=== PATIENT | male | born 1975 | race Caucasian/White ===

== ENCOUNTER 2019-01-21 01:22 | Emergency (ER) | payer OTHER ==
--- NOTE | 2019-01-21 07:09 | CT ---
ABDOMEN AND PELVIS CT NONCONTRAST: Date: 01/21/19 INDICATION: Left lower quadrant pain. No prior comparison. FINDINGS: The imaged lung bases are grossly clear. There is evidence of prior cholecystectomy. Focal hypodensit y of the lateral upper to mid right kidney is present, likely a cyst, although incompletely evaluated by noncontrast imaging. There is a region of hematoma and edema of the left proximal thigh, partiall y visualized about the anterior aspect of the left femoral vasculature. No acute osseous abnormalitie s. Evaluation otherwise limited on the basis of noncontrast technique. IMPRESSION: 1. Partially imaged hematoma with associated edema seen at the proximal left thigh. Correlate with p hysical exam. 2. Probable right renal cyst, although incompletely evaluated. This may be confirmed with renal ultr asound. 3. Evaluation otherwise limited on the basis of noncontrast technique. POS: DELROY
== END 2019-01-21 03:00 | disposition home or self-care (01) ==
LOC: ERS 01:22
DX: R10.32 Left lower quadrant pain (principal); E11.9 Type 2 diabetes mellitus without complications; I10 Essential (primary) hypertension; I25.2 Old myocardial infarction
CPT/HCPCS: 74176

== ENCOUNTER 2019-01-29 17:26 | Emergency (ER) | payer OTHER ==
[2019-01-29] MEDS ORDERED: Promethazine HCl 25 MG/ML VIAL ONE (18:19)
[2019-01-29 19:02] LABS: #Basophils 0.1 thou/uL (0.0-0.2); #Eosinphils 0.3 thou/uL (0.0-0.7); #Lymphocytes 1.3 thou/uL (1.20-3.40); #Monocytes 0.4 thou/uL (0.11-0.59); #Neutrophils 5.2 thou/uL (1.40-6.50); %Lymphocytes 17.5 % (21.0-51.0); %Monocytes 5.5 % (0.0-10.0); Hemoglobin 13.6 g/dL (14.0-18.0); Mean Corpuscular HGB CONC 32.6 g/dL (32.0-36.0); Mean Corpuscular Hemoglobin 27.4 pg (27.0-31.0); Platelet Count 260 thou/uL (130-400); RBC Distribution Width 13.7 % (11.5-14.5); Red Blood Cell (RBC) Count 4.95 mill/uL (4.70-6.10); White Blood Cell (WBC) Count 7.2 thou/uL (4.8-10.8)
[2019-01-29 19:03] LABS: Base Excess-Venous 0.5 mmol/L (-2.0 to 3.0); CO2 Tension (PvCO2) 44.4 mmHg (40.0-50.0); Calcium, Ionized 1.12 mmol/L (See Comments:); Chloride 103 mmol/L (98-107); Hemoglobin - Calc 14.3 g/dL (14.0-18.0); O2 Tension (PvO2) 54.9 mmHg (35.0-45.0); Potassium 3.8 mmol/L (3.5-5.1); Sodium 137 mmol/L (138-145); T. Carbon Dioxide 27.4 mmol/L (22.0-28.0); pH (Venous) 7.377 (7.320-7.430); vO2 Saturation-calc 87.2 % (60.0-85.0)
[2019-01-29 19:16] LABS: ALT (SGPT) 28 U/L (8-55); AST (SGOT) 22 U/L (5-34); Alkaline Phosphatase 82 U/L (40-150); Anion Gap 15 mmol/L (10-20); BUN (Urea Nitrogen) 13 mg/dL (8.9-20.6); Bilirubin, Total 0.7 mg/dL (0.2-1.2); Calc. Creatinine Clearance 0 mL/min (70-130); Calcium 9.3 mg/dL (7.8-10.44); Carbon Dioxide 21 mmol/L (22-29); Chloride 104 mmol/L (98-107); Estimated GFR-MDRD Greater than 90; Globulin 2.8 g/dL (2.4-3.5); Glucose 250 mg/dL (70-105); Lipase 10 U/L (8-78); Potassium 4.1 mmol/L (3.5-5.1); Protein, Total 6.8 g/dL (6.0-8.3); Sodium 136 mmol/L (136-145)
[2019-01-29 20:24] LABS: Bilirubin Negative (Negative); Blood, Urine Negative (Negative); Clarity Clear (Clear); Glucose, Urine (Dipstick) Negative (Negative); Leukocyte Negative (Negative); Nitrite Negative (Negative); Protein, Urine (Dipstick) Negative (Neg-Trace); Urobilinogen 0.2 mg/dL (0.2-1.0); pH, Urine 6.5 (5.0-9.0)
--- NOTE | 2019-01-29 21:34 | RAD ---
FRadiograph chest one view Radiograph abdomen 2 views: 01/29/2019 at 9:21 PM HISTORY: 43-year-old male with abdominal pain, nausea, and vomiting. FINDINGS: No consolidation or pulmonary edema. Sternotomy wires. No pneumothorax or pneumoperitoneum. No eviden ce of small bowel dilation. No differential air-fluid levels. Clips in right upper quadrant. IMPRESSION: 1. Normal bowel gas pattern. 2. Status post cholecystectomy and status post open heart surgery. 3. No acute cardiopulmonary findings.
== END 2019-01-29 22:41 | disposition home or self-care (01) ==
LOC: SCSER 17:26
DX: R11.2 Nausea with vomiting, unspecified (principal); R19.7 Diarrhea, unspecified; E10.9 Type 1 diabetes mellitus without complications; I10 Essential (primary) hypertension; I25.2 Old myocardial infarction; Z79.899 Other long term (current) drug therapy; Z79.82 Long term (current) use of aspirin; Z79.01 Long term (current) use of anticoagulants
CPT/HCPCS: 74022; 80053; 81003; 82010; 82330; 82803; 83605; 83690; 84484; 85014; 85025; 93005; 96361; 96372; 96374; J2270; J2550

== ENCOUNTER 2019-08-09 00:47 | Inpatient (IN) | payer SELFPAY ==
[2019-08-09] MEDS ORDERED: diphenhydrAMINE 50 MG/ML VIAL ONE (02:25)
[2019-08-09] MEDS ORDERED: Famotidine/PF 20 mg/2ml Vial ONE (02:25)
[2019-08-09] MEDS ORDERED: methylPREDNISolone Sod Succ/PF 125 MG/2 ML VIAL ONE (02:25)
[2019-08-09] MEDS ORDERED: Fentanyl 100 MCG/2 ML VIAL ONE (03:32)
[2019-08-09 06:02] LABS: Troponin I Less than 0.010 ng/mL (< 0.028)
[2019-08-09 06:29] VITALS: BMI 30.7
[2019-08-09] MEDS ORDERED: Dextrose 50% Abboject 50 ML SYRINGE SLOW IVP PRN (08:16)
[2019-08-09] MEDS ORDERED: HumaLOG 300 UNITS/3 ML VIAL SC PRN (08:16)
[2019-08-09] MEDS ORDERED: Dextrose 5% in Water 1,000 ML IV PRN (08:16)
[2019-08-09] MEDS ORDERED: Acetaminophen 325 MG TAB PO PRN (08:16)
[2019-08-09 08:57] LABS: #Basophils 0.1 thou/uL (0.0-0.2); #Lymphocytes 0.8 thou/uL (1.20-3.40); #Monocytes 0.1 thou/uL (0.11-0.59); #Neutrophils 6.1 thou/uL (1.40-6.50); %Basophils 0.9 % (0.0-1.0); %Eosinophils 0.2 % (0.0-10.0); %Lymphocytes 11.8 % (21.0-51.0); %Monocytes 0.6 % (0.0-10.0); %Neutrophils 86.5 % (42.0-75.0); Hemoglobin 14.3 g/dL (14.0-18.0); Mean Corpuscular HGB CONC 34.6 g/dL (32.0-36.0); Mean Corpuscular Hemoglobin 29.2 pg (27.0-31.0); Mean Corpuscular Volume 84.4 fL (78.0-98.0); Mean Platelet Volume 8.5 fL (7.4-10.4); Platelet Count 208 thou/uL (130-400); RBC Distribution Width 12.6 % (11.5-14.5); Red Blood Cell (RBC) Count 4.91 mill/uL (4.70-6.10)
[2019-08-09] MEDS ORDERED: Apixaban 5 MG TAB PO SCH (09:00)
[2019-08-09] MEDS ORDERED: Amiodarone 200 MG TAB PO SCH ×2 (09:00→11:45)
[2019-08-09] MEDS ORDERED: Aspirin 325 MG TAB PO SCH ×2 (09:00→11:45)
[2019-08-09] MEDS: Morphine 4 MG/ML VIAL SLOW IVP PRN ×2 (09:03→13:10)
--- NOTE | 2019-08-09 09:08 | CT ---
PRELIMINARY REPORT/[facility]/EMERGENCY AFTER HOURS PROCEDURE: PROCEDURE INFORMATION: Exam: CT Angiography Chest With Contrast Exam date and time: 08/09/2019 3:01 AM Clinical history: 44 years old, male; Abdominal pain; Generalized; Patient HX: M44 tfr to ED for ches t pain. PT reports mid chest pain that radiates into back and now abdomen. PT reports pain began yest erday, intermittent, then became worse and constant. Hx- multiple blood clots in lungs, 4-5 months ago, likely due to multiple surgeries; [place] May last year; 6 stents in heart, last about a y ear ago. TECHNIQUE: Imaging protocol: Computed tomographic angiography of the chest with intravenous contrast. 3D rendering: MIP reconstructed images were created and reviewed. COMPARISON: No relevant prior studies available. FINDINGS: Pulmonary arteries: Normal. No pulmonary emboli. Aorta: Unremarkable. No aortic aneurysm. No aortic dissection. Lungs: Unremarkable. No consolidation. No masses. Pleural space: Unremarkable. No pneumothorax. No pleural effusion. Heart: Coronary artery stents Lymph nodes: Unremarkable. No enlarged lymph nodes. Bones/joints: Midline median sternotomy wires are present. Soft tissues: The soft tissues of the axilla, neck and chest wall are unremarkable. IMPRESSION: No evidence of pulmonary embolus. No evidence of acute pulmonary pathology. PROCEDURE INFORMATION: Exam: CT Angiography Abdomen With Contrast Exam date and time: 08/09/2019 3:01 AM Clinical history: 44 years old, male; Abdominal pain; Generalized; Patient HX: M44 tfr to ED for ches t pain. PT reports mid chest pain that radiates into back and now abdomen. PT reports pain began yest erday, intermittent, then became worse and constant. Hx- multiple blood clots in lungs, 4-5 months ago, likely due to multiple surgeries; Bipass May last year; 6 stents in heart, last about a y ear ago. TECHNIQUE: Imaging protocol: Computed tomographic angiography images of the abdomen with intravenous contrast ma terial. 3D rendering: MIP reconstructed images were created and reviewed. COMPARISON: No relevant prior studies available. FINDINGS: VASCULATURE: Aorta: No aortic aneurysm. No aortic dissection. Celiac trunk and mesenteric arteries: No occlusion or significant stenosis. Renal arteries: No occlusion or significant stenosis. ABDOMEN: Liver: Normal. No mass. Gallbladder and bile ducts: Normal. No calcified stones. No ductal dilation. Pancreas: Normal. No ductal dilation. Spleen: Normal. No splenomegaly. Adrenals: Normal. No mass. Kidneys and ureters: Simple right renal cyst Stomach and bowel: Unremarkable. No obstruction. No mucosal thickening. Intraperitoneal space: Unremarkable. No free air. No significant fluid collection. Bones/joints: Unremarkable. No acute fracture. No dislocation. Soft tissues: Unremarkable. Lymph nodes: Unremarkable. No enlarged lymph nodes. IMPRESSION: Unremarkable CT scan of the abdomen. Thank you for allowing us to participate in the care of your patient. Dictated and Authenticated by: Hari Olivera MD 08/09/2019 3:28 AM Central Time ([place] & [place]) FINAL REPORT CT CHEST WITH IV CONTRAST AND 3D POSTPROCESSING CTA ABDOMEN WITH IV CONTRAST AND 3D POSTPROCESSING: I agree with the preliminary report given by Dr. Hari Olivera of [facility]. No evidence of aortic dissect ion or aneurysm is seen. POS: TPC
[2019-08-09 09:18] LABS: Anion Gap 20 mmol/L (10-20); BUN (Urea Nitrogen) 15 mg/dL (8.9-20.6); Calc. Creatinine Clearance 126 mL/min (70-130); Carbon Dioxide 17 mmol/L (22-29); Chloride 104 mmol/L (98-107); Estimated GFR-MDRD 75; Glucose 499 mg/dL (70-105); Potassium 4.4 mmol/L (3.5-5.1); Sodium 137 mmol/L (136-145)
[2019-08-09 09:21] LABS: Troponin I Less than 0.010 ng/mL (< 0.028)
[2019-08-09] MEDS ORDERED: Nitroglycerin 0.4 MG TAB (25 Tab Bottle) ONE (09:27)
[2019-08-09] MEDS ORDERED: Metoprolol Tartrate 5 MG/5 ML VIAL ONE (09:47)
[2019-08-09] MEDS ORDERED: Nitroglycerin 50 MG/250 ML BOT 250 ML ONE (09:55)
[2019-08-09] MEDS: Metoprolol Tartrate 5 MG/5 ML VIAL IVP SCH (10:31)
[2019-08-09] MEDS ORDERED: Iopamidol 370 76% 100 ML VIAL ONE (10:47)
[2019-08-09] MEDS: Morphine 2 MG/ML SYRINGE SLOW IVP PRN ×5 (11:00→23:40)
--- NOTE | 2019-08-09 11:37 | HP ---
PRIMARY CARE PHYSICIAN: None. CHIEF COMPLAINT: Chest pain. HISTORY OF PRESENT ILLNESS: Mr. Olea is a 44-year-old man with past medical history of hypertension, coronary artery disease status post CABG x4 vessels and cardiac stents x6, diabetes mellitus type 1, previous pulmonary emboli and DVTs, and TIA x3, who had been transferred to this hospital from an outside [facility] late last night due to chest pain and hyperglycemia. The patient reports blood sugars over the last 2 days being greater than 700. He also reports chest pain, shortness of breath, nausea, and dizziness, as well as palpitations. He was given nitroglycerin and fentanyl in the ED, which had seemed to help with his symptoms. He also reports a history of atrial fibrillation, which he was found to be in sinus tachycardia on the monitor. The patient recently moved here from [place], however, was not able to tell me his previous surface boss name. Currently, the patient denied fever, chills, blurred vision, or change in stool. So far, his cardiac enzymes have been negative x3, and his blood sugars have been trending down in the 400s. REVIEW OF SYSTEMS: All other systems reviewed and found to be negative unless mentioned in HPI. PAST MEDICAL HISTORY: Hypertension, coronary artery disease, TIA x3, previous PE and DVTs, diabetes mellitus type 1, [place] x4. PAST SURGICAL HISTORY: Back fusion, coronary artery bypass graft surgery x4 vessels, cardiac stents x6, appendectomy, cholecystectomy, bladder expansion. PSYCHIATRIC HISTORY: None. SOCIAL HISTORY: The patient denies alcohol, tobacco, or illicit drug use. KNOWN ALLERGIES: Zosyn, Zofran, Toradol, Reglan, and Bentyl. CURRENT HOME MEDICATIONS: 1. Aspirin 81 mg daily. 2. Plavix 75 mg oral daily. 3. Eliquis 5 mg oral twice daily. 4. Ambien 10 mg oral at bedtime. 5. Gabapentin 600 mg 3 times daily. 6. Lantus 105 units daily? 7. NovoLog insulin sliding scale 15 units t.i.d. PHYSICAL EXAMINATION: VITAL SIGNS: Blood pressure 118/75, pulse 115, respirations 18, temperature 98.1, O2 saturation 92% on room air. GENERAL: The patient is awake, alert, and oriented x3. He is currently lying in bed and in [id number] distress due to chest pain. HEENT: Atraumatic and normocephalic. Pupils are round and reactive to light. Extraocular muscles intact. Moist mucous membranes noted. NECK: Soft and supple. Trachea midline. CARDIOVASCULAR: Positive S1 and S2. No murmur auscultated. RESPIRATORY: Clear to auscultation bilaterally. No wheezes, rales, or rhonchi. ABDOMEN: Soft, nontender. Bowel sounds present. EXTREMITIES: Moves all extremities equal. Pedal and radial pulses 2+ bilaterally. No edema noted. NEUROLOGIC: Cranial nerves 2 through 12 grossly intact. No focal deficits noted. Speech intact and normal. Gait not assessed. SKIN: Warm, dry, and intact. No rash. No ulceration noted. PSYCHIATRIC: Good mood and affect. LABORATORY DATA: WBC 7.0, RBC 4.91, hemoglobin 14.3, hematocrit 41.4, platelets 208. Sodium 137, potassium 4.4, anion gap 20, BUN 15, creatinine 1.08, estimated GFR 75, glucose 499. Magnesium 2.0. Troponin less than 0.010 x3. TSH 0.6571. DIAGNOSTIC IMAGING: Portable chest x-ray showed no focal consolidation. CTA of the chest showed no signs of PE and no evidence of acute pulmonary pathology with no signs of aneurysm or aortic dissection noted. ASSESSMENT AND PLAN: 1. Unstable angina due to patient's cardiac history. A consult will be placed for Dr. Dobbins, Cardiology. We will also try to obtain records from his previous hospital system in [place] as the patient is unable to tell me the surface boss's name. 2. History of hypertension. We will try to obtain the patient's medication list records and monitor blood pressure and other vital signs closely. 3. Diabetes mellitus, type 1. This looks to be uncontrolled diabetes. We will add as above, and try to confirm patient's home medications and dosages. In the meantime, we will continue with an insulin sliding scale with frequent Accu-Cheks and add his home regimen once they were verified. 4. History of coronary artery disease, status post coronary artery bypass graft and 6 stents. Cardiology Services will be consulted. 5. History of atrial fibrillation. The patient states that he takes amiodarone and Eliquis at home. This will likely be restarted, and we will monitor for any further signs of atrial fibrillation at this time. 6. Deep venous thrombosis and gastrointestinal prophylaxis. 7. Code status, full code. DISPOSITION: Pending further workup and clinical findings and patient's progress. Job ID: [id number]
[2019-08-09] MEDS ORDERED: Clopidogrel Bisulfate 75 MG TAB PO SCH (11:45)
[2019-08-09] MEDS: Clopidogrel Bisulfate 75 MG TAB PO SCH (11:51)
[2019-08-09] MEDS: HumaLOG 300 UNITS/3 ML VIAL SC PRN ×2 (12:58→15:18)
[2019-08-09] MEDS ORDERED: Metoprolol Tartrate 50 MG TAB PO SCH ×2 (13:15→21:00)
[2019-08-09] MEDS ORDERED: Insulin Glargine 55 UNITS in Pre-Filled Syringe 1 EACH SC SCH (13:45)
[2019-08-09] MEDS ORDERED: Nitroglycerin 50 MG/250 ML BOT 250 ML IVPB SCH (15:30)
[2019-08-09] MEDS: HumaLOG 300 UNITS/3 ML VIAL SC SCH (17:33)
--- NOTE | 2019-08-09 20:14 | CON ---
DATE OF CONSULTATION: TIME: Two hours. HISTORY OF PRESENT ILLNESS: This patient is an unfortunate 44-year-old gentleman with a history of coronary artery disease, status post coronary artery bypass graft surgery, who presented with recurrent chest discomfort. The patient previously underwent coronary artery bypass graft surgery x4. He states he has some multiple stents placed. He also has a history of pulmonary emboli. The patient also suffered a previous TIA. The patient unfortunately has not had close cardiac followup. He was in his usual state of health when he presented with recurrent chest discomfort. The patient reports persistent midsternal chest discomfort. PAST MEDICAL HISTORY: 1. Coronary artery disease. 2. Hypertension. 3. Pulmonary embolus. 4. Diabetes mellitus. PAST SURGICAL HISTORY: He has had a back surgery, coronary artery bypass surgery, appendectomy, cholecystectomy. SOCIAL HISTORY: Nonsmoker. ALLERGIES: HE IS ALLERGIC TO REGLAN, BENTYL, ZOFRAN, AND ZOSYN. HE IS ALSO ALLERGIC TO IODINE. MEDICATIONS ON ADMISSION: 1. Aspirin 81 daily. 2. Plavix 75 daily. 3. Eliquis 5 b.i.d. 4. Ambien 10 daily. 5. Gabapentin 600 t.i.d. 6. Insulin. PHYSICAL EXAMINATION: GENERAL: Anxious gentleman. VITAL SIGNS: Blood pressure of 125/80. NECK: No jugular distention. LUNGS: Clear to auscultation. HEART: Regular rate and rhythm. Normal S1 and S2. ABDOMEN: Nondistended. EXTREMITIES: Show no edema. VASCULAR: Radial pulses are 2+. LABORATORY DATA: Sodium 137, potassium 4.4, chloride 104, bicarbonate 17, BUN 15, creatinine 1.08, glucose 409. Troponin was less than 0.01. His EKG revealed sinus tachycardia, otherwise normal ECG. IMPRESSION: 1. Chest pain. 2. History of coronary artery bypass graft surgery x4. 3. History of pulmonary embolus. 4. Diabetes mellitus. 5. Obesity. This gentleman presents with recurrent chest discomfort. He has had multiple electrocardiograms that showed no acute ST-T wave changes. Cardiac enzymes revealed no evidence of myocardial infarction despite persistent midsternal chest discomfort. From a cardiac standpoint, we will try to obtain records from the patient's lead sharepoint developer and cardiac surgeon. The patient has been transferred to the ICU. Further recommendation will follow. Job ID: [id number]
[2019-08-09] MEDS ORDERED: Non-Formulary Item 1 EACH (Insulin Glargine,Hum.Rec.Anlog [Basaglar Kwikpen U-100] 50 UNI SQ SCH (21:00)
[2019-08-09] MEDS ORDERED: Rosuvastatin 10 MG TAB PO SCH (21:00)
[2019-08-09] MEDS ORDERED: Atorvastatin Calcium 40 MG TAB PO SCH (21:00)
--- NOTE | 2019-08-09 21:17 | CON ---
DATE OF CONSULTATION: 08/09/2019 HISTORY OF PRESENT ILLNESS: Mr. Olea is a 44-year-old male who has undergone coronary artery bypass grafting at [facility] in [place]. He has also had coronary stenting done down there. He said most of his chest pain in the past was right-sided, but the admission leading up to his bypass surgery was associated with jaw pain that he was blaming on what he thought was a tooth abscess. He said this pain is different. It has been continuous all morning. He gets some relief from morphine. PAST MEDICAL HISTORY: 1. Remarkable for hypertension. 2. History of diabetes. 3. History of deep venous thrombosis and pulmonary emboli. 4. History of TIAs in the past. 5. He is formally followed by Dr. Carmona at [facility]. PAST SURGICAL HISTORY: Remarkable for back surgery and appendectomy and cholecystectomy in the past. SOCIAL HISTORY: He is nonsmoker, nondrinker. 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 ALLERGIES: HE REPORTS ALLERGIES TO PENICILLIN, ZOFRAN, TORADOL, REGLAN AND BENTYL. MEDICATIONS: Prior to admission, he is on aspirin, Plavix, Eliquis, Ambien, gabapentin, Lantus and NovoLog. REVIEW OF SYSTEMS: 10 point review of systems completed, otherwise negative. FAMILY: Non contributory. PHYSICAL EXAMINATION: GENERAL: He is in no distress and actually during my interview was able to get him to laugh and converse freely, although when I first walked in the room, he was grunting stating he was having significant pain. VITAL SIGNS: His blood pressure 107/64, heart rate is 88, respiratory rate is 20, oximetry is 97%. HEENT: Pupils are equal. Sclerae anicteric. NECK: Supple. No lymphadenopathy. LUNGS: Clear. HEART: Regular rhythm. No S3. ABDOMEN: Soft and nontender. EXTREMITIES: Without clubbing, cyanosis, or edema. NEURO: Nonfocal. LABORATORY DATA: White count 7, hemoglobin 14.3, platelets 208. Sodium 137, potassium 4.4, chloride 104, bicarb 17, BUN 15, creatinine 1.08, glucose was 499 this morning. Anion gap was 16 this morning. Glucose was 569 last night at 1055 hours. IMPRESSION: Chest discomfort with normal troponins that is prolonged and atypical for cardiac chest discomfort. His EKG is not suggestive of pericarditis. He is anticoagulated, so pain from thromboembolic disease is unlikely and there is nothing on CT angiogram that suggests that he has a pneumonia that could give him any type of pleuritic chest discomfort. I would be happy to follow the other physicians caring for him. He has had multiple EKGs that do not show any clear-cut evidence of ischemia and normal troponins. He is anticoagulated with Eliquis, says he is compliant with his medication. TIME SPENT: This is a 70-minute consult, with greater than 50% of the time spent on the unit coordinating care. Job ID: [id number] MTDD
[2019-08-09] MEDS: Famotidine 20 MG TAB PO SCH (21:38)
[2019-08-09] MEDS: Enoxaparin Sodium 100 MG/ML SYRINGE SC SCH (21:38)
[2019-08-09] MEDS: Metoprolol Tartrate 50 MG TAB PO SCH (21:38)
[2019-08-09] MEDS: diphenhydrAMINE 25 MG CAP PO SCH (21:38)
[2019-08-09] MEDS: Insulin Glargine 50 UNITS in Pre-Filled Syringe 1 EACH SC SCH (21:39)
[2019-08-10] MEDS: Morphine 2 MG/ML SYRINGE SLOW IVP PRN ×8 (02:56→21:48)
[2019-08-10 06:16] LABS: #Basophils 0.1 thou/uL (0.0-0.2); #Lymphocytes 1.7 thou/uL (1.20-3.40); #Monocytes 0.6 thou/uL (0.11-0.59); #Neutrophils 8.3 thou/uL (1.40-6.50); %Basophils 0.5 % (0.0-1.0); %Eosinophils 0.3 % (0.0-10.0); %Monocytes 5.7 % (0.0-10.0); %Neutrophils 77.5 % (42.0-75.0); Hemoglobin 13.4 g/dL (14.0-18.0); Mean Corpuscular HGB CONC 33.7 g/dL (32.0-36.0); Mean Corpuscular Hemoglobin 28.9 pg (27.0-31.0); Mean Corpuscular Volume 85.7 fL (78.0-98.0); Mean Platelet Volume 8.3 fL (7.4-10.4); Platelet Count 230 thou/uL (130-400); RBC Distribution Width 12.7 % (11.5-14.5); Red Blood Cell (RBC) Count 4.64 mill/uL (4.70-6.10); White Blood Cell (WBC) Count 10.8 thou/uL (4.8-10.8)
[2019-08-10 06:36] LABS: Anion Gap 11 mmol/L (10-20); BUN (Urea Nitrogen) 18 mg/dL (8.9-20.6); Calc. Creatinine Clearance 144 mL/min (70-130); Calcium 8.8 mg/dL (7.8-10.44); Carbon Dioxide 26 mmol/L (22-29); Cardiac Risk 6.9 (Less than 4.5); Chloride 105 mmol/L (98-107); Cholesterol 255 mg/dl (< 200 Desired); Estimated GFR-MDRD 88; Glucose 346 mg/dL (70-105); HDL Cholesterol 37 mg/dL (>60 Neg Risk); LDL Cholesterol, Calculated 173 mg/dL; Potassium 4.1 mmol/L (3.5-5.1); Sodium 138 mmol/L (136-145); Triglycerides 224 mg/dL (Less than 150)
[2019-08-10] MEDS: Metoprolol Tartrate 50 MG TAB PO SCH ×2 (08:18→21:40)
[2019-08-10] MEDS: Aspirin Chewable 81 MG TAB PO SCH (08:18)
[2019-08-10] MEDS: Clopidogrel Bisulfate 75 MG TAB PO SCH (08:18)
[2019-08-10] MEDS: Amiodarone 200 MG TAB PO SCH (08:18)
[2019-08-10] MEDS: Famotidine 20 MG TAB PO SCH ×2 (08:18→21:40)
[2019-08-10] MEDS: diphenhydrAMINE 25 MG CAP PO SCH ×3 (08:18→21:40)
[2019-08-10] MEDS: predniSONE 20 MG TAB PO SCH ×3 (08:19→21:40)
[2019-08-10] MEDS: Enoxaparin Sodium 100 MG/ML SYRINGE SC SCH ×2 (08:19→21:40)
[2019-08-10] MEDS: HumaLOG 300 UNITS/3 ML VIAL SC SCH ×3 (08:26→19:09)
[2019-08-10] MEDS ORDERED: Amiodarone 200 MG TAB PO SCH (09:00)
[2019-08-10] MEDS ORDERED: INSULIN GLARGINE HUM REC ANLOG SQ SCH (09:00)
[2019-08-10] MEDS ORDERED: Insulin Glargine 55 UNITS in Pre-Filled Syringe 1 EACH SC SCH (09:00)
[2019-08-10] MEDS ORDERED: Rosuvastatin 10 MG TAB PO SCH (09:00)
[2019-08-10] MEDS ORDERED: [UNRECOGNIZED DRUG - OTHER] SQ SCH (09:00)
[2019-08-10] MEDS ORDERED: Communication Order-Pharmacy FS SCH (10:00)
[2019-08-10] MEDS: HumaLOG 300 UNITS/3 ML VIAL SC PRN (10:10)
--- NOTE | 2019-08-10 17:03 | PDOC.HOSPP ---
- Subjective Encounter Date: 08/10/19 Encounter Time: 12:20 Subjective: has off and on chest pain in the retrosternal area radiating to right shoulder no sob, some dry cough - Objective Vital Signs & Weight: Vital Signs (12 hours) Temp Pulse Ox 08/10/19 12:53 97 F L 08/10/19 07:46 98.2 F 08/10/19 07:42 99 Weight Weight 220 lb Most Recent Monitor Data Heart Rate from ECG 76 NIBP 120/73 NIBP BP-Mean 88 Respiration from ECG 15 SpO2 98 I&O: 08/09/19 08/10/19 08/11/19 06:59 06:59 06:59 Intake Total 613.2 3616.4 Output Total 1600 2100 Balance -986.8 1516.4 Result Diagrams: 08/10/19 06:00 08/10/19 06:00 Additional Labs: Accuchecks 08/10/19 08/10/19 08/09/19 15:19 10:11 21:38 POC Glucose 117 H 325 H 263 H 08/09/19 17:35 POC Glucose 294 H Hospitalist ROS - Medication Medications: Active Medications Generic Name Dose Route Start Last Admin Trade Name Freq PRN Reason Stop Dose Admin Amiodarone HCl 200 mg 08/10/19 09:00 08/10/19 08:18 Cordarone PO 200 mg QAM LUIS Administration Aspirin 81 mg 08/10/19 09:00 08/10/19 08:18 Aspirin Chewable PO 81 mg DAILY LUIS Administration Clopidogrel Bisulfate 75 mg 08/09/19 09:00 08/10/19 08:18 Plavix PO 75 mg DAILY LUIS Administration Diphenhydramine HCl 25 mg 08/09/19 21:00 08/10/19 14:04 Benadryl PO 25 mg TID LUIS Administration Enoxaparin Sodium 100 mg 08/09/19 21:00 08/10/19 08:19 Lovenox SC 08/10/19 23:59 100 mg 0900,2100 LUIS Administration Famotidine 20 mg 08/09/19 21:00 08/10/19 08:18 Pepcid PO 20 mg BID LUIS Administration Insulin Glargine 50 units/ 0.5 mls @ 0 mls/hr 08/09/19 21:00 08/09/19 21:39 Miscellaneous Medication SC 0.5 mls HS LUIS Administration Insulin Glargine 55 units/ 0.55 mls @ 0 mls/hr 08/10/19 09:00 08/10/19 08:26 Miscellaneous Medication SC 08/11/19 06:00 0.55 mls QAM LUIS Administration Insulin Human Lispro 0 units 08/09/19 08:16 08/10/19 10:10 Humalog SC 08/11/19 06:00 8 units .MODERATE SLIDING SC PRN Administration Moderate Correctional Scale Insulin Human Lispro 0 units 08/09/19 08:16 08/09/19 21:37 Humalog SC 08/11/19 06:00 3 unit .BEDTIME SLIDING SC PRN Administration Bedtime Correctional Scale Insulin Human Lispro 25 units 08/09/19 17:00 08/10/19 11:26 Humalog SC 08/11/19 06:00 25 units TID-WM LUIS Administration Metoprolol Tartrate 50 mg 08/09/19 21:00 08/10/19 08:18 Lopressor PO 50 mg BID LUIS Administration Morphine Sulfate 2 mg 08/09/19 13:10 08/10/19 16:45 Morphine SLOW IVP 2 mg Q1H PRN Administration Pain Prednisone 20 mg 08/10/19 09:00 08/10/19 14:04 Prednisone PO 20 mg TID LUIS Administration Ranolazine 500 mg 08/09/19 21:00 08/10/19 08:24 Ranexa PO 500 mg BID LUIS Administration - Exam General Appearance: NAD, awake alert Eye: PERRL, anicteric sclera ENT: no oropharyngeal lesions, moist mucosa Neck: supple, no JVD Heart: RRR, no murmur Respiratory: no wheezes, no rales Gastrointestinal: soft, non-tender, non-distended, normal bowel sounds Extremities: no cyanosis, no edema Neurological: cranial nerve grossly intact, no focal deficits Psychiatric: normal affect, A&O x 3 Hosp A/P (1) Unstable angina Status: Acute (2) CAD (coronary artery disease) Code(s): I25.10 - ATHSCL HEART DISEASE OF [place] CORONARY ARTERY W/O ANG PCTRS Status: Chronic Qualifiers: Coronary Disease-Associated Artery/Lesion type: bypass graft [place] vs. transplanted heart: [place] heart Associated angina: with unstable angina Qualified Code(s): I25.700 - Atherosclerosis of coronary artery bypass graft(s) , unspecified, with unstable angina pectoris (3) HTN (hypertension) Code(s): I10 - ESSENTIAL (PRIMARY) HYPERTENSION Status: Chronic Qualifiers: Hypertension type: essential hypertension Qualified Code(s): I10 - Essential (primary) hypertension (4) Dyslipidemia Code(s): E78.5 - HYPERLIPIDEMIA, UNSPECIFIED Status: Chronic (5) DM type 2 (diabetes mellitus, type 2) Status: Chronic Qualifiers: Diabetes mellitus detention insulin use: with detention use (6) Obesity (BMI 30.0-34.9) Code(s): E66.9 - OBESITY, UNSPECIFIED Status: Chronic (7) History of pulmonary embolism Code(s): Z86.711 - PERSONAL HISTORY OF PULMONARY EMBOLISM Status: Chronic (8) Paroxysmal A-fib Code(s): I48.0 - PAROXYSMAL ATRIAL FIBRILLATION Status: Chronic - Plan is on full dose lovenox 100mg sc q12h, LDL is 173 on amiodarone, asp, plavix, crestor increased to 40mg, lantus, lopressor, ranexa prednisone for iodine allergy, will watch for increases in glucose, if >600 then start insulin drip as pt is already on high dose of lantus echo is pending for cath in am will f/u, oob to chair and ambulate in room as tolerated
[2019-08-10] MEDS: Rosuvastatin 20 MG TAB PO SCH (21:39)
[2019-08-10] MEDS: Insulin Glargine 50 UNITS in Pre-Filled Syringe 1 EACH SC SCH (21:40)
[2019-08-11] MEDS: Morphine 2 MG/ML SYRINGE SLOW IVP PRN ×5 (00:11→23:34)
[2019-08-11 05:39] LABS: #Lymphocytes 1.2 thou/uL (1.20-3.40); #Monocytes 0.3 thou/uL (0.11-0.59); #Neutrophils 10.7 thou/uL (1.40-6.50); %Eosinophils 0.1 % (0.0-10.0); %Lymphocytes 9.7 % (21.0-51.0); %Monocytes 2.4 % (0.0-10.0); %Neutrophils 87.7 % (42.0-75.0); Hemoglobin 14.5 g/dL (14.0-18.0); Mean Corpuscular HGB CONC 33.4 g/dL (32.0-36.0); Mean Corpuscular Hemoglobin 28.7 pg (27.0-31.0); Mean Corpuscular Volume 86.1 fL (78.0-98.0); Mean Platelet Volume 8.3 fL (7.4-10.4); Platelet Count 269 thou/uL (130-400); RBC Distribution Width 12.8 % (11.5-14.5); Red Blood Cell (RBC) Count 5.07 mill/uL (4.70-6.10); White Blood Cell (WBC) Count 12.1 thou/uL (4.8-10.8)
[2019-08-11 06:03] LABS: Anion Gap 11 mmol/L (10-20); BUN (Urea Nitrogen) 17 mg/dL (8.9-20.6); Calc. Creatinine Clearance 143 mL/min (70-130); Calcium 9.1 mg/dL (7.8-10.44); Carbon Dioxide 27 mmol/L (22-29); Chloride 100 mmol/L (98-107); Estimated GFR-MDRD 87; Glucose 342 mg/dL (70-105); Sodium 134 mmol/L (136-145)
[2019-08-11] MEDS: Famotidine 20 MG TAB PO SCH (08:00)
[2019-08-11] MEDS: Metoprolol Tartrate 50 MG TAB PO SCH ×2 (08:00→20:06)
[2019-08-11] MEDS: diphenhydrAMINE 25 MG CAP PO SCH ×2 (08:00→14:21)
[2019-08-11] MEDS: Amiodarone 200 MG TAB PO SCH (08:00)
[2019-08-11] MEDS: predniSONE 20 MG TAB PO SCH ×2 (08:00→14:21)
[2019-08-11] MEDS: Aspirin Chewable 81 MG TAB PO SCH (08:01)
[2019-08-11] MEDS: Clopidogrel Bisulfate 75 MG TAB PO SCH (08:01)
[2019-08-11] MEDS ORDERED: Lidocaine 1% (PF) 30 ML VIAL ONE (08:51)
[2019-08-11] MEDS ORDERED: Midazolam HCl 2 mg/2 ml Vial ONE ×2 (08:51→09:26)
[2019-08-11] MEDS ORDERED: Fentanyl 100 MCG/2 ML VIAL ONE (09:08)
--- NOTE | 2019-08-11 09:44 | PRG ---
DATE OF SERVICE: 08/10/2019 SUBJECTIVE: No complaints. He is still having some chest discomfort. He is tentatively on the schedule for cardiac catheterization on . Hemodynamics have been stable. OBJECTIVE: LUNGS: Clear. HEART: Regular rhythm. ABDOMEN: Soft. EXTREMITIES: Without edema. IMPRESSION: Chest pain that clinically appears to be noncardiac chest discomfort. He has received steroids with no improvement of his discomfort. It is not felt to be pleuritic, thromboembolic, or pericarditis. We will continue to follow while he is in the Critical Care Unit. Job ID: [id number]
[2019-08-11] MEDS ORDERED: Sodium Chloride 0.9% 200 ML IV PRN (09:48)
[2019-08-11] MEDS ORDERED: HumaLOG 300 UNITS/3 ML VIAL SC PRN (12:39)
[2019-08-11] MEDS: HumaLOG 300 UNITS/3 ML VIAL SC PRN ×2 (12:45→15:23)
[2019-08-11] MEDS: Acetaminophen/Codeine 30-300mg Tablet PO PRN ×2 (12:47→17:06)
--- NOTE | 2019-08-11 12:57 | PDOC.HOSPP ---
- Subjective Encounter Date: 08/11/19 Encounter Time: 12:00 Subjective: no chest pain or sob had cath this am, right femoral approach - Objective Vital Signs & Weight: Vital Signs (12 hours) Temp Pulse Ox 08/11/19 12:00 98 F 08/11/19 11:00 98 F 08/11/19 10:00 98 F 08/11/19 07:40 97 08/11/19 04:00 97.8 F 08/11/19 02:16 98 Weight Weight 220 lb Most Recent Monitor Data Heart Rate from ECG 78 NIBP 121/72 NIBP BP-Mean 88 Respiration from ECG 16 SpO2 98 I&O: 08/10/19 08/11/19 08/12/19 06:59 06:59 06:59 Intake Total 613.2 5014.5 0 Output Total 1600 4200 0 Balance -986.8 814.5 0 Result Diagrams: 08/11/19 05:20 08/11/19 05:20 Additional Labs: Accuchecks 08/11/19 08/11/19 08/10/19 12:03 05:24 21:45 POC Glucose 270 H 314 H 321 H 08/10/19 08/10/19 19:10 15:19 POC Glucose 286 H 117 H Hospitalist ROS - Medication Medications: Active Medications Generic Name Dose Route Start Last Admin Trade Name Freq PRN Reason Stop Dose Admin Acetaminophen/Codeine Phosphate 2 tab 08/11/19 09:48 08/11/19 12:47 Tylenol #3 PO 2 tab Q4H PRN Administration Moderate Pain (4-6) Amiodarone HCl 200 mg 08/10/19 09:00 08/11/19 08:00 Cordarone PO 200 mg QAM LUIS Administration Aspirin 81 mg 08/10/19 09:00 08/11/19 08:01 Aspirin Chewable PO Not Given DAILY LUIS Clopidogrel Bisulfate 75 mg 08/09/19 09:00 08/11/19 08:01 Plavix PO Not Given DAILY LUIS Diphenhydramine HCl 25 mg 08/09/19 21:00 08/11/19 08:00 Benadryl PO 25 mg TID LUIS Administration Famotidine 20 mg 08/09/19 21:00 08/11/19 08:00 Pepcid PO 20 mg BID LUIS Administration Insulin Glargine 50 units/ 0.5 mls @ 0 mls/hr 08/09/19 21:00 08/10/19 21:40 Miscellaneous Medication SC 0.5 mls HS LUIS Administration Insulin Human Lispro 0 units 08/11/19 12:39 08/11/19 12:45 Humalog SC 6 unit .MODERATE SLIDING SC PRN Administration Moderate Correctional Scale Metoprolol Tartrate 50 mg 08/09/19 21:00 08/11/19 08:00 Lopressor PO 50 mg BID LUIS Administration Morphine Sulfate 2 mg 08/09/19 13:10 08/11/19 05:15 Morphine SLOW IVP 2 mg Q1H PRN Administration Pain Prednisone 20 mg 08/10/19 09:00 08/11/19 08:00 Prednisone PO 20 mg TID LUIS Administration Rosuvastatin Calcium 40 mg 08/10/19 10:01 08/10/19 21:39 Crestor PO 40 mg HS LUIS Administration - Exam General Appearance: NAD, awake alert Eye: PERRL, anicteric sclera ENT: no oropharyngeal lesions, moist mucosa Neck: supple, no JVD Heart: RRR, no murmur Respiratory: no wheezes, no rales Gastrointestinal: soft, non-tender, non-distended, normal bowel sounds Extremities: no cyanosis, no edema Neurological: cranial nerve grossly intact, no focal deficits Psychiatric: normal affect, A&O x 3 Hosp A/P (1) Unstable angina Status: Resolved (2) CAD (coronary artery disease) Code(s): I25.10 - ATHSCL HEART DISEASE OF [place] CORONARY ARTERY W/O ANG PCTRS Status: Chronic Qualifiers: Coronary Disease-Associated Artery/Lesion type: bypass graft [place] vs. transplanted heart: [place] heart Associated angina: with unstable angina Qualified Code(s): I25.700 - Atherosclerosis of coronary artery bypass graft(s) , unspecified, with unstable angina pectoris (3) HTN (hypertension) Code(s): I10 - ESSENTIAL (PRIMARY) HYPERTENSION Status: Chronic Qualifiers: Hypertension type: essential hypertension Qualified Code(s): I10 - Essential (primary) hypertension (4) Dyslipidemia Code(s): E78.5 - HYPERLIPIDEMIA, UNSPECIFIED Status: Chronic (5) DM type 2 (diabetes mellitus, type 2) Status: Chronic Qualifiers: Diabetes mellitus intermission coordinator insulin use: with prison use (6) Obesity (BMI 30.0-34.9) Code(s): E66.9 - OBESITY, UNSPECIFIED Status: Chronic (7) History of pulmonary embolism Code(s): Z86.711 - PERSONAL HISTORY OF PULMONARY EMBOLISM Status: Chronic (8) Paroxysmal A-fib Code(s): I48.0 - PAROXYSMAL ATRIAL FIBRILLATION Status: Chronic - Plan cath showed occluded rca graft and atretic obtuse marginal 1 graft, pedro to lad is patent. Is on nitroglycerin drip now LDL is 173, on crestor 40mg daily on amiodarone, asp, plavix, crestor, lantus, lopressor, ranexa prednisone for iodine allergy, will watch for increases in glucose, if >600 then start insulin drip as pt is already on high dose of lantus start tapering prednisone if ok with cardiology and dc by am. echo shows normal ef. dc plan per cardiology adv. oob to chair and ambulate as tolerated after cath protocol may tx to telemetry if ok with cardiology once he is off nitro drip
--- NOTE | 2019-08-11 14:10 | PRG ---
DATE OF SERVICE: 08/11/2019 SUBJECTIVE: Gareth Olea continues to have chest discomfort. Echocardiogram yesterday showed normal left ventricular systolic function catheterization. He has a 70% left main lesion, diffusely diseased LAD, stent in the mid LAD, 70% proximal LAD lesion, 100% mid LAD stenosis, diffusely diseased circumflex with a 70% stenosis in the proximal circumflex diffusely, proximal right coronary 50% lesion artery. His graft to his distal right coronary is occluded. The ARIAS graft according to the note is patent, graft to the first obtuse marginal according to the note and there is graft to the distal right coronary. It is unclear at this time with recommendations will be to me, so it is unclear to me at this time with the recommendations will be. OBJECTIVE: VITAL SIGNS: Stable. . LABORATORY DATA: White count 12.1, hemoglobin 14.5, platelets 269,000. Electrolytes normal. Glucose 342. IMPRESSION: 1. Coronary artery disease. 2. History of coronary stenting. 3. History of coronary artery bypass grafting. 4. Diabetes. 5. Ongoing chest discomfort. I am not sure it is explained by his cath results. We will continue to follow. Job ID: [id number]
[2019-08-11] MEDS: HumaLOG 300 UNITS/3 ML VIAL SC SCH (17:02)
[2019-08-11] MEDS: Insulin Glargine 50 UNITS in Pre-Filled Syringe 1 EACH SC SCH (20:06)
[2019-08-11] MEDS: Rosuvastatin 20 MG TAB PO SCH (20:07)
[2019-08-11] MEDS ORDERED: Iopamidol 370 76% 100 ML VIAL ONE (20:19)
[2019-08-11] MEDS ORDERED: Zolpidem Tartrate 5 MG TAB PO PRN (21:11)
[2019-08-12] MEDS: Acetaminophen/Codeine 30-300mg Tablet PO PRN ×4 (02:58→19:23)
[2019-08-12] MEDS: Morphine 2 MG/ML SYRINGE SLOW IVP PRN ×5 (03:44→21:07)
[2019-08-12] MEDS: Aspirin Chewable 81 MG TAB PO SCH (08:06)
[2019-08-12] MEDS: Clopidogrel Bisulfate 75 MG TAB PO SCH (08:06)
[2019-08-12] MEDS: Amiodarone 200 MG TAB PO SCH (08:06)
[2019-08-12] MEDS: Metoprolol Tartrate 50 MG TAB PO SCH ×2 (08:06→20:59)
[2019-08-12] MEDS: HumaLOG 300 UNITS/3 ML VIAL SC SCH ×3 (08:08→17:11)
[2019-08-12] MEDS ORDERED: Isosorbide Mononitrate (ER) 30 MG TAB PO SCH (09:00)
[2019-08-12] MEDS: Insulin Glargine 55 UNITS in Pre-Filled Syringe 1 EACH SC SCH (09:52)
[2019-08-12] MEDS ORDERED: Sodium Chloride 0.9% 1,000 ML IV SCH (12:15)
--- NOTE | 2019-08-12 12:40 | PDOC.HOSPP ---
- Subjective Encounter Date: 08/12/19 Encounter Time: 09:45 Subjective: no chest pain or sob or palp - Objective Vital Signs & Weight: Vital Signs (12 hours) Temp Pulse Resp BP Pulse Ox 08/12/19 10:33 98.0 F 79 16 101/63 92 L 08/12/19 07:51 98.6 F 84 17 128/68 95 08/12/19 04:00 96.6 F L 88 20 128/72 99 Weight Weight 220 lb Most Recent Monitor Data Heart Rate from ECG 72 NIBP 109/74 NIBP BP-Mean 85 Respiration from ECG 14 SpO2 93 I&O: 08/11/19 08/12/19 08/13/19 06:59 06:59 06:59 Intake Total 5014.5 2090 Output Total 4200 0 Balance 814.5 0 Result Diagrams: 08/11/19 05:20 08/11/19 05:20 Additional Labs: Accuchecks 08/12/19 08/12/19 08/12/19 10:37 05:27 03:08 POC Glucose 135 H 249 H 96 08/11/19 08/11/19 20:04 15:24 POC Glucose 235 H 327 H Hospitalist ROS - Medication Medications: Active Medications Generic Name Dose Route Start Last Admin Trade Name Freq PRN Reason Stop Dose Admin Acetaminophen/Codeine Phosphate 1 tab 08/11/19 09:48 08/12/19 04:42 Tylenol #3 PO 1 tab Q4H PRN Administration Mild Pain (1-3) Acetaminophen/Codeine Phosphate 2 tab 08/11/19 09:48 08/12/19 09:58 Tylenol #3 PO 2 tab Q4H PRN Administration Moderate Pain (4-6) Amiodarone HCl 200 mg 08/10/19 09:00 08/12/19 08:06 Cordarone PO 200 mg QAM LUIS Administration Aspirin 81 mg 08/10/19 09:00 08/12/19 08:06 Aspirin Chewable PO 81 mg DAILY LUIS Administration Clopidogrel Bisulfate 75 mg 08/09/19 09:00 08/12/19 08:06 Plavix PO 75 mg DAILY LUIS Administration Insulin Glargine 50 units/ 0.5 mls @ 0 mls/hr 08/09/19 21:00 08/11/19 20:06 Miscellaneous Medication SC 0.5 mls HS LUIS Administration Insulin Glargine 55 units/ 0.55 mls @ 0 mls/hr 08/12/19 09:00 08/12/19 09:52 Miscellaneous Medication SC 0.55 mls QAM LUIS Administration Insulin Human Lispro 0 units 08/11/19 12:39 08/11/19 15:23 Humalog SC 8 unit .MODERATE SLIDING SC PRN Administration Moderate Correctional Scale Insulin Human Lispro 0 units 08/11/19 12:39 08/11/19 20:07 Humalog SC 2 unit .BEDTIME SLIDING SC PRN Administration Bedtime Correctional Scale Insulin Human Lispro 25 units 08/11/19 17:00 08/12/19 08:08 Humalog SC 25 units TID-WM LUIS Administration Isosorbide Mononitrate 60 mg 08/12/19 09:00 08/12/19 08:06 Imdur PO 60 mg DAILY LUIS Administration Metoprolol Tartrate 50 mg 08/09/19 21:00 08/12/19 08:06 Lopressor PO 50 mg BID LUIS Administration Morphine Sulfate 2 mg 08/09/19 13:10 08/12/19 08:07 Morphine SLOW IVP 2 mg Q1H PRN Administration Pain Ranolazine 1,000 mg 08/11/19 21:00 08/12/19 08:06 Ranexa PO 1,000 mg BID LUIS Administration Rosuvastatin Calcium 40 mg 08/10/19 10:01 08/11/19 20:07 Crestor PO 40 mg HS LUIS Administration Sodium Chloride 10 ml 08/11/19 21:00 08/12/19 08:12 Flush - Normal Saline IVF 10 ml Q12HR LUIS Administration Zolpidem Tartrate 10 mg 08/11/19 21:11 08/11/19 21:16 Ambien PO 10 mg HS PRN Administration Insomnia - Exam General Appearance: NAD, awake alert Eye: PERRL, anicteric sclera ENT: no oropharyngeal lesions, moist mucosa Neck: supple, no JVD Heart: RRR, no murmur Respiratory: no wheezes, no rales Gastrointestinal: soft, non-tender, non-distended, normal bowel sounds Extremities: no cyanosis, no edema Neurological: cranial nerve grossly intact, no focal deficits Psychiatric: normal affect, A&O x 3 Hosp A/P (1) Unstable angina Status: Resolved (2) CAD (coronary artery disease) Code(s): I25.10 - ATHSCL HEART DISEASE OF [place] CORONARY ARTERY W/O ANG PCTRS Status: Chronic Qualifiers: Coronary Disease-Associated Artery/Lesion type: bypass graft [place] vs. transplanted heart: [place] heart Associated angina: with unstable angina Qualified Code(s): I25.700 - Atherosclerosis of coronary artery bypass graft(s) , unspecified, with unstable angina pectoris (3) HTN (hypertension) Code(s): I10 - ESSENTIAL (PRIMARY) HYPERTENSION Status: Chronic Qualifiers: Hypertension type: essential hypertension Qualified Code(s): I10 - Essential (primary) hypertension (4) Dyslipidemia Code(s): E78.5 - HYPERLIPIDEMIA, UNSPECIFIED Status: Chronic (5) DM type 2 (diabetes mellitus, type 2) Status: Chronic Qualifiers: Diabetes mellitus intermission coordinator insulin use: with group home use (6) Obesity (BMI 30.0-34.9) Code(s): E66.9 - OBESITY, UNSPECIFIED Status: Chronic (7) History of pulmonary embolism Code(s): Z86.711 - PERSONAL HISTORY OF PULMONARY EMBOLISM Status: Chronic (8) Paroxysmal A-fib Code(s): I48.0 - PAROXYSMAL ATRIAL FIBRILLATION Status: Chronic - Plan cath showed occluded rca graft and atretic obtuse marginal 1 graft, pdero to lad is patent (08/11/2019). Off prednisone, fingerstick glucose is slowly trending down LDL is 173, on crestor 40mg daily on amiodarone, asp, plavix, crestor, lantus, lopressor, ranexa echo shows normal ef. dc plan per cardiology adv. oob to chair and ambulate as tolerated urine high colored this am, bmp, gentle 1 liter iv hydration
[2019-08-12 13:41] LABS: Anion Gap 14 mmol/L (10-20); BUN (Urea Nitrogen) 18 mg/dL (8.9-20.6); Calc. Creatinine Clearance 160 mL/min (70-130); Calcium 8.9 mg/dL (7.8-10.44); Carbon Dioxide 23 mmol/L (22-29); Chloride 104 mmol/L (98-107); Estimated GFR-MDRD Greater than 90; Glucose 78 mg/dL (70-105); Potassium 3.5 mmol/L (3.5-5.1); Sodium 137 mmol/L (136-145)
[2019-08-12] MEDS: HumaLOG 300 UNITS/3 ML VIAL SC PRN (17:12)
[2019-08-12] MEDS: Rosuvastatin 20 MG TAB PO SCH (20:59)
[2019-08-12] MEDS: Insulin Glargine 50 UNITS in Pre-Filled Syringe 1 EACH SC SCH (21:00)
[2019-08-12] MEDS ORDERED: Zolpidem Tartrate 5 MG TAB PO PRN (21:00)
[2019-08-13] MEDS: Morphine 2 MG/ML SYRINGE SLOW IVP PRN ×8 (00:19→22:25)
[2019-08-13] MEDS: Acetaminophen/Codeine 30-300mg Tablet PO PRN ×3 (01:50→16:56)
[2019-08-13] MEDS: Amiodarone 200 MG TAB PO SCH (09:09)
[2019-08-13] MEDS: Clopidogrel Bisulfate 75 MG TAB PO SCH (09:09)
[2019-08-13] MEDS: Aspirin Chewable 81 MG TAB PO SCH (09:10)
[2019-08-13] MEDS: Metoprolol Tartrate 50 MG TAB PO SCH ×2 (09:10→20:45)
[2019-08-13] MEDS: Nitroglycerin 0.4 MG TAB (25 Tab Bottle) SL PRN ×4 (10:16→22:33)
[2019-08-13 10:51] LABS: #Basophils 0.1 thou/uL (0.0-0.2); #Eosinphils 0.2 thou/uL (0.0-0.7); #Lymphocytes 1.6 thou/uL (1.20-3.40); #Monocytes 0.4 thou/uL (0.11-0.59); #Neutrophils 3.9 thou/uL (1.40-6.50); %Basophils 1.1 % (0.0-1.0); %Eosinophils 2.9 % (0.0-10.0); %Lymphocytes 25.8 % (21.0-51.0); %Monocytes 7.1 % (0.0-10.0); %Neutrophils 63.2 % (42.0-75.0); Mean Corpuscular HGB CONC 34.2 g/dL (32.0-36.0); Mean Platelet Volume 7.7 fL (7.4-10.4); Platelet Count 232 thou/uL (130-400); RBC Distribution Width 12.6 % (11.5-14.5); Red Blood Cell (RBC) Count 4.84 mill/uL (4.70-6.10); White Blood Cell (WBC) Count 6.2 thou/uL (4.8-10.8)
[2019-08-13] MEDS: HumaLOG 300 UNITS/3 ML VIAL SC SCH ×3 (10:56→17:03)
[2019-08-13 10:57] LABS: INR-International Normal Ratio 0.9; PTT 27.2 SEC (22.9-36.1); Prothrombin Time 12.2 SEC (12.0-14.7)
[2019-08-13 11:15] LABS: Anion Gap 14 mmol/L (10-20); BUN (Urea Nitrogen) 13 mg/dL (8.9-20.6); CK (CPK) 38 U/L (30-200); Calc. Creatinine Clearance 181 mL/min (70-130); Calcium 8.3 mg/dL (7.8-10.44); Carbon Dioxide 25 mmol/L (22-29); Chloride 104 mmol/L (98-107); Estimated GFR-MDRD Greater than 90; Glucose 126 mg/dL (70-105); Potassium 3.5 mmol/L (3.5-5.1); Sodium 139 mmol/L (136-145)
--- NOTE | 2019-08-13 11:15 | RAD ---
RADIOGRAPH CHEST 1 VIEW: DATE: 08/13/2019 HISTORY: 44-year-old male with chest pain FINDINGS: There are no airspace densities, pulmonary edema, pneumothorax, or cardiomegaly. The lateral costophr enic angles are sharp. Sternotomy wires. IMPRESSION: 1. No acute cardiopulmonary findings. 2. Evidence of previous open-heart surgery.
[2019-08-13 11:20] LABS: CKMB 1.4 ng/mL (0-6.6); Troponin I Less than 0.010 ng/mL (< 0.028)
--- NOTE | 2019-08-13 12:17 | PDOC.HOSPP ---
- Subjective Encounter Date: 08/13/19 Encounter Time: 11:00 Subjective: had code zack called for chest pain and blurry vision no sob or abd pain no weakness in any extremities - Objective Vital Signs & Weight: Vital Signs (12 hours) Temp Pulse Resp BP Pulse Ox 08/13/19 10:25 97.7 F 92 20 111/64 100 08/13/19 08:35 97.7 F 90 16 124/73 96 08/13/19 04:00 98.4 F 84 18 116/69 97 08/13/19 02:26 95 Weight Weight 220 lb Most Recent Monitor Data Heart Rate from ECG 72 NIBP 109/74 NIBP BP-Mean 85 Respiration from ECG 14 SpO2 93 I&O: 08/12/19 08/13/19 08/14/19 06:59 06:59 06:59 Intake Total 2089 Output Total 0 Balance 2089 Result Diagrams: 08/13/19 10:37 08/13/19 10:37 Additional Labs: Accuchecks 08/13/19 08/13/19 08/13/19 10:27 05:47 01:59 POC Glucose 110 114 H 71 08/12/19 08/12/19 08/12/19 20:14 16:40 13:12 POC Glucose 202 H 174 H 142 H 08/12/19 12:39 POC Glucose 57 L* Hospitalist ROS - Medication Medications: Active Medications Generic Name Dose Route Start Last Admin Trade Name Freq PRN Reason Stop Dose Admin Acetaminophen/Codeine Phosphate 1 tab 08/11/19 09:48 08/12/19 04:42 Tylenol #3 PO 1 tab Q4H PRN Administration Mild Pain (1-3) Acetaminophen/Codeine Phosphate 2 tab 08/11/19 09:48 08/13/19 06:22 Tylenol #3 PO 2 tab Q4H PRN Administration Moderate Pain (4-6) Amiodarone HCl 200 mg 08/10/19 09:00 08/13/19 09:09 Cordarone PO 200 mg QAM LUIS Administration Aspirin 81 mg 08/10/19 09:00 08/13/19 09:10 Aspirin Chewable PO 81 mg DAILY LUIS Administration Clopidogrel Bisulfate 75 mg 08/09/19 09:00 08/13/19 09:09 Plavix PO 75 mg DAILY LUIS Administration Insulin Glargine 50 units/ 0.5 mls @ 0 mls/hr 08/09/19 21:00 08/12/19 21:00 Miscellaneous Medication SC 0.5 mls HS LUIS Administration Insulin Glargine 55 units/ 0.55 mls @ 0 mls/hr 08/12/19 09:00 08/12/19 09:52 Miscellaneous Medication SC 0.55 mls QAM LUIS Administration Insulin Human Lispro 0 units 08/11/19 12:39 08/12/19 17:12 Humalog SC 2 unit .MODERATE SLIDING SC PRN Administration Moderate Correctional Scale Insulin Human Lispro 0 units 08/11/19 12:39 08/11/19 20:07 Humalog SC 2 unit .BEDTIME SLIDING SC PRN Administration Bedtime Correctional Scale Insulin Human Lispro 25 units 08/11/19 17:00 08/13/19 10:56 Humalog SC Not Given TID-WM LUIS Isosorbide Mononitrate 60 mg 08/12/19 09:00 08/13/19 09:10 Imdur PO 60 mg DAILY LUIS Administration Metoprolol Tartrate 50 mg 08/09/19 21:00 08/13/19 09:10 Lopressor PO 50 mg BID LUIS Administration Morphine Sulfate 2 mg 08/09/19 13:10 08/13/19 10:35 Morphine SLOW IVP 2 mg Q1H PRN Administration Pain Nitroglycerin 0.4 mg 08/11/19 09:48 08/13/19 10:48 Nitrostat SL 1 tab Q5MIN PRN Administration Chest Pain Ranolazine 1,000 mg 08/11/19 21:00 08/13/19 09:10 Ranexa PO 1,000 mg BID LUIS Administration Rosuvastatin Calcium 40 mg 08/10/19 10:01 08/12/19 20:59 Crestor PO 40 mg HS LUIS Administration Sodium Chloride 10 ml 08/11/19 21:00 08/13/19 09:03 Flush - Normal Saline IVF 10 ml Q12HR LUIS Administration Sodium Chloride 10 ml 08/11/19 10:06 08/13/19 10:36 Flush - Normal Saline IVF 10 ml PRN PRN Administration Saline Flush Zolpidem Tartrate 10 mg 08/11/19 21:11 08/11/19 21:16 Ambien PO 10 mg HS PRN Administration Insomnia - Exam General Appearance: awake alert Eye: PERRL, anicteric sclera ENT: no oropharyngeal lesions, moist mucosa Neck: supple, no JVD Heart: RRR, no murmur Respiratory: no wheezes, no rales Gastrointestinal: soft, non-tender, non-distended, normal bowel sounds Extremities: no cyanosis, no edema Neurological: cranial nerve grossly intact, no focal deficits Psychiatric: normal affect, A&O x 3 Hosp A/P (1) Unstable angina Status: Resolved (2) CAD (coronary artery disease) Code(s): I25.10 - ATHSCL HEART DISEASE OF [place] CORONARY ARTERY W/O ANG PCTRS Status: Chronic Qualifiers: Coronary Disease-Associated Artery/Lesion type: bypass graft [place] vs. 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 Off prednisone, fingerstick glucose is stable LDL is 173, on crestor 40mg daily on amiodarone, asp, plavix, crestor, lantus, lopressor, ranexa echo shows normal ef. oob to chair and ambulate as tolerated code labs are normal including xray to ambulate as tolerated, likely home today/am per cardio adv
[2019-08-13] MEDS ORDERED: methylPREDNISolone Sod Succ/PF 125 MG/2 ML VIAL IVP SCH (12:30)
[2019-08-13] MEDS ORDERED: diphenhydrAMINE 50 MG/ML VIAL IVP SCH (12:30)
[2019-08-13] MEDS ORDERED: Famotidine/PF 20 mg/2ml Vial SLOW IVP SCH (12:30)
[2019-08-13] MEDS ORDERED: ISOVUE-370 76%-LOCM 1 ML ONE (12:36)
--- NOTE | 2019-08-13 13:41 | CT ---
CT ANGIOGRAM THORAX WITH CONTRAST: (CTA pulmonary angiogram) DATE: 08/13/2019 HISTORY: 44-year-old male with elevated d-dimer and chest pain. TECHNIQUE: IV injection of iodinated contrast. Scan acquisition timing attempted to coincide with iodinated contrast bolus reaching maximal density in pulmonary arteries. 3-D MIP reconstructions. FINDINGS: Pulmonary thromboembolism: None. Lungs: Clear. Pneumothorax: None. Pleural effusion: None. Thoracic aorta: No aneurysm or dissection. Mediastinum: No lymphadenopathy or other mass. Natasha: No lymphadenopathy or other mass. Sternotomy wires. Evidence for prior coronary artery bypass graft surgery. Dense extensive calcific densities throughout LAD, and to a lesser degree LCx, left main, and RCA. Th [place] are consistent with atherosclerotic calcification. There may or may not be stents. IMPRESSION: 1. No pulmonary thromboembolism. 2. No acute findings. 3. Evidence for coronary atherosclerotic disease.
--- NOTE | 2019-08-13 15:09 | EKG ---
Test Reason : CHEST PAIN Blood Pressure : / mmHG Vent. Rate : 111 BPM Atrial Rate : 111 BPM P-R Int : 146 ms QRS Dur : 084 ms QT Int : 332 ms P-R-T Axes : 059 019 056 degrees QTc Int : 451 ms Sinus tachycardia Possible Inferior infarct , age undetermined Abnormal ECG Confirmed by DAYNA MONTANO DO ([id number]), international editorial producer RONALD GUY ([id number]) on 08/13/2019 3:09:10 PM Referred By: CHINO Confirmed By:DAYNA MONTANO DO
[2019-08-13] MEDS: Insulin Glargine 55 UNITS in Pre-Filled Syringe 1 EACH SC SCH (17:02)
[2019-08-13] MEDS: Insulin Glargine 50 UNITS in Pre-Filled Syringe 1 EACH SC SCH (20:45)
[2019-08-13] MEDS: Rosuvastatin 20 MG TAB PO SCH (20:45)
[2019-08-13] MEDS ORDERED: diphenhydrAMINE 25 MG CAP PO PRN (22:48)
[2019-08-14] MEDS: Morphine 2 MG/ML SYRINGE SLOW IVP PRN ×3 (01:08→17:25)
[2019-08-14] MEDS: Metoprolol Tartrate 50 MG TAB PO SCH ×2 (09:32→20:16)
[2019-08-14] MEDS: Clopidogrel Bisulfate 75 MG TAB PO SCH (09:32)
[2019-08-14] MEDS: Amiodarone 200 MG TAB PO SCH (09:32)
[2019-08-14] MEDS: Aspirin Chewable 81 MG TAB PO SCH (09:32)
[2019-08-14] MEDS: HumaLOG 300 UNITS/3 ML VIAL SC SCH ×2 (09:33→12:24)
[2019-08-14] MEDS: Insulin Glargine 55 UNITS in Pre-Filled Syringe 1 EACH SC SCH (10:14)
[2019-08-14] MEDS: Acetaminophen/Codeine 30-300mg Tablet PO PRN ×2 (12:24→22:11)
--- NOTE | 2019-08-14 12:43 | PDOC.HOSPP ---
- Subjective Encounter Date: 08/14/19 Encounter Time: 09:00 Subjective: has off and on chest pains - Objective Vital Signs & Weight: Vital Signs (12 hours) Temp Pulse Resp BP BP Pulse Ox 08/14/19 12:09 85 18 108/64 98 08/14/19 07:47 97.8 F 88 16 109/61 96 08/14/19 05:10 97.6 F 81 20 112/67 95 Weight Weight 220 lb Most Recent Monitor Data Heart Rate from ECG 72 NIBP 109/74 NIBP BP-Mean 85 Respiration from ECG 14 SpO2 93 I&O: 08/13/19 08/14/19 08/15/19 06:59 06:59 06:59 Intake Total 1680 Output Total 1800 Balance -120 Result Diagrams: 08/13/19 10:37 08/13/19 10:37 Additional Labs: Accuchecks 08/14/19 08/14/19 08/13/19 11:25 05:21 22:34 POC Glucose 194 H 221 H 312 H 08/13/19 08/13/19 20:40 17:04 POC Glucose 181 H 322 H Hospitalist ROS - Medication Medications: Active Medications Generic Name Dose Route Start Last Admin Trade Name Freq PRN Reason Stop Dose Admin Acetaminophen/Codeine Phosphate 1 tab 08/11/19 09:48 08/14/19 12:24 Tylenol #3 PO 1 tab Q4H PRN Administration Mild Pain (1-3) Acetaminophen/Codeine Phosphate 2 tab 08/11/19 09:48 08/13/19 16:56 Tylenol #3 PO 2 tab Q4H PRN Administration Moderate Pain (4-6) Amiodarone HCl 200 mg 08/10/19 09:00 08/14/19 09:32 Cordarone PO 200 mg QAM LUIS Administration Aspirin 81 mg 08/10/19 09:00 08/14/19 09:32 Aspirin Chewable PO 81 mg DAILY LUIS Administration Clopidogrel Bisulfate 75 mg 08/09/19 09:00 08/14/19 09:32 Plavix PO 75 mg DAILY LUIS Administration Diphenhydramine HCl 25 mg 08/13/19 22:48 08/14/19 01:05 Benadryl PO 25 mg Q8H PRN Administration Anxiety/Restlessness/Sleep Insulin Glargine 50 units/ 0.5 mls @ 0 mls/hr 08/09/19 21:00 08/13/19 20:45 Miscellaneous Medication SC 0.5 mls HS LUIS Administration Insulin Glargine 55 units/ 0.55 mls @ 0 mls/hr 08/12/19 09:00 08/14/19 10:14 Miscellaneous Medication SC 0.55 mls QAM LUIS Administration Insulin Human Lispro 0 units 08/11/19 12:39 08/12/19 17:12 Humalog SC 2 unit .MODERATE SLIDING SC PRN Administration Moderate Correctional Scale Insulin Human Lispro 0 units 08/11/19 12:39 08/11/19 20:07 Humalog SC 2 unit .BEDTIME SLIDING SC PRN Administration Bedtime Correctional Scale Metoprolol Tartrate 50 mg 08/09/19 21:00 08/14/19 09:32 Lopressor PO 50 mg BID LUIS Administration Morphine Sulfate 2 mg 08/09/19 13:10 08/14/19 09:38 Morphine SLOW IVP 2 mg Q1H PRN Administration Pain Nitroglycerin 0.4 mg 08/11/19 09:48 08/13/19 22:33 Nitrostat SL 1 tab Q5MIN PRN Administration Chest Pain Ranolazine 1,000 mg 08/11/19 21:00 08/14/19 09:31 Ranexa PO 1,000 mg BID LUIS Administration Rosuvastatin Calcium 40 mg 08/10/19 10:01 08/13/19 20:45 Crestor PO 40 mg HS LUIS Administration Sodium Chloride 10 ml 08/11/19 21:00 08/14/19 09:33 Flush - Normal Saline IVF 10 ml Q12HR LUIS Administration Sodium Chloride 10 ml 08/11/19 10:06 08/13/19 18:22 Flush - Normal Saline IVF 10 ml PRN PRN Administration Saline Flush Zolpidem Tartrate 10 mg 08/11/19 21:11 08/11/19 21:16 Ambien PO 10 mg HS PRN Administration Insomnia - Exam General Appearance: awake alert Eye: PERRL, anicteric sclera ENT: normocephalic atraumatic, no oropharyngeal lesions Neck: supple, no JVD Heart: RRR, no murmur Respiratory: no wheezes, no rales Gastrointestinal: soft, non-tender, non-distended, normal bowel sounds Extremities: no cyanosis, no edema Neurological: cranial nerve grossly intact, no focal deficits Psychiatric: A&O x 3 Hosp A/P (1) Unstable angina Status: Resolved (2) CAD (coronary artery disease) Code(s): I25.10 - ATHSCL HEART DISEASE OF [place] CORONARY ARTERY W/O ANG PCTRS Status: Chronic Qualifiers: Coronary Disease-Associated Artery/Lesion type: bypass graft [place] vs. 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 Off prednisone (iodine allergy), fingerstick glucose is stable LDL is 173, on crestor 40mg daily on amiodarone, asp, plavix, crestor, lantus, lopressor, ranexa and increasing titration of imdur now. echo shows normal ef. oob to chair and ambulate as tolerated labs are normal including xray and telemetry to ambulate as tolerated, likely home today/am per cardio adv
[2019-08-14] MEDS: Lorazepam 2 MG/ML VIAL SLOW IVP PRN ×2 (14:39→20:16)
--- NOTE | 2019-08-14 19:06 | RAD ---
Radiograph pelvis one view: DATE: 08/14/2019 HISTORY: 44-year-old male status post acute trauma to pelvis. FINDINGS: Pelvic ring appears to be intact. No evidence of fracture. No dislocation. IMPRESSION: Negative.
[2019-08-14] MEDS: Rosuvastatin 20 MG TAB PO SCH (20:16)
[2019-08-14] MEDS: Apixaban 5 MG TAB PO SCH (20:16)
[2019-08-14] MEDS: Insulin Glargine 50 UNITS in Pre-Filled Syringe 1 EACH SC SCH (20:17)
[2019-08-15] MEDS: Lorazepam 2 MG/ML VIAL SLOW IVP PRN ×6 (01:11→21:58)
[2019-08-15] MEDS: Acetaminophen/Codeine 30-300mg Tablet PO PRN ×2 (04:35→18:07)
[2019-08-15 05:13] LABS: #Eosinphils 0.1 thou/uL (0.0-0.7); #Lymphocytes 2.4 thou/uL (1.20-3.40); #Monocytes 0.5 thou/uL (0.11-0.59); #Neutrophils 7.1 thou/uL (1.40-6.50); %Basophils 0.3 % (0.0-1.0); %Lymphocytes 23.5 % (21.0-51.0); %Monocytes 4.9 % (0.0-10.0); %Neutrophils 70.2 % (42.0-75.0); Hemoglobin 13.4 g/dL (14.0-18.0); Mean Corpuscular Hemoglobin 28.5 pg (27.0-31.0); Mean Corpuscular Volume 86.2 fL (78.0-98.0); Mean Platelet Volume 8.1 fL (7.4-10.4); Platelet Count 240 thou/uL (130-400); RBC Distribution Width 12.9 % (11.5-14.5); Red Blood Cell (RBC) Count 4.71 mill/uL (4.70-6.10); White Blood Cell (WBC) Count 10.1 thou/uL (4.8-10.8)
[2019-08-15 05:34] LABS: ALT (SGPT) 29 U/L (8-55); AST (SGOT) 18 U/L (5-34); Albumin 3.4 g/dL (3.5-5.0); Alkaline Phosphatase 57 U/L (40-110); Anion Gap 16 mmol/L (10-20); BUN (Urea Nitrogen) 21 mg/dL (8.9-20.6); Bilirubin, Total 0.3 mg/dL (0.2-1.2); Calc. Creatinine Clearance 144 mL/min (70-130); Calcium 8.5 mg/dL (7.8-10.44); Carbon Dioxide 23 mmol/L (22-29); Chloride 104 mmol/L (98-107); Estimated GFR-MDRD 88; Globulin 2.3 g/dL (2.4-3.5); Glucose 147 mg/dL (70-105); Potassium 3.6 mmol/L (3.5-5.1); Protein, Total 5.7 g/dL (6.0-8.3); Sodium 139 mmol/L (136-145)
[2019-08-15] MEDS: Metoprolol Tartrate 50 MG TAB PO SCH ×2 (10:10→21:57)
[2019-08-15] MEDS: Aspirin Chewable 81 MG TAB PO SCH (10:11)
[2019-08-15] MEDS: Amiodarone 200 MG TAB PO SCH (10:11)
[2019-08-15] MEDS: Apixaban 5 MG TAB PO SCH ×2 (10:11→21:57)
[2019-08-15] MEDS: Clopidogrel Bisulfate 75 MG TAB PO SCH (10:11)
[2019-08-15] MEDS: Insulin Glargine 55 UNITS in Pre-Filled Syringe 1 EACH SC SCH (10:20)
[2019-08-15] MEDS: Nitroglycerin 0.4 MG TAB (25 Tab Bottle) SL PRN ×2 (10:44→10:49)
[2019-08-15] MEDS: Morphine 2 MG/ML SYRINGE SLOW IVP PRN (10:54)
--- NOTE | 2019-08-15 16:16 | PDOC.HOSPP ---
- Subjective Encounter Date: 08/15/19 Encounter Time: 16:12 Subjective: Patient seen and examined for CP. Intermittent CP. No new complaints. No overnight events - Objective Vital Signs & Weight: Vital Signs (12 hours) Temp Pulse Resp BP Pulse Ox 08/15/19 12:00 98.3 F 87 16 110/64 96 08/15/19 08:20 98 08/15/19 07:50 264 H Weight Weight 220 lb Most Recent Monitor Data Heart Rate from ECG 72 NIBP 109/74 NIBP BP-Mean 85 Respiration from ECG 14 SpO2 93 I&O: 08/14/19 08/15/19 08/16/19 06:59 06:59 06:59 Intake Total 1680 1710 Output Total 1800 400 Balance -120 1310 Result Diagrams: 08/15/19 04:55 08/15/19 04:55 Additional Labs: Accuchecks 08/15/19 08/15/19 08/14/19 10:34 06:23 20:23 POC Glucose 158 H 122 H 180 H 08/14/19 16:24 POC Glucose 131 H EKG Reviewed by me: Yes (Tele SR) Hospitalist ROS - Review of Systems Respiratory: denies: cough, dry, shortness of breath, hemoptysis, SOB with excertion, pleuritic pain, sputum, wheezing, other Cardiovascular: reports: chest pain. denies: palpitations, orthopnea, paroxysmal noc. dyspnea, edema, light headedness, other Gastrointestinal: denies: nausea, vomiting, abdominal pain, diarrhea, constipation, melena, hematochezia, other - Medication Medications: Active Medications Generic Name Dose Route Start Last Admin Trade Name Freq PRN Reason Stop Dose Admin Acetaminophen/Codeine Phosphate 1 tab 08/11/19 09:48 08/14/19 12:24 Tylenol #3 PO 1 tab Q4H PRN Administration Mild Pain (1-3) Acetaminophen/Codeine Phosphate 2 tab 08/11/19 09:48 08/15/19 04:35 Tylenol #3 PO 2 tab Q4H PRN Administration Moderate Pain (4-6) Amiodarone HCl 200 mg 08/10/19 09:00 08/15/19 10:11 Cordarone PO 200 mg QAM LUIS Administration Apixaban 5 mg 08/14/19 21:00 08/15/19 10:11 Eliquis PO 5 mg BID LUIS Administration Aspirin 81 mg 08/10/19 09:00 08/15/19 10:11 Aspirin Chewable PO 81 mg DAILY LUIS Administration Clopidogrel Bisulfate 75 mg 08/09/19 09:00 08/15/19 10:11 Plavix PO 75 mg DAILY LUIS Administration Diphenhydramine HCl 25 mg 08/13/19 22:48 08/14/19 01:05 Benadryl PO 25 mg Q8H PRN Administration Anxiety/Restlessness/Sleep Insulin Glargine 50 units/ 0.5 mls @ 0 mls/hr 08/09/19 21:00 08/14/19 20:17 Miscellaneous Medication SC 0.5 mls HS LUIS Administration Insulin Glargine 55 units/ 0.55 mls @ 0 mls/hr 08/12/19 09:00 08/15/19 10:20 Miscellaneous Medication SC 0.55 mls QAM LUIS Administration Insulin Human Lispro 0 units 08/11/19 12:39 08/12/19 17:12 Humalog SC 2 unit .MODERATE SLIDING SC PRN Administration Moderate Correctional Scale Insulin Human Lispro 0 units 08/11/19 12:39 08/11/19 20:07 Humalog SC 2 unit .BEDTIME SLIDING SC PRN Administration Bedtime Correctional Scale Isosorbide Mononitrate 120 mg 08/15/19 09:00 08/15/19 10:10 Imdur PO 120 mg DAILY LUIS Administration Lorazepam 1 mg 08/14/19 12:41 08/15/19 14:48 Ativan SLOW IVP 1 mg Q4H PRN Administration Anxiety/Agitation Metoprolol Tartrate 50 mg 08/09/19 21:00 08/15/19 10:10 Lopressor PO 50 mg BID LUIS Administration Nitroglycerin 0.4 mg 08/11/19 09:48 08/15/19 10:49 Nitrostat SL 1 tab Q5MIN PRN Administration Chest Pain Ranolazine 1,000 mg 08/11/19 21:00 08/15/19 10:10 Ranexa PO 1,000 mg BID LUIS Administration Rosuvastatin Calcium 40 mg 08/10/19 10:01 08/14/19 20:16 Crestor PO 40 mg HS LUIS Administration Sodium Chloride 10 ml 08/11/19 21:00 08/15/19 10:11 Flush - Normal Saline IVF 10 ml Q12HR LUIS Administration Sodium Chloride 10 ml 08/11/19 10:06 08/13/19 18:22 Flush - Normal Saline IVF 10 ml PRN PRN Administration Saline Flush Zolpidem Tartrate 10 mg 08/11/19 21:11 08/11/19 21:16 Ambien PO 10 mg HS PRN Administration Insomnia - Exam General Appearance: NAD Neck: supple, no JVD Heart: RRR, no gallops Respiratory: CTAB, no rales Gastrointestinal: soft, non-tender, non-distended, normal bowel sounds Extremities: no edema Hosp A/P - Plan Unstable angina CAD s/p CABG HTN DM1 with diabetic neuropathy h/o PE on anticoag Obesity BMI 30.7 CKD 2 PLAN: Repeat EKG and trop - neg Consult CM for med assistance Cont ASA/Plavix/Eliquis Cont Ranexa/Imdur DC home if ok with Cardiology
[2019-08-15] MEDS: Rosuvastatin 20 MG TAB PO SCH (21:57)
[2019-08-15] MEDS: Insulin Glargine 50 UNITS in Pre-Filled Syringe 1 EACH SC SCH (21:57)
--- NOTE | 2019-08-15 22:33 | EKG ---
Test Reason : C/O CHEST PAIN R-10 Blood Pressure : / mmHG Vent. Rate : 110 BPM Atrial Rate : 110 BPM P-R Int : 146 ms QRS Dur : 086 ms QT Int : 356 ms P-R-T Axes : 080 049 065 degrees QTc Int : 481 ms Sinus tachycardia Otherwise normal ECG When compared with ECG of 09-AUG-2019 01:06, (Unconfirmed) T wave inversion no longer evident in Anterior leads Confirmed by MANAV AVILA M.D. ([id number]) on 08/15/2019 10:32:54 PM Referred By: MIGUEL ÁNGEL Confirmed By:MANAV AVILA M.D.
--- NOTE | 2019-08-15 22:33 | EKG ---
Test Reason : REPEAT Blood Pressure : / mmHG Vent. Rate : 118 BPM Atrial Rate : 118 BPM P-R Int : 144 ms QRS Dur : 086 ms QT Int : 336 ms P-R-T Axes : 077 054 056 degrees QTc Int : 470 ms Sinus tachycardia Otherwise normal ECG When compared with ECG of 09-AUG-2019 08:59, (Unconfirmed) No significant change was found Confirmed by MANAV AVILA M.D. ([id number]) on 08/15/2019 10:33:22 PM Referred By: YAQUELIN Confirmed By:MANAV AVILA M.D.
--- NOTE | 2019-08-15 22:38 | EKG ---
Test Reason : REPEAT Blood Pressure : / mmHG Vent. Rate : 105 BPM Atrial Rate : 105 BPM P-R Int : 156 ms QRS Dur : 086 ms QT Int : 362 ms P-R-T Axes : 074 054 067 degrees QTc Int : 478 ms Sinus tachycardia Otherwise normal ECG When compared with ECG of 09-AUG-2019 09:43, (Unconfirmed) No significant change was found Confirmed by MANAV AVILA M.D. ([id number]) on 08/15/2019 10:37:54 PM Referred By: YAQUELIN Confirmed By:MANAV AVILA M.D.
--- NOTE | 2019-08-15 22:46 | EKG ---
Test Reason : REPEAT Blood Pressure : / mmHG Vent. Rate : 108 BPM Atrial Rate : 108 BPM P-R Int : 156 ms QRS Dur : 088 ms QT Int : 344 ms P-R-T Axes : 075 041 075 degrees QTc Int : 460 ms Sinus tachycardia Otherwise normal ECG Confirmed by MANAV AVILA M.D. ([id number]) on 08/15/2019 10:45:50 PM Referred By: IKE Confirmed By:MANAV AVILA M.D.
--- NOTE | 2019-08-15 23:17 | EKG ---
Test Reason : Blood Pressure : / mmHG Vent. Rate : 088 BPM Atrial Rate : 088 BPM P-R Int : 144 ms QRS Dur : 088 ms QT Int : 388 ms P-R-T Axes : 050 045 043 degrees QTc Int : 469 ms Normal sinus rhythm Normal ECG When compared with ECG of 09-AUG-2019 14:25, (Unconfirmed) No significant change was found Confirmed by MANAV AVILA M.D. ([id number]) on 08/15/2019 11:16:27 PM Referred By: JIE Confirmed By:MANAV AVILA M.D.
--- NOTE | 2019-08-15 23:20 | EKG ---
Test Reason : STAT Blood Pressure : / mmHG Vent. Rate : 104 BPM Atrial Rate : 104 BPM P-R Int : 146 ms QRS Dur : 086 ms QT Int : 356 ms P-R-T Axes : 059 062 053 degrees QTc Int : 468 ms Sinus tachycardia Otherwise normal ECG When compared with ECG of 09-AUG-2019 14:25, (Unconfirmed) No significant change was found Confirmed by MANAV AVILA M.D. ([id number]) on 08/15/2019 11:19:42 PM Referred By: YAQUELIN Confirmed By:MANAV AVILA M.D.
[2019-08-16] MEDS: Lorazepam 2 MG/ML VIAL SLOW IVP PRN ×4 (04:53→16:23)
[2019-08-16] MEDS: Apixaban 5 MG TAB PO SCH (10:28)
[2019-08-16] MEDS: Metoprolol Tartrate 50 MG TAB PO SCH (10:28)
[2019-08-16] MEDS: Aspirin Chewable 81 MG TAB PO SCH (10:28)
[2019-08-16] MEDS: Amiodarone 200 MG TAB PO SCH (10:28)
[2019-08-16] MEDS: Clopidogrel Bisulfate 75 MG TAB PO SCH (10:29)
[2019-08-16] MEDS: Nitroglycerin 0.4 MG TAB (25 Tab Bottle) SL PRN (13:15)
[2019-08-16] MEDS ORDERED: Morphine 2 MG/ML SYRINGE SLOW IVP SCH (13:15)
[2019-08-16 13:19] VITALS: BP 140/70; TEMP 98.4
[2019-08-16] MEDS ORDERED: Promethazine 25 MG TAB PO SCH (14:00)
[2019-08-16] MEDS: Insulin Glargine 55 UNITS in Pre-Filled Syringe 1 EACH SC SCH (14:46)
--- NOTE | 2019-08-16 15:00 | DIS ---
DATE OF ADMISSION: 08/09/2019 DATE OF DISCHARGE: 08/16/2019 DISCHARGE DISPOSITION: Home. FOLLOWUP: 1. Follow up with primary care physician at [facility] in 1 week. 2. Follow up with Cardiology, Dr. Florentino Dobbins as scheduled. ALLERGIES: THE PATIENT IS ALLERGIC TO IODINE, ZOSYN, TORADOL, REGLAN, AND ZOFRAN. THE PATIENT WAS SEEN AND EXAMINED ON THE DAY OF DISCHARGE. DENIES ANY NEW COMPLAINTS. NO CHEST PAIN, SHORTNESS OF BREATH, OR PALPITATIONS. DISCHARGE MEDICATIONS: 1. Aspirin 81 mg daily. 2. Plavix 75 mg daily. 3. Novolin 70/30 of 40 units b.i.d. 4. Isosorbide mononitrate 120 mg daily. 5. Ranexa 1000 mg b.i.d. 6. Crestor 40 mg daily. 7. Sublingual nitroglycerin as needed. 8. Eliquis 5 mg b.i.d. 9. Amiodarone 200 mg daily. 10. Gabapentin 600 mg b.i.d. 11. Metoprolol tartrate 50 mg b.i.d. 12. Protonix 40 mg as directed. BRIEF HOSPITAL COURSE: The patient is a 44-year-old male with coronary artery disease, status post CABG and stents placement; diabetes mellitus, type 1; hypertension; history of pulmonary embolism and DVT, on anticoagulation; and TIAs in the past, presented to the hospital with chest discomfort on 09 August 2019. Please refer to the history and physical for further details. The patient was admitted to the hospital with a diagnosis of unstable angina. He was seen by Cardiology. He was monitored in the CCU. He underwent cardiac catheterization that showed diffuse disease. There was no target for intervention per Cardiology. His medications have been optimized. He also had significant intermittent chest pain with negative troponins. He was transferred to CCU again on 13 August 2019 for chest discomfort. This morning, he is chest pain free. He will be discharged later today once cleared by Cardiology. [facility] is assisting him with medication assistance. He appears stable for discharge. He had a repeat troponin today, which was negative. FINAL DIAGNOSES: 1. Recurrent chest pain consistent with unstable angina. 2. Coronary artery disease, status post CABG and stents placement. 3. Hypertension. 4. Diabetes mellitus, type 1. 5. Dyslipidemia. 6. History of pulmonary embolism, on anticoagulation. 7. History of transient ischemic attack. 8. Obesity with a BMI of 30.7. 9. Chronic kidney disease, stage 2. PLAN: Plan of care was discussed with the patient in detail. He stated understanding. Job ID: [id number]
--- NOTE | 2019-08-19 09:57 | EKG ---
Test Reason : Blood Pressure : / mmHG Vent. Rate : 081 BPM Atrial Rate : 081 BPM P-R Int : 164 ms QRS Dur : 090 ms QT Int : 376 ms P-R-T Axes : 069 036 044 degrees QTc Int : 436 ms Normal sinus rhythm Normal ECG When compared with ECG of 13-AUG-2019 22:50, (Unconfirmed) Nonspecific T wave abnormality now evident in Anterior leads Confirmed by ISABELA DEAN, MONICA ([id number]) on 08/19/2019 9:56:54 AM Referred By: PAMELA Confirmed By:MONICA MAR MD
== END 2019-08-16 20:19 | disposition home or self-care (01) | DRG 287 ==
LOC: ERS 00:47 → OBSVTOIN 06:13 → 2SE 06:13 → CCU 10:09 → 2NO 08-11 22:44
PROVIDERS: ADMIT Internal Medicine; ATTEND Internal Medicine
PROC: 4A023N7 Measurement of Cardiac Sampling and Pressure, Left Heart, Percutaneous Approach (ICD-10-PCS; principal; 2019-08-11)
PROC: B2131ZZ Fluoroscopy of Multiple Coronary Artery Bypass Grafts using Low Osmolar Contrast (ICD-10-PCS; 2019-08-11)
PROC: B2181ZZ Fluoroscopy of Left Internal Mammary Bypass Graft using Low Osmolar Contrast (ICD-10-PCS; 2019-08-11)
PROC: B2111ZZ Fluoroscopy of Multiple Coronary Arteries using Low Osmolar Contrast (ICD-10-PCS; 2019-08-11)
PROC: B2151ZZ Fluoroscopy of Left Heart using Low Osmolar Contrast (ICD-10-PCS; 2019-08-11)
DX: I25.110 Atherosclerotic heart disease of native coronary artery with unstable angina pectoris (principal); I25.710 Atherosclerosis of autologous vein coronary artery bypass graft(s) with unstable angina pectoris; I25.82 Chronic total occlusion of coronary artery; I12.9 Hypertensive chronic kidney disease with stage 1 through stage 4 chronic kidney disease, or unspecified chronic kidney disease; E10.22 Type 1 diabetes mellitus with diabetic chronic kidney disease; E78.5 Hyperlipidemia, unspecified; E66.9 Obesity, unspecified; N18.2 Chronic kidney disease, stage 2 (mild); I48.0 Paroxysmal atrial fibrillation; E10.40 Type 1 diabetes mellitus with diabetic neuropathy, unspecified; Z68.30 Body mass index [BMI] 30.0-30.9, adult; Z88.1 Allergy status to other antibiotic agents; Z95.5 Presence of coronary angioplasty implant and graft; Z95.1 Presence of aortocoronary bypass graft; Z86.711 Personal history of pulmonary embolism; Z86.73 Personal history of transient ischemic attack (TIA), and cerebral infarction without residual deficits; Z88.8 Allergy status to other drugs, medicaments and biological substances; Z88.6 Allergy status to analgesic agent; Z86.718 Personal history of other venous thrombosis and embolism; Z98.1 Arthrodesis status; I25.2 Old myocardial infarction; Z79.82 Long term (current) use of aspirin; Z79.01 Long term (current) use of anticoagulants; Z79.02 Long term (current) use of antithrombotics/antiplatelets; Z79.4 Long term (current) use of insulin; Z79.899 Other long term (current) drug therapy; Z88.0 Allergy status to penicillin
CPT/HCPCS: 36415; 36416; 71045; 71275; 72170; 72191; 74175; 80048; 80053; 80061; 82550; 82553; 83735; 84443; 84484; 85025; 85379; 85610; 85730; 93005; 93010; 93306; 93455; 93567; 94760; 96374; 96375; 99152; 99153; C1769; J1200; J1644; J1650; J1815; J2001; J2060; J2250; J2270; J2930; J3010; J7512; Q0163; Q0169; Q9966; Q9967; S0028

== ENCOUNTER 2019-08-18 08:26 | Observation (INO) | payer SELFPAY ==
--- NOTE | 2019-08-18 08:48 | RAD ---
XR Chest 1 View Portable HISTORY: Chest pain COMPARISON: 08/13/2019 FINDINGS: The heart size is normal. Changes of median sternotomy are again seen. The lungs are well e xpanded without focal areas of consolidation, pneumothorax or pleural effusions. IMPRESSION: No radiographic evidence of acute cardiopulmonary process.
[2019-08-18] MEDS ORDERED: Promethazine HCl 25 MG/ML VIAL ONE (09:37)
[2019-08-18] MEDS ORDERED: Famotidine/PF 20 mg/2ml Vial ONE (09:37)
[2019-08-18 10:50] LABS: #Basophils 0.1 thou/uL (0.0-0.2); #Eosinphils 0.1 thou/uL (0.0-0.7); #Lymphocytes 1.5 thou/uL (1.20-3.40); #Monocytes 0.4 thou/uL (0.11-0.59); #Neutrophils 5.7 thou/uL (1.40-6.50); %Eosinophils 1.3 % (0.0-10.0); %Monocytes 4.8 % (0.0-10.0); Hemoglobin 13.4 g/dL (14.0-18.0); Mean Corpuscular HGB CONC 32.4 g/dL (32.0-36.0); Mean Corpuscular Hemoglobin 28.1 pg (27.0-31.0); Mean Corpuscular Volume 86.7 fL (78.0-98.0); Mean Platelet Volume 7.6 fL (7.4-10.4); Platelet Count 266 thou/uL (130-400); RBC Distribution Width 12.8 % (11.5-14.5); Red Blood Cell (RBC) Count 4.79 mill/uL (4.70-6.10); White Blood Cell (WBC) Count 7.7 thou/uL (4.8-10.8)
[2019-08-18] MEDS ORDERED: Morphine 4 MG/ML VIAL ONE (10:54)
[2019-08-18 11:20] LABS: ALT (SGPT) 52 U/L (8-55); AST (SGOT) 28 U/L (5-34); Albumin 4.1 g/dL (3.5-5.0); Alkaline Phosphatase 80 U/L (40-110); Anion Gap 13 mmol/L (10-20); BUN (Urea Nitrogen) 10 mg/dL (8.9-20.6); Bilirubin, Total 0.6 mg/dL (0.2-1.2); CK (CPK) 38 U/L (30-200); Calc. Creatinine Clearance 0 mL/min (70-130); Calcium 8.9 mg/dL (7.8-10.44); Carbon Dioxide 26 mmol/L (22-29); Chloride 102 mmol/L (98-107); Estimated GFR-MDRD 80; Globulin 2.3 g/dL (2.4-3.5); Glucose 263 mg/dL (70-105); Lipase 18 U/L (8-78); Potassium 4.5 mmol/L (3.5-5.1); Protein, Total 6.4 g/dL (6.0-8.3); Sodium 136 mmol/L (136-145)
[2019-08-18 12:07] LABS: Bilirubin Negative (Negative); Blood, Urine Negative (Negative); Clarity Clear (Clear); Glucose, Urine (Dipstick) Greater than 1000 mg/dL (Negative); Leukocyte Negative Leu/uL (Negative); Nitrite Negative (Negative); Protein, Urine (Dipstick) Negative (Neg-Trace); Urobilinogen Normal mg/dL (Less than 2)
[2019-08-18] MEDS ORDERED: Nitroglycerin 0.4 MG TAB (25 Tab Bottle) PO PRN (13:05)
[2019-08-18] MEDS ORDERED: HumaLOG 300 UNITS/3 ML VIAL SC PRN (13:45)
[2019-08-18] MEDS ORDERED: Dextrose 50% Abboject 50 ML SYRINGE SLOW IVP PRN (13:45)
[2019-08-18] MEDS ORDERED: Dextrose 5% in Water 1,000 ML IV PRN (13:45)
[2019-08-18] MEDS ORDERED: Ondansetron PF 4 MG/2 ML Vial IVP PRN (13:47)
[2019-08-18] MEDS ORDERED: Nitroglycerin 2% Ointment 1 INCH/1 GM Packet ONE (13:49)
--- NOTE | 2019-08-18 13:56 | HP ---
PRIMARY CARE PROVIDER: [facility]. CHIEF COMPLAINT: Nausea and vomiting. HISTORY OF PRESENT ILLNESS: Mr. Olea is a pleasant 44-year-old gentleman, who was seen at [facility] on August 18, 2019, He was hospitalized at this facility from August 09 to of this year for recurrent chest pain consistent with unstable angina. He reports having on and off chest discomfort after going home, which he reports as being similar to the pain he had during his prior hospitalization. Today morning, however, he developed nausea, vomiting, and diarrhea. He reports vomiting multiple times and multiple watery stools. He denies any fevers. He denies any abdominal pain. He denies any lightheadedness. He reports generalized weakness. He presented to the emergency room because of nausea, vomiting, and diarrhea. He reports that he has been told that he will continue to have unstable angina in the future. In terms of the chest pain itself, the patient describes it as pressure-like, retrosternal, radiating to his left upper extremity, accompanied by diaphoresis, worse with exertion, improved with rest. REVIEW OF SYSTEMS: All systems were reviewed and found to be negative except for the pertinent positives mentioned above. PAST MEDICAL HISTORY: Hypertension, coronary artery disease, TIA x3, previous pulmonary embolism and DVTs, diabetes mellitus type 2, ID x4. PAST SURGICAL HISTORY: Back fusion, coronary artery bypass graft surgery x4 vessels, cardiac stents, appendectomy, cholecystectomy, bladder expansion, and cardiac catheterization during his recent hospitalization. SOCIAL HISTORY: The patient denies tobacco use, alcohol use, or recreational drug use. ALLERGIES: IODINE, ZOSYN, TORADOL, REGLAN, AND ZOFRAN. CURRENT MEDICATIONS: As dictated by Dr. Campos in his discharge summary dated August 16, 2019. FAMILY HISTORY: Significant for myocardial infarction in his father. SOCIAL HISTORY: The patient denies tobacco use, alcohol use, or recreational drug use. PHYSICAL EXAMINATION: GENERAL: On examination, Mr. Olea is awake and alert, not in acute distress. VITAL SIGNS: Blood pressure is 123/74, pulse 96, respiratory rate 16, and oxygen saturation 98% on room air. He is afebrile. EYES: No scleral icterus, no conjunctival pallor. ENT: Moist mucosal membranes. No oropharyngeal erythema or exudates. NECK: Supple, nontender, trachea is midline. RESPIRATORY: Accessory muscles of breathing are not active. Chest wall movements are symmetric bilaterally. LUNGS: Clear to auscultation without wheeze, rhonchi, or crepitations. CARDIOVASCULAR: S1 and S2 are heard, regular. Peripheral pulses palpable. MUSCULOSKELETAL: Power is 5/5 in all 4 extremities. ABDOMEN: Soft, nontender, bowel sounds heard. NEUROLOGIC: Cranial nerves 2 through 12 are intact. SKIN: No rashes or subcutaneous nodules. LYMPHATIC: No cervical lymphadenopathy. PSYCHIATRIC: Normal mood, normal affect, the patient is oriented to person, place, and time. LABORATORY DATA: Mr. Olea's labs and investigations were reviewed. I reviewed his electrocardiogram, which shows normal sinus rhythm, no ST changes to suggest an acute coronary syndrome. I also reviewed his chest x-ray, which does not show any pulmonary infiltrates. He has normocytic anemia with hemoglobin 13.4, unremarkable comprehensive metabolic profile, elevated lactic acid level of 2.7, urinalysis that is positive for glucose and normal beta hydroxybutyrate level. ASSESSMENT AND PLAN: Mr. Olea is a pleasant 44-year-old gentleman, who was seen at [facility] on August 18, 2019. His problem list includes: 1. Nausea, vomiting, and diarrhea: Mr. Olea is presenting with nausea, vomiting, and diarrhea that started today. This is most likely secondary to gastroenteritis, viral or bacterial. We will check stool cultures. We will also check stool for Clostridium difficile toxin. 2. Chest pain: The patient has a history of chest pain secondary to unstable angina. Medical treatment was recommended by shower room attendant. Emergency room staff discussed with Cardiology Service, who recommended continuing medical treatment. 3. Diabetes mellitus type 1: We will start Accu-Cheks and insulin sliding scale. 4. Hypertension: We will resume home medications, monitor vital signs and titrate antihypertensives as needed. 5. History of venous thromboembolism: Continue apixaban. Many thanks for allowing me to participate in your patient's care. Please feel free to contact me with any questions or concerns. LEVEL OF RISK: High. LEVEL OF COMPLEXITY: High. Job ID: [id number]
[2019-08-18 14:52] LABS: Troponin I Less than 0.010 ng/mL (< 0.028)
[2019-08-18] MEDS: Sodium Chloride 0.9% 1,000 ML IV SCH (14:55)
[2019-08-18] MEDS: Pantoprazole 40 MG GRANULES PACKET PO SCH ×2 (14:56→20:27)
[2019-08-18 15:08] VITALS: BMI 32.1
[2019-08-18] MEDS: Morphine 2 MG/ML SYRINGE SLOW IVP PRN ×2 (15:37→22:10)
[2019-08-18 15:45] LABS: Lactic Acid 1.9 mmol/L (0.5-2.2)
[2019-08-18] MEDS ORDERED: HumuLIN 70/30 (300 UNITS/3 ML VIAL) SC SCH (17:00)
[2019-08-18 18:25] LABS: Troponin I Less than 0.010 ng/mL (< 0.028)
[2019-08-18] MEDS: Apixaban 5 MG TAB PO SCH (20:27)
[2019-08-18] MEDS: Metoprolol Tartrate 50 MG TAB PO SCH (20:27)
[2019-08-18] MEDS: Gabapentin 300 MG CAP PO SCH (20:27)
[2019-08-18] MEDS: HumuLIN 70/30 (300 UNITS/3 ML VIAL) SC SCH (21:01)
[2019-08-18] MEDS ORDERED: Simethicone Chewable 80 MG TAB PO PRN (22:51)
[2019-08-18 23:53] LABS: Lactic Acid 2.7 mmol/L (0.5-2.2)
[2019-08-19 00:03] LABS: Anion Gap 12 mmol/L (10-20); BUN (Urea Nitrogen) 12 mg/dL (8.9-20.6); Calc. Creatinine Clearance 153 mL/min (70-130); Calcium 8.8 mg/dL (7.8-10.44); Carbon Dioxide 26 mmol/L (22-29); Chloride 105 mmol/L (98-107); Estimated GFR-MDRD 89; Glucose 182 mg/dL (70-105); Potassium 3.9 mmol/L (3.5-5.1); Sodium 139 mmol/L (136-145)
[2019-08-19] MEDS ORDERED: Zolpidem Tartrate 5 MG TAB PO SCH ×2 (00:45→21:00)
[2019-08-19] MEDS: traMADol HCl 50 MG TAB PO PRN ×3 (01:06→13:54)
[2019-08-19] MEDS: Sodium Chloride 0.9% 1,000 ML IV SCH ×2 (03:28→08:29)
[2019-08-19] MEDS: Morphine 2 MG/ML SYRINGE SLOW IVP PRN (06:29)
[2019-08-19] MEDS: Gabapentin 300 MG CAP PO SCH (08:31)
[2019-08-19] MEDS: Apixaban 5 MG TAB PO SCH (08:31)
[2019-08-19] MEDS: Metoprolol Tartrate 50 MG TAB PO SCH (08:32)
[2019-08-19] MEDS ORDERED: Sodium Chloride 0.9% 1,000 ML IV SCH (08:32)
[2019-08-19] MEDS: Pantoprazole 40 MG GRANULES PACKET PO SCH ×2 (08:32→13:55)
[2019-08-19] MEDS ORDERED: Zolpidem Tartrate 5 MG TAB PO PRN (08:33)
[2019-08-19] MEDS ORDERED: Rosuvastatin 20 MG TAB PO SCH (09:00)
[2019-08-19] MEDS ORDERED: DULoxetine 60 MG CAP PO SCH (09:00)
[2019-08-19] MEDS ORDERED: Aspirin 81 mg Enteric Coated Tablet PO SCH (09:00)
[2019-08-19] MEDS ORDERED: Aspirin 325 mg Enteric Coated Tablet PO SCH (09:00)
[2019-08-19] MEDS ORDERED: Amiodarone 200 MG TAB PO SCH (09:00)
[2019-08-19] MEDS ORDERED: Clopidogrel Bisulfate 75 MG TAB PO SCH (09:00)
[2019-08-19] MEDS: HumuLIN 70/30 (300 UNITS/3 ML VIAL) SC SCH (09:17)
[2019-08-19 12:12] VITALS: BP 113/65; TEMP 98.1
--- NOTE | 2019-08-20 19:03 | DIS ---
DATE OF ADMISSION: 08/18/2019 DATE OF DISCHARGE: 08/19/2019 DISCHARGE MEDICATIONS: The patient's discharge medications were continued without changes and no new prescriptions were generated. Please see full list for details. 1. Ambien 10 mg one tablet p.o. at bedtime p.r.n. insomnia. 2. Nitrostat 0.4 mg sublingual q.5 minutes p.r.n. chest pain. 3. Cymbalta 60 mg one tablet p.o. daily. 4. Amiodarone 200 mg one tablet p.o. daily. 5. Plavix 75 mg one tablet p.o. daily. 6. Aspirin 81 mg one tablet p.o. daily. 7. Eliquis 5 mg one tablet p.o. b.i.d. 8. Imdur 120 mg one tablet p.o. daily. 9. Insulin 70/30, Novolin 40 units subcutaneous injection b.i.d. 10. Gabapentin 600 mg one tablet p.o. b.i.d. 11. Crestor 40 mg one tablet p.o. daily. 12. Ranexa 1000 mg one tablet p.o. b.i.d. 13. Protonix 40 mg one tablet p.o. t.i.d. 14. Metoprolol tartrate 50 mg one tablet p.o. b.i.d. CONDITION ON DISCHARGE: Stable. DISCHARGE INSTRUCTIONS: 1. The patient is recommended to follow up with primary care physician in the next 5 to 7 days. 2. The patient is recommended to follow up with Cardiology in the next 1 to 2 weeks. 3. The patient is recommended to follow up with all other specialists as directed. 4. The patient is recommended to take all medications as directed. 5. The patient is recommended to return to acute care hospital immediately if signs or symptoms return, worsen, or any other new symptoms occur. Greater than 40 minutes spent coordinating care and discharge process Job ID: [id number] MTDD
--- NOTE | 2019-08-23 10:28 | EKG ---
Test Reason : Blood Pressure : / mmHG Vent. Rate : 086 BPM Atrial Rate : 086 BPM P-R Int : 154 ms QRS Dur : 086 ms QT Int : 368 ms P-R-T Axes : 070 028 058 degrees QTc Int : 440 ms Normal sinus rhythm Normal ECG Incomplete right bundle branch block Confirmed by ISABELA DEAN, MONICA ([id number]) on 08/23/2019 10:27:32 AM Referred By: Confirmed By:MONICA MAR MD
== END 2019-08-19 18:29 | disposition home or self-care (01) ==
LOC: ERS 08:26 → 2SW 14:51
PROVIDERS: ADMIT Internal Medicine; ATTEND Internal Medicine
DX: R07.2 Precordial pain (principal); R11.2 Nausea with vomiting, unspecified; R19.7 Diarrhea, unspecified; R53.1 Weakness; I25.10 Atherosclerotic heart disease of native coronary artery without angina pectoris; I25.2 Old myocardial infarction; I12.9 Hypertensive chronic kidney disease with stage 1 through stage 4 chronic kidney disease, or unspecified chronic kidney disease; E10.22 Type 1 diabetes mellitus with diabetic chronic kidney disease; N18.2 Chronic kidney disease, stage 2 (mild); Z86.73 Personal history of transient ischemic attack (TIA), and cerebral infarction without residual deficits; Z79.01 Long term (current) use of anticoagulants; Z79.82 Long term (current) use of aspirin; Z79.899 Other long term (current) drug therapy; Z91.041 Radiographic dye allergy status; Z88.5 Allergy status to narcotic agent; Z88.8 Allergy status to other drugs, medicaments and biological substances; Z88.1 Allergy status to other antibiotic agents; Z95.1 Presence of aortocoronary bypass graft; Z95.5 Presence of coronary angioplasty implant and graft
CPT/HCPCS: 36415; 36416; 71045; 80053; 81003; 82010; 82550; 83605; 83690; 83735; 83880; 84484; 85025; 93005; 93010; 96361; 96365; 96375; 96376; G0378; J1815; J2270; J2550; S0028

== ENCOUNTER 2019-08-30 20:14 | Emergency (ER) | payer SELFPAY ==
[2019-08-30] MEDS ORDERED: Fentanyl 100 MCG/2 ML VIAL ONE (21:10)
[2019-08-30 21:21] LABS: #Basophils 0.1 thou/uL (0.0-0.2); #Eosinphils 0.1 thou/uL (0.0-0.7); #Lymphocytes 1.7 thou/uL (1.20-3.40); #Monocytes 0.6 thou/uL (0.11-0.59); #Neutrophils 4.5 thou/uL (1.40-6.50); %Eosinophils 1.1 % (0.0-10.0); %Lymphocytes 25.1 % (21.0-51.0); %Monocytes 8.1 % (0.0-10.0); %Neutrophils 64.7 % (42.0-75.0); Hemoglobin 14.4 g/dL (14.0-18.0); Mean Corpuscular HGB CONC 33.6 g/dL (32.0-36.0); Mean Corpuscular Hemoglobin 28.4 pg (27.0-31.0); Mean Corpuscular Volume 84.5 fL (78.0-98.0); Mean Platelet Volume 7.9 fL (7.4-10.4); Platelet Count 236 thou/uL (130-400); RBC Distribution Width 12.7 % (11.5-14.5); Red Blood Cell (RBC) Count 5.07 mill/uL (4.70-6.10)
--- NOTE | 2019-08-30 21:23 | RAD ---
EXAM: Single view of the chest HISTORY: Chest pain COMPARISON: 08/18/2019 FINDINGS: Single view of the chest shows a normal sized cardiomediastinal silhouette. The patient is status post sternotomy. There is no evidence of consolidation, mass, or pleural effusion. The bones are unremarkable. IMPRESSION: No evidence of acute cardiopulmonary disease
[2019-08-30] MEDS ORDERED: Promethazine HCl 25 MG/ML VIAL ONE (21:38)
[2019-08-30 21:44] LABS: ALT (SGPT) 21 U/L (8-55); AST (SGOT) 16 U/L (5-34); Albumin 4.6 g/dL (3.5-5.0); Alkaline Phosphatase 80 U/L (40-110); Anion Gap 18 mmol/L (10-20); BUN (Urea Nitrogen) 18 mg/dL (8.9-20.6); Bilirubin, Total 1.5 mg/dL (0.2-1.2); CK (CPK) 71 U/L (30-200); Calc. Creatinine Clearance 0 mL/min (70-130); Calcium 9.4 mg/dL (7.8-10.44); Carbon Dioxide 22 mmol/L (22-29); Chloride 102 mmol/L (98-107); Estimated GFR-MDRD 80; Globulin 2.8 g/dL (2.4-3.5); Glucose 253 mg/dL (70-105); Lipase 46 U/L (8-78); Potassium 3.6 mmol/L (3.5-5.1); Protein, Total 7.4 g/dL (6.0-8.3); Sodium 138 mmol/L (136-145)
[2019-08-31] MEDS ORDERED: Acetaminophen 500 MG TAB ONE (00:17)
[2019-08-31] MEDS ORDERED: Morphine 4 MG/ML VIAL ONE (00:27)
[2019-08-31] MEDS ORDERED: Meclizine HCl 25 MG TAB ONE (01:21)
== END 2019-08-31 01:56 | disposition home or self-care (01) ==
LOC: ERS 20:14
DX: R07.9 Chest pain, unspecified (principal); E10.9 Type 1 diabetes mellitus without complications; I25.2 Old myocardial infarction; Z79.4 Long term (current) use of insulin; Z86.73 Personal history of transient ischemic attack (TIA), and cerebral infarction without residual deficits; Z79.899 Other long term (current) drug therapy; Z79.82 Long term (current) use of aspirin
CPT/HCPCS: 36415; 71045; 80053; 82550; 83690; 83880; 84484; 85025; 93005; 94760; 96365; 96375; J2270; J2550; J3010; J8597

== ENCOUNTER 2019-09-14 04:18 | Emergency (ER) | payer SELFPAY ==
[2019-09-14] MEDS ORDERED: Insulin Regular 300 UNITS/3 ML VIAL ONE (04:42)
[2019-09-14 05:32] LABS: #Basophils 0.1 thou/uL (0.0-0.2); #Eosinphils 0.1 thou/uL (0.0-0.7); #Lymphocytes 1.8 thou/uL (1.20-3.40); #Monocytes 0.5 thou/uL (0.11-0.59); #Neutrophils 4.9 thou/uL (1.40-6.50); %Basophils 1.2 % (0.0-1.0); %Lymphocytes 24.4 % (21.0-51.0); %Monocytes 6.1 % (0.0-10.0); %Neutrophils 66.3 % (42.0-75.0); Hemoglobin 14.5 g/dL (14.0-18.0); Mean Corpuscular HGB CONC 34.5 g/dL (32.0-36.0); Mean Corpuscular Hemoglobin 29.3 pg (27.0-31.0); Mean Platelet Volume 7.9 fL (7.4-10.4); Platelet Count 260 thou/uL (130-400); Red Blood Cell (RBC) Count 4.94 mill/uL (4.70-6.10); White Blood Cell (WBC) Count 7.5 thou/uL (4.8-10.8)
[2019-09-14 05:44] LABS: ALT (SGPT) 17 U/L (8-55); AST (SGOT) 13 U/L (5-34); Albumin 4.5 g/dL (3.5-5.0); Alkaline Phosphatase 70 U/L (40-110); Anion Gap 14 mmol/L (10-20); BUN (Urea Nitrogen) 15 mg/dL (8.9-20.6); Bilirubin, Total 0.3 mg/dL (0.2-1.2); Calc. Creatinine Clearance 0 mL/min (70-130); Calcium 9.5 mg/dL (7.8-10.44); Carbon Dioxide 25 mmol/L (22-29); Chloride 102 mmol/L (98-107); Estimated GFR-MDRD 76; Globulin 2.3 g/dL (2.4-3.5); Glucose 485 mg/dL (70-105); Potassium 4.1 mmol/L (3.5-5.1); Protein, Total 6.8 g/dL (6.0-8.3); Sodium 137 mmol/L (136-145)
--- NOTE | 2019-09-14 07:51 | RAD ---
XR Chest 1 View Portable HISTORY: Chest pain COMPARISON: 09/01/2019 FINDINGS: The heart size is normal. Changes of median sternotomy are again seen. The lungs are well e xpanded without focal areas of consolidation, pneumothorax or pleural effusions. IMPRESSION: No radiographic evidence of acute cardiopulmonary process.
== END 2019-09-14 06:09 | disposition home or self-care (01) ==
LOC: ERS 04:18
DX: E10.65 Type 1 diabetes mellitus with hyperglycemia (principal); I25.2 Old myocardial infarction; Z86.73 Personal history of transient ischemic attack (TIA), and cerebral infarction without residual deficits; Z79.4 Long term (current) use of insulin; Z79.82 Long term (current) use of aspirin; Z79.899 Other long term (current) drug therapy
CPT/HCPCS: 36416; 71045; 80053; 84484; 85025; 93005; 96372; J1815

== ENCOUNTER 2019-09-14 07:55 | Inpatient (IN) | payer SELFPAY ==
[2019-09-14] MEDS ORDERED: Morphine 4 MG/ML VIAL ONE ×2 (08:42→10:54)
[2019-09-14] MEDS ORDERED: Aspirin Chewable 81 MG TAB ONE (08:43)
[2019-09-14] MEDS ORDERED: Nitroglycerin 2% Ointment 1 INCH/1 GM Packet ONE (08:43)
[2019-09-14 08:55] LABS: #Basophils 0.1 thou/uL (0.0-0.2); #Eosinphils 0.1 thou/uL (0.0-0.7); #Lymphocytes 1.8 thou/uL (1.20-3.40); #Monocytes 0.6 thou/uL (0.11-0.59); %Basophils 0.8 % (0.0-1.0); %Eosinophils 1.3 % (0.0-10.0); %Lymphocytes 18.8 % (21.0-51.0); %Monocytes 6.1 % (0.0-10.0); Mean Corpuscular HGB CONC 33.8 g/dL (32.0-36.0); Mean Corpuscular Hemoglobin 28.7 pg (27.0-31.0); Mean Corpuscular Volume 85.1 fL (78.0-98.0); Mean Platelet Volume 8.1 fL (7.4-10.4); Platelet Count 274 thou/uL (130-400); Red Blood Cell (RBC) Count 4.87 mill/uL (4.70-6.10); White Blood Cell (WBC) Count 9.7 thou/uL (4.8-10.8)
[2019-09-14 08:56] LABS: Lactic Acid 1.4 mmol/L (0.5-2.2)
[2019-09-14 09:13] LABS: ALT (SGPT) 17 U/L (8-55); AST (SGOT) 16 U/L (5-34); Albumin 4.6 g/dL (3.5-5.0); Alkaline Phosphatase 70 U/L (40-110); Anion Gap 15 mmol/L (10-20); BUN (Urea Nitrogen) 17 mg/dL (8.9-20.6); Bilirubin, Total 0.4 mg/dL (0.2-1.2); Calc. Creatinine Clearance 0 mL/min (70-130); Calcium 9.7 mg/dL (7.8-10.44); Carbon Dioxide 24 mmol/L (22-29); Chloride 102 mmol/L (98-107); Estimated GFR-MDRD 68; Globulin 2.8 g/dL (2.4-3.5); Glucose 463 mg/dL (70-105); Potassium 4.3 mmol/L (3.5-5.1); Protein, Total 7.4 g/dL (6.0-8.3); Sodium 137 mmol/L (136-145)
[2019-09-14] MEDS ORDERED: Insulin Regular 300 UNITS/3 ML VIAL ONE (10:32)
[2019-09-14 11:18] LABS: Bacteria/HPF None Seen HPF (None Seen); Bilirubin Negative (Negative); Blood, Urine Negative (Negative); Clarity Clear (Clear); Glucose, Urine (Dipstick) Greater than 1000 mg/dL (Negative); Leukocyte Negative Leu/uL (Negative); Nitrite Negative (Negative); Protein, Urine (Dipstick) 10 mg/dL (Neg-Trace); RBC/HPF 0-3 HPF (0-3); Squamous Epithelial None Seen HPF (0-3); Urobilinogen Normal mg/dL (Less than 2); WBC/HPF 0-3 HPF (0-3)
--- NOTE | 2019-09-14 11:19 | PDOC.FPRHP ---
- History of Present Illness History of Present Illness: Patient states he has had intermittent chest pain over the last several weeks. He saw his [place], Dr. Domingo who added and adjusted medication which helped for a period of time, up until last night. Patient states BG has been elevated >400 for the last week. He has been battling elevated BG. He went to [place] and [place] on Thursday as he was feeling bad , and he was given IVF to help bring down BG. Yesterday, patient went to sleep around 9:30 PM and woke up with nausea and diaphoresis. He thought maybe he had low BG, but he checked and it was in the 400's. He threw up several times. Patient also states that shortly thereafter he started to have tight, squeezing chest pain. Patient has been in DKA previously. Patient is a type I diabetic. He did not do well on insulin pump, so he has been on humalog and humalin. - Allergies/Adverse Reactions Allergies Allergy/AdvReac Type Severity Reaction Status Date / Time Iodine and Iodide Containing Allergy Verified 08/12/19 02:33 Produc piperacillin Allergy Verified 08/12/19 02:33 tazobactam [From Zosyn] Allergy Verified 08/12/19 02:33 ketorolac [From Toradol] AdvReac Verified 08/12/19 02:33 metoclopramide [From Reglan] AdvReac Verified 08/12/19 02:33 ondansetron [From Zofran] AdvReac Verified 08/12/19 02:33 - Home Medications Medication Instructions Recorded Confirmed Type Amiodarone [Cordarone] 200 mg PO DAILY 08/09/19 08/18/19 History Apixaban [Eliquis] 5 mg PO BID 08/09/19 08/18/19 History Aspirin [Ecotrin Low Strength] 81 mg PO DAILY 08/09/19 08/18/19 History Gabapentin [Gabapentin Oral 600 mg PO BID 08/09/19 08/18/19 History Solution] Metoprolol Tartrate 50 mg PO BID 08/09/19 08/18/19 History Pantoprazole [Protonix] 40 mg PO TID 08/09/19 08/18/19 History Clopidogrel Bisulfate [Plavix] 75 mg PO DAILY #30 tab 08/16/19 08/18/19 Rx DULoxetine [Cymbalta] 60 mg PO DAILY #30 cap 08/16/19 08/18/19 Rx Insulin NPH Hum/Reg Insulin HM 40 unit SC BID-WM #1 vial 08/16/19 08/18/19 Rx [Novolin 70/30] Isosorbide Mononitrate [Imdur] 120 mg PO DAILY #60 tab 08/16/19 08/18/19 Rx Nitroglycerin [Nitrostat] 0.4 mg SL Q5MIN PRN #25 tab 08/16/19 08/18/19 Rx Ranolazine [Ranexa] 1,000 mg PO BID #60 tab.er.12h 08/16/19 08/18/19 Rx Rosuvastatin Calcium [Crestor] 40 mg PO DAILY #30 tablet 08/16/19 08/18/19 Rx Zolpidem Tartrate [Ambien] 10 mg PO HS 08/18/19 08/18/19 History - History PMHx: HLD, CAD s/p CABG and stents x6, Hx HTN PSHx: Left foot and ankle surgery, CABG, Cardiac stents, fusion of back FHx: Social: Patient denies tobacco or drug use. He drinks alcohol on occasion. - Vital signs BP: [] HR: [] RR: [] Tmax: [] Pox: []% on [] Wt: [] FMR H&P: Results - Labs Result Diagrams: 09/14/19 08:30 09/14/19 08:30 Lab results: WBC 9.7 thou/uL (4.8-10.8) 09/14/19 08:30 Hgb 14.0 g/dL (14.0-18.0) 09/14/19 08:30 Hct 41.5 % (42.0-52.0) L 09/14/19 08:30 MCV 85.1 fL (78.0-98.0) 09/14/19 08:30 Plt Count 274 thou/uL (130-400) 09/14/19 08:30 Neutrophils % 73.0 % (42.0-75.0) 09/14/19 08:30 Sodium 137 mmol/L (136-145) 09/14/19 08:30 Potassium 4.3 mmol/L (3.5-5.1) 09/14/19 08:30 Chloride 102 mmol/L (98-107) 09/14/19 08:30 Carbon Dioxide 24 mmol/L (22-29) 09/14/19 08:30 BUN 17 mg/dL (8.9-20.6) 09/14/19 08:30 Creatinine 1.18 mg/dL (0.7-1.3) 09/14/19 08:30 Glucose 463 mg/dL (70-105) H 09/14/19 08:30 Lactic Acid 1.4 mmol/L (0.5-2.2) 09/14/19 08:30 Calcium 9.7 mg/dL (7.8-10.44) 09/14/19 08:30 Total Bilirubin 0.4 mg/dL (0.2-1.2) 09/14/19 08:30 AST 16 U/L (5-34) 09/14/19 08:30 ALT 17 U/L (8-55) 09/14/19 08:30 Alkaline Phosphatase 70 U/L (40-110) 09/14/19 08:30 Serum Total Protein 7.4 g/dL (6.0-8.3) 09/14/19 08:30 Albumin 4.6 g/dL (3.5-5.0) 09/14/19 08:30 FMR H&P: Upper Level - Plan Date/Time: 09/14/19 1115 I, [], have evaluated this patient and agree with findings/plan as outlined by manager intern resident. Pertinent changes/additions are listed here.
[2019-09-14 12:18] LABS: Troponin I 0.011 ng/mL (< 0.028)
[2019-09-14 14:18] VITALS: BMI 30.1
--- NOTE | 2019-09-14 14:25 | PDOC.HHP ---
Hospitalist HPI - History of Present Illness Chest pain History of Present Illness: Patient is a 44 year old male with PMH T2DM, CAD, CABG, HLD, stents who presents to the ED for chest pain originally. 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 He has been seen by Dr Dobbins here before when he presented for similar complaints last month. He was discharged on 08/16 on maximal medical therapy, appears was readmitted a few days later and discharged with no medication changes again. He was doing well at home for a few weeks, however he developed high blood sugars since Thursday despite compliance with home insulin. Today, he was awoken from sleep at 2:30 AM by a chest pain described as a "punch." His sugars were in the 400s at that time, he took some insulin (doesnt remember how much) and a nitro with minimal improvement, went to ED. Patient complains of some shortness of breath with movement of 25-50ft which is unusual for him, also complaints of weakness and tremors, otherwise ROS negative. Patient takes long and short acting insulin at home, reports good control with sugars <200 on checks. Does not have a PCP, has not seen a iron guardrail installer except for the providers who have seen him in the hospital. Rebeccat previous iron guardrail installer who managed care was Dr Glass (cardiology) in [place]. ED Course: Labs significant for sugar 463 improved to 261. UA w/ ketones and glucose. Recieved 300 units regular insulin, 81mg ASA, 8mg morphine, nitropaste. CXR performed, report pending. Hospitalist ROS - Review of Systems Constitutional: denies: fever, chills Eyes: denies: vision change, redness ENT: denies: nose pain, nose discharge Respiratory: denies: cough, dry Cardiovascular: reports: chest pain. denies: palpitations Gastrointestinal: denies: nausea, vomiting Genitourinary: denies: dysuria, frequency Musculoskeletal: denies: neck pain, shoulder pain Skin: denies: rash, lesions Neurological: denies: weakness, numbness Hospitalist History - Past Medical History Other Medical History: CAD DM2 neuropathy possible TIAs HLD - Past Surgical History Other Surgical History: CABG appendectomy cholecystectomy - Family History Other Family History: Cardiac disease in mother and father - Social History Smoking Status: Never smoker Alcohol: reports: None Drugs: reports: none - Exam General Appearance: NAD, awake alert Eye: PERRL, anicteric sclera ENT: normocephalic atraumatic, moist mucosa Neck: supple, no JVD Heart: RRR, no murmur, no gallops, no rubs Respiratory: CTAB, no wheezes, no rales, no ronchi Gastrointestinal: soft, non-tender, non-distended, normal bowel sounds Extremities: no cyanosis, no clubbing, no edema Skin: no lesions, no rashes Neurological: cranial nerve grossly intact, normal sensation to touch, no weakness, no focal deficits Musculoskeletal: normal tone, normal strength Psychiatric: normal affect, normal behavior, A&O x 3 Hospitalist Results - Labs Result Diagrams: 09/15/19 04:59 09/15/19 04:59 Lab results: WBC 9.7 thou/uL (4.8-10.8) 09/14/19 08:30 Hgb 14.0 g/dL (14.0-18.0) 09/14/19 08:30 Hct 41.5 % (42.0-52.0) L 09/14/19 08:30 MCV 85.1 fL (78.0-98.0) 09/14/19 08:30 Plt Count 274 thou/uL (130-400) 09/14/19 08:30 Neutrophils % 73.0 % (42.0-75.0) 09/14/19 08:30 Sodium 137 mmol/L (136-145) 09/14/19 08:30 Potassium 4.3 mmol/L (3.5-5.1) 09/14/19 08:30 Chloride 102 mmol/L (98-107) 09/14/19 08:30 Carbon Dioxide 24 mmol/L (22-29) 09/14/19 08:30 BUN 17 mg/dL (8.9-20.6) 09/14/19 08:30 Creatinine 1.18 mg/dL (0.7-1.3) 09/14/19 08:30 Glucose 463 mg/dL (70-105) H 09/14/19 08:30 Lactic Acid 1.4 mmol/L (0.5-2.2) 09/14/19 08:30 Calcium 9.7 mg/dL (7.8-10.44) 09/14/19 08:30 Total Bilirubin 0.4 mg/dL (0.2-1.2) 09/14/19 08:30 AST 16 U/L (5-34) 09/14/19 08:30 ALT 17 U/L (8-55) 09/14/19 08:30 Alkaline Phosphatase 70 U/L (40-110) 09/14/19 08:30 Troponin I 0.011 ng/mL (< 0.028) 09/14/19 11:40 Serum Total Protein 7.4 g/dL (6.0-8.3) 09/14/19 08:30 Albumin 4.6 g/dL (3.5-5.0) 09/14/19 08:30 Urine Ketones Trace mg/dL (Negative) A 09/14/19 10:50 Urine Blood Negative (Negative) 09/14/19 10:50 Urine Nitrite Negative (Negative) 09/14/19 10:50 Ur Leukocyte Esterase Negative Judith/uL (Negative) 09/14/19 10:50 Urine RBC 0-3 HPF (0-3) 09/14/19 10:50 Urine WBC 0-3 HPF (0-3) 09/14/19 10:50 Ur Squamous Epith Cells None Seen HPF (0-3) 09/14/19 10:50 Urine Bacteria None Seen HPF (None Seen) 09/14/19 10:50 - EKG Interpretation EKG: Reviewed, NSR 98 bpm, TWI V1-V2, no acute ST changes Hospitalist H&P A/P - Plan Plan: 44 year old male with PMH CAD, CABG, HLD, DM2, distant history of PE admitted for: # chest pain - patient reports this is different than previous UT pain he reports this is more similar to the pain of previous PE, he is on eliquis and reports compliance, some shortness of breath, but no clinical volume overload, patient had angiogram last month with several occlusions and stenoses which may be significant. - admit to telemetry under observation status - trend cardiac enzymes - CT-PE ordered, will need to premedicate for mild iodine allergy in past - consult cardiology - continue home meds, is on large doses isosorbide and ranexa already # iodine allergy - patent reports mild allergy to contrast with itching, anxiety in the past relieved with premedication previously, no history of anaphylaxis to iodine - will use the 1 hour premedication protocol before iodine contrast # DM2 w/ hyperglycemia - patient with very high sugars on presentation to the ED , now improved to 20, patient took some insulin this AM very early but does not remember what or how much - resume home long acting insulin - replace home short acting with high dose SSI - social work consult for PCP referrals in the area # distant history of pulmonary embolism - continue eliquis, rule out new PE as above # reported history of TIAs - vague history of these provided, patient is on statin and aspirin/eliquis, will continue # HLD - continue statin # GI, DVT ppx Disposition - likely home if acute UT ruled out depending on cardiology consult , in obs status
[2019-09-14] MEDS ORDERED: Bisacodyl 5 MG TAB PO PRN (14:44)
[2019-09-14] MEDS ORDERED: Ondansetron PF 4 MG/2 ML Vial IVP PRN (14:44)
[2019-09-14] MEDS ORDERED: HYDROcodone/Acetaminophen 5/325 mg Tablet PO PRN (14:44)
[2019-09-14] MEDS ORDERED: Acetaminophen 325 MG TAB PO PRN (14:44)
[2019-09-14] MEDS ORDERED: Senokot S 8.6-50 MG TAB PO PRN (14:44)
[2019-09-14] MEDS ORDERED: cloNIDine 0.1 MG TAB PO PRN (14:49)
[2019-09-14] MEDS ORDERED: hydrALAZINE 20 MG/ML VIAL SLOW IVP PRN (14:49)
[2019-09-14] MEDS ORDERED: Dextrose 50 % In Water 50 ML SYRINGE IV PRN (14:52)
[2019-09-14] MEDS ORDERED: Dextrose 5% in Water 1,000 ML IV PRN (14:52)
[2019-09-14 15:33] LABS: Troponin I Less than 0.010 ng/mL (< 0.028)
[2019-09-14] MEDS: Morphine 4 MG/ML VIAL SLOW IVP PRN ×3 (15:37→22:02)
[2019-09-14] MEDS: Hydrocortisone Sod Succ/PF 100 mg/2 ml Vial IVP PRN (17:04)
[2019-09-14] MEDS: diphenhydrAMINE 50 MG/ML VIAL IVP PRN (17:04)
[2019-09-14] MEDS: Famotidine/PF 20 mg/2ml Vial SLOW IVP PRN (17:04)
[2019-09-14] MEDS: Pantoprazole 40 MG GRANULES PACKET PO SCH ×2 (17:56→21:05)
[2019-09-14] MEDS: HumuLIN 70/30 (300 UNITS/3 ML VIAL) SC SCH (18:47)
[2019-09-14] MEDS ORDERED: diphenhydrAMINE 25 MG CAP PO PRN (20:37)
[2019-09-14] MEDS: Gabapentin 300 MG CAP PO SCH (21:06)
[2019-09-14] MEDS: Famotidine 20 MG TAB PO SCH (21:06)
[2019-09-14] MEDS: Rosuvastatin 20 MG TAB PO SCH (21:06)
[2019-09-14] MEDS: Zolpidem Tartrate 5 MG TAB PO SCH (21:06)
[2019-09-14] MEDS: Metoprolol Tartrate 50 MG TAB PO SCH (21:07)
[2019-09-14] MEDS: Apixaban 5 MG TAB PO SCH (21:07)
[2019-09-14] MEDS: Nitroglycerin 2% Ointment 1 INCH/1 GM Packet TOP SCH (21:09)
[2019-09-14] MEDS: HumaLOG 300 UNITS/3 ML VIAL SC PRN (22:08)
[2019-09-15] MEDS ORDERED: Lorazepam 0.5 MG TAB PO SCH (00:30)
[2019-09-15] MEDS: Morphine 4 MG/ML VIAL SLOW IVP PRN ×5 (01:09→14:53)
[2019-09-15] MEDS: Nitroglycerin 2% Ointment 1 INCH/1 GM Packet TOP SCH ×2 (05:12→13:17)
[2019-09-15 05:30] LABS: #Lymphocytes 1.5 thou/uL (1.20-3.40); #Monocytes 0.4 thou/uL (0.11-0.59); #Neutrophils 8.3 thou/uL (1.40-6.50); %Basophils 0.1 % (0.0-1.0); %Eosinophils 0.4 % (0.0-10.0); %Lymphocytes 14.9 % (21.0-51.0); %Monocytes 4.3 % (0.0-10.0); %Neutrophils 80.3 % (42.0-75.0); Hemoglobin 14.2 g/dL (14.0-18.0); Mean Corpuscular HGB CONC 34.1 g/dL (32.0-36.0); Mean Corpuscular Hemoglobin 29.2 pg (27.0-31.0); Mean Corpuscular Volume 85.8 fL (78.0-98.0); Mean Platelet Volume 8.1 fL (7.4-10.4); Platelet Count 257 thou/uL (130-400); RBC Distribution Width 12.8 % (11.5-14.5); Red Blood Cell (RBC) Count 4.87 mill/uL (4.70-6.10); White Blood Cell (WBC) Count 10.4 thou/uL (4.8-10.8)
[2019-09-15 05:32] LABS: Anion Gap 15 mmol/L (10-20); BUN (Urea Nitrogen) 15 mg/dL (8.9-20.6); Calc. Creatinine Clearance 157 mL/min (70-130); Calcium 9.1 mg/dL (7.8-10.44); Carbon Dioxide 19 mmol/L (22-29); Chloride 106 mmol/L (98-107); Estimated GFR-MDRD Greater than 90; Glucose 281 mg/dL (70-105); Potassium 4.2 mmol/L (3.5-5.1); Sodium 136 mmol/L (136-145)
[2019-09-15 05:33] LABS: Troponin I Less than 0.010 ng/mL (< 0.028)
--- NOTE | 2019-09-15 07:38 | CON ---
DATE OF CONSULTATION: 09/14/2019 REASON FOR CONSULTATION: Recurrent chest pain. PRIMARY RESIDENT SERVICES DIRECTOR: Dr. Florentino Dobbins. HISTORY OF PRESENT ILLNESS: Mr. Olea is an unfortunate 44-year-old gentleman with history of CAD status post bypass surgery and stent placement in addition to TX, who recently returned to the hospital for chest discomfort. Pain was different than his previous pain. He states he has had 3 stress tests followed by myocardial infarctions 4-6 weeks apart. This has been over the last several years. Dr. Florentino Dobbins did perform a coronary angiography on 08/09/2019. Findings of angiography were reviewed. He did have 100% occlusion of the mid LAD, 70% stenosis of the left main artery, 70% stenosis of the proximal circumflex artery and diffuse disease of the right coronary artery. Graft to the distal RCA is 100% occluded. ARIAS to the LAD is patent. Graft to the OM patent, graft to the distal right coronary patent. PAST MEDICAL HISTORY: Reviewed. ALLERGIES: IODINE, KETOROLAC, METOCLOPRAMIDE, AND ONDANSETRON. HOME MEDICATIONS: Include; 1. Gabapentin. 2. Isosorbide at 60 mg b.i.d. 3. Insulin. 4. Crestor 10 mg b.i.d. 5. Amiodarone 200 daily. 6. Aspirin. 7. Ranexa 1000 mg b.i.d. 8. Protonix. 9. Metoprolol 50 mg b.i.d. 10. Eliquis 5 mg b.i.d. PHYSICAL EXAMINATION: GENERAL: Patient is a pleasant male who is in no acute distress. The patient does appear older than stated age. VITAL SIGNS: Blood pressure 114/62, pulse 93, temperature 98.5. NEUROLOGIC: The patient is alert and oriented x3 with no focal neurologic deficits. HEENT: Sclerae without icterus. Mouth has moist mucous membranes with normal pallor. NECK: No JVD. Carotid upstroke brisk. No bruits bilaterally. LUNGS: Clear to auscultation with unlabored respirations. BACK: No scoliosis or kyphosis. CARDIAC: Regular rate and rhythm with normal S1 and S2. No S3 or S4 noted. No significant rubs, murmurs, thrills, or gallops noted throughout the precordium. PMI is not displaced. There is no parasternal heave. ABDOMEN: Soft, nontender, nondistended. No peritoneal signs present. No hepatosplenomegaly. No abnormal striae. EXTREMITIES: 2+ femoral and 2+ dorsalis pedis pulses. No cyanosis, clubbing, or edema. SKIN: No gross abnormalities. PERTINENT LABORATORY DATA: Hemoglobin 14.2. Creatinine less than 0.87. IMPRESSION: 1. Recurrent chest pain. 2. Severe diffuse coronary artery disease. 3. Diabetes mellitus. RECOMMENDATIONS: At this point, the patient recently had a coronary angiography and will continue with medical therapy. May consider changing Imdur to nitroglycerin patch, which seems to be more effective. Continue Ranexa and may also consider increasing beta-kristine therapy to 100 mg p.o. b.i.d. Would leave any further recommendations to Dr. Florentino Dobbins. There is some concern for anxiety. The patient has a very low threshold for returning to the emergency room with any type of chest discomfort due to his past of having a non- Q-wave TX shortly after any type of procedure such as coronary angiography or stress study. This may also need to be treated. Job ID: [id number]
[2019-09-15] MEDS: diphenhydrAMINE 50 MG/ML VIAL IVP PRN (07:55)
[2019-09-15] MEDS: Famotidine/PF 20 mg/2ml Vial SLOW IVP PRN (07:55)
[2019-09-15] MEDS: Hydrocortisone Sod Succ/PF 100 mg/2 ml Vial IVP PRN (07:56)
--- NOTE | 2019-09-15 08:16 | RAD ---
XR Chest 1 View Portable HISTORY: Chest pain COMPARISON: Earlier exam of 5:01 AM from same date FINDINGS: The heart size is normal. Changes of median sternotomy are again seen. The lungs are well e xpanded without focal areas of consolidation, pneumothorax or pleural effusions. IMPRESSION: No radiographic evidence of acute cardiopulmonary process.
--- NOTE | 2019-09-15 08:54 | CT ---
Exam: CT angiogram of the chest HISTORY: Chest pain. Shortness of breath. COMPARISON: 08/13/2019 TECHNIQUE: CT angiogram of the chest is performed in the axial plane. Three-dimensional reformatted i mages are submitted for interpretation FINDINGS: Mediastinum: No mass, lymphadenopathy or hematoma. Lower neck: 0.9 cm hypodensity in the left thyroid lobe. HEART: Normal size. No significant pericardial fluid. Significant coronary calcifications. Aorta: No aneurysm or dissection Upper solid abdominal viscera: No abnormality enhancement. Trachea and central bronchi: Patent Pleural spaces: No effusion Lung parenchyma: No masses or consolidation. Pneumothorax: None Osseous structures: No lytic or blastic lesions Pulmonary arteries: Adequate contrast opacification pulmonary arterial system to the level of segment al arteries. No filling defect to suggest pulmonary embolism IMPRESSION: 1. No evidence of pulmonary artery embolism to segmental arteries. No significant interval change. 2. Hypodensity in left thyroid lobe. Nonemergent thyroid ultrasound CODE T
[2019-09-15] MEDS ORDERED: Amiodarone 200 MG TAB PO SCH (09:00)
[2019-09-15] MEDS: Promethazine HCl 12.5 MG in Sodium Chloride 0.9% 50 ML IVPB PRN ×2 (09:14→14:53)
[2019-09-15] MEDS: DULoxetine 60 MG CAP PO SCH (09:15)
[2019-09-15] MEDS: Pantoprazole 40 MG GRANULES PACKET PO SCH ×3 (09:15→21:31)
[2019-09-15] MEDS: Aspirin 81 mg Enteric Coated Tablet PO SCH (09:16)
[2019-09-15] MEDS: Clopidogrel Bisulfate 75 MG TAB PO SCH (09:16)
[2019-09-15] MEDS: Gabapentin 300 MG CAP PO SCH ×2 (09:16→21:32)
[2019-09-15] MEDS: Famotidine 20 MG TAB PO SCH ×2 (09:17→21:32)
[2019-09-15] MEDS: Apixaban 5 MG TAB PO SCH (09:17)
[2019-09-15] MEDS: HumuLIN 70/30 (300 UNITS/3 ML VIAL) SC SCH ×2 (09:18→16:10)
[2019-09-15] MEDS: Metoprolol Tartrate 50 MG TAB PO SCH ×2 (10:14→21:32)
[2019-09-15] MEDS: Amiodarone 200 MG TAB PO SCH (13:16)
[2019-09-15] MEDS ORDERED: Morphine 2 MG/ML SYRINGE SLOW IVP PRN (15:51)
[2019-09-15] MEDS: HumaLOG 300 UNITS/3 ML VIAL SC PRN ×2 (16:12→21:38)
--- NOTE | 2019-09-15 17:45 | PDOC.HOSPP ---
- Subjective Encounter Date: 09/15/19 Encounter Time: 17:41 Subjective: Chief complaint: chest/upper abdominal pain Subjective: Patient cleared for discharge by cardiology, when discussing possiblity of discharge with patient he reiterated the severity of his chest/ epigastric pain, and requests GI consult, on repeat interview he insists that the pain is ruining his life and driving him to repeatedly go to the emergency room, is vague epigastric pain that has persisted and worsened for a very long time. No visible GI bleeding this admission, no nausea/vomiting today. - Objective Vital Signs & Weight: Vital Signs (12 hours) Temp Pulse Resp BP Pulse Ox 09/15/19 15:18 97.6 F 100 16 107/58 L 98 09/15/19 11:59 97.9 F 85 16 109/64 94 L 09/15/19 07:37 98.4 F 82 18 129/71 96 Weight Weight 215 lb 14.4 oz I&O: 09/14/19 09/15/19 09/16/19 06:59 06:59 06:59 Intake Total 1113 1000 Output Total 1100 1400 Balance 13 -400 Result Diagrams: 09/15/19 04:59 09/15/19 04:59 Additional Labs: Accuchecks 09/15/19 09/15/19 09/15/19 16:12 10:32 05:01 POC Glucose 337 H 223 H 268 H 09/14/19 20:36 POC Glucose 378 H Hospitalist ROS - Medication Medications: Active Medications Generic Name Dose Route Start Last Admin Trade Name Freq PRN Reason Stop Dose Admin Amiodarone HCl 200 mg 09/15/19 14:00 09/15/19 13:16 Cordarone PO 200 mg 1400 LUIS Administration Apixaban 5 mg 09/14/19 21:00 09/15/19 09:17 Eliquis PO 5 mg BID LUIS Administration Aspirin 81 mg 09/15/19 09:00 09/15/19 09:16 Ecotrin PO 81 mg DAILY LUIS Administration Clopidogrel Bisulfate 75 mg 09/15/19 09:00 09/15/19 09:16 Plavix PO 75 mg DAILY LUIS Administration Duloxetine HCl 60 mg 09/15/19 09:00 09/15/19 09:15 Cymbalta PO 60 mg DAILY LUIS Administration Famotidine 20 mg 09/14/19 21:00 09/15/19 09:17 Pepcid PO 20 mg BID LUIS Administration Gabapentin 600 mg 09/14/19 21:00 09/15/19 09:16 Neurontin PO 600 mg BID LUIS Administration Insulin Human Isoph/Insulin Regular 40 units 09/14/19 17:00 09/15/19 16:10 Humulin 70/30 SC 40 unit BID-WM LUIS Administration Insulin Human Lispro 0 units 09/14/19 14:52 09/15/19 16:12 Humalog SC 11 unit .AGGRESSIVE SLIDING PRN Administration Aggressive Correctional Scale Insulin Human Lispro 0 units 09/14/19 21:49 09/14/19 22:08 Humalog SC 5 unit .BEDTIME SLIDING SC PRN Administration Bedtime Correctional Scale Isosorbide Mononitrate 120 mg 09/15/19 14:00 09/15/19 13:16 Imdur PO 120 mg 1400 LUIS Administration Metoprolol Tartrate 50 mg 09/14/19 21:00 09/14/19 21:07 Lopressor PO 50 mg BID LUIS Administration Pantoprazole Sodium 40 mg 09/14/19 15:00 09/15/19 14:54 Protonix PO 40 mg TID LUIS Administration Ranolazine 1,000 mg 09/14/19 21:00 09/15/19 09:15 Ranexa PO 1,000 mg BID LUIS Administration Rosuvastatin Calcium 40 mg 09/14/19 21:00 09/14/19 21:06 Crestor PO 40 mg HS LUIS Administration Sodium Chloride 10 ml 09/15/19 09:00 09/15/19 10:14 Flush - Normal Saline IVF Not Given Q12HR [facility] Zolpidem Tartrate 10 mg 09/14/19 21:00 09/14/19 21:06 Ambien PO 10 mg HS LUIS Administration - Exam General Appearance: NAD, awake alert Eye: PERRL, anicteric sclera ENT: normocephalic atraumatic, moist mucosa Neck: supple, no JVD Heart: RRR, no murmur, no gallops Respiratory: CTAB, no wheezes, no rales, no ronchi Gastrointestinal: soft, non-distended, normal bowel sounds, no palpable masses Gastrointestinal - other findings: epigastric tenderness Extremities: no cyanosis, no clubbing, no edema Skin: no lesions, no rashes Neurological: cranial nerve grossly intact, normal sensation to touch, no weakness, no focal deficits Musculoskeletal: normal tone, normal strength Psychiatric: normal affect, normal behavior, A&O x 3 Hosp A/P - Plan Patient is a 44 years old male admitted for: # chest/epigastric pain - constant, gradually worsening, patient has been evaluated by cardiology and cleared of cardiac etiologies, however patient pain is still driving patient to make many trips to the ED and perhaps driving many fruitless cardiology workups, may be better to complete GI workup at this time, patient without bleeding clinically this admission, no nausea/vomiting, no elevated LFTs, has had his gallbladder out - would like to rule out gastritis or other endoscopix dx, since patient continues to have pain after being on TID protonix he could potentially be indicated for an EGD, GI consult placed, also patient at risk of diabetic gastroparesis, will stop all narcotic and histaminergic or GI motility affecting medications in anticipation of possible gastric emptying study this admission - lower PPI to BID - cardiac workup complete, follow up cardiology after d/c - HOLD ALL NARCOTIC, HISTAMINERGIC AND PROKINETIC MEDS 48-72 hrs in case emptying study #iodine allergy - mild symptoms, premedicate if needed IV contrast # DM2 w/ hyperglycemia - sugars in 200s on current medications, increase mealtime insulin tomorrow if not NPO - case management consult for local resources # distant history of PE - continue eliquis, scan negative for PE this admission # HLD - continue statin # GI, DVT ppx Disposition - continue to work up persistent pain, patient is in and out of ERs constantly and keeps having negative cardiac workups so will investigate further
[2019-09-15] MEDS: Zolpidem Tartrate 5 MG TAB PO SCH (21:32)
[2019-09-15] MEDS: Rosuvastatin 20 MG TAB PO SCH (21:33)
[2019-09-15] MEDS: Lorazepam 2 MG/ML VIAL SLOW IVP PRN (21:33)
--- NOTE | 2019-09-16 00:29 | CON ---
DATE OF CONSULTATION: 09/15/2019 REQUESTING PHYSICIAN: Clem Puentes MD. REASON FOR CONSULTATION: Epigastric pain. HISTORY OF PRESENT ILLNESS: Josef Olea is a 44-year-old man with an unfortunate history of severe coronary artery disease at a young age. He has already undergone coronary artery bypass graft and is treated for chronic angina. He is new to the area, recently established with Dr. Dobbins here. He also has diabetes. He has had stuttering chest pain and angina symptoms for quite a long time. He says in recent weeks his medical therapy is increased and he had been doing better for some time, but then last night he had the fairly acute onset of nausea with a few episodes of emesis followed by severe chest pain. This is in the mid chest and feels as if someone is punching him, but he says the pain also involves the epigastrium. He was told in the past that he had esophageal spasms and he thinks maybe that is what is going on. Notably, he has been on Protonix 40 mg three times per day for over the past year to control his reflux. He cannot recall exactly when his last EGD was, but would have been several years ago. He says he had a colonoscopy a couple of years ago with polyps removed. Here in the hospital, he has been evaluated by Cardiology. Acute myocardial infarction has been ruled out. Notably, the patient takes Plavix and Eliquis. PAST MEDICAL HISTORY: Coronary artery disease, coronary artery bypass graft, appendectomy, cholecystectomy, diabetes type 2, neuropathy, possible TIAs, hyperlipidemia. FAMILY HISTORY: Significant for cardiac disease in mother and father. SOCIAL HISTORY: He does not smoke, use alcohol or use drugs. 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 ALLERGIES: IODINE, ZOSYN, METOCLOPRAMIDE, KETOROLAC, ONDANSETRON. HOME MEDICATIONS: 1. Gabapentin. 2. Isosorbide. 3. Insulin. 4. Crestor. 5. Amiodarone. 6. Aspirin. 7. Ranexa. 8. Protonix 40 mg t.i.d. 9. Eliquis 5 mg b.i.d. 10. Metoprolol 50 mg b.i.d. PHYSICAL EXAMINATION: VITAL SIGNS: Temperature 97.6, pulse 100, blood pressure 107/58, and 98% oxygen saturation on room air. GENERAL: A 44-year-old man sitting up in bed comfortably, in no distress. SKIN: No jaundice, no rashes were palpable. EYES: No scleral icterus. Extraocular movements intact. ENT: Mucous membranes moist. No oral lesions. LYMPH: No submandibular or supraclavicular lymphadenopathy. THYROID: Nontender to palpation. HEART: Regular rate and rhythm. LUNGS: Clear to auscultation bilaterally. ABDOMEN: Bowel sounds are present. Soft. Mild tenderness to palpation in the epigastrium, but no guarding, rebound, tenderness. EXTREMITIES: No peripheral edema. VESSELS: Radial pulses 2+ bilaterally. NEUROLOGIC: Cranial nerves 2-12 intact bilaterally. No focal deficits. LABORATORY STUDIES: WBC 10.4, hemoglobin 14.2, platelets 257. Sodium 136, potassium 4.2, BUN 15, creatinine 0.85, glucose 337. Troponin negative x3, calcium 9.1. Urinalysis is positive for glucose, otherwise negative. IMAGING STUDIES: CT angiogram of the chest and thorax demonstrated no evidence of any PE. No mediastinal mass. Normal aorta. No abnormality of upper solid abdominal viscera. ASSESSMENT/PLAN: 1. Epigastric pain. 2. Nausea. 3. Chest pain. 4. The patient's symptoms seem most consistent with stable or unstable angina, but I note the essentially negative cardiac workup here, satisfactory recent angiogram. The patient is worried about esophageal or gastric pathology such as spasms or severe esophagitis. I suppose that is possible, though the very high dose Protonix he has been on should be protective against that. Consider Jennifer esophagitis, hiatal hernia, etc. It would be reasonable to perform EGD for further evaluation, but we would need to hold the Eliquis for over a day prior to considering any endoscopic procedure. So, we will hold the Eliquis tomorrow, and he can continue his diet tomorrow. If he is not feeling better tomorrow, then we will make him n.p.o. after tomorrow night and plan for EGD on Thursday. It is possible the patient may have some degree of gastroparesis, but gastric emptying scan would be of limited utility in the setting with narcotics on board, etc. Job ID: [id number]
[2019-09-16] MEDS: Lorazepam 2 MG/ML VIAL SLOW IVP PRN ×2 (05:14→09:23)
[2019-09-16 05:22] LABS: Anion Gap 14 mmol/L (10-20); BUN (Urea Nitrogen) 18 mg/dL (8.9-20.6); Calc. Creatinine Clearance 136 mL/min (70-130); Calcium 8.7 mg/dL (7.8-10.44); Carbon Dioxide 22 mmol/L (22-29); Chloride 102 mmol/L (98-107); Estimated GFR-MDRD 84; Glucose 260 mg/dL (70-105); Potassium 4.1 mmol/L (3.5-5.1); Sodium 134 mmol/L (136-145)
[2019-09-16] MEDS: HumaLOG 300 UNITS/3 ML VIAL SC PRN ×2 (05:57→12:15)
[2019-09-16 06:45] LABS: #Eosinphils 0.2 thou/uL (0.0-0.7); #Lymphocytes 2.6 thou/uL (1.20-3.40); #Monocytes 0.4 thou/uL (0.11-0.59); #Neutrophils 5.5 thou/uL (1.40-6.50); %Basophils 0.5 % (0.0-1.0); %Eosinophils 2.6 % (0.0-10.0); %Lymphocytes 29.7 % (21.0-51.0); %Monocytes 4.9 % (0.0-10.0); %Neutrophils 62.3 % (42.0-75.0); Hemoglobin 12.9 g/dL (14.0-18.0); Mean Corpuscular HGB CONC 32.9 g/dL (32.0-36.0); Mean Corpuscular Hemoglobin 28.2 pg (27.0-31.0); Mean Corpuscular Volume 85.7 fL (78.0-98.0); Mean Platelet Volume 8.2 fL (7.4-10.4); Platelet Count 240 thou/uL (130-400); RBC Distribution Width 12.8 % (11.5-14.5); Red Blood Cell (RBC) Count 4.57 mill/uL (4.70-6.10); White Blood Cell (WBC) Count 8.9 thou/uL (4.8-10.8)
[2019-09-16] MEDS: HumuLIN 70/30 (300 UNITS/3 ML VIAL) SC SCH ×2 (09:21→17:03)
[2019-09-16] MEDS: Aspirin 81 mg Enteric Coated Tablet PO SCH (09:21)
[2019-09-16] MEDS: DULoxetine 60 MG CAP PO SCH (09:22)
[2019-09-16] MEDS: Clopidogrel Bisulfate 75 MG TAB PO SCH (09:22)
[2019-09-16] MEDS: Pantoprazole 40 MG GRANULES PACKET PO SCH ×3 (09:22→21:19)
[2019-09-16] MEDS: Famotidine 20 MG TAB PO SCH (09:22)
[2019-09-16] MEDS: Gabapentin 300 MG CAP PO SCH ×2 (09:22→21:19)
--- NOTE | 2019-09-16 12:23 | PRG ---
DATE OF SERVICE: 09/16/2019 SUBJECTIVE: Mr. Olea endorses continued epigastric abdominal pain, less chest pain today, continued nausea. He has not had any vomiting and he has been tolerating his diet. Eliquis is being held. He has otherwise been stable. OBJECTIVE: VITAL SIGNS: Temperature 97.9, pulse 90, blood pressure 99/57, and 93% oxygen saturation on room air. GENERAL: No acute distress. HEART: Regular rate and rhythm. LUNGS: Clear to auscultation bilaterally. ABDOMEN: Bowel sounds present, soft, nontender throughout the abdomen, except in the epigastrium, but no guarding, rebound, tenderness. EXTREMITIES: No peripheral edema. LABORATORY STUDIES: WBC 8.9, hemoglobin 12.9, platelets 240. Sodium 134, potassium 4.1, BUN 18, creatinine 0.98, glucose 251. ASSESSMENT AND PLAN: 1. Chest pain. 2. Epigastric pain. 3. Nausea. We will stick with the plan for diagnostic EGD tomorrow. If this is negative, then we could plan for gastric emptying scan to be done on an outpatient basis, with no other barriers to discharge from a GI perspective. Job ID: [id number]
[2019-09-16] MEDS ORDERED: HumuLIN 70/30 (300 UNITS/3 ML VIAL) SC SCH (12:45)
--- NOTE | 2019-09-16 12:49 | PDOC.HOSPP ---
- Subjective Encounter Date: 09/16/19 Encounter Time: 12:43 Subjective: Chief complaint: chest pain Subjective: patient in bed, awaiting EGD tomorrow. Continued chronic acute on chronic chest pain. Reports tremors partially resolved with ativan. No vomiting or diarrhea. - Objective Vital Signs & Weight: Vital Signs (12 hours) Temp Pulse Resp BP Pulse Ox 09/16/19 11:30 97.7 F 90 20 118/63 94 L 09/16/19 07:11 97.9 F 90 20 99/57 L 93 L 09/16/19 04:00 97.8 F 92 16 101/56 L 92 L Weight Weight 215 lb 14.4 oz I&O: 09/15/19 09/16/19 09/17/19 06:59 06:59 06:59 Intake Total 1113 1960 480.5 Output Total 1100 2300 Balance 13 -340 480.5 Result Diagrams: 09/16/19 06:03 09/16/19 04:57 Additional Labs: Accuchecks 09/16/19 09/16/19 09/15/19 11:35 05:38 20:33 POC Glucose 251 H 266 H 216 H 09/15/19 09/14/19 16:12 23:21 POC Glucose 337 H 372 H Hospitalist ROS - Medication Medications: Active Medications Generic Name Dose Route Start Last Admin Trade Name Freq PRN Reason Stop Dose Admin Acetaminophen 650 mg 09/14/19 14:44 09/15/19 21:32 Tylenol PO 650 mg Q4H PRN Administration Headache/Fever/Mild Pain (1-3) Amiodarone HCl 200 mg 09/15/19 14:00 09/15/19 13:16 Cordarone PO 200 mg 1400 LUIS Administration Apixaban 5 mg 09/14/19 21:00 09/15/19 09:17 Eliquis PO 5 mg BID LUIS Administration Aspirin 81 mg 09/15/19 09:00 09/16/19 09:21 Ecotrin PO 81 mg DAILY LUIS Administration Clopidogrel Bisulfate 75 mg 09/15/19 09:00 09/16/19 09:22 Plavix PO 75 mg DAILY LUIS Administration Duloxetine HCl 60 mg 09/15/19 09:00 09/16/19 09:22 Cymbalta PO 60 mg DAILY LUIS Administration Famotidine 20 mg 09/14/19 21:00 09/16/19 09:22 Pepcid PO 20 mg BID LUIS Administration Gabapentin 600 mg 09/14/19 21:00 09/16/19 09:22 Neurontin PO 600 mg BID LUIS Administration Insulin Human Lispro 0 units 09/14/19 14:52 09/16/19 12:15 Humalog SC 9 unit .AGGRESSIVE SLIDING PRN Administration Aggressive Correctional Scale Insulin Human Lispro 0 units 09/14/19 21:49 09/15/19 21:38 Humalog SC 2 unit .BEDTIME SLIDING SC PRN Administration Bedtime Correctional Scale Isosorbide Mononitrate 120 mg 09/15/19 14:00 09/15/19 13:16 Imdur PO 120 mg 1400 LUIS Administration Lorazepam 1 mg 09/15/19 18:34 09/16/19 09:23 Ativan SLOW IVP 1 mg Q4H PRN Administration Anxiety/Agitation Metoprolol Tartrate 50 mg 09/14/19 21:00 09/15/19 21:32 Lopressor PO 50 mg BID LUIS Administration Pantoprazole Sodium 40 mg 09/14/19 15:00 09/16/19 09:22 Protonix PO 40 mg TID LUIS Administration Ranolazine 1,000 mg 09/14/19 21:00 09/16/19 09:22 Ranexa PO 1,000 mg BID LUIS Administration Rosuvastatin Calcium 40 mg 09/14/19 21:00 09/15/19 21:33 Crestor PO 40 mg HS LUIS Administration Sodium Chloride 10 ml 09/15/19 09:00 09/16/19 09:23 Flush - Normal Saline IVF 10 ml Q12HR LUIS Administration Zolpidem Tartrate 10 mg 09/14/19 21:00 09/15/19 21:32 Ambien PO 10 mg HS LUIS Administration - Exam General Appearance: NAD, awake alert Eye: PERRL, anicteric sclera ENT: normocephalic atraumatic, moist mucosa Neck: supple, symmetric, no JVD Heart: RRR, no murmur, no gallops, no rubs Respiratory: CTAB, no wheezes, no rales, no ronchi Gastrointestinal: soft, non-tender, non-distended, normal bowel sounds Extremities: no cyanosis, no clubbing, no edema Skin: no lesions, no rashes Neurological: cranial nerve grossly intact, normal sensation to touch, no weakness, no focal deficits Musculoskeletal: normal tone, normal strength Psychiatric: normal affect, normal behavior, A&O x 3 Hosp A/P - Plan Patient is a 44 years old male admitted for: # chest/epigastric pain - constant, gradually worsening, patient has been evaluated by cardiology and cleared of cardiac etiologies, finishing workup with GI consulted - appreciate cardiology and GI evaluations, holding eliquis for EGD tomorrow - GI does not think needs emptying study needed this admission, would like to stop the medications still - continue PPI TID, d/c pepcid - cardiac workup complete, follow up cardiology after d/c # iodine allergy - mild symptoms, premedicate if needed IV contrast # DM2 w/ hyperglycemia - sugars in 200s on current medications, increase 70/30 to 44u BID from 40 - case management consult for local resources # distant history of PE - continue eliquis after EGD, scan negative for PE this admission # HLD - continue statin # GI, DVT ppx Disposition - continue to work up persistent pain, patient is in and out of ERs constantly and keeps having negative cardiac workups so will investigate further with GI/EGD
[2019-09-16] MEDS: Amiodarone 200 MG TAB PO SCH (14:36)
[2019-09-16] MEDS: Lorazepam 1 MG TAB PO PRN ×3 (14:36→21:18)
[2019-09-16] MEDS: Metoprolol Tartrate 50 MG TAB PO SCH ×2 (15:44→21:20)
[2019-09-16] MEDS: Rosuvastatin 20 MG TAB PO SCH (21:19)
[2019-09-16] MEDS: Zolpidem Tartrate 5 MG TAB PO SCH (21:20)
[2019-09-17] MEDS: Metoprolol Tartrate 50 MG TAB PO SCH ×2 (04:58→21:28)
[2019-09-17] MEDS: Lorazepam 1 MG TAB PO PRN ×4 (04:58→23:16)
[2019-09-17 05:33] LABS: #Basophils 0.1 thou/uL (0.0-0.2); #Eosinphils 0.1 thou/uL (0.0-0.7); #Lymphocytes 2.1 thou/uL (1.20-3.40); #Monocytes 0.6 thou/uL (0.11-0.59); #Neutrophils 6.3 thou/uL (1.40-6.50); %Basophils 0.6 % (0.0-1.0); %Eosinophils 1.3 % (0.0-10.0); %Lymphocytes 22.8 % (21.0-51.0); %Monocytes 6.4 % (0.0-10.0); %Neutrophils 68.9 % (42.0-75.0); Hemoglobin 12.8 g/dL (14.0-18.0); Mean Corpuscular HGB CONC 32.9 g/dL (32.0-36.0); Mean Corpuscular Hemoglobin 28.2 pg (27.0-31.0); Mean Corpuscular Volume 85.8 fL (78.0-98.0); Mean Platelet Volume 7.8 fL (7.4-10.4); Platelet Count 238 thou/uL (130-400); Red Blood Cell (RBC) Count 4.53 mill/uL (4.70-6.10); White Blood Cell (WBC) Count 9.1 thou/uL (4.8-10.8)
[2019-09-17 05:52] LABS: Anion Gap 12 mmol/L (10-20); BUN (Urea Nitrogen) 17 mg/dL (8.9-20.6); Calc. Creatinine Clearance 148 mL/min (70-130); Calcium 8.7 mg/dL (7.8-10.44); Carbon Dioxide 26 mmol/L (22-29); Chloride 103 mmol/L (98-107); Estimated GFR-MDRD Greater than 90; Glucose 217 mg/dL (70-105); Potassium 3.7 mmol/L (3.5-5.1); Sodium 137 mmol/L (136-145)
[2019-09-17] MEDS ORDERED: Promethazine HCl 25 MG/ML VIAL IM PRN (08:43)
--- NOTE | 2019-09-17 09:22 | OP ---
DATE OF PROCEDURE: 09/17/2019 PROCEDURE PERFORMED: Esophagogastroduodenoscopy. PREOPERATIVE DIAGNOSES: Chest pain, abdominal pain. POSTOPERATIVE DIAGNOSIS: The exam is not satisfactory due to retained food material in the stomach and the duodenum. Also, there is some food coating the esophageal mucosa. DESCRIPTION OF PROCEDURE: The patient was placed on his left lateral position and was given sedation by Anesthesia Department. A Pentax video gastroscope under direct vision passed down the oropharynx past the GE junction into the stomach. The esophageal mucosa showed no esophagitis. However, he has some food material coating the mucosa throughout. Water was irrigated and it crossed the underlying esophagitis. The GE junction, no pathology. Upon entering the stomach, the patient was found to have retained food material in the proximal stomach or the gastric antrum. Retroflexion failed to show any pathology in the fundus and cardia. The exam was incomplete due to the fact that he had retained food material in the proximal stomach and also gastric antrum into the duodenal bulb. Although water was used to irrigate and wash out, the exam was not very satisfactory. No gross pathology seen, but because of retained food material, I believe the patient needs to have a repeat EGD. The stomach decompressed and the scope removed. Job ID: [id number]
[2019-09-17] MEDS ORDERED: Acetaminophen 1,000 MG in Premix Bag 1 BAG IVPB SCH (09:45)
[2019-09-17] MEDS ORDERED: Benzocaine 20% Spray 60 ML CAN ONE (10:06)
[2019-09-17] MEDS ORDERED: PROPOFOL 200 MG/20 ML VIAL ONE (10:06)
[2019-09-17] MEDS: HumuLIN 70/30 (300 UNITS/3 ML VIAL) SC SCH ×2 (11:02→17:24)
[2019-09-17] MEDS: Aspirin 81 mg Enteric Coated Tablet PO SCH (11:11)
[2019-09-17] MEDS: Clopidogrel Bisulfate 75 MG TAB PO SCH (11:11)
[2019-09-17] MEDS: Gabapentin 300 MG CAP PO SCH ×2 (11:11→21:28)
[2019-09-17] MEDS: DULoxetine 60 MG CAP PO SCH (11:12)
[2019-09-17] MEDS: Pantoprazole 40 MG GRANULES PACKET PO SCH ×3 (11:12→21:29)
[2019-09-17] MEDS: Amiodarone 200 MG TAB PO SCH (14:15)
[2019-09-17] MEDS: HumaLOG 300 UNITS/3 ML VIAL SC PRN ×2 (17:25→21:30)
[2019-09-17] MEDS: Zolpidem Tartrate 5 MG TAB PO SCH (21:28)
[2019-09-17] MEDS: Rosuvastatin 20 MG TAB PO SCH (21:28)
--- NOTE | 2019-09-17 22:28 | PDOC.HOSPP ---
- Subjective Encounter Date: 09/17/19 Encounter Time: 13:00 Subjective: Patient went for EGD, could not complete due to food in upper GI tract, plan for repeat study tomorrow. complains of continued chronic pain, no shortness of breath. - Objective Vital Signs & Weight: Vital Signs (12 hours) Temp Pulse Resp BP Pulse Ox 09/17/19 20:00 98.1 F 92 18 108/64 95 09/17/19 11:45 98.1 F 76 12 103/59 L 98 Weight Weight 216 lb 3.2 oz I&O: 09/16/19 09/17/19 09/18/19 06:59 06:59 06:59 Intake Total 2460 2620.5 Output Total 2300 300 Balance 160 2320.5 Result Diagrams: 09/17/19 04:49 09/17/19 04:49 Additional Labs: Accuchecks 09/17/19 09/17/19 09/17/19 20:18 17:10 10:44 POC Glucose 246 H 437 H 155 H 09/17/19 05:40 POC Glucose 236 H Hospitalist ROS - Medication Medications: Active Medications Generic Name Dose Route Start Last Admin Trade Name Freq PRN Reason Stop Dose Admin Acetaminophen 650 mg 09/14/19 14:44 09/15/19 21:32 Tylenol PO 650 mg Q4H PRN Administration Headache/Fever/Mild Pain (1-3) Amiodarone HCl 200 mg 09/15/19 14:00 09/17/19 14:15 Cordarone PO 200 mg 1400 LUIS Administration Apixaban 5 mg 09/14/19 21:00 09/15/19 09:17 Eliquis PO 5 mg BID LUIS Administration Aspirin 81 mg 09/15/19 09:00 09/17/19 11:11 Ecotrin PO 81 mg DAILY LUIS Administration Clopidogrel Bisulfate 75 mg 09/15/19 09:00 09/17/19 11:11 Plavix PO 75 mg DAILY LUIS Administration Duloxetine HCl 60 mg 09/15/19 09:00 09/17/19 11:12 Cymbalta PO 60 mg DAILY LUIS Administration Gabapentin 600 mg 09/14/19 21:00 09/17/19 21:28 Neurontin PO 600 mg BID LUIS Administration Insulin Human Isoph/Insulin Regular 44 units 09/16/19 17:00 09/17/19 17:24 Humulin 70/30 SC 44 unit BID-WM LUIS Administration Insulin Human Lispro 0 units 09/14/19 14:52 09/17/19 17:25 Humalog SC 13 unit .AGGRESSIVE SLIDING PRN Administration Aggressive [employer]al Scale Insulin Human Lispro 0 units 09/14/19 21:49 09/17/19 21:30 Humalog SC 2 unit .BEDTIME SLIDING SC PRN Administration Bedtime Correctional Scale Isosorbide Mononitrate 120 mg 09/15/19 14:00 09/17/19 14:15 Imdur PO 120 mg 1400 LUIS Administration Lorazepam 1 mg 09/16/19 14:17 09/17/19 18:44 Ativan PO 1 mg Q4H PRN Administration Anxiety/Agitation Metoprolol Tartrate 50 mg 09/14/19 21:00 09/17/19 21:28 Lopressor PO 50 mg BID LUIS Administration Pantoprazole Sodium 40 mg 09/14/19 15:00 09/17/19 21:29 Protonix PO 40 mg TID LUIS Administration Ranolazine 1,000 mg 09/14/19 21:00 09/17/19 21:28 Ranexa PO 1,000 mg BID LUIS Administration Rosuvastatin Calcium 40 mg 09/14/19 21:00 09/17/19 21:28 Crestor PO 40 mg HS LUIS Administration Sodium Chloride 10 ml 09/15/19 09:00 09/17/19 21:33 Flush - Normal Saline IVF 10 ml Q12HR LUIS Administration Zolpidem Tartrate 10 mg 09/14/19 21:00 09/17/19 21:28 Ambien PO 10 mg HS LUIS Administration - Exam General Appearance: NAD, awake alert Eye: PERRL, anicteric sclera ENT: normocephalic atraumatic, no oropharyngeal lesions, moist mucosa Neck: supple, symmetric, no JVD, no thyromegaly Heart: RRR, no murmur, no gallops, no rubs Respiratory: CTAB, no wheezes, no rales, no ronchi Gastrointestinal: soft, non-tender, non-distended, normal bowel sounds Extremities: no cyanosis, no clubbing, no edema Skin: no lesions, no rashes Neurological: cranial nerve grossly intact, normal sensation to touch, no weakness, no focal deficits Musculoskeletal: normal tone, normal strength Psychiatric: normal affect, normal behavior, A&O x 3 Hosp A/P - Plan Patient is a 44 years old male admitted for: # chest/epigastric pain - constant, gradually worsening, patient has been evaluated by cardiology and cleared of cardiac etiologies, finishing workup with GI consulted - appreciate cardiology and GI evaluations,held eliquis, EGD not completed due to food in upper GI tract, repeat in AM, CLD and NPO past midnight - GI does not think needs emptying study needed this admission, has likely had too many motility related medications anyway that would interfere with study - continue PPI TID, d/c pepcid - cardiac workup complete, follow up cardiology after d/c # iodine allergy - mild symptoms, premedicate if needed IV contrast # DM2 w/ hyperglycemia - increased 70/30 to 44u BID from 40, follow on new regimen - case management consult for local resources # distant history of PE - continue eliquis after EGD, scan negative for PE this admission # HLD - continue statin # GI, DVT ppx Disposition - continue to work up persistent pain, patient is in and out of ERs constantly and keeps having negative cardiac workups so will investigate further with GI/EGD
[2019-09-18] MEDS: Lidocaine Patch Removal 1 EACH TOP SCH (03:36)
[2019-09-18] MEDS: Cyclobenzaprine 10 MG TAB PO PRN ×2 (04:36→17:24)
[2019-09-18] MEDS ORDERED: Ondansetron HCl/PF 4 MG/2 ML Vial IVP PRN (09:41)
[2019-09-18] MEDS ORDERED: PROPOFOL 200 MG/20 ML VIAL ONE (09:46)
[2019-09-18] MEDS ORDERED: Lidocaine 1% PF 5 ML VIAL ONE (09:46)
[2019-09-18] MEDS ORDERED: Fentanyl 100 MCG/2 ML VIAL ONE (09:48)
[2019-09-18] MEDS ORDERED: Midazolam HCl 2 mg/2 ml Vial ONE (10:39)
[2019-09-18] MEDS: Pantoprazole 40 MG GRANULES PACKET PO SCH ×3 (11:33→22:38)
[2019-09-18] MEDS: Aspirin 81 mg Enteric Coated Tablet PO SCH (11:33)
[2019-09-18] MEDS: Gabapentin 300 MG CAP PO SCH ×2 (11:33→22:30)
[2019-09-18] MEDS: DULoxetine 60 MG CAP PO SCH (11:33)
[2019-09-18] MEDS: Metoprolol Tartrate 50 MG TAB PO SCH ×2 (11:34→22:35)
[2019-09-18] MEDS: Apixaban 5 MG TAB PO SCH ×2 (11:34→22:37)
[2019-09-18] MEDS: Clopidogrel Bisulfate 75 MG TAB PO SCH (11:34)
[2019-09-18] MEDS: HumaLOG 300 UNITS/3 ML VIAL SC PRN (11:43)
[2019-09-18] MEDS: HumuLIN 70/30 (300 UNITS/3 ML VIAL) SC SCH ×2 (11:46→17:20)
--- NOTE | 2019-09-18 12:04 | OP ---
DATE OF PROCEDURE: 09/18/2019 PROCEDURE PERFORMED: Esophagogastroduodenoscopy with biopsy. PREOPERATIVE DIAGNOSES: Abdominal pain, chest pain. Underwent EGD. POSTOPERATIVE DIAGNOSES: 1. Normal esophagus throughout, no esophagitis seen. 2. Normal gastroesophageal junction. 3. Normal gastric fundus and body. 4. The gastric mucosa appears diffuse hyperemia of the gastric body and antrum, biopsied. 5. Normal duodenal bulb and descending duodenum. DESCRIPTION OF PROCEDURE: The patient was placed on his left lateral position and was given sedation by Anesthesia Department. A Pentax video gastroscope under direct vision passed down the oropharynx, passed the GE junction into the stomach, and subsequently into the descending duodenum. The esophageal mucosa appeared normal. There were no food particles seen. There was no esophagitis seen. At the GE junction, no lesion seen. Retroflexion failed to show any pathology in fundus or cardia. The gastric mucosa, mildly hyperemic including the body and antrum. The incisura angularis, no lesions. The duodenum including the bulb and descending duodenum, no lesion. Biopsy was obtained of the gastric antrum and gastric body. The stomach was decompressed and the scope was removed. RECOMMENDATION: 1. Await gastric biopsy. 2. Diet as tolerated. Job ID: [id number]
[2019-09-18] MEDS: Amiodarone 200 MG TAB PO SCH (14:40)
[2019-09-18] MEDS: Lidocaine 5% Patch TD SCH (17:20)
--- NOTE | 2019-09-18 17:52 | PDOC.HOSPP ---
- Subjective Subjective: Seen and examined this a.m. Back from EGD. Denies pain. Breathing well on room air. Patient states he is having mild headache and back pain. No other complaints at this time. Patient states that his back is chronically hurting since he herniated discs in the past. All questions answered in detail. - Objective Vital Signs & Weight: Vital Signs (12 hours) Temp Pulse Resp BP Pulse Ox 09/18/19 15:25 98.6 F 92 20 112/69 93 L 09/18/19 11:30 97.9 F 84 18 109/59 L 97 09/18/19 07:45 98.4 F 85 18 110/65 98 Weight Weight 216 lb 12.8 oz I&O: 09/17/19 09/18/19 09/19/19 06:59 06:59 06:59 Intake Total 2620.5 720 Output Total 300 1300 Balance 2320.5 -580 Result Diagrams: 09/17/19 04:49 09/17/19 04:49 Additional Labs: Accuchecks 09/18/19 09/18/19 09/18/19 16:33 11:39 05:35 POC Glucose 150 H 181 H 130 H 09/17/19 20:18 POC Glucose 246 H Radiology Reviewed by me: Yes Hospitalist ROS - Review of Systems All other systems reviewed; all pertinent +/- noted in HPI/Subj - Medication Medications: Active Medications Generic Name Dose Route Start Last Admin Trade Name Freq PRN Reason Stop Dose Admin Acetaminophen 650 mg 09/14/19 14:44 09/15/19 21:32 Tylenol PO 650 mg Q4H PRN Administration Headache/Fever/Mild Pain (1-3) Amiodarone HCl 200 mg 09/15/19 14:00 09/18/19 14:40 Cordarone PO 200 mg 1400 LUIS Administration Apixaban 5 mg 09/14/19 21:00 09/18/19 11:34 Eliquis PO 5 mg BID LUIS Administration Aspirin 81 mg 09/15/19 09:00 09/18/19 11:33 Ecotrin PO 81 mg DAILY LUIS Administration Clopidogrel Bisulfate 75 mg 09/15/19 09:00 09/18/19 11:34 Plavix PO 75 mg DAILY LUIS Administration Cyclobenzaprine HCl 10 mg 09/17/19 17:52 09/18/19 17:24 Flexeril PO 10 mg TIDPRN PRN Administration Muscle Spasm Duloxetine HCl 60 mg 09/15/19 09:00 09/18/19 11:33 Cymbalta PO 60 mg DAILY LUIS Administration Gabapentin 600 mg 09/14/19 21:00 09/18/19 11:33 Neurontin PO 600 mg BID LUIS Administration Insulin Human Isoph/Insulin Regular 44 units 09/16/19 17:00 09/18/19 17:20 Humulin 70/30 SC 44 unit BID-WM LUIS Administration Insulin Human Lispro 0 units 09/14/19 14:52 09/18/19 11:43 Humalog SC 3 unit .AGGRESSIVE SLIDING PRN Administration Aggressive Correctional Scale Insulin Human Lispro 0 units 09/14/19 21:49 09/17/19 21:30 Humalog SC 2 unit .BEDTIME SLIDING SC PRN Administration Bedtime Correctional Scale Isosorbide Mononitrate 120 mg 09/15/19 14:00 09/18/19 14:40 Imdur PO 120 mg 1400 LUIS Administration Lidocaine 1 patch 09/18/19 18:00 09/18/19 17:20 Lidoderm 5% Patch TD 1 patch 1800 LUIS Administration Lorazepam 1 mg 09/16/19 14:17 09/17/19 23:16 Ativan PO 1 mg Q4H PRN Administration Anxiety/Agitation Metoprolol Tartrate 50 mg 09/14/19 21:00 09/18/19 11:34 Lopressor PO 50 mg BID LUIS Administration Miscellaneous Medication 1 each 09/18/19 06:00 09/18/19 03:36 Lidocaine Patch Removal TOP Not Given 0600 [facility] Pantoprazole Sodium 40 mg 09/14/19 15:00 09/18/19 14:42 Protonix PO 40 mg TID LUIS Administration Ranolazine 1,000 mg 09/14/19 21:00 09/18/19 11:42 Ranexa PO 1,000 mg BID LUIS Administration Rosuvastatin Calcium 40 mg 09/14/19 21:00 09/17/19 21:28 Crestor PO 40 mg HS LUIS Administration Sodium Chloride 10 ml 09/15/19 09:00 09/18/19 11:35 Flush - Normal Saline IVF 10 ml Q12HR LUIS Administration Zolpidem Tartrate 10 mg 09/14/19 21:00 09/17/19 21:28 Ambien PO 10 mg HS LUIS Administration - Exam General Appearance: NAD, awake alert Eye: anicteric sclera ENT: normocephalic atraumatic, moist mucosa Neck: supple, symmetric, no JVD, no lymphadenopathy Heart: no murmur, no gallops Respiratory: CTAB, no wheezes, no rales Gastrointestinal: soft, non-tender, non-distended, normal bowel sounds, no guarding, no rigidity Extremities: no clubbing, no edema Skin: no lesions, no rashes Neurological: cranial nerve grossly intact, no focal deficits Musculoskeletal: no muscle wasting Psychiatric: normal behavior, A&O x 3 Hosp A/P (1) CAD (coronary artery disease) Code(s): I25.10 - ATHSCL HEART DISEASE OF [place] CORONARY ARTERY W/O ANG PCTRS Status: Chronic Qualifiers: Coronary Disease-Associated Artery/Lesion type: bypass graft [place] vs. 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 (3) Dyslipidemia Code(s): E78.5 - HYPERLIPIDEMIA, UNSPECIFIED Status: Chronic (4) HTN (hypertension) Code(s): I10 - ESSENTIAL (PRIMARY) HYPERTENSION Status: Chronic Qualifiers: Hypertension type: essential hypertension Qualified Code(s): I10 - Essential (primary) hypertension (5) History of pulmonary embolism Code(s): Z86.711 - PERSONAL HISTORY OF PULMONARY EMBOLISM Status: Chronic (6) Obesity (BMI 30.0-34.9) Code(s): E66.9 - OBESITY, UNSPECIFIED Status: Chronic (7) Paroxysmal A-fib Code(s): I48.0 - PAROXYSMAL ATRIAL FIBRILLATION Status: Chronic (8) Unstable angina Status: Resolved - Plan Plan: medical unit with telemetry gastroenterology consultation, recommendations appreciated S/p EGD, report noted recent cardiac workup was negative, cleared by cardiology for outpatient follow- up blood sugar control with long and short acting insulin blood pressure control cardiac regimen DVT prophylaxis continue other home medications as able
[2019-09-18] MEDS: Nitroglycerin 0.4 MG TAB (25 Tab Bottle) SL PRN ×2 (18:18→18:24)
[2019-09-18] MEDS ORDERED: Famotidine 20 MG TAB PO PRN (19:04)
[2019-09-18] MEDS: traMADol HCl 50 MG TAB PO PRN (19:44)
[2019-09-18] MEDS: Rosuvastatin 20 MG TAB PO SCH (22:30)
[2019-09-18] MEDS: Zolpidem Tartrate 5 MG TAB PO SCH (22:37)
[2019-09-19] MEDS: Lorazepam 1 MG TAB PO PRN ×3 (04:02→18:19)
[2019-09-19] MEDS: Cyclobenzaprine 10 MG TAB PO PRN (04:44)
[2019-09-19] MEDS: Lidocaine Patch Removal 1 EACH TOP SCH (06:33)
[2019-09-19] MEDS: HumuLIN 70/30 (300 UNITS/3 ML VIAL) SC SCH ×2 (08:14→17:27)
[2019-09-19] MEDS: Apixaban 5 MG TAB PO SCH ×2 (08:18→21:01)
[2019-09-19] MEDS: Aspirin 81 mg Enteric Coated Tablet PO SCH (08:19)
[2019-09-19] MEDS: Metoprolol Tartrate 50 MG TAB PO SCH ×2 (08:19→21:01)
[2019-09-19] MEDS: DULoxetine 60 MG CAP PO SCH (08:19)
[2019-09-19] MEDS: Gabapentin 300 MG CAP PO SCH ×2 (08:20→21:01)
[2019-09-19] MEDS: Pantoprazole 40 MG GRANULES PACKET PO SCH ×3 (08:20→21:02)
[2019-09-19] MEDS: Clopidogrel Bisulfate 75 MG TAB PO SCH (08:20)
[2019-09-19] MEDS: HumaLOG 300 UNITS/3 ML VIAL SC PRN (11:24)
--- NOTE | 2019-09-19 13:45 | PRG ---
DATE OF SERVICE: 09/19/2019 SUBJECTIVE: Mr. Olea is doing well from a GI perspective. No nausea or abdominal pain today. He has been tolerating his diet just fine. His primary complaint is back pain. He feels that he might have injured himself in the shower the other day. OBJECTIVE: VITAL SIGNS: Temperature 97.7, pulse 85, blood pressure 98/55, and 97% oxygen saturation on room air. GENERAL: No acute distress. HEART: Regular rate and rhythm. LUNGS: Clear to auscultation bilaterally. ABDOMEN: Bowel sounds present. Soft and nontender to palpation. EXTREMITIES: No peripheral edema. LABORATORY STUDIES: Glucose 264. ASSESSMENT AND PLAN: 1. Gastroparesis. 2. Epigastric pain, improved today. His Thursday EGD demonstrated a lot of retained food within the stomach, suggestive indeed of gastroparesis. Repeat EGD on Thursday was essentially normal exam, with mild erythema, biopsied by Dr. Prajapati. Expect those biopsies are going to be benign, and they can be followed up on an outpatient basis. He is going to continue with his acid suppression. I do not think we necessarily have to perform any gastric emptying study at this point. The EGD findings and clinical background are sufficient for diagnosis of diabetic gastroparesis. We had a long conversation about this. He reports a previous adverse reaction to Reglan in the past, of tachycardia and extreme agitation. So, we will not be able to use Reglan. We discussed the concept of gastroparesis diet, consuming smaller, but more frequent meals. I suspect he will do well just with this. 3. GI will sign off, but please call back with any questions or concerns. Job ID: [id number]
[2019-09-19] MEDS: traMADol HCl 50 MG TAB PO PRN (13:54)
[2019-09-19] MEDS: Amiodarone 200 MG TAB PO SCH (13:55)
--- NOTE | 2019-09-19 16:24 | PDOC.HOSPP ---
- Subjective Encounter Date: 09/19/19 Encounter Time: 16:15 Subjective: f/u for gastroparesis with essentially negative EGD. Now complains of PARVIN/LLE weakness/tingling this afternoon. No speech difficulties and states R hand dominant. Has been ambulating in room, tolerating po intake, voiding appropriately and asking for extra food boxes today. - Objective Vital Signs & Weight: Vital Signs (12 hours) Temp Pulse Resp BP Pulse Ox 09/19/19 15:38 98.9 F 80 20 106/69 98 09/19/19 15:23 97.7 F 82 16 113/61 99 09/19/19 13:53 78 112/64 09/19/19 11:21 97.7 F 85 16 98/55 L 97 09/19/19 07:33 97.7 F 82 16 100/53 L 95 Weight Weight 226 lb 7 oz I&O: 09/18/19 09/19/19 09/20/19 06:59 06:59 06:59 Intake Total 720 1610 Output Total 1300 1450 Balance -580 160 Result Diagrams: 09/17/19 04:49 09/17/19 04:49 Additional Labs: Accuchecks 09/19/19 09/19/19 09/18/19 10:50 04:23 20:33 POC Glucose 264 H 209 H 214 H 09/18/19 09/17/19 16:33 23:42 POC Glucose 150 H 73 EKG Reviewed by me: Yes (Tele - SR) Hospitalist ROS - Medication Medications: Active Medications Generic Name Dose Route Start Last Admin Trade Name Freq PRN Reason Stop Dose Admin Acetaminophen 650 mg 09/14/19 14:44 09/15/19 21:32 Tylenol PO 650 mg Q4H PRN Administration Headache/Fever/Mild Pain (1-3) Amiodarone HCl 200 mg 09/15/19 14:00 09/19/19 13:55 Cordarone PO 200 mg 1400 LUIS Administration Apixaban 5 mg 09/14/19 21:00 09/19/19 08:18 Eliquis PO 5 mg BID LUIS Administration Aspirin 81 mg 09/15/19 09:00 09/19/19 08:19 Ecotrin PO 81 mg DAILY LUIS Administration Clopidogrel Bisulfate 75 mg 09/15/19 09:00 09/19/19 08:20 Plavix PO 75 mg DAILY LUIS Administration Cyclobenzaprine HCl 10 mg 09/17/19 17:52 09/19/19 04:44 Flexeril PO 10 mg TIDPRN PRN Administration Muscle Spasm Duloxetine HCl 60 mg 09/15/19 09:00 09/19/19 08:19 Cymbalta PO 60 mg DAILY LUIS Administration Famotidine 20 mg 09/18/19 19:04 09/18/19 19:44 Pepcid PO 20 mg BIDPRN PRN Administration Indigestion Gabapentin 600 mg 09/14/19 21:00 09/19/19 08:20 Neurontin PO 600 mg BID [facility] Administration Insulin Human Isoph/Insulin Regular 44 units 09/16/19 17:00 09/19/19 08:14 Humulin 70/30 SC 44 unit BID-WM LUIS Administration Insulin Human Lispro 0 units 09/14/19 14:52 09/19/19 11:24 Humalog SC 9 unit .AGGRESSIVE SLIDING PRN Administration Aggressive Correctional Scale Insulin Human Lispro 0 units 09/14/19 21:49 09/17/19 21:30 Humalog SC 2 unit .BEDTIME SLIDING SC PRN Administration Bedtime Correctional Scale Isosorbide Mononitrate 120 mg 09/15/19 14:00 09/19/19 13:54 Imdur PO 120 mg 1400 [facility] Administration Lidocaine 1 patch 09/18/19 18:00 09/18/19 17:20 Lidoderm 5% Patch TD 1 patch 1800 [facility] Administration Lorazepam 1 mg 09/16/19 14:17 09/19/19 11:24 Ativan PO 1 mg Q4H PRN Administration Anxiety/Agitation Metoprolol Tartrate 50 mg 09/14/19 21:00 09/19/19 08:19 Lopressor PO 50 mg BID [facility] Administration Miscellaneous Medication 1 each 09/18/19 06:00 09/19/19 06:33 Lidocaine Patch Removal TOP Not Given 0600 [facility] Nitroglycerin 0.4 mg 09/14/19 14:51 09/18/19 18:24 Nitrostat SL 1 tab Q5MIN PRN Administration Chest Pain Pantoprazole Sodium 40 mg 09/14/19 15:00 09/19/19 13:54 Protonix PO 40 mg TID [facility] Administration Ranolazine 1,000 mg 09/14/19 21:00 09/19/19 08:18 Ranexa PO 1,000 mg BID LUIS Administration Rosuvastatin Calcium 40 mg 09/14/19 21:00 09/18/19 22:30 Crestor PO 40 mg HS LUIS Administration Sodium Chloride 10 ml 09/15/19 09:00 09/19/19 08:24 Flush - Normal Saline IVF 10 ml Q12HR LUIS Administration Tramadol HCl 50 mg 09/18/19 19:04 09/19/19 13:54 Ultram PO 50 mg Q4H PRN Administration Moderate to Severe Pain (6-10) Zolpidem Tartrate 10 mg 09/14/19 21:00 09/18/19 22:37 Ambien PO 10 mg HS LUIS Administration - Exam General Appearance: awake alert General - other findings: anxious Eye: PERRL, anicteric sclera ENT: normocephalic atraumatic, no oropharyngeal lesions Neck: supple, symmetric, no JVD, no thyromegaly Heart: RRR, no murmur, no gallops, no rubs, normal peripheral pulses Respiratory: CTAB, no wheezes, no rales, no ronchi Gastrointestinal: soft, non-tender, non-distended, normal bowel sounds, no palpable masses Extremities: no cyanosis, no clubbing, no edema Skin: normal turgor, no lesions Neurological: cranial nerve grossly intact, no new deficit Musculoskeletal: normal tone, normal strength Psychiatric: A&O x 3 Psychiatric - other findings: anxious Hosp A/P (1) Gastroparesis Code(s): K31.84 - GASTROPARESIS Status: Chronic Plan: Continue Protonix, unable to tolerate Reglan apparently (2) Anxiety Code(s): F41.9 - ANXIETY DISORDER, UNSPECIFIED Status: Acute Plan: Consider trial of Xanax for home (3) CAD (coronary artery disease) Code(s): I25.10 - ATHSCL HEART DISEASE OF [place] CORONARY ARTERY W/O ANG PCTRS Status: Chronic Qualifiers: Coronary Disease-Associated Artery/Lesion type: bypass graft [place] vs. transplanted heart: enterprise heart Associated angina: with unstable angina Qualified Code(s): I25.700 - Atherosclerosis of coronary artery bypass graft(s) , unspecified, with unstable angina pectoris Plan: Continue ASA/Plavix/Ranexa (4) DM type 2 (diabetes mellitus, type 2) Status: Chronic Qualifiers: Diabetes mellitus fci insulin use: with fci use Plan: Labile, continue current insulin regimen, may need additional titration as outpt (5) HTN (hypertension) Code(s): I10 - ESSENTIAL (PRIMARY) HYPERTENSION Status: Chronic Qualifiers: Hypertension type: essential hypertension Qualified Code(s): I10 - Essential (primary) hypertension Plan: Relative hypotension, serial monitoring - Plan social 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
[2019-09-19] MEDS: Lidocaine 5% Patch TD SCH (17:27)
[2019-09-19] MEDS ORDERED: ALPRAZolam 0.25 MG TAB PO SCH (21:00)
[2019-09-19] MEDS: Rosuvastatin 20 MG TAB PO SCH (21:00)
[2019-09-19] MEDS: Zolpidem Tartrate 5 MG TAB PO SCH (21:01)
[2019-09-19] MEDS ORDERED: diphenhydrAMINE 25 MG CAP PO PRN (22:37)
[2019-09-19] MEDS ORDERED: diphenhydrAMINE 50 MG/ML VIAL IVP SCH (22:45)
[2019-09-20] MEDS: Lidocaine Patch Removal 1 EACH TOP SCH (06:03)
[2019-09-20 07:33] VITALS: TEMP 98.5
[2019-09-20] MEDS: Aspirin 81 mg Enteric Coated Tablet PO SCH (08:59)
[2019-09-20] MEDS: DULoxetine 60 MG CAP PO SCH (08:59)
[2019-09-20] MEDS: Apixaban 5 MG TAB PO SCH (08:59)
[2019-09-20] MEDS: Gabapentin 300 MG CAP PO SCH (08:59)
[2019-09-20] MEDS: Clopidogrel Bisulfate 75 MG TAB PO SCH (08:59)
[2019-09-20] MEDS: HumuLIN 70/30 (300 UNITS/3 ML VIAL) SC SCH (09:00)
[2019-09-20] MEDS: Pantoprazole 40 MG GRANULES PACKET PO SCH (09:00)
[2019-09-20] MEDS: Metoprolol Tartrate 50 MG TAB PO SCH (09:00)
[2019-09-20 09:18] VITALS: BP 111/71
--- NOTE | 2019-09-20 14:03 | EKG ---
Test Reason : STAT Blood Pressure : / mmHG Vent. Rate : 088 BPM Atrial Rate : 088 BPM P-R Int : 164 ms QRS Dur : 090 ms QT Int : 372 ms P-R-T Axes : 057 058 060 degrees QTc Int : 450 ms Normal sinus rhythm Normal ECG When compared with ECG of 14-SEP-2019 08:06, (Unconfirmed) Nonspecific T wave abnormality has replaced inverted T waves in Anterior leads Confirmed by KATALINA DEAN, SKimber ([id number]) on 09/20/2019 2:02:51 PM Referred By: ADAN Confirmed By:DR. Ran DARDEN MD
--- NOTE | 2019-09-20 21:38 | DIS ---
DATE OF ADMISSION: 09/14/2019 DATE OF DISCHARGE: 09/20/2019 REASON FOR HOSPITALIZATION: Chest pain/epigastric pain. PROCEDURES PERFORMED AND TREATMENTS RENDERED: The patient was admitted to medical unit with telemetry on 09/14/2019-please see full history and physical in addition to consultation notes and progress notes for full details. The patient was admitted with chest pain and shortness of breath and had CT angiography of the chest-please see full report for details-there is no acute pulmonary embolism or other acute cardiothoracic pathology seen on CT angiography of the chest. The patient was seen and evaluated by Cardiology and Gastroenterology-please see full consultation and progress notes for details. Cardiology recommending that the patient has had a recent workup just last month and everything was found to be benign. Cardiology recommending that the patient is safe for discharge and follow up in the outpatient setting. As patient has had a negative cardiac workup and a negative evaluation for pulmonary embolism, Gastroenterology was consulted to have gastrointestinal causes of chest pain/epigastric pain evaluated. The patient went for EGD on 09/17/2019, which was aborted secondary to food in the patient's abdomen. The patient went for repeat EGD on 09/18/2019-please see full operative report for details-report is interpreted as normal and there is no significant acute intraabdominal pathology. Biopsies were taken-please see full biopsy reports for details. The patient was seen postoperatively by Gastroenterology on 09/19/2019 and recommended safe for discharge home. I spent extra time on 09/20/2019, discussing plan of care with the patient. I explicitly asked him if he had all of his medications at home and he tells me that he has all of his old medications at home including anticoagulation with Eliquis, antiarrhythmics with amiodarone in addition to all of his blood pressure medications. The patient's blood pressure is running on the low side and he had increase of his Imdur medication while in the acute care hospital-I returned this back to his home dose prior to discharge. Several new medications were started and these medications were sent to the patient's preferred pharmacy. A prescription for Protonix, Ranexa, Crestor, and buspirone were sent to the patient's preferred pharmacy to ensure medical compliance. The patient was given information by nursing staff on resources for a low-cost or no cost clinic in the area that the patient can go see a primary care physician. The patient recommended safe for discharge home as he is breathing well on room air. He is ambulating without assistance in any way. The patient's symptoms have improved since hospitalization. The patient no longer having any chest pain or abdominal discomfort. It is possible that the patient is having diabetic gastroparesis as a cause of his chest discomfort and he was recommended small frequent meals to avoid problems of gastroparesis. I asked the patient if he has been taking his insulin and he states that he has been taking as directed and he has ample supply at home. The patient recommended safe for discharge by all specialists on 09/20/2019, with close followup in the outpatient setting. The patient is recommended to follow up with primary care physician in the next 5 to 7 days. The patient is recommended to follow up with Cardiology in the outpatient clinic in the next 1 to 2 weeks. The patient is recommended to follow up with Gastroenterology or results on biopsy in addition to strategies on avoiding problems with gastroparesis in the next 3-4 weeks. The patient is recommended to return to acute care hospital immediately if signs or symptoms return, worsen, or any other new symptoms occur. Greater than 40 minutes spent coordinating care and discharge process for this patient. Job ID: [id number]
== END 2019-09-20 12:06 | disposition home or self-care (01) | DRG 74 ==
LOC: ERS 07:55 → OBSVTOIN 14:11 → 2SW 14:11 → 2NO 09-16 18:38
PROVIDERS: ADMIT Internal Medicine; ATTEND Internal Medicine
PROC: 0DJ08ZZ Inspection of Upper Intestinal Tract, Via Natural or Artificial Opening Endoscopic (ICD-10-PCS; principal; 2019-09-17)
PROC: 0DB78ZX Excision of Stomach, Pylorus, Via Natural or Artificial Opening Endoscopic, Diagnostic (ICD-10-PCS; 2019-09-18)
DX: E11.43 Type 2 diabetes mellitus with diabetic autonomic (poly)neuropathy (principal); I25.110 Atherosclerotic heart disease of native coronary artery with unstable angina pectoris; Z95.1 Presence of aortocoronary bypass graft; E78.5 Hyperlipidemia, unspecified; Z79.4 Long term (current) use of insulin; E11.40 Type 2 diabetes mellitus with diabetic neuropathy, unspecified; Z90.49 Acquired absence of other specified parts of digestive tract; Z91.041 Radiographic dye allergy status; E11.65 Type 2 diabetes mellitus with hyperglycemia; Z86.73 Personal history of transient ischemic attack (TIA), and cerebral infarction without residual deficits; I25.2 Old myocardial infarction; Z88.8 Allergy status to other drugs, medicaments and biological substances; Z79.82 Long term (current) use of aspirin; Z79.899 Other long term (current) drug therapy; T18.128A Food in esophagus causing other injury, initial encounter; K31.89 Other diseases of stomach and duodenum; Z86.711 Personal history of pulmonary embolism; E66.9 Obesity, unspecified; I48.0 Paroxysmal atrial fibrillation; K31.84 Gastroparesis; F41.9 Anxiety disorder, unspecified; Z68.31 Body mass index [BMI] 31.0-31.9, adult
CPT/HCPCS: 36415; 36416; 71045; 71275; 80048; 81001; 83605; 84484; 85025; 88305; 88312; 93005; 93010; 96365; J0131; J1200; J1720; J1815; J2001; J2060; J2250; J2270; J2550; J2704; J3010; Q0163; S0028

== ENCOUNTER 2019-12-01 09:06 | Inpatient (IN) | payer SELFPAY ==
--- NOTE | 2019-12-01 10:06 | RAD ---
SINGLE VIEW OF THE CHEST: COMPARISON: 10/12/2019. HISTORY: Chest pain for 2 days. FINDINGS: A single view of the chest shows a normal-size cardiomediastinal silhouette. The patient is status p ost sternotomy. There is no evidence of consolidation, or pleural effusion. IMPRESSION: No evidence of acute cardiopulmonary disease. POS: CET
[2019-12-01 10:55] LABS: #Eosinphils 0.1 thou/uL (0.0-0.7); #Lymphocytes 0.8 thou/uL (1.20-3.40); #Monocytes 0.3 thou/uL (0.11-0.59); %Basophils 0.6 % (0.0-1.0); %Eosinophils 1.7 % (0.0-10.0); %Lymphocytes 15.6 % (21.0-51.0); %Monocytes 5.7 % (0.0-10.0); %Neutrophils 76.4 % (42.0-75.0); Hemoglobin 13.6 g/dL (14.0-18.0); Mean Corpuscular Hemoglobin 28.9 pg (27.0-31.0); Mean Corpuscular Volume 87.4 fL (78.0-98.0); Mean Platelet Volume 7.7 fL (7.4-10.4); Platelet Count 247 thou/uL (130-400); RBC Distribution Width 12.2 % (11.5-14.5); Red Blood Cell (RBC) Count 4.72 mill/uL (4.70-6.10); White Blood Cell (WBC) Count 5.3 thou/uL (4.8-10.8)
[2019-12-01 11:19] LABS: ALT (SGPT) 13 U/L (8-55); AST (SGOT) 11 U/L (5-34); Albumin 4.5 g/dL (3.5-5.0); Alkaline Phosphatase 76 U/L (40-110); Anion Gap 15 mmol/L (10-20); BUN (Urea Nitrogen) 11 mg/dL (8.9-20.6); Bilirubin, Total 0.5 mg/dL (0.2-1.2); CK (CPK) 59 U/L (30-200); Calc. Creatinine Clearance 0 mL/min (70-130); Calcium 9.2 mg/dL (7.8-10.44); Carbon Dioxide 25 mmol/L (22-29); Chloride 101 mmol/L (98-107); Estimated GFR-MDRD 77; Globulin 2.3 g/dL (2.4-3.5); Lipase 21 U/L (8-78); Potassium 4.5 mmol/L (3.5-5.1); Protein, Total 6.8 g/dL (6.0-8.3); Sodium 136 mmol/L (136-145)
[2019-12-01] MEDS ORDERED: methylPREDNISolone Sod Succ/PF 125 MG/2 ML VIAL ONE ×2 (11:20→11:26)
[2019-12-01] MEDS ORDERED: Famotidine/PF 20 mg/2ml Vial ONE (11:20)
[2019-12-01] MEDS ORDERED: diphenhydrAMINE 50 MG/ML VIAL ONE (11:20)
[2019-12-01 11:31] LABS: Glucose 565 mg/dL (70-105)
--- NOTE | 2019-12-01 12:34 | CT ---
CTA THORAX WITH CONTRAST: (Computed Tomographic Angiography, chest(noncoronary) with contrast material, and image postprocessin g) (PE protocol) DATE: 12/01/2019 HISTORY: 44-year-old male with chest pain and dyspnea. TECHNIQUE: IV injection of iodinated contrast: 100 mL Isovue 370. Scan acquisition timing attempted to coincide with iodinated contrast bolus reaching maximal density in pulmonary arteries. 3D MIP reconstructions. FINDINGS: Pulmonary thromboembolism: None. Lungs: Clear. Pneumothorax: None. Pleural effusion: None. Thoracic aorta: No aneurysm or dissection. Mediastinum: No lymphadenopathy or other mass. Natasha: No lymphadenopathy or other mass. IMPRESSION: Normal. jn[] POS: TPC
[2019-12-01] MEDS ORDERED: Iopamidol-370 76% 500 ML 1 ML ONE (13:14)
[2019-12-01] MEDS ORDERED: Morphine 4 MG/ML VIAL ONE ×2 (13:36→16:15)
[2019-12-01] MEDS ORDERED: Insulin Regular 300 UNITS/3 ML VIAL ONE (14:54)
[2019-12-01] MEDS ORDERED: Nitroglycerin 0.4 MG TAB (25 Tab Bottle) SL PRN (15:47)
[2019-12-01] MEDS ORDERED: Dextrose 5% in Water 1,000 ML IV PRN (15:50)
[2019-12-01] MEDS ORDERED: Dextrose 50% Abboject 50 ML SYRINGE SLOW IVP PRN (15:50)
[2019-12-01] MEDS ORDERED: Sodium Chloride 0.9% 1,000 ML IV SCH ×2 (16:00→16:30)
[2019-12-01] MEDS ORDERED: Morphine 4 MG/ML VIAL SLOW IVP PRN (16:01)
[2019-12-01 16:32] LABS: Troponin I Less than 0.010 ng/mL (< 0.028)
[2019-12-01] MEDS: HYDROcodone/Acetaminophen 10/325 mg Tablet PO PRN (18:41)
[2019-12-01 19:01] LABS: Troponin I 0.013 ng/mL (< 0.028)
--- NOTE | 2019-12-01 20:11 | HP ---
CHIEF COMPLAINT: Chest pain. HISTORY OF PRESENT ILLNESS: The patient is a 44-year-old male who presents to the hospital with complaints of chest pain. The patient stated that he has been having some lower back pain; however, today he started having some chest tightness, felt like his previous heart attack. He also stated that he was short of breath and had some nausea. He then stated that he has been having abdominal pain all over, which has been going on for couple of weeks. He states that he has been having a low appetite and has not been eating very much. He denies any fevers or chills. PATIENT'S PAST MEDICAL HISTORY: Significant for diabetes type 1. He has CAD status post bypass in [place] in 2018 and also he has had 6 stents. He has chronic pain, neuropathy, also TIAs, and hyperlipidemia. PAST SURGICAL HISTORY: He has had appendectomy, cholecystectomy, and a bypass. FAMILY HISTORY: History of heart disease in mother and father. SOCIAL HISTORY: Never smoked. No alcohol use. No drug use. REVIEW OF SYSTEMS: All negative except for the ones mentioned above in the HPI. PHYSICAL EXAMINATION: VITAL SIGNS: Temperature 98.5, heart rate of 120, blood pressure of 118/70, 98% on room air. GENERAL: He is awake, alert, and oriented x3. Does not appear in distress. HEENT: Normocephalic, atraumatic. No lymphadenopathy noted. Pupils are equal, reactive to light. CV: S1 and S2 present. No murmurs, rubs, or gallops. LUNGS: Clear to auscultation. No rhonchi or wheezes noted. ABDOMEN: Soft. Some tenderness all over upon palpation. No guarding noted. Bowel sounds are present x2. EXTREMITIES: No edema. Pedal pulses are present x2. NEUROVASCULAR: No focal deficits noted. SKIN: No cuts, lesions, or bruises noted. LABORATORY RESULTS: WBCs of 5.3, hemoglobin of 13.6, hematocrit of 41.3, and his platelets are 247. Chemistry; sodium of 136, potassium of 4.5, BUN of 11, creatinine 1.06. His sugars were 565. Troponins x1 was negative. His EKG showed initially sinus tach. He did have a CTA which did not show any acute PE. ASSESSMENT AND PLAN: The patient is a very pleasant 44-year-old male who presents to the hospital with complaints of chest pain. 1. Chest pain. The patient has had multiple episodes of chest pain with multiple admissions. He recently had a catheterization, maybe a few months ago, which indicated significant stenosis. However, based per discharge summaries, it was noted that there was no intervention that was indicated, only medical management. However, at this time, he continues to have chest pain, his troponins are negative, he has significant risk factors. I will go ahead and get Cardiology to evaluate . There was some notation for some drug-seeking behavior. I will use morphine only as needed for the chest pain. 2. History of coronary artery disease. We will continue his Eliquis, aspirin, and statin. 3. Diabetes type 1. His sugars were elevated at 585. He has been hydrated. I will start him on some fluids and also resume his home medications. He received Humalog x1. 4. Deep vein thrombosis prophylaxis. He is already on apixaban. Job ID: [id number]
[2019-12-01] MEDS ORDERED: NPH, Human Insulin Isophane 300 UNIT/3 ML VIAL SQ SCH (21:00)
[2019-12-01] MEDS ORDERED: HumaLOG 300 UNITS/3 ML VIAL SC PRN (21:04)
[2019-12-01] MEDS: Zolpidem Tartrate 5 MG TAB PO SCH (21:07)
[2019-12-01] MEDS: Gabapentin 300 MG CAP PO SCH (21:08)
[2019-12-01] MEDS: Rosuvastatin 20 MG TAB PO SCH (21:09)
[2019-12-01] MEDS: Apixaban 5 MG TAB PO SCH (21:09)
[2019-12-01] MEDS: Metoprolol Tartrate 50 MG TAB PO SCH (21:09)
[2019-12-01] MEDS: busPIRone HCl 5 MG TAB PO SCH (21:09)
[2019-12-01] MEDS: Pantoprazole 40 MG GRANULES PACKET PO SCH (21:09)
[2019-12-01] MEDS: Morphine 2 MG/ML SYRINGE SLOW IVP PRN (21:23)
[2019-12-01] MEDS: Lidocaine 5% Patch TD SCH (21:36)
[2019-12-02] MEDS ORDERED: Cyclobenzaprine 10 MG TAB PO SCH (00:30)
[2019-12-02] MEDS: HYDROcodone/Acetaminophen 10/325 mg Tablet PO PRN ×2 (00:39→08:12)
[2019-12-02] MEDS ORDERED: Lorazepam 2 MG/ML VIAL SLOW IVP SCH (02:15)
[2019-12-02 05:22] LABS: #Lymphocytes 1.3 thou/uL (1.20-3.40); #Monocytes 0.5 thou/uL (0.11-0.59); #Neutrophils 12.4 thou/uL (1.40-6.50); %Basophils 0.1 % (0.0-1.0); %Eosinophils 0.1 % (0.0-10.0); %Lymphocytes 8.8 % (21.0-51.0); %Monocytes 3.2 % (0.0-10.0); %Neutrophils 87.8 % (42.0-75.0); Mean Corpuscular HGB CONC 30.6 g/dL (32.0-36.0); Mean Corpuscular Hemoglobin 26.7 pg (27.0-31.0); Mean Corpuscular Volume 87.3 fL (78.0-98.0); Mean Platelet Volume 8.2 fL (7.4-10.4); Platelet Count 279 thou/uL (130-400); RBC Distribution Width 12.1 % (11.5-14.5); Red Blood Cell (RBC) Count 4.86 mill/uL (4.70-6.10); White Blood Cell (WBC) Count 14.1 thou/uL (4.8-10.8)
[2019-12-02 05:41] LABS: Anion Gap 17 mmol/L (10-20); BUN (Urea Nitrogen) 14 mg/dL (8.9-20.6); Calc. Creatinine Clearance 153 mL/min (70-130); Calcium 8.3 mg/dL (7.8-10.44); Carbon Dioxide 20 mmol/L (22-29); Chloride 103 mmol/L (98-107); Estimated GFR-MDRD Greater than 90; Glucose 317 mg/dL (70-105); Magnesium 1.9 mg/dL (1.6-2.6); Potassium 4.1 mmol/L (3.5-5.1); Sodium 136 mmol/L (136-145)
[2019-12-02] MEDS: HumaLOG 300 UNITS/3 ML VIAL SC PRN ×2 (06:13→11:53)
[2019-12-02] MEDS: Morphine 2 MG/ML SYRINGE SLOW IVP PRN ×2 (06:15→13:53)
[2019-12-02] MEDS: Apixaban 5 MG TAB PO SCH ×2 (08:13→20:12)
[2019-12-02] MEDS: busPIRone HCl 5 MG TAB PO SCH ×2 (08:13→20:11)
[2019-12-02] MEDS: Pantoprazole 40 MG GRANULES PACKET PO SCH ×2 (08:13→20:14)
[2019-12-02] MEDS: Aspirin 81 mg Enteric Coated Tablet PO SCH (08:13)
[2019-12-02] MEDS: Metoprolol Tartrate 50 MG TAB PO SCH ×2 (08:13→20:39)
[2019-12-02] MEDS: Clopidogrel Bisulfate 75 MG TAB PO SCH (08:13)
[2019-12-02] MEDS: Lidocaine 5% Patch TD SCH (08:14)
[2019-12-02] MEDS ORDERED: NPH, Human Insulin Isophane 300 UNIT/3 ML VIAL SC SCH (09:00)
[2019-12-02 10:02] LABS: Bacteria/HPF None Seen HPF (None Seen); Bilirubin Negative (Negative); Blood, Urine Negative (Negative); Clarity Clear (Clear); Glucose, Urine (Dipstick) Greater than 1000 mg/dL (Negative); Leukocyte Negative Leu/uL (Negative); Nitrite Negative (Negative); Protein, Urine (Dipstick) Negative (Neg-Trace); RBC/HPF 0-3 HPF (0-3); Squamous Epithelial None Seen HPF (0-3); Urobilinogen Normal mg/dL (Less than 2); WBC/HPF 0-3 HPF (0-3)
[2019-12-02 10:09] LABS: Urine Culture Reflex No No
--- NOTE | 2019-12-02 10:35 | CON ---
DATE OF CONSULTATION: HISTORY OF PRESENT ILLNESS: The patient is a pleasant 44-year-old gentleman, who presents with chest and abdominal discomfort. The patient has a long history of coronary artery disease. He previously underwent coronary artery bypass graft surgery x4. The patient also has a history of multiple coronary stents placed. The patient was in his usual state of health until when he admitted in July with unstable angina. The patient underwent a cardiac catheterization. He was found to have a 70% left main lesion. The LAD had diffuse disease with a proximal lesion and 100% mid occlusion. Left circumflex artery had a 70% stenosis. The right coronary artery had multiple lesions. The left internal mammary artery had a patent anastomosis with the distal LAD. The saphenous vein graft to the OM was atretic. The saphenous vein graft to the right coronary artery was patent. The patient was placed on medical therapy,and was highly advised to be compliant with his medications and followup. The patient states about a month after his hospitalization he was admitted with small bowel obstruction to a hospital in [place]. The patient underwent a stress test and was taken emergently for repeat catheterization. He said he underwent repeat coronary angioplasty. The patient states that he had been doing reasonably well until the past few days when he developed recurrent abdominal discomfort. He has had severe constipation. He also developed chest discomfort and presented to the emergency room for further evaluation. PAST MEDICAL HISTORY: 1. Coronary artery disease. 2. Hypertension. 3. Pulmonary embolus. 4. TIA. 5. Diabetes mellitus. 6. Dyslipidemia. PAST SURGICAL HISTORY: Coronary artery bypass graft surgery, back surgery, appendectomy, and cholecystectomy. SOCIAL HISTORY: Nonsmoker. ALLERGIES: IODINE, ZOSYN, ZOFRAN, BENTYL, REGLAN. MEDICATIONS ON ADMISSION: See nursing list. PHYSICAL EXAMINATION: GENERAL: Obese gentleman, in mild distress. VITAL SIGNS: Blood pressure 113/71. NECK: No jugular venous distention. LUNGS: Clear to auscultation. HEART: Regular rate and rhythm. Normal S1 and S2. ABDOMEN: Distended. EXTREMITIES: Trace edema. VASCULAR: Radial pulse 2+. LABORATORY DATA: Potassium 4.5, chloride 101, bicarbonate 25, BUN 11, creatinine 1.0, and glucose 565. Troponin less than 0.01. White blood cell count 14.1, hemoglobin 13.0, hematocrit 42.4, and platelets 279. DIAGNOSTIC DATA: EKG revealed sinus tachycardia with a nonspecific ST abnormality. IMPRESSION: 1. Unstable angina. 2. Possible recurrent small bowel obstruction. 3. History of coronary artery bypass graft surgery x4. 4. History of multiple percutaneous transluminal coronary angioplasties and stents placement. 5. History of transient ischemic attack. 6. History of pulmonary embolus. 7. Diabetes mellitus, poorly controlled. 8. Dyslipidemia. This gentleman presents with recurrent symptoms suggestive of small bowel obstruction. He also has unstable angina. The patient has underwent a catheterization last month, in which he had an angioplasty, but no stent placed. We will try to obtain those records. From a cardiac standpoint,I highly recommend medical therapy as opposed to repeat invasive evaluation. We will follow this patient with you throughout his hospitalization. Job ID: [id number] [facility] CENTERAurea
[2019-12-02] MEDS: Cyclobenzaprine 10 MG TAB PO PRN (11:54)
--- NOTE | 2019-12-02 13:00 | RAD ---
LUMBAR SPINE SERIES 3 VIEWS: Date: 12/02/2019 HISTORY: Back pain. FINDINGS: Vertebral bodies are normal in height. Degenerative osteophytes are seen along the course of the spin e. There is mild disc narrowing at L5-S1. Pedicles are intact. IMPRESSION: Mild arthritic changes of the spine. No acute changes. POS: YNES
--- NOTE | 2019-12-02 13:09 | RAD ---
KUB: Date: 12/02/2019 HISTORY: Abdominal pain. FINDINGS: There is air in both small and large bowel without signs of obstruction. There is a moderate amount o f stool in the right colon and transverse colon. Surgical clips are seen in the right upper quadrant of the pelvis probably related to previous cholecystectomy. IMPRESSION: No acute changes. POS: YNES
[2019-12-02] MEDS: Amiodarone 200 MG TAB PO SCH (13:54)
--- NOTE | 2019-12-02 15:11 | PDOC.HOSPP ---
- Subjective Encounter Date: 12/02/19 Encounter Time: 10:00 Subjective: pt up in bed talking with his friend. He does state that he has chest pain, back pain and abdomen pain. - Objective Vital Signs & Weight: Vital Signs (12 hours) Temp Pulse Resp BP BP Pulse Ox 12/02/19 11:34 98.0 F 84 16 110/69 100 12/02/19 07:55 97.3 F L 100 16 113/71 99 12/02/19 04:30 95 18 111/66 95 Weight Admit Weight 208 lb Weight 208 lb I&O: 12/01/19 12/02/19 12/03/19 06:59 06:59 06:59 Output Total 425 Balance -425 Result Diagrams: 12/02/19 04:30 12/02/19 04:30 Additional Labs: Accuchecks 12/02/19 12/02/19 12/01/19 11:40 01:14 21:00 POC Glucose 348 H 313 H 418 H 12/01/19 15:05 POC Glucose 374 H Hospitalist ROS - Review of Systems Cardiovascular: reports: chest pain. denies: palpitations, orthopnea, paroxysmal noc. dyspnea, edema, light headedness, other Gastrointestinal: reports: abdominal pain. denies: nausea, vomiting, diarrhea, constipation, melena, hematochezia, other Genitourinary: denies: dysuria, frequency, incontinence, hematuria, retention, other Musculoskeletal: reports: back pain - Medication Medications: Active Medications Generic Name Dose Route Start Last Admin Trade Name Freq PRN Reason Stop Dose Admin Hydrocodone Bitart/Acetaminophen 1 tab 12/01/19 18:30 12/02/19 08:12 [place] 10/325 PO 1 tab Q6H PRN Administration Pain Amiodarone HCl 200 mg 12/02/19 14:00 12/02/19 13:54 Cordarone PO 200 mg 1400 LUIS Administration Apixaban 5 mg 12/01/19 21:00 12/02/19 08:13 Eliquis PO 5 mg BID LUIS Administration Aspirin 81 mg 12/02/19 09:00 12/02/19 08:13 Ecotrin PO 81 mg DAILY LUIS Administration Buspirone HCl 5 mg 12/01/19 21:00 12/02/19 08:13 Buspar PO 5 mg BID LUIS Administration Clopidogrel Bisulfate 75 mg 12/02/19 09:00 12/02/19 08:13 Plavix PO 75 mg DAILY LUIS Administration Cyclobenzaprine HCl 10 mg 12/02/19 09:32 12/02/19 11:54 Flexeril PO 10 mg TID PRN Administration Muscle Spasm Gabapentin 1,200 mg 12/01/19 21:00 12/01/19 21:08 Neurontin PO 1,200 mg HS LUIS Administration Insulin Human Lispro 0 units 12/01/19 15:50 12/02/19 11:53 Humalog SC 8 unit .MODERATE SLIDING SC PRN Administration Moderate Correctional Scale Insulin Human Lispro 0 units 12/01/19 21:04 12/01/19 21:20 Humalog SC 5 unit .BEDTIME SLIDING SC PRN Administration Bedtime Correctional Scale Insulin Human NPH 15 unit 12/01/19 21:00 12/01/19 21:10 Humulin N SQ 15 mg QPM LUIS Administration Insulin Human NPH 25 unit 12/02/19 09:00 12/02/19 08:22 Humulin N SC 25 unit QAM LUIS Administration Isosorbide Mononitrate 60 mg 12/02/19 14:00 12/02/19 13:54 Imdur PO 60 mg 1400 LUIS Administration Lidocaine 1 patch 12/02/19 09:00 12/02/19 08:14 Lidoderm 5% Patch TD 1 patch DAILY LUIS Administration Metoprolol Tartrate 50 mg 12/01/19 21:00 12/02/19 08:13 Lopressor PO 50 mg BID LUIS Administration Morphine Sulfate 2 mg 12/01/19 18:28 12/02/19 13:53 Morphine SLOW IVP 2 mg Q8H PRN Administration Chest Pain Pantoprazole Sodium 40 mg 12/01/19 21:00 12/02/19 08:13 Protonix PO 40 mg BID LUIS Administration Ranolazine 1,000 mg 12/01/19 21:00 12/02/19 08:11 Ranexa PO 1,000 mg BID LUIS Administration Rosuvastatin Calcium 40 mg 12/01/19 21:00 12/01/19 21:09 Crestor PO 40 mg HS LUIS Administration Zolpidem Tartrate 10 mg 12/01/19 21:00 12/01/19 21:07 Ambien PO 10 mg HS LUIS Administration - Exam Neck: negative: supple, symmetric, no JVD, no thyromegaly, no lymphadenopathy, no carotid bruit, JVD Heart: negative: RRR, no murmur, no gallops, no rubs, normal peripheral pulses, irregular, diminshed peripheral pulses, murmur present, II/IV, III/IV Respiratory: negative: CTAB, no wheezes, no rales, no ronchi, normal chest expansion, no tachypnea, normal percussion, rales, rhonchi, tachypneic, wheezes Gastrointestinal: soft, normal bowel sounds, tender to palpation Extremities: negative: no cyanosis, no clubbing, no edema, 1+ LE edema, 2+ LE edema, clubbing Hosp A/P (1) Chest pain Code(s): R07.9 - CHEST PAIN, UNSPECIFIED Status: Acute (2) CAD (coronary artery disease) Code(s): I25.10 - ATHSCL HEART DISEASE OF [place] CORONARY ARTERY W/O ANG PCTRS Status: Chronic Qualifiers: (3) DM type 2 (diabetes mellitus, type 2) Status: Chronic (4) HTN (hypertension) Code(s): I10 - ESSENTIAL (PRIMARY) HYPERTENSION Status: Chronic Qualifiers: (5) History of pulmonary embolism Code(s): Z86.711 - PERSONAL HISTORY OF PULMONARY EMBOLISM Status: Chronic (6) Obesity (BMI 30.0-34.9) Code(s): E66.9 - OBESITY, UNSPECIFIED Status: Chronic - Plan pt's trops are negative. cardio consulted. will continue insulin his blood sugars are not controlled. abd xray indicates stool will start pt on lactulose and stool softeners. possible some gastroparesis/ will limit his pain meds.
[2019-12-02] MEDS ORDERED: Bisacodyl 5 MG TAB PO SCH (15:15)
[2019-12-02] MEDS: HumaLOG 300 UNITS/3 ML VIAL SC SCH (16:56)
[2019-12-02] MEDS: Rosuvastatin 20 MG TAB PO SCH (20:10)
[2019-12-02] MEDS: Gabapentin 300 MG CAP PO SCH (20:10)
[2019-12-02] MEDS: DULoxetine 60 MG CAP PO SCH (20:11)
[2019-12-02] MEDS: Lidocaine Patch Removal 1 EACH TOP SCH (20:34)
[2019-12-02] MEDS: NPH, Human Insulin Isophane 300 UNIT/3 ML VIAL SQ SCH (20:40)
[2019-12-02] MEDS: Zolpidem Tartrate 5 MG TAB PO SCH (20:44)
--- NOTE | 2019-12-03 03:22 | CON ---
DATE OF CONSULTATION: 12/02/2019 REASON FOR CONSULTATION: Generalized abdominal pain. CONSULTING PROVIDER: Florentino Dobbins MD HISTORY OF PRESENT ILLNESS: The patient is a 44-year-old male with past medical history of diabetes, coronary artery disease status post CABG (2017), chronic pain, neuropathy, TIA, hyperlipidemia, and a possible small bowel obstruction at the end of 2018 (diagnosed at [facility] in [place]), presenting with complaints of abdominal pain. The patient states that he was in his usual state of health until approximately 1 week ago when he began having increased chest tightness, shortness of breath, and some nausea that was concerning for possible repeat myocardial infarction. Over the course of the week, it did not necessarily nickie until approximately 4 days ago when the patient began having increased abdominal pain that was worsening over the last couple of weeks. He stated that this pain was located in the right flank initially, characterized as a cramping/stabbing type sensation, would radiate to the right upper quadrant, midepigastric and left flank, was constant with waxing/waning severity, and reached a severity of 10/10. The pain was worse with the initiation of having a bowel movement and increased straining in order to pass it. He denied any alleviating factors except for narcotic medications administered during this hospitalization. As an outpatient, the patient states that he would only take Tylenol as needed and was not taking any narcotics for his chronic pain syndromes. He endorsed having approximately 1 bowel movement per day, which was semi solid/solid in consistency with Holl[place]pple scale of 3 to 4. However, he did state that there were occasions where it would be more lump like in consistency and required significantly increased straining in order to facilitate defecation. As a result of this increased abdominal pain, he also endorsed increased nausea and vomiting of nonbloody emesis, weight loss of approximately 25 pounds over the last 1 to 2 months, hematochezia (bright red blood per rectum with increased straining), and decreased appetite. However, he currently denies any fevers, chills, melena, hematemesis, dysphagia, or odynophagia. Of note, the patient states that he was diagnosed with a small-bowel obstruction in September of 2019, at [facility]. He subsequently responded to more conservative management with possible NG tube placement and small bowel follow-through showing "scar tissue." No surgical intervention was performed at that time. REVIEW OF SYSTEMS: A 10-category review of systems was obtained with all responses negative except for the pertinent positives as listed in HPI. PAST MEDICAL HISTORY: As per HPI. PAST SURGICAL HISTORY: Appendectomy, cholecystectomy, and coronary artery bypass graft. FAMILY HISTORY: Denies any GI malignancies. SOCIAL HISTORY: Denies any tobacco, alcohol, or illicit drug use. OUTPATIENT MEDICATIONS: Reviewed. ALLERGIES: IODINE, ZOSYN, KETOROLAC, METOCLOPRAMIDE, AND ZOFRAN. PHYSICAL EXAMINATION: VITAL SIGNS: Temperature 97.9, pulse 87, blood pressure 93/56, respiratory rate 16, and saturating 98% on room air. GENERAL: The patient was lying in bed, in no acute distress. Alert and oriented x4. HEENT: Normocephalic and atraumatic. NECK: Supple. No JVD or scleral icterus noted. CARDIOVASCULAR: Regular rate and rhythm with no discernible murmurs, gallops, or rubs. RESPIRATORY: Clear to auscultation bilaterally with no discernible wheezes or rales. ABDOMEN: Normoactive bowel sounds. Soft, nondistended. Significant tenderness to palpation in all abdominal quadrants with both light and deep palpation. EXTREMITIES: No cyanosis, clubbing, or edema. LABORATORY DATA: CBC with a white blood cell count of 14.1, hemoglobin 13, hematocrit 42.4, platelets 279. Chemistry with a sodium of 136, potassium 4.1, chloride 103, CO2 of 20, BUN 14, creatinine 0.84, glucose 317. IMAGING DATA: CT angiography was performed on December 01, 2019, which showed no evidence of pulmonary thromboembolism, aneurysm, or dissection of the aorta and no hilar lymphadenopathy or masses (essentially normal study). Abdominal x-ray obtained on December 02, 2019, showed air in both small and large bowel without signs of obstruction. There was a moderate amount of stool within the right colon and transverse colon and surgical clips were seen in the right upper quadrant, probably due to previous cholecystectomy. ASSESSMENT AND PLAN: The patient is a 44-year-old male with past medical history of diabetes, coronary artery disease status post CABG, chronic pain syndrome, neuropathy, transient ischemic attack, hyperlipidemia, and a possible small bowel obstruction, presenting with generalized abdominal pain. Generalized abdominal pain: The patient is presenting with a fairly acute onset of increased abdominal pain initially located in the right flank and characterized as a cramping/stabbing type sensation that would radiate to the right upper quadrant and midepigastric region. However, over the course of the last week, he has been having worsening of this pain, which ultimately brought him in for further evaluation. During the course of this admission, the physical exam of the patient indicates generalized abdominal pain to both light and deep palpation and he does have a mildly elevated white blood cell count concerning for inflammatory type process. However, imaging at this time is not consistent with bowel obstruction (small or large) but rather it shows an increased colonic stool burden within the right and transverse colon, which could also contribute to his current constellation of symptoms. He adds that he has been having approximately 1 bowel movement per day, which was semi-solid in consistency but has been having significantly increased straining in order to facilitate defecation, which could be indicative of constipation, especially if related to narcotic use as an outpatient related to his chronic pain syndromes. At this time, the differential could include chronic constipation, irritable bowel syndrome, inflammatory bowel disease (less likely), infectious etiology (less likely), ischemic change with possible mesenteric ischemia and/or GI neoplasm (much less likely given age and lack of family history). RECOMMENDATIONS: 1. We will continue the patient on the higher fiber diet with FODMAP guidance. 2. We would start the patient on MiraLAX 1 capsule b.i.d. in an attempt to facilitate having a bowel movement. 3. We will consider using an enema to break up the harder stool plug from the distal colon to facilitate having a bowel movement. 4. Would attempt to minimize any narcotic medications as it can worsen constipation and potentially contribute to narcotic bowel syndrome. 5. If the patient is not responding to more conservative measures, we would consider obtaining a dedicated CT scan of the abdomen and pelvis for further evaluation. We will continue to follow. Please call with any questions. Job ID: [id number]
[2019-12-03 05:53] LABS: Cardiac Risk 6.9 (Less than 4.5)
[2019-12-03 07:45] LABS: #Basophils 0.1 thou/uL (0.0-0.2); #Eosinphils 0.2 thou/uL (0.0-0.7); #Lymphocytes 1.8 thou/uL (1.20-3.40); #Monocytes 0.6 thou/uL (0.11-0.59); #Neutrophils 6.2 thou/uL (1.40-6.50); %Basophils 0.7 % (0.0-1.0); %Eosinophils 1.8 % (0.0-10.0); %Lymphocytes 20.4 % (21.0-51.0); %Monocytes 6.2 % (0.0-10.0); %Neutrophils 70.9 % (42.0-75.0); Hemoglobin 13.3 g/dL (14.0-18.0); Mean Corpuscular HGB CONC 33.5 g/dL (32.0-36.0); Mean Corpuscular Volume 86.6 fL (78.0-98.0); Platelet Count 232 thou/uL (130-400); RBC Distribution Width 12.2 % (11.5-14.5); White Blood Cell (WBC) Count 8.8 thou/uL (4.8-10.8)
[2019-12-03] MEDS: Pantoprazole 40 MG GRANULES PACKET PO SCH ×2 (07:48→19:46)
[2019-12-03] MEDS: Polyethylene Glycol 3350 17 GM Packet PO SCH (07:48)
[2019-12-03] MEDS: Lidocaine 5% Patch TD SCH (07:48)
[2019-12-03] MEDS: Aspirin 81 mg Enteric Coated Tablet PO SCH (07:49)
[2019-12-03] MEDS: Cyclobenzaprine 10 MG TAB PO PRN (07:49)
[2019-12-03] MEDS: Metoprolol Tartrate 50 MG TAB PO SCH ×2 (07:49→19:45)
[2019-12-03] MEDS: busPIRone HCl 5 MG TAB PO SCH ×2 (07:49→19:42)
[2019-12-03] MEDS: Clopidogrel Bisulfate 75 MG TAB PO SCH (07:50)
[2019-12-03] MEDS: Apixaban 5 MG TAB PO SCH ×2 (07:50→19:43)
[2019-12-03] MEDS: NPH, Human Insulin Isophane 300 UNIT/3 ML VIAL SC SCH (07:51)
[2019-12-03] MEDS: Morphine 2 MG/ML SYRINGE SLOW IVP PRN ×2 (07:52→20:32)
[2019-12-03] MEDS: HumaLOG 300 UNITS/3 ML VIAL SC SCH ×3 (07:57→16:45)
[2019-12-03] MEDS ORDERED: Mineral Oil ENEMA PR SCH (09:00)
--- NOTE | 2019-12-03 13:21 | PDOC.HOSPP ---
- Subjective Subjective: Seen and examined. Patient with numerous complaints this morning. States that he is having chest pain, abdominal pain, diarrhea, nausea, and back pain. He states that all of these things are worse than see had diarrhea after laxative medication. Patient diagnosed with unstable angina by cardiology and meeting inpatient criteria. I talked to the patient about discharging home, he tells me he will be back in the hospital tomorrow if I send him home today. Patient requesting higher doses of pain medications and more frequently administered. I recommended to the patient that we get him on a oral regimen that he can go home on such as tramadol. - Objective Vital Signs & Weight: Vital Signs (12 hours) Temp Pulse Resp BP BP Pulse Ox 12/03/19 11:05 98.3 F 84 14 91/50 L 95 12/03/19 07:38 97.9 F 97 14 110/62 97 12/03/19 05:20 97.8 F 90 18 100/58 L 98 Weight Admit Weight 208 lb Weight 208 lb I&O: 12/02/19 12/03/19 12/04/19 06:59 06:59 06:59 Intake Total 1690 Output Total 425 1500 Balance -425 190 Result Diagrams: 12/03/19 07:31 12/02/19 04:30 Additional Labs: Accuchecks 12/03/19 12/03/19 12/02/19 11:07 05:18 20:26 POC Glucose 301 H 272 H 307 H 12/02/19 16:56 POC Glucose 175 H Radiology Reviewed by me: Yes Hospitalist ROS - Review of Systems All other systems reviewed; all pertinent +/- noted in HPI/Subj - Medication Medications: Active Medications Generic Name Dose Route Start Last Admin Trade Name Freq PRN Reason Stop Dose Admin Hydrocodone Bitart/Acetaminophen 1 tab 12/01/19 18:30 12/02/19 08:12 [place] 10/325 PO 1 tab Q6H PRN Administration Pain Amiodarone HCl 200 mg 12/02/19 14:00 12/02/19 13:54 Cordarone PO 200 mg 1400 LUIS Administration Apixaban 5 mg 12/01/19 21:00 12/03/19 07:50 Eliquis PO 5 mg BID LUIS Administration Aspirin 81 mg 12/02/19 09:00 12/03/19 07:49 Ecotrin PO 81 mg DAILY LUIS Administration Buspirone HCl 5 mg 12/01/19 21:00 12/03/19 07:49 Buspar PO 5 mg BID LUIS Administration Clopidogrel Bisulfate 75 mg 12/02/19 09:00 12/03/19 07:50 Plavix PO 75 mg DAILY LUIS Administration Cyclobenzaprine HCl 10 mg 12/02/19 09:32 12/03/19 07:49 Flexeril PO 10 mg TID PRN Administration Muscle Spasm Divalproex Sodium 500 mg 12/02/19 21:00 12/03/19 08:06 Depakote Er PO 500 mg BID LUIS Administration Duloxetine HCl 60 mg 12/02/19 21:00 12/02/19 20:11 Cymbalta PO 60 mg HS LUIS Administration Gabapentin 1,200 mg 12/01/19 21:00 12/02/19 20:10 Neurontin PO 1,200 mg HS LUIS Administration Insulin Human Lispro 0 units 12/01/19 15:50 12/02/19 11:53 Humalog SC 8 unit .MODERATE SLIDING SC PRN Administration Moderate Correctional Scale Insulin Human Lispro 0 units 12/01/19 21:04 12/01/19 21:20 Humalog SC 5 unit .BEDTIME SLIDING SC PRN Administration Bedtime Correctional Scale Insulin Human Lispro 25 units 12/02/19 17:00 12/03/19 11:12 Humalog SC 25 unit TID-WM LUIS Administration Insulin Human NPH 30 unit 12/02/19 21:00 12/02/19 20:40 Humulin N SQ 30 unit QPM LUIS Administration Insulin Human NPH 40 unit 12/03/19 09:00 12/03/19 07:51 Humulin N SC 40 unit QAM LUIS Administration Isosorbide Mononitrate 60 mg 12/02/19 14:00 12/02/19 13:54 Imdur PO 60 mg 1400 LUIS Administration Isosorbide Mononitrate 60 mg 12/02/19 21:00 12/03/19 07:49 Imdur PO 60 mg BID LUIS Administration Lidocaine 1 patch 12/02/19 09:00 12/03/19 07:48 Lidoderm 5% Patch TD 1 patch DAILY LUIS Administration Metoprolol Tartrate 50 mg 12/01/19 21:00 12/03/19 07:49 Lopressor PO 50 mg BID LUIS Administration Miscellaneous Medication 1 each 12/02/19 21:00 12/02/19 20:34 Lidocaine Patch Removal TOP 1 each 2100 LUIS Administration Morphine Sulfate 2 mg 12/01/19 18:28 12/03/19 07:52 Morphine SLOW IVP 2 mg Q8H PRN Administration Chest Pain Pantoprazole Sodium 40 mg 12/01/19 21:00 12/03/19 07:48 Protonix PO 40 mg BID LUIS Administration Polyethylene Glycol 17 gm 12/03/19 09:00 12/03/19 07:48 Miralax PO 17 gm DAILY LUIS Administration Ranolazine 1,000 mg 12/01/19 21:00 12/03/19 07:49 Ranexa PO 1,000 mg BID LUIS Administration Rosuvastatin Calcium 40 mg 12/01/19 21:00 12/02/19 20:10 Crestor PO 40 mg HS LUIS Administration Sodium Chloride 10 ml 12/02/19 21:00 12/03/19 07:59 Flush - Normal Saline IVF 10 ml Q12HR LUIS Administration Zolpidem Tartrate 10 mg 12/01/19 21:00 12/02/19 20:44 Ambien PO 10 mg HS LUIS Administration - Exam General Appearance: NAD, awake alert Eye: PERRL ENT: normocephalic atraumatic, moist mucosa Neck: supple, symmetric Heart: no murmur, no gallops, no rubs Respiratory: CTAB, no wheezes, no rales, no ronchi, normal chest expansion, no tachypnea Gastrointestinal: soft, non-tender, no guarding, no rigidity Extremities: no edema Skin: no lesions, no rashes Neurological: cranial nerve grossly intact, no focal deficits Musculoskeletal: generalized weakness Psychiatric: normal affect, normal behavior, A&O x 3 Hosp A/P (1) Unstable angina Status: Acute (2) Chest pain Code(s): R07.9 - CHEST PAIN, UNSPECIFIED Status: Acute (3) Anxiety Code(s): F41.9 - ANXIETY DISORDER, UNSPECIFIED Status: Acute (4) CAD (coronary artery disease) Code(s): I25.10 - ATHSCL HEART DISEASE OF [place] CORONARY ARTERY W/O ANG PCTRS Status: Chronic Qualifiers: (5) DM type 2 (diabetes mellitus, type 2) Status: Chronic (6) Dyslipidemia Code(s): E78.5 - HYPERLIPIDEMIA, UNSPECIFIED Status: Chronic (7) Gastroparesis Code(s): K31.84 - GASTROPARESIS Status: Chronic (8) HTN (hypertension) Code(s): I10 - ESSENTIAL (PRIMARY) HYPERTENSION Status: Chronic Qualifiers: (9) Obesity (BMI 30.0-34.9) Code(s): E66.9 - OBESITY, UNSPECIFIED Status: Chronic (10) Paroxysmal A-fib Code(s): I48.0 - PAROXYSMAL ATRIAL FIBRILLATION Status: Chronic - Plan Plan: medical unit with telemetry cardiology consultation, recommendations appreciated gastroenterology consultation, recommendations appreciated regimen for coronary artery disease as tolerated patient with diarrhea, no longer having constipation when I discuss at the patient about discharge today, he tells me he will be back in the hospital tomorrow blood pressure control blood sugar control continue other home chronic medications as able bowel regimens G.I. prophylaxis DVT prophylaxis
[2019-12-03] MEDS: traMADol HCl 50 MG TAB PO PRN ×2 (13:43→18:29)
[2019-12-03] MEDS: Amiodarone 200 MG TAB PO SCH (13:44)
--- NOTE | 2019-12-03 15:12 | PDOC.CPN ---
- Subjective Date: 12/03/19 Time: 14:45 Interval history: Mr. Olea was seen and examined. Describes diffuse abdominal pain, now having diarrhea. Denies chest pain. Does report shortness of breath with minimal exertion, states this is new for him. Also reports "fluttering to my chest" when he feels short of breath. Per nursing staff, he is frequently requesting narcotics for his pain. No overnight events on telemetr [facility] from [facility]-recent [facility] 09/2019, NSTEMI. Cath showed s/p 4V CABG,patent ARIAS to LAD, AVG to OM atretic, SVG occluded, no flow limiting disease. No culprit lesion, diffuse CAD. - Review of Systems Respiratory: reports: shortness of breath (notes with minimal exertion) Cardiovascular: denies: chest pain, palpitation, edema, paroxysmal nocturnal dyspnea, orthopnea Gastrointestinal: reports: diarrhea, constipation, abd pain Musculoskeletal: denies: pain, tenderness, stiffness, swelling, arthritis/ arthralgias Neurological: denies: numbness, syncope, seizure, weakness - Objective Allergies/Adverse Reactions: Allergies Allergy/AdvReac Type Severity Reaction Status Date / Time Iodine and Iodide Containing Allergy Verified 12/01/19 17:58 Produc piperacillin Allergy Verified 12/01/19 17:58 tazobactam [From Zosyn] Allergy Verified 12/01/19 17:58 ketorolac [From Toradol] AdvReac Verified 12/01/19 17:58 metoclopramide [From Reglan] AdvReac Verified 12/01/19 17:58 ondansetron [From Zofran] AdvReac Verified 12/01/19 17:58 Visit Medications: Current Medications Hydrocodone Bitart/Acetaminophen ([place] 10/325) 1 tab PO Q6H PRN PRN Reason: Pain Last Admin: 12/02/19 08:12 Dose: 1 tab Amiodarone HCl (Cordarone) 200 mg PO 1400 [facility] Last Admin: 12/03/19 13:44 Dose: 200 mg Apixaban (Eliquis) 5 mg PO BID [facility] Last Admin: 12/03/19 07:50 Dose: 5 mg Aspirin (Ecotrin) 81 mg PO DAILY [facility] Last Admin: 12/03/19 07:49 Dose: 81 mg Buspirone HCl (Buspar) 5 mg PO BID [facility] Last Admin: 12/03/19 07:49 Dose: 5 mg Clopidogrel Bisulfate (Plavix) 75 mg PO DAILY [facility] Last Admin: 12/03/19 07:50 Dose: 75 mg Cyclobenzaprine HCl (Flexeril) 10 mg PO TID PRN PRN Reason: Muscle Spasm Last Admin: 12/03/19 07:49 Dose: 10 mg Dextrose/Water (Dextrose 50%) 25 gm SLOW IVP PRN PRN PRN Reason: Hypoglycemia Diphenhydramine HCl (Benadryl) 50 mg PO 0800 [facility] Stop: 12/04/19 10:00 Divalproex Sodium (Depakote Er) 500 mg PO BID [facility] Last Admin: 12/03/19 08:06 Dose: 500 mg Duloxetine HCl (Cymbalta) 60 mg PO [facility] Last Admin: 12/02/19 20:11 Dose: 60 mg Gabapentin (Neurontin) 1,200 mg PO HS [facility] Last Admin: 12/02/19 20:10 Dose: 1,200 mg Glucagon (Glucagon) 1 mg IM PRN PRN PRN Reason: Hypoglycemia Dextrose/Water (D5w) 1,000 mls @ 0 mls/hr IV .Q0M PRN PRN Reason: Hypoglycemia Insulin Human Lispro (Humalog) 0 units SC .MODERATE SLIDING SC PRN PRN Reason: Moderate Correctional Scale Last Admin: 12/02/19 11:53 Dose: 8 unit Insulin Human Lispro (Humalog) 0 units SC .BEDTIME SLIDING SC PRN PRN Reason: Bedtime Correctional Scale Last Admin: 12/01/19 21:20 Dose: 5 unit Insulin Human Lispro (Humalog) 25 units SC TID-[facility] Last Admin: 12/03/19 11:12 Dose: 25 unit Insulin Human NPH (Humulin N) 30 unit SQ QPM [facility] Last Admin: 12/02/19 20:40 Dose: 30 unit Insulin Human NPH (Humulin N) 40 unit SC QAM [facility] Last Admin: 12/03/19 07:51 Dose: 40 unit Isosorbide Mononitrate (Imdur) 60 mg PO 1400 [facility] Last Admin: 12/03/19 13:45 Dose: Not Given Isosorbide Mononitrate (Imdur) 60 mg PO BID [facility] Last Admin: 12/03/19 07:49 Dose: 60 mg Lidocaine (Lidoderm 5% Patch) 1 patch TD DAILY [facility] Last Admin: 12/03/19 07:48 Dose: 1 patch Metoprolol Tartrate (Lopressor) 50 mg PO BID [facility] Last Admin: 12/03/19 07:49 Dose: 50 mg Miscellaneous Medication (Lidocaine Patch Removal) 1 each TOP 2100 [facility] Last Admin: 12/02/19 20:34 Dose: 1 each Morphine Sulfate (Morphine) 2 mg SLOW IVP Q8H PRN PRN Reason: Chest Pain Last Admin: 12/03/19 07:52 Dose: 2 mg Nitroglycerin (Nitrostat) 0.4 mg SL Q5MIN PRN PRN Reason: Chest Pain Non-Formulary Medication (Gabapentin [Gabapentin]) 600 mg PO TID [facility] Pantoprazole Sodium (Protonix) 40 mg PO BID [facility] Last Admin: 12/03/19 07:48 Dose: 40 mg Polyethylene Glycol (Miralax) 17 gm PO DAILY [facility] Last Admin: 12/03/19 07:48 Dose: 17 gm Prednisone (Prednisone) 50 mg PO 2000 [facility] Stop: 12/03/19 22:00 Prednisone (Prednisone) 50 mg PO 0200 [facility] Stop: 12/04/19 04:00 Prednisone (Prednisone) 50 mg PO 0800 [facility] Stop: 12/04/19 10:00 Ranolazine (Ranexa) 1,000 mg PO BID [facility] Last Admin: 12/03/19 07:49 Dose: 1,000 mg Rosuvastatin Calcium (Crestor) 40 mg PO HS [facility] Last Admin: 12/02/19 20:10 Dose: 40 mg Sodium Chloride (Flush - Normal Saline) 10 ml IVF Q12HR [facility] Last Admin: 12/03/19 07:59 Dose: 10 ml Sodium Chloride (Flush - Normal Saline) 10 ml IVF PRN PRN PRN Reason: Saline Flush Tramadol HCl (Ultram) 50 mg PO Q4H PRN PRN Reason: Moderate to Severe Pain (6-10) Last Admin: 12/03/19 13:43 Dose: 50 mg Zolpidem Tartrate (Ambien) 10 mg PO [facility] Last Admin: 12/02/19 20:44 Dose: 10 mg Vital Signs & Weight: Vital Signs Temp Pulse Resp BP BP Pulse Ox 12/03/19 11:05 98.3 F 84 14 91/50 L 95 12/03/19 07:38 97.9 F 97 14 110/62 97 12/03/19 05:20 97.8 F 90 18 100/58 L 98 Admit Weight 208 lb Weight 208 lb - CHADS-VASc Hypertension: 1 Risk Score: 1 - Quality Measures Condition: Atrial Fibrillation/Flutter (hx or current), Coronary Artery Disease CV meds: Beta Lynette: Yes, SOHAN/ARB: No, Statin: Yes, ASA: No, Plavix/Effient/ Brilinta: Yes, Anticoagulant: Yes - Physical Exam General: no apparent distress HEENT: mucus membranes moist, normocephaly Neck: supple neck, no JVD/HJR, no bruit Cardiac: regular rate and rhythm, no murmur, S1/S2 Lungs: clear to auscultation, normal breath sounds, no wheeze, rales, rhonchi Neuro: grossly intact Abdomen: active bowel sounds, soft, non-tender Extremities: no cyanosis, no clubbing, no edema Musculoskeletal: normal range of motion - Labs Result Diagrams: 12/03/19 07:31 12/02/19 04:30 Troponin/CKMB Troponin I 0.013 ng/mL (< 0.028) 12/01/19 18:25 - Telemetry Sinus rhythms and dysrhythmias: sinus rhythm (70s) - Assessment/Plan Assessment/Plan: 1. CAD-[facility]-recent [facility] 09/2019, NSTEMI. Cath showed s/p 4V CABG,patent ARIAS to LAD, AVG to OM atretic, SVG occluded, no flow limiting disease. No culprit lesion, diffuse CAD. Troponins negative x3. Recommend aggressive medical therapy, continue antianginals, long-acting nitrates. Continue BB. LDL 195 despite rosuvastatin daily, per patient he is compliant with this. Would try to obtain Repatha as an outpatient at his age with previous CABG. 2. HTN-low at times with IV narcotics 3. Paroxysmal AFib-maintaining SR, currently on suppressive therapy with amiodarone. Continue OAC. 4.Dyspnea on exertion-appears euvolemic. No PND, orthopnea, or nocturnal cough. No edema. 5. Obesity 6.Abdominal pain-alternating constipation, diarrhea. Followed by GI. Scheduled for CT Abdomen/Pelvis in am. 7. Hyperlipidemia 8. Anxiety Echocardiogram 07/2019 showed normal EF, mild to moderate MR, normal LA size, mild TR. Check BNP in am. Continue current medical therapy. Pt seen and examined. No other recommendations
--- NOTE | 2019-12-03 19:35 | PRG ---
DATE OF SERVICE: 12/03/2019 REASON FOR CONSULTATION: Generalized abdominal pain. SUBJECTIVE: Per nursing staff, the patient responded well to laxative administration and had a "blowout" with fecal material all over the bathroom and frequent diarrhea overnight. On speaking with the patient this morning, he states that his abdominal pain has increased since yesterday and is now generalized to the entire abdomen as opposed to located primarily in the right lower quadrant. He did attempt the Fleet enema, was offered to this morning, but the patient refused; however, the patient then used the Fleet enema by himself in the bathroom and was only able to hold onto the Fleet enema for approximately 15 minutes before expulsion. Currently, the patient denies any fevers, chills, melena, hematemesis, dysphagia, or odynophagia. OBJECTIVE: VITAL SIGNS: Temperature 98.5, pulse 89, blood pressure 94/50, respiratory rate 15, saturating 97% on room air. GENERAL: The patient is lying in bed, in no acute distress. Alert and oriented x4. CARDIOVASCULAR: Regular rate and rhythm. RESPIRATORY: Clear to auscultation bilaterally. ABDOMEN: Normoactive bowel sounds. Soft, nondistended. Significant tenderness to palpation in all abdominal quadrants with both light and deep palpation. EXTREMITIES: No cyanosis, clubbing, or edema. LABORATORY DATA: CBC with a white blood cell count of 8.8, hemoglobin 13.3, hematocrit 39.9, platelets 232. IMAGING DATA: No current GI imaging is available for review. ASSESSMENT AND PLAN: The patient is a 44-year-old male with past medical history of diabetes, coronary artery disease status post coronary artery bypass graft, chronic pain syndrome, neuropathy, transient ischemic attack, hyperlipidemia, and possible small-bowel obstruction (diagnosed at the end of last year in [place]), presenting with generalized abdominal pain. 1. Generalized abdominal pain. a. The patient initially presented with acute onset of increased right lower quadrant abdominal pain (although per chart review, this has been more chronic in nature with flares). It was characterized as a cramping, stabbing type sensation that would radiate to the right upper quadrant and midepigastric region. Prior to admission, the patient had been exhibiting normal stool frequency, but when he would initiate having a bowel movement, would require special maneuvers in order to defecate. As such, the patient was placed on laxative therapy while here as an inpatient and had a significant amount of stool expelled last night to the point where the patient initially refused Fleet enema this morning; however, the patient is not complaining of increased abdominal pain with the movement of stool, raising concern for possible other underlying process. Given his recent history of a small bowel obstruction that was diagnosed in [place], this should be evaluated at this time prior to discharge. At the current time, the differential could include irritable bowel syndrome, inflammatory bowel disease (less likely), ischemic change with possible mesenteric ischemia, small bowel obstruction (much less likely), narcotic bowel syndrome and/or GI neoplasm (much less likely given his current age and lack of family history of cancer). RECOMMENDATIONS: 1. a. Would decrease MiraLAX to one cap full daily as part of bowel regimen while taking narcotic medications. b. Would continue the patient on a higher fiber diet. c. Would attempt to minimize narcotic administration as it could worsen constipation and potentially contribute to narcotic bowel syndrome. d. I will order a CT of the abdomen and pelvis for further evaluation of his abdominal pain. Given his allergy to iodine in the past, he will be pre-treated with steroids and Benadryl. e. If the CT scan is otherwise negative for obvious abnormalities, the patient could be potentially discharged to home with followup in an outpatient clinic. We will continue to follow. Please call with any questions. Job ID: [id number]
[2019-12-03] MEDS: Rosuvastatin 20 MG TAB PO SCH (19:42)
[2019-12-03] MEDS: DULoxetine 60 MG CAP PO SCH (19:43)
[2019-12-03] MEDS: Gabapentin 300 MG CAP PO SCH (19:43)
[2019-12-03] MEDS: Lidocaine Patch Removal 1 EACH TOP SCH (19:46)
[2019-12-03] MEDS ORDERED: predniSONE 50 MG TAB PO SCH (20:00)
[2019-12-03] MEDS: Zolpidem Tartrate 5 MG TAB PO SCH (21:19)
[2019-12-03] MEDS: NPH, Human Insulin Isophane 300 UNIT/3 ML VIAL SQ SCH (21:19)
[2019-12-04] MEDS: HYDROcodone/Acetaminophen 10/325 mg Tablet PO PRN ×2 (00:22→10:21)
[2019-12-04] MEDS ORDERED: predniSONE 50 MG TAB PO SCH ×2 (02:00→08:00)
[2019-12-04] MEDS: Morphine 2 MG/ML SYRINGE SLOW IVP PRN (04:41)
[2019-12-04] MEDS ORDERED: diphenhydrAMINE 50 MG CAP PO SCH (08:00)
[2019-12-04] MEDS ORDERED: Iopamidol-370 76% 500 ML 1 ML ONE (10:07)
--- NOTE | 2019-12-04 10:13 | CT ---
EXAM: CT Abdomen Pelvis W Con PROVIDED CLINICAL HISTORY: Generalized abdominal pain COMPARISON: 10/12/2019 FINDINGS: The visualized lung bases are free of significant opacity. The liver, spleen, pancreas, kidneys and adrenal glands appear without significant abnormality. There is a simple appearing right renal cyst noted. There is conspicuous primarily gaseous distention of the right colon, measuring up to 9 cm. There is mild gaseous distention of the transverse and descending colon. The sigmoid colon is decompressed. There is no small bowel dilatation. There is no inflammatory fat stranding, free fluid or free air ap parent. A surgical clip is seen within the pelvic cul-de-sac. Occasional vascular calcifications are seen. The osseous structures demonstrate no concerning lytic o r blastic lesions. IMPRESSION: Conspicuous nonspecific gaseous distention of primarily right colon, with less conspicuous gaseous di stention of transverse and descending colon. The sigmoid colon is decompressed. There is no evidence for mass or volvulus by CT.
[2019-12-04] MEDS: Polyethylene Glycol 3350 17 GM Packet PO SCH (10:21)
[2019-12-04] MEDS: Pantoprazole 40 MG GRANULES PACKET PO SCH ×2 (10:21→21:37)
[2019-12-04] MEDS: NPH, Human Insulin Isophane 300 UNIT/3 ML VIAL SC SCH (10:22)
[2019-12-04] MEDS: Clopidogrel Bisulfate 75 MG TAB PO SCH (10:23)
[2019-12-04] MEDS: busPIRone HCl 5 MG TAB PO SCH ×2 (10:23→21:36)
[2019-12-04] MEDS: HumaLOG 300 UNITS/3 ML VIAL SC SCH ×3 (10:23→17:29)
[2019-12-04] MEDS: Apixaban 5 MG TAB PO SCH ×2 (10:24→21:37)
[2019-12-04] MEDS: Metoprolol Tartrate 50 MG TAB PO SCH ×2 (10:24→21:36)
[2019-12-04] MEDS: Lidocaine 5% Patch TD SCH ×2 (10:39→21:38)
--- NOTE | 2019-12-04 12:56 | PDOC.HOSPP ---
- Subjective Encounter Date: 12/04/19 Encounter Time: 12:54 Subjective: Continues with diffuse abdominal pain. States pain occurs after eating. No overnight events reported. - Objective Vital Signs & Weight: Vital Signs (12 hours) Temp Pulse Resp BP Pulse Ox 12/04/19 11:55 97.9 F 99 12 114/58 L 93 L 12/04/19 08:05 93 L 12/04/19 07:40 97.9 F 86 24 H 115/61 93 L 12/04/19 04:30 98.5 F 91 18 121/72 97 Weight Admit Weight 208 lb Weight 208 lb I&O: 12/03/19 12/04/19 12/05/19 06:59 06:59 06:59 Intake Total 1690 240 240 Output Total 1500 Balance 190 240 240 Result Diagrams: 12/03/19 07:31 12/02/19 04:30 Additional Labs: Accuchecks 12/04/19 12/04/19 12/03/19 10:40 05:51 20:52 POC Glucose 329 H 278 H 188 H 12/03/19 12/03/19 17:14 16:41 POC Glucose 90 106 Hospitalist ROS - Review of Systems Constitutional: denies: fever, chills, sweats, weakness, malaise, other Respiratory: denies: cough, dry, shortness of breath, hemoptysis, SOB with excertion, pleuritic pain, sputum, wheezing, other Cardiovascular: denies: chest pain, palpitations, orthopnea, paroxysmal noc. dyspnea, edema, light headedness, other Gastrointestinal: reports: abdominal pain, diarrhea, constipation. denies: nausea, vomiting, melena, hematochezia, other - Medication Medications: Active Medications Generic Name Dose Route Start Last Admin Trade Name Freq PRN Reason Stop Dose Admin Amiodarone HCl 200 mg 12/02/19 14:00 12/03/19 13:44 Cordarone PO 200 mg 1400 LUIS Administration Apixaban 5 mg 12/01/19 21:00 12/04/19 10:24 Eliquis PO 5 mg BID LUIS Administration Buspirone HCl 5 mg 12/01/19 21:00 12/04/19 10:23 Buspar PO 5 mg BID LUIS Administration Clopidogrel Bisulfate 75 mg 12/02/19 09:00 02/09/20 10:23 Plavix PO 75 mg DAILY LUIS Administration Cyclobenzaprine HCl 10 mg 12/02/19 09:32 12/03/19 07:49 Flexeril PO 10 mg TID PRN Administration Muscle Spasm Divalproex Sodium 500 mg 12/02/19 21:00 12/04/19 10:24 Depakote Er PO 500 mg BID LUIS Administration Duloxetine HCl 60 mg 12/02/19 21:00 12/03/19 19:43 Cymbalta PO 60 mg HS LUIS Administration Gabapentin 1,200 mg 12/01/19 21:00 12/03/19 19:43 Neurontin PO 1,200 mg HS LUIS Administration Insulin Human Lispro 0 units 12/01/19 15:50 12/02/19 11:53 Humalog SC 8 unit .MODERATE SLIDING SC PRN Administration Moderate Correctional Scale Insulin Human Lispro 0 units 12/01/19 21:04 12/01/19 21:20 Humalog SC 5 unit .BEDTIME SLIDING SC PRN Administration Bedtime Correctional Scale Insulin Human Lispro 25 units 12/02/19 17:00 12/04/19 10:23 Humalog SC 25 unit TID-WM LUIS Administration Insulin Human NPH 30 unit 12/02/19 21:00 12/03/19 21:19 Humulin N SQ Not Given QPM [facility] Insulin Human NPH 40 unit 12/03/19 09:00 12/04/19 10:22 Humulin N SC 40 unit QAM LUIS Administration Isosorbide Mononitrate 60 mg 12/02/19 14:00 12/03/19 13:45 Imdur PO Not Given 1400 [facility] Isosorbide Mononitrate 60 mg 12/02/19 21:00 12/04/19 10:23 Imdur PO 60 mg BID LUIS Administration Metoprolol Tartrate 50 mg 12/01/19 21:00 12/04/19 10:24 Lopressor PO 50 mg BID LUIS Administration Pantoprazole Sodium 40 mg 12/01/19 21:00 12/04/19 10:21 Protonix PO 40 mg BID LUIS Administration Polyethylene Glycol 17 gm 12/03/19 09:00 12/04/19 10:21 Miralax PO 17 gm DAILY LUIS Administration Ranolazine 1,000 mg 12/01/19 21:00 12/04/19 10:23 Ranexa PO 1,000 mg BID LUIS Administration Rosuvastatin Calcium 40 mg 12/01/19 21:00 12/03/19 19:42 Crestor PO 40 mg HS LUIS Administration Sodium Chloride 10 ml 12/02/19 21:00 12/04/19 10:24 Flush - Normal Saline IVF 10 ml Q12HR LUIS Administration Tramadol HCl 50 mg 12/03/19 11:13 12/03/19 18:29 Ultram PO 50 mg Q4H PRN Administration Moderate to Severe Pain (6-10) Zolpidem Tartrate 10 mg 12/01/19 21:00 12/03/19 21:19 Ambien PO 10 mg HS LUIS Administration - Exam General Appearance: NAD, awake alert Eye: PERRL, anicteric sclera ENT: normocephalic atraumatic, no oropharyngeal lesions, moist mucosa Neck: supple, symmetric, no JVD, no thyromegaly, no lymphadenopathy, no carotid bruit Heart: RRR, no murmur, no gallops, no rubs, normal peripheral pulses Respiratory: CTAB, no wheezes, no rales, no ronchi, normal chest expansion, no tachypnea, normal percussion Gastrointestinal: soft, non-tender, non-distended, normal bowel sounds, no palpable masses, no hepatomegaly, no splenomegaly, no bruit Gastrointestinal - other findings: hyperactive bowel sounds Extremities: no cyanosis, no clubbing, no edema Skin: normal turgor, no lesions, no rashes Neurological: cranial nerve grossly intact, normal sensation to touch, no weakness, no focal deficits, no new deficit Musculoskeletal: normal tone, normal strength, no muscle wasting Psychiatric: normal affect, normal behavior, A&O x 3 Hosp A/P (1) Abdominal pain Code(s): R10.9 - UNSPECIFIED ABDOMINAL PAIN Status: Acute Plan: DDx. IBS, functional constipation, gas pain (2) Chest pain Code(s): R07.9 - CHEST PAIN, UNSPECIFIED Status: Acute Plan: This is stable angina, continue antianginal tx (3) Anxiety Code(s): F41.9 - ANXIETY DISORDER, UNSPECIFIED Status: Acute (4) CAD (coronary artery disease) Code(s): I25.10 - ATHSCL HEART DISEASE OF [place] CORONARY ARTERY W/O ANG PCTRS Status: Chronic Qualifiers: (5) DM type 2 (diabetes mellitus, type 2) Status: Chronic (6) HTN (hypertension) Code(s): I10 - ESSENTIAL (PRIMARY) HYPERTENSION Status: Chronic Qualifiers: (7) Obesity (BMI 30.0-34.9) Code(s): E66.9 - OBESITY, UNSPECIFIED Status: Chronic (8) Paroxysmal A-fib Code(s): I48.0 - PAROXYSMAL ATRIAL FIBRILLATION Status: Chronic - Plan CT study shows marked gas distention Simethicone PRN for gas pains, coordinate with GI Patient is apprehensive to go home due to pain, will limit narcotics, facilitate bowel movement Continue other medication for co-morbid conditions Continue NPH 30 u PM and 40 u AM Continue anti-anginal medication, coordinate with cardiology Disposition: Facilitate BM, morbilization. GI planning colonoscopy regarding CT findings.
[2019-12-04] MEDS: Amiodarone 200 MG TAB PO SCH (12:59)
[2019-12-04] MEDS: traMADol HCl 50 MG TAB PO PRN (12:59)
[2019-12-04] MEDS: Simethicone Chewable 80 MG TAB PO PRN (14:48)
[2019-12-04] MEDS: Cyclobenzaprine 10 MG TAB PO PRN (15:35)
[2019-12-04] MEDS ORDERED: Acetaminophen 325 MG TAB PO PRN (15:55)
[2019-12-04] MEDS ORDERED: Nitroglycerin 0.4mg/Hour PATCH TD SCH (16:00)
[2019-12-04] MEDS ORDERED: GoLYTELY 4,000 ml Bottle PO SCH (18:30)
--- NOTE | 2019-12-04 20:39 | PRG ---
DATE OF SERVICE: 12/04/2019 REASON FOR CONSULTATION: Generalized abdominal pain. SUBJECTIVE: The patient states that he continues to have 10/10 abdominal pain that started in the right lower quadrant, but is now generalized into the entire abdomen. He states that since having his bowel movement yesterday, he has not had any further bowel movements and was amenable to anything stronger than the MiraLAX that he was already taking. He did undergo CT scan this morning with no problems with the steroid prep given his iodine allergy. Otherwise, he denies any fevers, chills, melena, hematemesis, dysphagia, or odynophagia. OBJECTIVE: VITAL SIGNS: Temperature 97.6, pulse 99, blood pressure 101/56, respiratory rate 20, saturating 95% on room air. GENERAL: The patient was lying in bed, in [id number] distress. Alert and oriented x4. CARDIOVASCULAR: Regular rate and rhythm. RESPIRATORY: Clear to auscultation bilaterally. ABDOMEN: Normoactive bowel sounds. Soft, nondistended. Significant tenderness to palpation in all abdominal quadrants. EXTREMITIES: No cyanosis, clubbing, or edema. LABORATORY DATA: CBC with a white blood cell count of 8.8, hemoglobin 13.3, hematocrit 39.9, platelets 232. Actually, those are yesterday's labs. No current studies are available for review. IMAGING DATA: CT of the abdomen and pelvis was obtained on December 04, 2019, which showed a conspicuous gaseous distention of the right colon measuring up to 9 cm with mild gaseous distention of the transverse and descending colon. However, the sigmoid colon was noted to be decompressed. There was no small bowel dilatation and no inflammatory fat stranding, free air, or free fluid. Additionally, there was no evidence of mass or volvulus by CT with no strict transition point. ASSESSMENT AND PLAN: The patient is a 44-year-old male with past medical history of diabetes; coronary artery disease, status post coronary artery bypass graft; chronic pain syndrome; neuropathy; transient ischemic attack; hyperlipidemia; and possible small-bowel obstruction (diagnosed at the end of last year in [place]) presenting with generalized abdominal pain. Generalized abdominal pain: The patient initially presented with continued right lower quadrant abdominal pain that thus far has not been amenable to more conservative management. Currently, his pain is primarily relieved only with narcotic administration, but then in turn seems like it is creating more constipation type symptoms which could in turn lead to his continued abdominal pain and gaseous distention with delayed colonic motility. However, with a CT scan showing significant gaseous distention of the right colon with tapering down at the sigmoid colon, the possibility of an intraluminal process is possible. After discussion with the current modalities for further evaluation, the patient would like to proceed with colonoscopy at this time. Currently, the differential could include irritable bowel syndrome (more likely), inflammatory bowel disease, ischemic change with possible mesenteric ischemia, narcotic bowel syndrome and/or gastrointestinal neoplasm. RECOMMENDATIONS: 1. Would continue with bowel regimen with MiraLAX while on narcotic medications. 2. Continue higher fiber diet. 3. Would attempt to minimize any narcotic administration. 4. Would place the patient on clear liquid diet today with GoLYTELY prep tonight in preparation for colonoscopy tomorrow. Further recommendations to follow endoscopy. 5. We will continue to follow. Please call with any questions. Job ID: [id number]
[2019-12-04] MEDS: Nitroglycerin 0.4mg/Hour PATCH TD SCH (21:34)
[2019-12-04] MEDS: Gabapentin 300 MG CAP PO SCH (21:35)
[2019-12-04] MEDS: DULoxetine 60 MG CAP PO SCH (21:35)
[2019-12-04] MEDS: Rosuvastatin 20 MG TAB PO SCH (21:36)
[2019-12-04] MEDS: Zolpidem Tartrate 5 MG TAB PO SCH (21:37)
[2019-12-04] MEDS: NPH, Human Insulin Isophane 300 UNIT/3 ML VIAL SQ SCH (21:48)
[2019-12-05] MEDS ORDERED: Midazolam HCl 2 mg/2 ml Vial ONE (09:19)
[2019-12-05] MEDS ORDERED: Insulin Regular 300 UNITS/3 ML VIAL ONE (09:33)
[2019-12-05] MEDS ORDERED: Promethazine HCl 25 MG/ML VIAL SLOW IVP PRN (10:25)
[2019-12-05] MEDS ORDERED: Promethazine HCl 25 MG/ML VIAL IM PRN (10:25)
[2019-12-05] MEDS ORDERED: PHENYLEPHRINE-NS 100 MCG/ML 10 ML SYRINGE ONE ×2 (10:39→15:10)
--- NOTE | 2019-12-05 10:39 | PDOC.HOSPP ---
- Subjective Encounter Date: 12/05/19 Encounter Time: 13:00 Subjective: Patient back from colonoscopy. Still very sedated. Stomach sore as before, but no other complaints. Prep inadequate so will try to prep again tonight per GI. - Objective Vital Signs & Weight: Vital Signs (12 hours) Temp Pulse Resp BP Pulse Ox 12/05/19 03:38 98.7 F 95 18 115/60 98 Weight Admit Weight 208 lb Weight 211 lb 9.6 oz I&O: 12/04/19 12/05/19 12/06/19 06:59 06:59 06:59 Intake Total 240 1680 4000 Balance 240 1680 4000 Result Diagrams: 12/03/19 07:31 12/02/19 04:30 Additional Labs: Accuchecks 12/05/19 12/05/19 12/04/19 09:14 05:50 21:50 POC Glucose 287 H 370 H 219 H 12/04/19 12/04/19 17:10 10:40 POC Glucose 179 H 329 H Hospitalist ROS - Review of Systems Constitutional: denies: fever, chills Respiratory: denies: cough, shortness of breath Cardiovascular: denies: chest pain, palpitations Gastrointestinal: reports: abdominal pain. denies: nausea, vomiting - Medication Medications: Active Medications Generic Name Dose Route Start Last Admin Trade Name Freq PRN Reason Stop Dose Admin Acetaminophen 650 mg 12/04/19 15:55 12/04/19 16:33 Tylenol PO 650 mg Q6H PRN Administration Mild Pain (1-3) Amiodarone HCl 200 mg 12/02/19 14:00 12/04/19 12:59 Cordarone PO 200 mg 1400 LUIS Administration Apixaban 5 mg 12/01/19 21:00 12/04/19 21:37 Eliquis PO 5 mg BID LUIS Administration Buspirone HCl 5 mg 12/01/19 21:00 12/04/19 21:36 Buspar PO 5 mg BID LUIS Administration Clopidogrel Bisulfate 75 mg 12/02/19 09:00 12/04/19 10:23 Plavix PO 75 mg DAILY LUIS Administration Cyclobenzaprine HCl 10 mg 12/02/19 09:32 12/04/19 15:35 Flexeril PO 10 mg TID PRN Administration Muscle Spasm Divalproex Sodium 500 mg 12/02/19 21:00 12/04/19 21:36 Depakote Er PO 500 mg BID LUIS Administration Duloxetine HCl 60 mg 12/02/19 21:00 12/04/19 21:35 Cymbalta PO 60 mg HS LUIS Administration Gabapentin 1,200 mg 12/01/19 21:00 12/04/19 21:35 Neurontin PO 1,200 mg HS LUIS Administration Insulin Human Lispro 0 units 12/01/19 15:50 12/02/19 11:53 Humalog SC 8 unit .MODERATE SLIDING SC PRN Administration Moderate Correctional Scale Insulin Human Lispro 0 units 12/01/19 21:04 12/01/19 21:20 Humalog SC 5 unit .BEDTIME SLIDING SC PRN Administration Bedtime Correctional Scale Insulin Human Lispro 25 units 12/02/19 17:00 12/04/19 17:29 Humalog SC 25 unit TID-WM LUIS Administration Insulin Human NPH 30 unit 12/02/19 21:00 12/04/19 21:48 Humulin N SQ 30 unit QPM LIUS Administration Insulin Human NPH 40 unit 12/03/19 09:00 12/04/19 10:22 Humulin N SC 40 unit QAM LUIS Administration Lidocaine 1 patch 12/04/19 21:00 12/04/19 21:38 Lidoderm 5% Patch TD 1 patch 2100 LUIS Administration Metoprolol Tartrate 50 mg 12/01/19 21:00 12/04/19 21:36 Lopressor PO 50 mg BID LUIS Administration Nitroglycerin 1 patch 12/04/19 21:00 12/04/19 21:34 Nitro-Dur 0.4mg/Hr Patch TD 1 patch 2100 LUIS Administration Pantoprazole Sodium 40 mg 12/01/19 21:00 12/04/19 21:37 Protonix PO 40 mg BID LUIS Administration Polyethylene Glycol 17 gm 12/03/19 09:00 12/04/19 10:21 Miralax PO 17 gm DAILY LUIS Administration Ranolazine 1,000 mg 12/01/19 21:00 12/04/19 21:35 Ranexa PO 1,000 mg BID LUIS Administration Rosuvastatin Calcium 40 mg 12/01/19 21:00 12/04/19 21:36 Crestor PO 40 mg HS LUIS Administration Simethicone 80 mg 12/04/19 12:51 12/04/19 14:48 Mylicon Chewable PO 80 mg PCHS PRN Administration Gas Pain Sodium Chloride 10 ml 12/02/19 21:00 12/04/19 21:37 Flush - Normal Saline IVF 10 ml Q12HR LUIS Administration Tramadol HCl 50 mg 12/03/19 11:13 12/04/19 12:59 Ultram PO 50 mg Q4H PRN Administration Moderate to Severe Pain (6-10) Zolpidem Tartrate 10 mg 12/01/19 21:00 12/04/19 21:37 Ambien PO 10 mg HS LUIS Administration - Exam General Appearance: NAD ENT: moist mucosa Heart: RRR, no murmur, no gallops, no rubs Respiratory: CTAB, no wheezes, no rales, no ronchi Gastrointestinal: soft, non-tender, non-distended, normal bowel sounds Psychiatric: normal behavior, A&O x 3, lethargic Hosp A/P (1) Abdominal pain Code(s): R10.9 - UNSPECIFIED ABDOMINAL PAIN Status: Acute (2) Chest pain Code(s): R07.9 - CHEST PAIN, UNSPECIFIED Status: Resolved (3) CAD (coronary artery disease) Code(s): I25.10 - ATHSCL HEART DISEASE OF [place] CORONARY ARTERY W/O ANG PCTRS Status: Chronic Qualifiers: (4) DM type 2 (diabetes mellitus, type 2) Status: Chronic (5) Dyslipidemia Code(s): E78.5 - HYPERLIPIDEMIA, UNSPECIFIED Status: Chronic (6) HTN (hypertension) Code(s): I10 - ESSENTIAL (PRIMARY) HYPERTENSION Status: Chronic Qualifiers: (7) Obesity (BMI 30.0-34.9) Code(s): E66.9 - OBESITY, UNSPECIFIED Status: Chronic (8) Paroxysmal A-fib Code(s): I48.0 - PAROXYSMAL ATRIAL FIBRILLATION Status: Chronic - Plan Colonoscopy this AM to make sure no luminal lesions/blockage. Dr. Sullivan suspects Irritable bowel disorder. Wean narcotics. Home when ok with GI and cards.
[2019-12-05] MEDS ORDERED: Phenylephrine HCL 10 MG/ML VIAL IV PRN (10:48)
--- NOTE | 2019-12-05 10:53 | OP ---
DATE OF PROCEDURE: 12/05/2019 PROCEDURE PERFORMED: Colonoscopy (diagnostic). INDICATIONS FOR PROCEDURE: Persistent right lower quadrant abdominal pain, abnormal GI imaging showing gaseous distention of the right colon. DESCRIPTION OF PROCEDURE: After the risks and benefits of the procedure were explained to the patient including risks of bleeding, infection, perforation, reactions to anesthesia, aspiration, and/or pain, informed consent was obtained. The patient was then taken to the endoscopy suite, and after being placed in the left lateral decubitus position, deep sedation was administered via propofol and anesthesia support. After a digital rectal examination was performed, the standard colonoscope was then advanced to the proximal ascending colon with further advancement of the scope impeded by a large amount of retained solid and semi-solid stool and poor visualization. The quality of the prep was poor. The patient tolerated the procedure well with no immediate perioperative complications. Upon conclusion of the procedure, all equipment was removed from the patient and he was transferred to PACU in satisfactory condition. FINDINGS: Digital rectal exam: Normal findings were seen on external examination. Colon findings: A large amount of retained solid and semi-solid stool was seen throughout the entire colon, limiting visualization of the colonic mucosa. However, the colonoscope was then able to be advanced to the proximal ascending colon with partial visualization of the ileocecal valve made. Using aggressive irrigation and suctioning, the quality of the prep was unable to be changed from poor quality. However, the mucosa in each region was able to be carefully examined, and of the mucosa seen (approximately 70%), normal-appearing mucosa was seen in the ascending, transverse, descending, and sigmoid colon and rectum. Normal findings were seen on rectal retroflexion. IMPRESSION: 1. A large amount of retained solid and semi-solid stool, limiting visualization of the colonic mucosa throughout the entire colon. 2. Of the mucosa visualized, normal colonoscopy. RECOMMENDATIONS: 1. Would continue the patient on clear liquid diet today with repeat GoLYTELY prep tonight for repeat colonoscopy tomorrow. 2. Pain control per primary team. We will continue to follow. Please call with any questions. Job ID: [id number]
[2019-12-05] MEDS: HumaLOG 300 UNITS/3 ML VIAL SC SCH ×3 (11:25→18:04)
[2019-12-05] MEDS: NPH, Human Insulin Isophane 300 UNIT/3 ML VIAL SC SCH (11:51)
[2019-12-05] MEDS: Apixaban 5 MG TAB PO SCH ×2 (12:03→20:43)
[2019-12-05] MEDS: busPIRone HCl 5 MG TAB PO SCH ×2 (12:03→20:42)
[2019-12-05] MEDS: Metoprolol Tartrate 50 MG TAB PO SCH ×2 (12:03→20:43)
[2019-12-05] MEDS: Clopidogrel Bisulfate 75 MG TAB PO SCH (12:04)
[2019-12-05] MEDS: Polyethylene Glycol 3350 17 GM Packet PO SCH (12:04)
[2019-12-05] MEDS: Pantoprazole 40 MG GRANULES PACKET PO SCH ×2 (12:04→20:43)
[2019-12-05] MEDS: HumaLOG 300 UNITS/3 ML VIAL SC PRN (12:05)
[2019-12-05] MEDS: Lidocaine Patch Removal 1 EACH TOP SCH (12:10)
[2019-12-05] MEDS ORDERED: Lidocaine 1% PF 5 ML VIAL ONE (15:10)
[2019-12-05] MEDS ORDERED: PROPOFOL 200 MG/20 ML VIAL ONE (15:10)
[2019-12-05] MEDS ORDERED: GoLYTELY 4,000 ml Bottle PO SCH (16:00)
[2019-12-05] MEDS ORDERED: Sodium Chloride 0.9% 1,000 ML IV SCH (17:00)
[2019-12-05] MEDS: Amiodarone 200 MG TAB PO SCH (17:22)
[2019-12-05] MEDS: Rosuvastatin 20 MG TAB PO SCH (20:42)
[2019-12-05] MEDS: Zolpidem Tartrate 5 MG TAB PO SCH (20:42)
[2019-12-05] MEDS: Gabapentin 300 MG CAP PO SCH (20:42)
[2019-12-05] MEDS: DULoxetine 60 MG CAP PO SCH (20:42)
[2019-12-05] MEDS: Lidocaine 5% Patch TD SCH (20:43)
[2019-12-05] MEDS: NPH, Human Insulin Isophane 300 UNIT/3 ML VIAL SQ SCH (20:44)
[2019-12-05] MEDS: Nitroglycerin 0.4mg/Hour PATCH TD SCH (20:49)
[2019-12-06 05:55] LABS: #Eosinphils 0.1 thou/uL (0.0-0.7); #Lymphocytes 1.9 thou/uL (1.20-3.40); #Monocytes 0.7 thou/uL (0.11-0.59); #Neutrophils 5.4 thou/uL (1.40-6.50); %Basophils 1.2 % (0.0-1.0); %Eosinophils 1.8 % (0.0-10.0); %Lymphocytes 25.2 % (21.0-51.0); %Monocytes 8.9 % (0.0-10.0); %Neutrophils 62.9 % (42.0-75.0); Hemoglobin 12.2 g/dL (14.0-18.0); Mean Corpuscular HGB CONC 28.9 g/dL (32.0-36.0); Mean Corpuscular Hemoglobin 25.3 pg (27.0-31.0); Mean Corpuscular Volume 87.6 fL (78.0-98.0); Mean Platelet Volume 8.6 fL (7.4-10.4); Platelet Count 175 thou/uL (130-400); RBC Distribution Width 12.4 % (11.5-14.5); Red Blood Cell (RBC) Count 4.83 mill/uL (4.70-6.10); White Blood Cell (WBC) Count 8.2 thou/uL (4.8-10.8)
[2019-12-06] MEDS ORDERED: Famotidine 20 MG TAB PO SCH (06:00)
[2019-12-06 06:12] LABS: Anion Gap 16 mmol/L (10-20); BUN (Urea Nitrogen) 12 mg/dL (8.9-20.6); Calc. Creatinine Clearance 156 mL/min (70-130); Calcium 7.8 mg/dL (7.8-10.44); Carbon Dioxide 25 mmol/L (22-29); Chloride 105 mmol/L (98-107); Estimated GFR-MDRD Greater than 90; Glucose 109 mg/dL (70-105); Potassium 3.5 mmol/L (3.5-5.1); Sodium 142 mmol/L (136-145)
--- NOTE | 2019-12-06 08:32 | PDOC.HOSPP ---
- Subjective Encounter Date: 12/06/19 Encounter Time: 14:00 Subjective: Patient back from colonoscopy. Reportedly normal. His chest pain is improving, though still hurting a bit. Abdomen still sore on the left but also improving. - Objective Vital Signs & Weight: Vital Signs (12 hours) BP 12/06/19 00:00 125/77 Weight Admit Weight 208 lb Weight 215 lb 12.8 oz I&O: 12/05/19 12/06/19 12/07/19 06:59 06:59 06:59 Intake Total 1680 8711 Balance 1680 8711 Result Diagrams: 12/06/19 04:07 12/06/19 04:07 Additional Labs: Accuchecks 12/06/19 12/05/19 12/05/19 05:53 20:25 15:43 POC Glucose 144 H 137 H 128 H 12/05/19 12/05/19 10:59 09:14 POC Glucose 258 H 287 H Hospitalist ROS - Review of Systems Constitutional: denies: fever, chills Respiratory: denies: cough, shortness of breath Cardiovascular: reports: chest pain. denies: palpitations, orthopnea Gastrointestinal: reports: abdominal pain. denies: nausea, vomiting - Medication Medications: Active Medications Generic Name Dose Route Start Last Admin Trade Name Freq PRN Reason Stop Dose Admin Acetaminophen 650 mg 12/04/19 15:55 12/04/19 16:33 Tylenol PO 650 mg Q6H PRN Administration Mild Pain (1-3) Amiodarone HCl 200 mg 12/02/19 14:00 12/05/19 17:22 Cordarone PO Not Given 1400 LUIS Apixaban 5 mg 12/01/19 21:00 12/05/19 20:43 Eliquis PO 5 mg BID LUIS Administration Buspirone HCl 5 mg 12/01/19 21:00 12/05/19 20:42 Buspar PO 5 mg BID LUIS Administration Clopidogrel Bisulfate 75 mg 12/02/19 09:00 12/05/19 12:04 Plavix PO 75 mg DAILY LUIS Administration Cyclobenzaprine HCl 10 mg 12/02/19 09:32 12/04/19 15:35 Flexeril PO 10 mg TID PRN Administration Muscle Spasm Divalproex Sodium 500 mg 12/02/19 21:00 12/05/19 20:43 Depakote Er PO 500 mg BID LUIS Administration Duloxetine HCl 60 mg 12/02/19 21:00 12/05/19 20:42 Cymbalta PO 60 mg HS LUIS Administration Gabapentin 1,200 mg 12/01/19 21:00 12/05/19 20:42 Neurontin PO 1,200 mg HS LUIS Administration Insulin Human Lispro 0 units 12/01/19 15:50 12/05/19 12:05 Humalog SC 6 unit .MODERATE SLIDING SC PRN Administration Moderate Correctional Scale Insulin Human Lispro 0 units 12/01/19 21:04 12/01/19 21:20 Humalog SC 5 unit .BEDTIME SLIDING SC PRN Administration Bedtime Correctional Scale Insulin Human Lispro 25 units 12/02/19 17:00 12/05/19 18:04 Humalog SC Not Given TID-WM [facility] Insulin Human NPH 30 unit 12/02/19 21:00 12/05/19 20:44 Humulin N SQ Not Given QPM [facility] Insulin Human NPH 40 unit 12/03/19 09:00 12/05/19 11:51 Humulin N SC Not Given QAM [facility] Lidocaine 1 patch 12/04/19 21:00 12/05/19 20:43 Lidoderm 5% Patch TD 1 patch 2100 LUIS Administration Metoprolol Tartrate 50 mg 12/01/19 21:00 12/05/19 20:43 Lopressor PO 50 mg BID LUIS Administration Miscellaneous Medication 1 each 12/05/19 09:00 12/05/19 12:10 Lidocaine Patch Removal TOP Not Given 0900 [facility] Nitroglycerin 1 patch 12/04/19 21:00 12/05/19 20:49 Nitro-Dur 0.4mg/Hr Patch TD 1 patch 2100 LUIS Administration Pantoprazole Sodium 40 mg 12/01/19 21:00 12/05/19 20:43 Protonix PO 40 mg BID LUIS Administration Polyethylene Glycol 17 gm 12/03/19 09:00 12/05/19 12:04 Miralax PO Not Given DAILY LUIS Ranolazine 1,000 mg 12/01/19 21:00 12/05/19 20:42 Ranexa PO 1,000 mg BID LUIS Administration Rosuvastatin Calcium 40 mg 12/01/19 21:00 12/05/19 20:42 Crestor PO 40 mg HS LUIS Administration Simethicone 80 mg 12/04/19 12:51 12/04/19 14:48 Mylicon Chewable PO 80 mg PCHS PRN Administration Gas Pain Sodium Chloride 10 ml 12/02/19 21:00 12/05/19 20:44 Flush - Normal Saline IVF 10 ml Q12HR LUIS Administration Tramadol HCl 50 mg 12/03/19 11:13 12/04/19 12:59 Ultram PO 50 mg Q4H PRN Administration Moderate to Severe Pain (6-10) Zolpidem Tartrate 10 mg 12/01/19 21:00 12/05/19 20:42 Ambien PO 10 mg HS LUIS Administration - Exam General Appearance: NAD, awake alert ENT: moist mucosa Heart: RRR, no murmur, no gallops, no rubs Respiratory: CTAB, no wheezes, no rales, no ronchi Gastrointestinal: soft, non-distended, normal bowel sounds, no guarding, no rigidity Gastrointestinal - other findings: TTP left abdomen Psychiatric: normal affect, normal behavior, A&O x 3 Hosp A/P (1) Abdominal pain Code(s): R10.9 - UNSPECIFIED ABDOMINAL PAIN Status: Acute (2) Chest pain Code(s): R07.9 - CHEST PAIN, UNSPECIFIED Status: Acute (3) CAD (coronary artery disease) Code(s): I25.10 - ATHSCL HEART DISEASE OF [place] CORONARY ARTERY W/O ANG PCTRS Status: Chronic Qualifiers: (4) DM type 2 (diabetes mellitus, type 2) Status: Chronic (5) Dyslipidemia Code(s): E78.5 - HYPERLIPIDEMIA, UNSPECIFIED Status: Chronic (6) HTN (hypertension) Code(s): I10 - ESSENTIAL (PRIMARY) HYPERTENSION Status: Chronic Qualifiers: (7) Obesity (BMI 30.0-34.9) Code(s): E66.9 - OBESITY, UNSPECIFIED Status: Chronic (8) Paroxysmal A-fib Code(s): I48.0 - PAROXYSMAL ATRIAL FIBRILLATION Status: Chronic - Plan Repeat Colonoscopy after further prep this AM reportedly normal. Dr. Sullivan suspects Irritable bowel disorder. Recurrent chest pain yesterday, associated with some low BP that resolved with fluid bolus, neg cardiac markers, no EKG changes Suspect that patient will be able to be discharged soon. Given the chest pain and hypotension after colonoscopy yesterday I would like to watch him a bit longer, until the morning. Likely home then if ok with cards and GI.
[2019-12-06] MEDS: Apixaban 5 MG TAB PO SCH ×2 (08:59→20:47)
[2019-12-06] MEDS: HumaLOG 300 UNITS/3 ML VIAL SC SCH ×3 (08:59→18:27)
[2019-12-06] MEDS: NPH, Human Insulin Isophane 300 UNIT/3 ML VIAL SC SCH (09:00)
[2019-12-06] MEDS: Clopidogrel Bisulfate 75 MG TAB PO SCH (09:00)
[2019-12-06] MEDS: Pantoprazole 40 MG GRANULES PACKET PO SCH (09:05)
[2019-12-06] MEDS: Polyethylene Glycol 3350 17 GM Packet PO SCH (09:05)
[2019-12-06] MEDS: Lidocaine Patch Removal 1 EACH TOP SCH (09:06)
[2019-12-06] MEDS: busPIRone HCl 5 MG TAB PO SCH ×2 (09:06→20:48)
[2019-12-06] MEDS: Metoprolol Tartrate 50 MG TAB PO SCH ×2 (09:06→20:49)
[2019-12-06] MEDS ORDERED: Fentanyl 100 MCG/2 ML VIAL ONE (10:46)
[2019-12-06] MEDS ORDERED: PROPOFOL 200 MG/20 ML VIAL ONE (13:44)
[2019-12-06] MEDS ORDERED: PHENYLEPHRINE-NS 100 MCG/ML 10 ML SYRINGE ONE (13:44)
--- NOTE | 2019-12-06 14:33 | OP ---
DATE OF PROCEDURE: 12/06/2019 PREPROCEDURE DIAGNOSES: 1. Abdominal pain. 2. CT scan concerning for possible transition zone in the sigmoid colon and proximal colon dilatation. ANESTHESIA: TIVA. POSTPROCEDURE DIAGNOSES: 1. Normal colonoscopy. 2. Normal terminal ileum. RECOMMENDATIONS: 1. Resume diet. 2. Wean narcotics. PROCEDURE IN DETAIL: After the patient was informed of the risks, benefits, possible complications of endoscopy including perforation, bleeding, reaction to medication, and aspiration, informed consent was obtained. The patient was brought to the endoscopy suite, where he was sedated in gradual fashion. A rectal exam was performed, which was normal. The endoscope was advanced to the anal canal through the colon to the cecum, which was identified by the ileocecal valve and appendiceal orifice. Terminal ileum was entered and found to be normal. The scope was then slowly removed. The prep was fair. We irrigated with water and suctioned and was able to get a good clear prep. There were no evidence of colitis, masses, lesions, diverticular disease, strictures, or polyps. Retroflexed views were normal. There was no evidence of inflammatory bowel disease. The scope was removed. The patient tolerated the procedure well. There were no complications. Job ID: [id number]
[2019-12-06] MEDS: Amiodarone 200 MG TAB PO SCH (15:00)
[2019-12-06] MEDS ORDERED: Sodium Chloride 0.9% 250 ML IV SCH (20:45)
[2019-12-06] MEDS: DULoxetine 60 MG CAP PO SCH (20:47)
[2019-12-06] MEDS: Gabapentin 300 MG CAP PO SCH (20:48)
[2019-12-06] MEDS: Rosuvastatin 20 MG TAB PO SCH (20:48)
[2019-12-06] MEDS: Lidocaine 5% Patch TD SCH (20:49)
[2019-12-06] MEDS: Zolpidem Tartrate 5 MG TAB PO SCH (20:49)
[2019-12-06] MEDS: Nitroglycerin 0.4mg/Hour PATCH TD SCH (20:49)
[2019-12-06] MEDS: traMADol HCl 50 MG TAB PO PRN (21:12)
[2019-12-06] MEDS: NPH, Human Insulin Isophane 300 UNIT/3 ML VIAL SQ SCH (22:14)
[2019-12-06] MEDS: Cyclobenzaprine 10 MG TAB PO PRN (23:27)
[2019-12-07] MEDS: Simethicone Chewable 80 MG TAB PO PRN (02:48)
[2019-12-07] MEDS: traMADol HCl 50 MG TAB PO PRN ×2 (02:49→12:12)
[2019-12-07] MEDS ORDERED: Famotidine 20 MG TAB PO SCH (09:00)
[2019-12-07] MEDS: Gabapentin 300 MG CAP PO SCH ×3 (09:20→19:26)
[2019-12-07] MEDS: busPIRone HCl 5 MG TAB PO SCH (09:22)
[2019-12-07] MEDS: Clopidogrel Bisulfate 75 MG TAB PO SCH (09:22)
[2019-12-07] MEDS: HumaLOG 300 UNITS/3 ML VIAL SC SCH ×3 (09:23→16:51)
[2019-12-07] MEDS: Apixaban 5 MG TAB PO SCH (09:23)
[2019-12-07] MEDS: Metoprolol Tartrate 50 MG TAB PO SCH (09:24)
[2019-12-07] MEDS: Lidocaine Patch Removal 1 EACH TOP SCH (09:24)
[2019-12-07] MEDS: Polyethylene Glycol 3350 17 GM Packet PO SCH (09:25)
[2019-12-07] MEDS: NPH, Human Insulin Isophane 300 UNIT/3 ML VIAL SC SCH (09:25)
--- NOTE | 2019-12-07 09:32 | PDOC.HOSPP ---
- Subjective Encounter Date: 12/07/19 Encounter Time: 16:00 Subjective: Patient without further chest pain. Around noon started feeling "funny" and tingling on right side of body, tingling around mouth. States he feels lightheaded and dizzy with standing, but seen by nurse ambulating well. Patient with different complaints every time nursing comes in to assess. Later in the evening after CT done for tingling, he stated that he had a couple bowel movements, and he might have seen some blood in them. Didn't save them for nurse to look at. Patient appears comfortable, alert, and no distress on exam. - Objective Vital Signs & Weight: Vital Signs (12 hours) Temp Pulse Resp BP BP BP Pulse Ox 12/07/19 09:18 83 113/62 12/07/19 09:17 83 106/57 L 12/07/19 07:29 98.4 F 80 20 129/68 96 12/07/19 03:47 98.7 F 76 20 113/66 92 L 12/06/19 23:43 98.1 F 80 18 131/68 96 Weight Admit Weight 208 lb Weight 215 lb 4.8 oz I&O: 12/06/19 12/07/19 12/08/19 06:59 06:59 06:59 Intake Total 8711 1074 Output Total 3 Balance 8711 1071 Result Diagrams: 12/06/19 04:07 12/06/19 04:07 Additional Labs: Accuchecks 12/07/19 12/06/19 12/06/19 05:26 20:25 17:45 POC Glucose 158 H 271 H 132 H Hospitalist ROS - Review of Systems Constitutional: denies: fever, chills Respiratory: denies: cough, shortness of breath Cardiovascular: denies: chest pain, palpitations Gastrointestinal: reports: nausea, abdominal pain, diarrhea. denies: vomiting Neurological: denies: weakness, incoordination, change in speech - Medication Medications: Active Medications Generic Name Dose Route Start Last Admin Trade Name Freq PRN Reason Stop Dose Admin Acetaminophen 650 mg 12/04/19 15:55 12/04/19 16:33 Tylenol PO 650 mg Q6H PRN Administration Mild Pain (1-3) Amiodarone HCl 200 mg 12/02/19 14:00 02/11/20 15:00 Cordarone PO 200 mg 1400 LUIS Administration Apixaban 5 mg 12/01/19 21:00 12/06/19 20:47 Eliquis PO 5 mg BID LUIS Administration Buspirone HCl 5 mg 12/01/19 21:00 12/06/19 20:48 Buspar PO 5 mg BID LUIS Administration Clopidogrel Bisulfate 75 mg 12/02/19 09:00 12/06/19 09:00 Plavix PO Not Given DAILY LUIS Cyclobenzaprine HCl 10 mg 12/02/19 09:32 12/06/19 23:27 Flexeril PO 10 mg TID PRN Administration Muscle Spasm Divalproex Sodium 500 mg 12/02/19 21:00 12/06/19 20:48 Depakote Er PO 500 mg BID LUIS Administration Duloxetine HCl 60 mg 12/02/19 21:00 12/06/19 20:47 Cymbalta PO 60 mg HS LUIS Administration Gabapentin 1,200 mg 12/01/19 21:00 12/06/19 20:48 Neurontin PO 1,200 mg HS LUIS Administration Insulin Human Lispro 0 units 12/01/19 15:50 12/05/19 12:05 Humalog SC 6 unit .MODERATE SLIDING SC PRN Administration Moderate Correctional Scale Insulin Human Lispro 0 units 12/01/19 21:04 12/01/19 21:20 Humalog SC 5 unit .BEDTIME SLIDING SC PRN Administration Bedtime Correctional Scale Insulin Human Lispro 25 units 12/02/19 17:00 12/06/19 18:27 Humalog SC Not Given TID-WM LUIS Insulin Human NPH 30 unit 12/02/19 21:00 12/06/19 22:14 Humulin N SQ Not Given [facility] Insulin Human NPH 40 unit 12/03/19 09:00 12/06/19 09:00 Humulin N SC Not Given QAM LUIS Lidocaine 1 patch 12/04/19 21:00 12/06/19 20:49 Lidoderm 5% Patch TD 1 patch 2100 LUIS Administration Metoprolol Tartrate 50 mg 12/01/19 21:00 12/06/19 20:49 Lopressor PO Not Given BID LUIS Miscellaneous Medication 1 each 12/05/19 09:00 12/06/19 09:06 Lidocaine Patch Removal TOP 1 each 0900 LUIS Administration Nitroglycerin 1 patch 12/04/19 21:00 12/06/19 20:49 Nitro-Dur 0.4mg/Hr Patch TD Not Given 2100 LUIS Pantoprazole Sodium 40 mg 12/06/19 09:00 12/06/19 20:48 Protonix PO 40 mg BID LUIS Administration Polyethylene Glycol 17 gm 12/03/19 09:00 12/06/19 09:05 Miralax PO Not Given DAILY LUIS Ranolazine 1,000 mg 12/01/19 21:00 12/06/19 20:47 Ranexa PO 1,000 mg BID LUIS Administration Rosuvastatin Calcium 40 mg 12/01/19 21:00 12/06/19 20:48 Crestor PO 40 mg HS LUIS Administration Simethicone 80 mg 12/04/19 12:51 12/07/19 02:48 Mylicon Chewable PO 80 mg PCHS PRN Administration Gas Pain Sodium Chloride 10 ml 12/02/19 21:00 12/06/19 20:49 Flush - Normal Saline IVF 10 ml Q12HR LUIS Administration Tramadol HCl 50 mg 12/03/19 11:13 12/07/19 02:49 Ultram PO 50 mg Q4H PRN Administration Moderate to Severe Pain (6-10) Zolpidem Tartrate 10 mg 12/01/19 21:00 12/06/19 20:49 Ambien PO 10 mg HS LUIS Administration - Exam General Appearance: NAD, awake alert ENT: moist mucosa Heart: RRR, no murmur, no gallops, no rubs, normal peripheral pulses Respiratory: CTAB, no wheezes, no rales, no ronchi Gastrointestinal: soft, non-distended, normal bowel sounds, no palpable masses, no hepatomegaly, no splenomegaly, no guarding, no rigidity Gastrointestinal - other findings: mild TTP left abdomen Extremities: no cyanosis, no clubbing, no edema Skin: normal turgor, no lesions Neurological: cranial nerve grossly intact, normal sensation to touch, no weakness, no focal deficits, no new deficit. negative: facial droop, hemiplegia , speech deficit Musculoskeletal: normal tone, normal strength, no muscle wasting Psychiatric: normal affect, A&O x 3 Hosp A/P (1) Abdominal pain Code(s): R10.9 - UNSPECIFIED ABDOMINAL PAIN Status: Acute (2) Chest pain Code(s): R07.9 - CHEST PAIN, UNSPECIFIED Status: Resolved (3) CAD (coronary artery disease) Code(s): I25.10 - ATHSCL HEART DISEASE OF [place] CORONARY ARTERY W/O ANG PCTRS Status: Chronic Qualifiers: (4) DM type 2 (diabetes mellitus, type 2) Status: Chronic (5) Dyslipidemia Code(s): E78.5 - HYPERLIPIDEMIA, UNSPECIFIED Status: Chronic (6) HTN (hypertension) Code(s): I10 - ESSENTIAL (PRIMARY) HYPERTENSION Status: Chronic Qualifiers: (7) Obesity (BMI 30.0-34.9) Code(s): E66.9 - OBESITY, UNSPECIFIED Status: Chronic (8) Paroxysmal A-fib Code(s): I48.0 - PAROXYSMAL ATRIAL FIBRILLATION Status: Chronic - Plan Repeat Colonoscopy after further prep normal. Dr. Sullivan suspects Irritable bowel disorder. Recurrent chest pain 12/05/19, associated with some low BP that resolved with fluid bolus, neg cardiac markers, no EKG changes Patient with dizziness, unsteadiness on ambulation by history but ambulating well per nursing assessment. Uncertain if patient is just worried about going home. CT head negative. Vitals all stable this afternoon. No orthostasis. Exam normal. Will d/c home, f/u with PCP and GI. No opiates as per GI plan.
--- NOTE | 2019-12-07 13:39 | CT ---
CT BRAIN WITHOUT CONTRAST: HISTORY: Headache with tingling of right arm and dizziness, TIAs. FINDINGS: There are no previous exams for comparison. No evidence of acute infarct, hemorrhage, midline shift, or abnormal extraaxial fluid collections are seen. The ventricular size is appropriate and the basilar cisterns patent. The bony calvarium is i ntact. The visualized paranasal sinuses and mastoid air cells are well aerated. IMPRESSION: No CT evidence of acute intracranial process. POS: OFF
[2019-12-07] MEDS: Amiodarone 200 MG TAB PO SCH (14:23)
[2019-12-07 15:26] VITALS: TEMP 98.5
[2019-12-07] MEDS ORDERED: Ondansetron ODT 4 MG TAB PO PRN (15:33)
[2019-12-07] MEDS ORDERED: Promethazine 25 MG TAB PO PRN (16:09)
[2019-12-07 19:12] VITALS: BP 124/73
--- NOTE | 2019-12-08 03:34 | DIS ---
DATE OF ADMISSION: 12/01/2019 DATE OF DISCHARGE: 12/07/2019 PRIMARY CARE PHYSICIAN: [facility]. REASON FOR ADMISSION: Chest pain. DIAGNOSES AT DISCHARGE: 1. Chest pain resolved, acute myocardial infarction ruled out. 2. Abdominal pain likely due to irritable bowel syndrome. 3. Coronary artery disease. 4. Diabetes mellitus type 2. 5. Dyslipidemia. 6. Hypotension. 7. Obesity. 8. Paroxysmal atrial fibrillation. 9. Diabetic peripheral neuropathy. PROCEDURES: 1. CT scan of the chest with and without contrast showing no evidence of pulmonary embolism or other abnormalities. 2. X-ray of the lumbar spine showing mild arthritic changes. 3. CT scan of the abdomen and pelvis with contrast showing conspicuous nonspecific gaseous distention of primarily right colon with less conspicuous gassy distention of transverse and descending colon. 4. Colonoscopy x2, first one was an incomplete prep; repeated the next day showing normal colonoscopy and normal terminal ileum. 5. CT scan of the brain without contrast showing no evidence of acute intracranial process. CONSULTATIONS: 1. Cardiology, Dr. Dobbins. 2. Gastroenterology, Dr. Sullivan. SUMMARY OF HOSPITAL COURSE: This is a 44-year-old white male who presented to the hospital initially with complaint of chest pain. He reports chest tightness and it felt like his previous heart attack. He also reports some shortness of breath and nausea. He later reported having abdominal pain all over and has been going on for couple of weeks and a decreased appetite. The patient had previous admissions with recent catheterization for chest pain showing some coronary artery disease, but being medically managed. Dr. Dobbins was consulted. He determined that the patient's symptoms are mostly related to his abdominal symptoms, not to his coronary artery disease and recommended GI consultation. Dr. Sullivan was consulted. He determined that the patient possibly having reaction from narcotic pain medications he received and was also concerned after a CT scan that the patient might have some intraluminal lesion causing some partial obstruction in the colon, so he recommended a colonoscopy. This was eventually performed after a couple days of which showed no lesions at all. Of note, during the patient's course, he had migrating symptoms. At first, it was mostly chest pain; then it was abdominal pain that he was complaining of; later on, he started having acute chest pain again with no changes in his EKG or his cardiac markers. He would intermittently complain of weakness and dizziness and lightheadedness, though he is able to ambulate without difficulty. He also typically developed a new symptom whenever it was about time to get discharging home. This happened twice on the day of discharge. He first developed numbness and tingling over the right side of his body. After CT scan of his head was negative, he then stated that he had some bowel movements and he thought he might have seen some blood in the toilet to the nurse, though he did not save the stool for her to look at. He had no more stools after that. Eventually, the patient was examined and determined to have stable vital signs with a normal exam and is being discharged home. DISCHARGE MANAGEMENT: Discharged home. ACTIVITY: As tolerated. DIET: Diabetic diet. MEDICATIONS: 1. Phenergan 12.5 mg every 6 hours as needed for nausea and vomiting, 20 tabs dispensed. 2. Amiodarone 200 mg daily. 3. Eliquis 5 mg twice a day. 4. Aspirin 81 mg daily. 5. BuSpar 5 mg twice a day. 6. Plavix 75 mg daily. 7. Depakote ER 500 mg twice a day. 8. Cymbalta 60 mg at night. 9. Gabapentin 600 mg 3 times a day and 1200 mg at night. 10. Metoprolol tartrate 50 mg twice a day. 11. Nitrostat as needed. 12. NPH insulin in the morning and 30 units at night. The patient can hold his short-acting with meals unless blood sugars start going back up with meals. He has not needed it in the hospital. 13. Protonix 40 mg 3 times a day. 14. Ranexa 1000 mg twice a day. 15. Rosuvastatin 40 mg at night. 16. Zolpidem 10 mg at night. The patient is to follow up with Dr. Dobbins in the outpatient with [facility] in [address] Sullivan in 2 to 3 weeks. TIME SPENT: Arranging the details of this discharge took 35 minutes. Job ID: [id number]
== END 2019-12-07 20:48 | disposition home or self-care (01) | DRG 392 ==
LOC: ERS 09:06 → 2SW 17:44 → OBSVTOIN 17:44 → 2NO 12-04 19:12
PROVIDERS: ADMIT Internal Medicine; ATTEND Emergency Medicine
PROC: 0DJD8ZZ Inspection of Lower Intestinal Tract, Via Natural or Artificial Opening Endoscopic (ICD-10-PCS; principal; 2019-12-05)
PROC: 0DJD8ZZ Inspection of Lower Intestinal Tract, Via Natural or Artificial Opening Endoscopic (ICD-10-PCS; 2019-12-06)
DX: K58.9 Irritable bowel syndrome, unspecified (principal); E78.5 Hyperlipidemia, unspecified; E10.65 Type 1 diabetes mellitus with hyperglycemia; E66.9 Obesity, unspecified; I48.0 Paroxysmal atrial fibrillation; F41.9 Anxiety disorder, unspecified; G89.4 Chronic pain syndrome; I25.10 Atherosclerotic heart disease of native coronary artery without angina pectoris; E10.43 Type 1 diabetes mellitus with diabetic autonomic (poly)neuropathy; K31.84 Gastroparesis; I95.9 Hypotension, unspecified; Z95.1 Presence of aortocoronary bypass graft; Z86.73 Personal history of transient ischemic attack (TIA), and cerebral infarction without residual deficits; Z86.711 Personal history of pulmonary embolism; Z90.49 Acquired absence of other specified parts of digestive tract; Z88.8 Allergy status to other drugs, medicaments and biological substances; Z91.041 Radiographic dye allergy status; Z95.5 Presence of coronary angioplasty implant and graft; Z68.30 Body mass index [BMI] 30.0-30.9, adult; I25.2 Old myocardial infarction
CPT/HCPCS: 36415; 36416; 70450; 71045; 71275; 72100; 74018; 74177; 80048; 80053; 80061; 81001; 82550; 83690; 83735; 83880; 84484; 85025; 93005; 93010; 96361; 96374; 96375; 96376; J1200; J1815; J2001; J2060; J2250; J2270; J2704; J2930; J3010; J7512; Q0163; Q0169; Q9967; S0028

== ENCOUNTER 2019-12-28 19:56 | Inpatient (IN) | payer SELFPAY ==
[~2019-12-28 19:56] MED LIST: Iopamidol-370 76% 500 ML 1 ML ONE
[2019-12-28 20:20] LABS: #Eosinphils 0.1 thou/uL (0.0-0.7); #Lymphocytes 1.2 thou/uL (1.20-3.40); #Monocytes 0.6 thou/uL (0.11-0.59); #Neutrophils 3.3 thou/uL (1.40-6.50); %Basophils 0.8 % (0.0-1.0); %Eosinophils 2.3 % (0.0-10.0); %Lymphocytes 23.6 % (21.0-51.0); %Monocytes 11.3 % (0.0-10.0); Hemoglobin 14.1 g/dL (14.0-18.0); Mean Corpuscular HGB CONC 32.5 g/dL (32.0-36.0); Mean Corpuscular Hemoglobin 28.4 pg (27.0-31.0); Mean Corpuscular Volume 87.6 fL (78.0-98.0); Mean Platelet Volume 7.9 fL (7.4-10.4); Platelet Count 240 thou/uL (130-400); RBC Distribution Width 12.7 % (11.5-14.5); Red Blood Cell (RBC) Count 4.95 mill/uL (4.70-6.10); White Blood Cell (WBC) Count 5.3 thou/uL (4.8-10.8)
[2019-12-28] MEDS ORDERED: Nitroglycerin 0.4 MG TAB 1 EACH ONE (20:35)
[2019-12-28 20:40] LABS: ALT (SGPT) 12 U/L (8-55); AST (SGOT) 13 U/L (5-34); Albumin 4.3 g/dL (3.5-5.0); Alkaline Phosphatase 90 U/L (40-110); Anion Gap 19 mmol/L (10-20); BUN (Urea Nitrogen) 7 mg/dL (8.9-20.6); Bilirubin, Total 0.4 mg/dL (0.2-1.2); CK (CPK) 78 U/L (30-200); Calc. Creatinine Clearance 0 mL/min (70-130); Calcium 9.2 mg/dL (7.8-10.44); Carbon Dioxide 22 mmol/L (22-29); Chloride 102 mmol/L (98-107); Estimated GFR-MDRD 75; Glucose 424 mg/dL (70-105); Potassium 3.5 mmol/L (3.5-5.1); Protein, Total 7.3 g/dL (6.0-8.3); Sodium 139 mmol/L (136-145)
--- NOTE | 2019-12-28 20:56 | RAD ---
EXAM: CHEST ONE VIEW HISTORY: Chest pain. COMPARISON: 12/01/2019 FINDINGS: Median sternotomy wires are again seen. Cardiac silhouette and pulmonary vasculature are within selena l limits. The lungs are clear. The osseous structures are intact. Chest is stable compared to prior exam. IMPRESSION: No acute cardiopulmonary process.
[2019-12-28] MEDS ORDERED: Famotidine/PF 20 mg/2ml Vial ONE (23:25)
[2019-12-28] MEDS ORDERED: diphenhydrAMINE 50 MG/ML VIAL ONE (23:25)
[2019-12-28] MEDS ORDERED: Morphine 4 MG/ML VIAL ONE (23:25)
[2019-12-28] MEDS ORDERED: methylPREDNISolone Sod Succ/PF 125 MG/2 ML VIAL ONE (23:25)
[2019-12-29] MEDS ORDERED: Morphine 4 MG/ML VIAL ONE (00:19)
[2019-12-29] MEDS ORDERED: Nitroglycerin 50 MG/250 ML BOT 250 ML ONE (01:03)
[2019-12-29 01:10] LABS: Troponin I 0.136 ng/mL (< 0.028)
[2019-12-29] MEDS ORDERED: Lorazepam 1 MG TAB ONE (01:38)
[2019-12-29] MEDS ORDERED: Ondansetron PF 4 MG/2 ML Vial IVP PRN (02:23)
[2019-12-29] MEDS ORDERED: Senokot S 8.6-50 MG TAB PO PRN (02:23)
[2019-12-29] MEDS ORDERED: Acetaminophen 325 MG TAB PO PRN (02:23)
[2019-12-29] MEDS ORDERED: Dextrose 50% Abboject 50 ML SYRINGE SLOW IVP PRN (02:27)
[2019-12-29] MEDS ORDERED: Dextrose 5% in Water 1,000 ML IV PRN (02:27)
[2019-12-29] MEDS ORDERED: 1/2 NS w/KCL 20 mEq 1,000 ML IV SCH (02:30)
--- NOTE | 2019-12-29 02:30 | PDOC.HHP ---
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 He describes 8/10 pain on the right side of his chest radiating to his right shoulder. No aggravating factors. Partial relief with morphine. Has some shortness of breath, palpitations, lightheadedness. No cough , wheezing. He reports diarrhea that started yesterday morning and he had 2 BMs that were loose. No blood in stool. No fever, chills. No burning or pain with urination. No headache, vision changes. ED Course: Started on NTG drip Hospitalist ROS - Review of Systems All other systems reviewed; all pertinent +/- noted in HPI/Subj Hospitalist History - Past Medical History Source: patient Cardiac: reports: AFIB, CAD, HTN, AL Endocrine: reports: Diabetes - Past Surgical History Past Surgical History: reports: CABG - Family History Family History: reports: no pertinent history (reviewed) - Social History Smoking Status: Never smoker Alcohol: reports: None Drugs: reports: none Living Situation: Alone Activity level: independent ambulation - Exam General Appearance: awake alert, ill appearing Eye: PERRL, anicteric sclera ENT: normocephalic atraumatic, no oropharyngeal lesions, moist mucosa Neck: supple, symmetric, no JVD, no thyromegaly, no lymphadenopathy, no carotid bruit Heart: no murmur, no gallops, no rubs, normal peripheral pulses Heart - other findings: tachycardia present Respiratory: CTAB, no wheezes, no rales, no ronchi, normal chest expansion, no tachypnea Gastrointestinal: soft, non-tender, non-distended, normal bowel sounds, no palpable masses Extremities: no cyanosis, no clubbing, no edema Skin: normal turgor, no lesions, no rashes Neurological: cranial nerve grossly intact Musculoskeletal: normal tone, normal strength, no muscle wasting Psychiatric: normal affect, normal behavior, A&O x 3 Hospitalist Results - Labs Result Diagrams: 12/28/19 20:06 12/28/19 20:06 Lab results: WBC 5.3 thou/uL (4.8-10.8) 12/28/19 20:06 Hgb 14.1 g/dL (14.0-18.0) 12/28/19 20:06 Hct 43.4 % (42.0-52.0) 12/28/19 20: MCV 87.6 fL (78.0-98.0) 12/28/19 20:06 Plt Count 240 thou/uL (130-400) 12/28/19 20:06 Neutrophils % 62.0 % (42.0-75.0) 12/28/19 20: Sodium 139 mmol/L (136-145) 12/28/19 20: Potassium 3.5 mmol/L (3.5-5.1) 12/28/19 20: Chloride 102 mmol/L (98-107) 12/28/19 20: Carbon Dioxide 22 mmol/L (22-29) 12/28/19 20: BUN 7 mg/dL (8.9-20.6) L 12/28/19 20:06 Creatinine 1.08 mg/dL (0.7-1.3) 12/28/19 20: Glucose 424 mg/dL (70-105) H 12/28/19 20: Calcium 9.2 mg/dL (7.8-10.44) 12/28/19 20: Total Bilirubin 0.4 mg/dL (0.2-1.2) 12/28/19 20: AST 13 U/L (5-34) 12/28/19 20:06 ALT 12 U/L (8-55) 12/28/19 20: Alkaline Phosphatase 90 U/L (40-110) 12/28/19 20:06 Creatine Kinase 78 U/L (30-200) 12/28/19 20:06 CK-MB (CK-2) 1.0 ng/mL (0-6.6) 12/28/19 20: Troponin I 0.136 ng/mL (< 0.028) H 12/29/19 00:28 B-Natriuretic Peptide 52.5 pg/mL (0-100) 12/28/19 20:06 Serum Total Protein 7.3 g/dL (6.0-8.3) 12/28/19 20:06 Albumin 4.3 g/dL (3.5-5.0) 03/04/20 20:06 - EKG Interpretation EKG: Personally reviewed - Sinus tachycardia; Non-specific ST-T changes - Radiology Interpretation Chest x-ray Status: image reviewed by me (Sternotomy wires; No consolidation or CP angle blunting) Hospitalist H&P A/P - Problem (1) Chest pain Code(s): R07.9 - CHEST PAIN, UNSPECIFIED Status: Acute Qualifiers: Chest pain type: unspecified Qualified Code(s): R07.9 - Chest pain, unspecified Assessment and Plan: Has elevated troponins Concern for NSTEMI Admit to inpatient status. Expected to stay at least 2 midnights High risk due to risk of lethal arrhythmias On NTG drip. 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 Not on regular opioid therapy IV opioids PRN pain control Cycle troponins Cardio consult. ECHO On ASA, PLavix and eliquis Unable to anticoagulate with full dose lovenox/heparin due to being on eliquis for PE (2) CAD (coronary artery disease) Code(s): I25.10 - ATHSCL HEART DISEASE OF [place] CORONARY ARTERY W/O ANG PCTRS Status: Chronic Qualifiers: Coronary Disease-Associated Artery/Lesion type: [place] artery [place] vs. transplanted heart: lime heart Associated angina: angina presence unspecified Qualified Code(s): I25.10 - Atherosclerotic heart disease of [place] coronary artery without angina pectoris Assessment and Plan: As above (3) Paroxysmal A-fib Code(s): I48.0 - PAROXYSMAL ATRIAL FIBRILLATION Status: Chronic Assessment and Plan: Currently in sinus tach Continue amiodarone and eliquis Cardio consult (4) DM type 2 (diabetes mellitus, type 2) Status: Chronic Qualifiers: Diabetes mellitus snf insulin use: with snf use Diabetes mellitus complication status: with neurologic complications Diabetes mellitus complication detail: with polyneuropathy Qualified Code(s): E11.42 - Type 2 diabetes mellitus with diabetic polyneuropathy; 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 Assessment and Plan: Resume home dose of basal insulin Diabetic diet and SSI Monitor sugars and adjust regimen (5) Dyslipidemia Code(s): E78.5 - HYPERLIPIDEMIA, UNSPECIFIED Status: Chronic Assessment and Plan: Crestor (6) HTN (hypertension) Code(s): I10 - ESSENTIAL (PRIMARY) HYPERTENSION Status: Chronic Qualifiers: Hypertension type: essential hypertension Qualified Code(s): I10 - Essential (primary) hypertension Assessment and Plan: On NTG drip Hold HTN meds for now (7) History of pulmonary embolism Code(s): Z86.711 - PERSONAL HISTORY OF PULMONARY EMBOLISM Status: Chronic Assessment and Plan: On eliquis - Plan Plan: CODE STATUS - FULL CODE
[2019-12-29] MEDS: Lorazepam 1 MG TAB PO SCH ×2 (02:58→14:49)
[2019-12-29 03:40] LABS: #Lymphocytes 0.6 thou/uL (1.20-3.40); #Monocytes 0.1 thou/uL (0.11-0.59); #Neutrophils 4.7 thou/uL (1.40-6.50); %Basophils 0.2 % (0.0-1.0); %Eosinophils 0.2 % (0.0-10.0); %Lymphocytes 11.7 % (21.0-51.0); %Monocytes 1.5 % (0.0-10.0); %Neutrophils 86.4 % (42.0-75.0); Hemoglobin 13.3 g/dL (14.0-18.0); Mean Corpuscular HGB CONC 32.9 g/dL (32.0-36.0); Mean Corpuscular Hemoglobin 28.7 pg (27.0-31.0); Mean Corpuscular Volume 87.1 fL (78.0-98.0); Mean Platelet Volume 7.7 fL (7.4-10.4); Platelet Count 285 thou/uL (130-400); RBC Distribution Width 12.5 % (11.5-14.5); Red Blood Cell (RBC) Count 4.65 mill/uL (4.70-6.10); White Blood Cell (WBC) Count 5.4 thou/uL (4.8-10.8)
[2019-12-29 04:03] LABS: ALT (SGPT) 12 U/L (8-55); AST (SGOT) 11 U/L (5-34); Alkaline Phosphatase 85 U/L (40-110); Anion Gap 15 mmol/L (10-20); BUN (Urea Nitrogen) 8 mg/dL (8.9-20.6); Bilirubin, Total 0.4 mg/dL (0.2-1.2); Calc. Creatinine Clearance 0 mL/min (70-130); Calcium 9.1 mg/dL (7.8-10.44); Carbon Dioxide 21 mmol/L (22-29); Chloride 105 mmol/L (98-107); Estimated GFR-MDRD Greater than 90; Glucose 414 mg/dL (70-105); Potassium 4.3 mmol/L (3.5-5.1); Sodium 137 mmol/L (136-145)
[2019-12-29] MEDS ORDERED: Acetaminophen 325 MG TAB ONE (05:15)
--- NOTE | 2019-12-29 07:43 | CT ---
PRELIMINARY REPORT/[facility]/EMERGENCY AFTER HOURS PROCEDURE: EXAM: CTA Chest with Intravenous Contrast CLINICAL HISTORY: 44 yo M presents to ER with c/o chest pain. Pt reports he was sitting in denominational and then felt like he was punched in the chest. Pt reports he has not been feeling well the past couple of days. Pt reports his "heart is racing" and feels like "he is running a race". Pt reports na usea, but no vomiting. Pt has PMHx of 6 stents. COMPARISON: None provided. FINDINGS: PULMONARY ARTERIES No filling defects are seen in the pulmonary arteries to suggest acute pulmonary embolus. AORTA No thoracic aortic aneurysm or dissection. LUNGS Small calcified granulomas. Dependent hypoventilatory changes and linear atelectasis/scarring bilaterally. PLEURAL SPACES No pleural effusion. No pneumothorax. HEART AND MEDIASTINUM Mild cardiomegaly. Extensive coronary artery calcifications and/or stent theodora t. Median sternotomy wires. No pericardial effusion. LYMPH NODES No lymphadenopathy. BONES Thoracic spondylosis. CHEST WALL AND UPPER ABDOMEN Small hiatal hernia. Steatosis. Mildly heterogeneous left thyroid lobe with 2 small subcentimeter nodules. IMPRESSION: 1. No evidence of pulmonary embolus or other acute thoracic abnormality. 2. Mildly heterogeneous left thyroid lobe with 2 small subcentimeter nodules. Nonemergent dedicated thyroid ultrasound can be performed for further characterization. ELECTRONICALLY SIGNED BY: Justino Myles MD Dec 29, 2019 1:00:57 AM POWER CLEANER OPERATOR FINAL REPORT CT ARTERIOGRAM CHEST WITH IV CONTRAST AND 3D IMAGING: DATE: 12/29/2019. TIME: Performed on an emergency basis at 0012 hours. HISTORY: Chest pain. COMPARISON: 12/01/2019. FINDINGS: I agree with the preliminary report by Dr. Myles from [facility]. No CT evidence of pulmonary embolus. Tiny nonspecific cystic nodules within the left thyroid lobe. Transcribed Date/Time: 12/29/2019 7:56 AM
[2019-12-29] MEDS: HumuLIN 70/30 (300 UNITS/3 ML VIAL) SC SCH ×2 (08:26→19:35)
[2019-12-29] MEDS ORDERED: Aspirin 81 mg Enteric Coated Tablet PO SCH (09:00)
[2019-12-29] MEDS ORDERED: Lisinopril/Hydrochlorothiazide 20/25 mg Tablet PO SCH (10:15)
[2019-12-29] MEDS ORDERED: Carvedilol 6.25 MG TAB PO SCH (10:15)
[2019-12-29] MEDS ORDERED: Morphine 2 MG/ML SYRINGE SLOW IVP SCH (10:15)
[2019-12-29] MEDS ORDERED: Labetalol HCl 100 MG/20 ML VIAL SLOW IVP PRN (10:21)
[2019-12-29] MEDS ORDERED: hydrALAZINE 20 MG/ML VIAL SLOW IVP PRN (10:22)
--- NOTE | 2019-12-29 10:51 | CON ---
DATE OF CONSULTATION: Critical care :30 minutes HISTORY OF PRESENT ILLNESS: The patient is a 44-year-old gentleman with a long history of coronary artery disease, who presents with recurrent chest discomfort. The patient was seen several months, in July last year with progressive chest pain. He has a previous history of multiple PTCA and stent placements. He also has a history of coronary artery bypass graft surgery. The patient underwent a cardiac catheterization on August 09, 2019. He was found to have diffuse sioux vessel coronary artery disease. His bypass graft to the ARIAS was patent. His graft to the OM was atretic and his graft to the right was patent. The patient was seen about a month later, and went to another hospital and had a repeat catheterization once again revealed diffuse coronary artery disease, and no intervention was performed. The patient presents once again with recurrent chest discomfort. He reports it is in his upper epigastrium. This pain has been continuous. It does not seem to respond to medical therapy. The patient states he has been compliant with his medications. PAST MEDICAL HISTORY: 1. Coronary artery disease. 2. Hypertension. 3. Diabetes mellitus. 4. Dyslipidemia. 5. History of pulmonary embolus. 6. History of anxiety. PAST SURGICAL HISTORY: Coronary artery bypass graft surgery, back surgery, appendectomy, and cholecystectomy. SOCIAL HISTORY: Nonsmoker. ALLERGIES: IODINE, ZOSYN, ZOFRAN, BENTYL, AND REGLAN. MEDICATIONS: See nursing list. PHYSICAL EXAMINATION: GENERAL: Anxious gentleman in mild distress. VITAL SIGNS: With a blood pressure of 118/50. NECK: No jugular venous distention. LUNGS: Clear to auscultation. HEART: Regular rate and rhythm. Normal S1 and S2. No murmurs. ABDOMEN: Nondistended. EXTREMITIES: Showed no edema. LABORATORY RESULTS: Sodium was 137, potassium 4.3, chloride 105, bicarbonate 21, BUN 8, creatinine 0.9, and glucose 414. Troponin was 0.13 and BNP was 52. White blood cell count 5.4, hemoglobin 13.3, hematocrit 40.5, and platelets were 285. His EKG revealed sinus tachycardia, otherwise normal ECG. IMPRESSION AND PLAN: 1. Chest pain possibly due to ischemic heart disease. 2. History of percutaneous transluminal coronary angioplasty and stent placement. 3. History of coronary artery bypass surgery. 4. Diabetes mellitus. 5. Hypertension. 6. Dyslipidemia. 7. Anxiety. This gentleman presents with recurrent chest discomfort. There is no evidence of a myocardial infarction or EKG change. The patient has marked tachycardia. He has been treated with IV nitroglycerin. At this time, we would discontinue his aspirin. Would start the patient on his Ranexa. We will try to wean the patient off IV nitroglycerin. We will follow this patient with you through his hospitalization. Job ID: [id number] MTDD
[2019-12-29] MEDS: Clopidogrel Bisulfate 75 MG TAB PO SCH (11:04)
[2019-12-29] MEDS: Apixaban 5 MG TAB PO SCH ×2 (11:04→19:33)
[2019-12-29] MEDS: Metoprolol Tartrate 50 MG TAB PO SCH ×2 (11:04→19:33)
[2019-12-29] MEDS: HumaLOG 300 UNITS/3 ML VIAL SC PRN ×2 (11:13→16:18)
--- NOTE | 2019-12-29 13:18 | CON ---
DATE OF CONSULTATION: 12/29/2019 SERVICE: Pulmonary Medicine. REASON FOR CONSULTATION: ICU patient. HISTORY OF PRESENT ILLNESS: The patient is a 44-year-old white male with past medical history significant for coronary artery disease, and type 2 diabetes mellitus. He was sitting in buddhist in his usual state of health. He did not have any fevers, chills, nausea, vomiting, cough, diarrhea, hot, red, swollen joints , or arthralgias, and in general was not sick. In buddhist, he had a sudden onset of discomfort. He felt like he got punched in the chest, then he got his typical angina. He presented to the emergency department. He was having epigastric discomfort as well as this pain. He had nausea without vomiting, and a little bit of diaphoresis. His blood pressure was extraordinarily elevated prompting initiation of nitro drip. He was tucked in the ICU overnight. He indicates to me that his appetite is off, but he is hungry now. His blood pressure is under good control. He has not been restarted on his blood pressure medications. PAST MEDICAL HISTORY: 1. Type 1 diabetes mellitus. 2. Coronary artery disease. 3. Hypertension. 4. Dyslipidemia. 5. Atrial fibrillation, paroxysmal. PAST SURGICAL HISTORY: Coronary artery bypass graft. ALLERGIES: IODINE, PIPERACILLIN, TAZOBACTAM, KETOROLAC, REGLAN, AND ZOFRAN. MEDICATIONS: List of his inpatient and outpatient medications was reviewed. Multiple updates were made. FAMILY HISTORY: Noncontributory. SOCIAL HISTORY: Negative for significant alcohol, tobacco, or illicit drug use. He is a lifelong nonsmoker. He is fully independent in his ADLs. He has no exposure to chemicals, dust, asbestos, or tuberculosis. REVIEW OF SYSTEMS: General; head ears, eyes, nose, throat; cardiovascular; respiratory; GI; ; musculoskeletal; neurologic; and skin are negative except as mentioned in the HPI. PHYSICAL EXAMINATION: VITAL SIGNS: Afebrile, pulse 122, blood pressure 151/111, respirations 23, and saturation 98% currently on room air. GENERAL: The patient is awake and alert, in no apparent distress. LUNGS: Wonderful air entry with no prolonged expiratory phase or wheezing. No crackles are present. HEART: Normal rate and regular. ABDOMEN: Soft, nontender, and nondistended. Bowel sounds are positive. MUSCULOSKELETAL: No cyanosis or clubbing. There is no pitting in the bilateral lower extremities. NEUROLOGIC: Grossly nonfocal. LABORATORY DATA: Basic metabolic profile and liver function studies are unremarkable. Troponin is downtrending to 0.13. BNP 52.5. Blood sugars are up trending, though he does not have a significant acidosis presently. IMAGIN. CT of the chest demonstrates absolutely no cardiopulmonary abnormality. There is no pulmonary embolism. 2. Chest x-ray demonstrates no acute cardiopulmonary abnormality. ASSESSMENT: 1. Hypertensive emergency. 2. Lbz-[id number] myocardial infarction secondary to likely demand from blood pressure. 3. Type 1 diabetes mellitus. DISCUSSION AND PLAN: We will introduce some p.o. medications. I will interrupt his metoprolol in favor of something with better blood pressure control like Coreg. We will put him on lisinopril and hydrochlorothiazide if he can tolerate these things. I do not see them listed as allergies. We will provide him with p.r.n. labetalol, and hydralazine. We will try to wean the nitro drip away. When he was transitioned to the floor, he will have no further requirements for inpatient Pulmonary/ Critical Care opinion, and I will sign off. Please call with additional questions or concerns through time. 70 minutes have been devoted to this patient in various activities. I personally reviewed all imaging studies and laboratory data noted within this document. For fifty percent of this time, I was interacting with the patient at the bedside or coordinating care with the care team. For the remainder of the time I was immediately available to the patient in the hospital unit. Job ID: [id number] [facility]
--- NOTE | 2019-12-29 14:42 | PDOC.HOSPP ---
- Subjective Encounter Date: 12/29/19 Encounter Time: 12:30 Subjective: The patient states he has chest pain chronically at baseline. Had an episode 1 hour ago where he felt like someone was punching him in the chest. He hasn't had that pain before. No cough He states ranexa helped him this morning - Objective Vital Signs & Weight: Vital Signs (12 hours) Temp 12/29/19 12:00 98 F 12/29/19 08:50 98.2 F Weight Weight 198 lb 10.184 oz Most Recent Monitor Data Heart Rate from ECG 105 NIBP 130/66 NIBP BP-Mean 87 Respiration from ECG 15 SpO2 99 I&O: 12/28/19 12/29/19 12/30/19 06:59 06:59 06:59 Intake Total 1822 Output Total 650 Balance 1172 Result Diagrams: 12/29/19 03:30 12/29/19 03:30 Additional Labs: Accuchecks 12/29/19 12/29/19 12/29/19 11:14 08:29 06:13 POC Glucose 452 H Greater than 550 H* 439 H Hospitalist ROS - Review of Systems Constitutional: denies: fever, chills Respiratory: denies: cough, dry - Medication Medications: Active Medications Generic Name Dose Route Start Last Admin Trade Name Freq PRN Reason Stop Dose Admin Acetaminophen 650 mg 12/29/19 02:23 12/29/19 05:19 Tylenol PO 650 mg Q4H PRN Administration Headache/Fever/Mild Pain (1-3) Apixaban 5 mg 12/29/19 09:00 12/29/19 11:04 Eliquis PO 5 mg BID LUIS Administration Clopidogrel Bisulfate 75 mg 12/29/19 09:00 12/29/19 11:04 Plavix PO 75 mg DAILY LUIS Administration Insulin Human Isoph/Insulin Regular 40 units 12/29/19 07:30 12/29/19 08:26 Humulin 70/30 SC 40 unit DAILY-AC LUIS Administration Insulin Human Lispro 0 units 12/29/19 02:27 12/29/19 11:13 Humalog SC 13 unit .AGGRESSIVE SLIDING PRN Administration Aggressive Correctional Scale Metoprolol Tartrate 50 mg 12/29/19 09:00 12/29/19 11:04 Lopressor PO 50 mg BID LUIS Administration Ranolazine 1,000 mg 12/29/19 09:00 12/29/19 11:00 Ranexa PO 1,000 mg BID LUIS Administration - Exam General Appearance: NAD, awake alert Eye: PERRL, anicteric sclera ENT: normocephalic atraumatic, no oropharyngeal lesions Neck: supple, symmetric, no JVD, no thyromegaly Heart: RRR, no murmur, no gallops, no rubs Respiratory: CTAB, no wheezes, no rales, no ronchi Gastrointestinal: soft, non-tender, non-distended, normal bowel sounds Extremities: no cyanosis, no clubbing, no edema Skin: normal turgor, no lesions, no rashes Hosp A/P - Plan This is a 44 year old male with past mediical history of CAD s/p CABG who presents to the ER with chest pain, with elevated troponin #NSTEMI #CAD s/p CABG - troponin dowtnrending - ECHO pending - continue aspirin, ranexa bid, coreg, plavix, eliquis, metoprolol, lisinopril/ HCTZ Diabetes type II - blood sugar 500 - resume home insulin regimen - continue sliding scale Anemia - Hb 13.3, will monitor Code status: full code
[2019-12-29 15:08] LABS: CKMB 1.1 ng/mL (0-6.6)
[2019-12-29] MEDS: Morphine 2 MG/ML SYRINGE SLOW IVP PRN ×2 (15:30→19:31)
[2019-12-29] MEDS: Carvedilol 6.25 MG TAB PO SCH (16:19)
[2019-12-29] MEDS: traMADol HCl 50 MG TAB PO PRN (18:43)
[2019-12-29] MEDS: Rosuvastatin 20 MG TAB PO SCH (19:33)
[2019-12-30] MEDS: Morphine 2 MG/ML SYRINGE SLOW IVP PRN ×6 (00:08→20:39)
[2019-12-30 05:03] VITALS: BMI 28.6
[2019-12-30] MEDS: Carvedilol 6.25 MG TAB PO SCH (07:27)
[2019-12-30] MEDS: HumuLIN 70/30 (300 UNITS/3 ML VIAL) SC SCH ×2 (07:27→20:46)
[2019-12-30] MEDS: Apixaban 5 MG TAB PO SCH ×2 (09:27→20:38)
[2019-12-30] MEDS: Clopidogrel Bisulfate 75 MG TAB PO SCH (09:27)
[2019-12-30] MEDS: Metoprolol Tartrate 50 MG TAB PO SCH ×2 (09:27→20:38)
[2019-12-30] MEDS: Lisinopril/Hydrochlorothiazide 20/25 mg Tablet PO SCH (09:27)
[2019-12-30] MEDS ORDERED: Icosapent Ethyl 1 GM CAPSULE PO SCH (10:45)
[2019-12-30] MEDS: HumaLOG 300 UNITS/3 ML VIAL SC PRN ×2 (11:11→20:46)
[2019-12-30] MEDS: Icosapent Ethyl 1 GM CAPSULE PO SCH (17:39)
--- NOTE | 2019-12-30 17:40 | PRG ---
DATE OF SERVICE: 12/30/2019 SERVICE: Pulmonary Medicine. INTERVAL HISTORY: The patient is doing fine from respiratory standpoint. Breathing comfortably. He is on room air. He has multiple somatic complaints including shoulder pain, back pain, contralateral arm pain, chest pain, and epigastric discomfort. He has required multiple rounds of pain medications for these issues. Ultimately; however, he has been titrated off his nitroglycerin drip, his blood pressure medications are effective in holding his blood pressure low. He has no respiratory complaints currently. PHYSICAL EXAMINATION: VITAL SIGNS: Afebrile, pulse 80, blood pressure 119/70, respirations 18, and saturation 97%, currently on room air. GENERAL: The patient is awake and alert, in no apparent distress. LUNGS: Decent air entry. No crackles or wheezing appreciated. HEART: Normal rate. Regular. ABDOMEN: Soft, nontender, and nondistended. Bowel sounds are positive. MUSCULOSKELETAL: No cyanosis or clubbing. There is no pitting in the bilateral lower extremities. NEUROLOGIC: Grossly nonfocal. LABORATORY DATA: Blood sugar ranges from 211 to 406. Most recently, sugar is 136. Troponin is gently downtrending to 0.091. IMAGING: Echocardiogram demonstrates normal ejection fraction, normal left atrium, mild MR, mild tricuspid regurgitation. ASSESSMENT: 1. Hypertensive emergency. 2. Ozx-ON-hoifveahj myocardial infarction secondary to demand from elevated blood pressure. 3. Type 1 diabetes mellitus. DISCUSSION AND PLAN: The patient's blood pressure is under good control with p.o. medications. As such, he is a good candidate for transition out of the ICU to the telemetry unit. When he lands on the floor, he will have no further requirements for inpatient Pulmonary or Critical Care opinion, and I will sign off. Please call with additional questions or concerns through time. Job ID: [id number]
[2019-12-30] MEDS ORDERED: Albuterol Sulfate 1.25 MG/3 ML NEB EZPAP PRN (18:56)
[2019-12-30] MEDS: traMADol HCl 50 MG TAB PO PRN (20:38)
[2019-12-30] MEDS: Rosuvastatin 20 MG TAB PO SCH (20:38)
--- NOTE | 2019-12-30 20:38 | PDOC.HOSPP ---
- Subjective Encounter Date: 12/30/19 Encounter Time: 20:37 Subjective: The patient states that his chest pain is about the same, comes and goes and intermittent. He feels mild congestion and a tightness and short of breath. No radiation of his pain. He would like to try a breathing treatment. He does not feel ready to go home or back yet to his baseline - Objective Vital Signs & Weight: Vital Signs (12 hours) Temp Pulse Resp BP BP Pulse Ox 12/30/19 16:00 97.8 F 80 18 119/70 97 12/30/19 12:30 97.5 F L 84 17 118/82 96 12/30/19 12:00 98.2 F 12/30/19 09:27 93 96/55 L Weight Weight 204 lb 9.423 oz Most Recent Monitor Data Heart Rate from ECG 80 NIBP 112/48 NIBP BP-Mean 69 Respiration from ECG 16 SpO2 99 I&O: 12/29/19 12/30/19 12/31/19 06:59 06:59 06:59 Intake Total 2116.6 480 Output Total 2750 850 Balance -633.4 -370 Result Diagrams: 12/29/19 03:30 12/29/19 03:30 Additional Labs: Accuchecks 12/30/19 12/30/19 12/30/19 16:34 11:14 06:22 POC Glucose 136 H 245 H 211 H Hospitalist ROS - Review of Systems Constitutional: denies: fever, chills Eyes: denies: vision change ENT: denies: ear pain, ear discharge Respiratory: denies: dry, shortness of breath, pleuritic pain Cardiovascular: denies: chest pain, palpitations - Medication Medications: Active Medications Generic Name Dose Route Start Last Admin Trade Name Freq PRN Reason Stop Dose Admin Acetaminophen 650 mg 12/29/19 02:23 12/29/19 05:19 Tylenol PO 650 mg Q4H PRN Administration Headache/Fever/Mild Pain (1-3) Apixaban 5 mg 12/29/19 09:00 12/30/19 09:27 Eliquis PO 5 mg BID LUIS Administration Clopidogrel Bisulfate 75 mg 12/29/19 09:00 12/30/19 09:27 Plavix PO 75 mg DAILY LUIS Administration Lisinopril/HCTZ 1 tab 12/30/19 09:00 12/30/19 09:27 Prinizide 20-25 PO 1 tab DAILY LUIS Administration Insulin Human Isoph/Insulin Regular 40 units 12/29/19 07:30 12/30/19 07:27 Humulin 70/30 SC 40 unit DAILY-AC LUIS Administration Insulin Human Isoph/Insulin Regular 30 units 12/29/19 21:00 12/29/19 19:35 Humulin 70/30 SC 30 unit HS LUIS Administration Insulin Human Lispro 0 units 12/29/19 02:27 12/30/19 11:11 Humalog SC 6 unit .AGGRESSIVE SLIDING PRN Administration Aggressive Correctional Scale Miscellaneous Medication 2 gm 12/30/19 17:00 12/30/19 17:39 Vascepa PO 2 gm BID-WM LUIS Administration Morphine Sulfate 2 mg 12/29/19 15:11 12/30/19 15:42 Morphine SLOW IVP 2 mg Q4H PRN Administration .SEVERE PAIN Ranolazine 1,000 mg 12/29/19 09:00 12/30/19 09:27 Ranexa PO 1,000 mg BID LUIS Administration Rosuvastatin Calcium 40 mg 12/29/19 21:00 12/29/19 19:33 Crestor PO 40 mg HS LUIS Administration Senna/Docusate Sodium 2 tab 12/29/19 02:23 12/29/19 20:31 Senokot S PO 2 tab BID PRN Administration Constipation Tramadol HCl 25 mg 12/29/19 15:11 12/29/19 18:43 Ultram PO 25 mg Q6H PRN Administration Pain 4-6 - Exam General Appearance: NAD, awake alert Eye: PERRL, anicteric sclera ENT: normocephalic atraumatic, no oropharyngeal lesions Neck: supple, no JVD Heart: RRR, no murmur, no gallops, no rubs Respiratory: CTAB, no rales, no ronchi Respiratory - other findings: mild wheezing, diminished breath sounds Gastrointestinal: soft, non-tender, non-distended, normal bowel sounds, no splenomegaly Extremities: no cyanosis, no clubbing, no edema Skin: normal turgor, no lesions, no rashes Neurological: cranial nerve grossly intact, normal sensation to touch, no focal deficits, no new deficit Musculoskeletal: normal tone, normal strength, no muscle wasting Psychiatric: normal affect, normal behavior, A&O x 3, oriented to person Hosp A/P - Plan This is a 44 year old male with past medical history of CAD s/p CABG who presents to the ER with chest pain, with elevated troponin #CAD s/p CABG # Chest pain possibly mild NSTEMI - troponin was elevated, now dowtnrending - ECHO showed EF 50-55%, mild MR, mild TR - continue aspirin, ranexa bid, coreg, plavix, eliquis, lisinopril/HCTZ - metoprolol increased to 100 mg bid by cardiology - will try albuterol prn Diabetes type II - continue home insulin regimen of 70/30 Anemia - Hb 13.3, will recheck CBC in am Code status: full code
[2019-12-31] MEDS: Morphine 2 MG/ML SYRINGE SLOW IVP PRN ×4 (00:40→22:20)
[2019-12-31] MEDS ORDERED: Promethazine HCl 25 MG/ML VIAL IM/IV PRN (09:27)
[2019-12-31] MEDS ORDERED: traMADol HCl 50 MG TAB PO PRN (09:30)
[2019-12-31 09:34] LABS: Mean Corpuscular Hemoglobin 28.1 pg (27.0-31.0); Mean Corpuscular Volume 85.2 fL (78.0-98.0); Mean Platelet Volume 7.7 fL (7.4-10.4); Platelet Count 324 thou/uL (130-400); RBC Distribution Width 12.5 % (11.5-14.5); Red Blood Cell (RBC) Count 5.69 mill/uL (4.70-6.10); White Blood Cell (WBC) Count 12.3 thou/uL (4.8-10.8)
[2019-12-31] MEDS: Metoprolol Tartrate 50 MG TAB PO SCH ×2 (09:57→20:29)
[2019-12-31] MEDS: Lisinopril/Hydrochlorothiazide 20/25 mg Tablet PO SCH (09:58)
[2019-12-31] MEDS: Icosapent Ethyl 1 GM CAPSULE PO SCH ×2 (09:58→17:48)
[2019-12-31] MEDS: Clopidogrel Bisulfate 75 MG TAB PO SCH (09:58)
[2019-12-31] MEDS: Apixaban 5 MG TAB PO SCH ×2 (09:58→20:29)
[2019-12-31] MEDS: HumuLIN 70/30 (300 UNITS/3 ML VIAL) SC SCH ×2 (10:03→20:34)
[2019-12-31 10:04] LABS: Anion Gap 18 mmol/L (10-20); BUN (Urea Nitrogen) 15 mg/dL (8.9-20.6); Calc. Creatinine Clearance 153 mL/min (70-130); Calcium 9.8 mg/dL (7.8-10.44); Carbon Dioxide 24 mmol/L (22-29); Chloride 98 mmol/L (98-107); Estimated GFR-MDRD Greater than 90; Glucose 143 mg/dL (70-105); Potassium 4.3 mmol/L (3.5-5.1); Sodium 136 mmol/L (136-145)
--- NOTE | 2019-12-31 10:58 | ULT ---
Right UPPER EXTREMITY VENOUS DOPPLER ULTRASOUND: HISTORY: Right upper extremity pain and swelling TECHNIQUE: Grayscale color-flow and spectral Doppler imaging of the deep venous systems of the right upper extre mity was performed. FINDINGS: There is occlusive thrombus without flow in the right internal jugular and right brachial veins. The remainder of the deep veins of the right upper extremity and the right cephalic vein appear patent with good flow. IMPRESSION: DVT in the right upper extremity. Discussed over the telephone with Dr. Pearl at 10:51 AM
--- NOTE | 2019-12-31 16:40 | PDOC.HOSPP ---
- Subjective Subjective: Seen and examined. Patient complaining of right-sided pain in the arm and swelling. Ultrasound was ordered by myself and was found have DVT. I discussed the results with radiologist. This is likely secondary to medical noncompliance with oral anticoagulation in the outpatient setting. Patient does not feel well this morning and does not want to try oral medications for pain. Recommended increasing oral intake of foods, medications, and liquids. We Will attempt to wean him off all IV medications today. Patient with many chronic pain issues. - Objective Vital Signs & Weight: Vital Signs (12 hours) Temp Pulse Resp BP Pulse Ox 12/31/19 16:22 98.3 F 110 H 18 92/55 L 96 12/31/19 12:11 98.0 F 94 16 122/68 95 12/31/19 09:58 77 12/31/19 08:00 99 12/31/19 07:45 98.2 F 80 18 99 Weight Weight 205 lb 1.6 oz Most Recent Monitor Data Heart Rate from ECG 80 NIBP 112/48 NIBP BP-Mean 69 Respiration from ECG 16 SpO2 99 I&O: 12/30/19 12/31/19 01/01/20 06:59 06:59 07:59 Intake Total 2116.6 960 Output Total 2750 850 Balance -633.4 110 Result Diagrams: 12/31/19 09:12 12/31/19 09:12 Additional Labs: Accuchecks 12/31/19 12/31/19 12/31/19 10:50 09:49 05:44 POC Glucose 154 H 149 H 106 12/30/19 12/30/19 20:40 16:34 POC Glucose 263 H 136 H Radiology Reviewed by me: Yes Hospitalist ROS - Review of Systems All other systems reviewed; all pertinent +/- noted in HPI/Subj - Medication Medications: Active Medications Generic Name Dose Route Start Last Admin Trade Name Freq PRN Reason Stop Dose Admin Acetaminophen 650 mg 12/29/19 02:23 12/29/19 05:19 Tylenol PO 650 mg Q4H PRN Administration Headache/Fever/Mild Pain (1-3) Apixaban 5 mg 12/29/19 09:00 12/31/19 09:58 Eliquis PO 5 mg BID LUIS Administration Clopidogrel Bisulfate 75 mg 12/29/19 09:00 12/31/19 09:58 Plavix PO 75 mg DAILY LUIS Administration Lisinopril/HCTZ 1 tab 12/30/19 09:00 12/31/19 09:58 Prinizide 20-25 PO 1 tab DAILY LUIS Administration Insulin Human Isoph/Insulin Regular 40 units 12/29/19 07:30 12/31/19 10:03 Humulin 70/30 SC Not Given DAILY-AC LUIS Insulin Human Isoph/Insulin Regular 30 units 12/29/19 21:00 12/30/19 20:46 Humulin 70/30 SC 30 unit HS LUIS Administration Insulin Human Lispro 0 units 12/29/19 02:27 12/30/19 20:46 Humalog SC 9 unit .AGGRESSIVE SLIDING PRN Administration Aggressive Correctional Scale Metoprolol Tartrate 100 mg 12/30/19 09:33 12/31/19 09:57 Lopressor PO 100 mg BID LUIS Administration Miscellaneous Medication 2 gm 12/30/19 17:00 12/31/19 09:58 Vascepa PO 2 gm BID-WM LUIS Administration Morphine Sulfate 2 mg 12/29/19 15:11 12/31/19 09:29 Morphine SLOW IVP 2 mg Q4H PRN Administration .SEVERE PAIN Promethazine HCl 25 mg 12/31/19 09:27 12/31/19 09:42 Phenergan IM/IV 25 mg Q6H PRN Administration Nausea/Vomiting Ranolazine 1,000 mg 12/29/19 09:00 12/31/19 09:58 Ranexa PO 1,000 mg BID LUIS Administration Rosuvastatin Calcium 40 mg 12/29/19 21:00 12/30/19 20:38 Crestor PO 40 mg HS [facility] Administration Senna/Docusate Sodium 2 tab 12/29/19 02:23 12/29/19 20:31 Senokot S PO 2 tab BID PRN Administration Constipation - Exam General Appearance: NAD, awake alert Eye: anicteric sclera ENT: normocephalic atraumatic, moist mucosa Neck: supple, symmetric, no lymphadenopathy Heart: no murmur, no gallops, no rubs, normal peripheral pulses Respiratory: CTAB, no wheezes, no rales, no ronchi, normal chest expansion, no tachypnea Gastrointestinal: soft, non-tender, non-distended, no guarding, no rigidity Extremities: 1+ LE edema Extremities - other findings: +1 RUE edema Skin: no lesions, no rashes Neurological: cranial nerve grossly intact, no focal deficits Musculoskeletal: generalized weakness Psychiatric: A&O x 3 Hosp A/P (1) DVT (deep venous thrombosis) Code(s): I82.409 - ACUTE EMBOLISM AND THOMBOS UNSP DEEP VN UNSP LOWER EXTREMITY Status: Acute (2) Chest pain Code(s): R07.9 - CHEST PAIN, UNSPECIFIED Status: Acute Qualifiers: Chest pain type: unspecified Qualified Code(s): R07.9 - Chest pain, unspecified (3) Unstable angina Status: Acute (4) CAD (coronary artery disease) Code(s): I25.10 - ATHSCL HEART DISEASE OF [place] CORONARY ARTERY W/O ANG PCTRS Status: Chronic Qualifiers: Coronary Disease-Associated Artery/Lesion type: [place] artery [place] vs. 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 (6) Dyslipidemia Code(s): E78.5 - HYPERLIPIDEMIA, UNSPECIFIED Status: Chronic (7) Gastroparesis Code(s): K31.84 - GASTROPARESIS Status: Chronic (8) HTN (hypertension) Code(s): I10 - ESSENTIAL (PRIMARY) HYPERTENSION Status: Chronic Qualifiers: Hypertension type: essential hypertension Qualified Code(s): I10 - Essential (primary) hypertension (9) History of pulmonary embolism Code(s): Z86.711 - PERSONAL HISTORY OF PULMONARY EMBOLISM Status: Chronic (10) Paroxysmal A-fib Code(s): I48.0 - PAROXYSMAL ATRIAL FIBRILLATION Status: Chronic (11) Unstable angina Status: Resolved - Plan Plan: medical unit with telemetry cardiology consultation, recommendations appreciated patient with upper extremity DVT, secondary to medical noncompliance with him not taking oral anticoagulation in the outpatient setting restart Eliquis improve medical compliance to avoid future complications cardiomyopathy regimen as able blood pressure control blood sugar control insulin for glucose control GI prophylaxis DVT prophylaxis
--- NOTE | 2019-12-31 20:07 | PDOC.CPN ---
- Subjective Date: 12/31/19 Time: 20:05 Interval history: Nausea and vomiting. - Review of Systems General: denies: fever/chills, weight/appetite/sleep changes, night sweats, fatigue Cardiovascular: denies: chest pain, palpitation, edema, paroxysmal nocturnal dyspnea, orthopnea Gastrointestinal: reports: nausea, vomiting. denies: diarrhea, constipation, abd pain, GI bleeding Musculoskeletal: denies: pain, tenderness, stiffness, swelling, arthritis/ arthralgias Neurological: denies: numbness, syncope, seizure, weakness - Objective Allergies/Adverse Reactions: Allergies Allergy/AdvReac Type Severity Reaction Status Date / Time Iodine and Iodide Containing Allergy Verified 12/01/19 17:58 Produc piperacillin Allergy Verified 12/01/19 17:58 tazobactam [From Zosyn] Allergy Verified 12/01/19 17:58 ketorolac [From Toradol] AdvReac Verified 12/01/19 17:58 metoclopramide [From Reglan] AdvReac Verified 12/01/19 17:58 ondansetron [From Zofran] AdvReac Rash Verified 12/31/19 09:29 Visit Medications: Current Medications Acetaminophen (Tylenol) 650 mg PO Q4H PRN PRN Reason: Headache/Fever/Mild Pain (1-3) Last Admin: 12/29/19 05:19 Dose: 650 mg Albuterol Sulfate (Albuterol Sulfate) 1.25 mg EZPAP [id number] PRN PRN Reason: Wheezing Apixaban (Eliquis) 5 mg PO BID [facility] Last Admin: 12/31/19 09:58 Dose: 5 mg Clopidogrel Bisulfate (Plavix) 75 mg PO DAILY [facility] Last Admin: 12/31/19 09:58 Dose: 75 mg Dextrose/Water (Dextrose 50%) 25 gm SLOW IVP PRN PRN PRN Reason: Hypoglycemia Glucagon (Glucagon) 1 mg IM PRN PRN PRN Reason: Hypoglycemia Lisinopril/HCTZ (Prinizide 20-25) 1 tab PO DAILY [facility] Last Admin: 12/31/19 09:58 Dose: 1 tab Hydralazine HCl (Apresoline) 20 mg SLOW IVP Q15MIN PRN PRN Reason: SBP Greater Than 180 Dextrose/Water (D5w) 1,000 mls @ 0 mls/hr IV .Q0M PRN PRN Reason: Hypoglycemia Insulin Human Isoph/Insulin Regular (Humulin 70/30) 40 units SC DAILY-[facility] Last Admin: 12/31/19 10:03 Dose: Not Given Insulin Human Isoph/Insulin Regular (Humulin 70/30) 30 units SC [facility] Last Admin: 12/30/19 20:46 Dose: 30 unit Insulin Human Lispro (Humalog) 0 units SC .AGGRESSIVE SLIDING PRN PRN Reason: Aggressive Correctional Scale Last Admin: 12/30/19 20:46 Dose: 9 unit Labetalol HCl (Normodyne) 20 mg SLOW IVP Q10MIN PRN PRN Reason: SBP Greater Than 180 Metoprolol Tartrate (Lopressor) 100 mg PO BID [facility] Last Admin: 12/31/19 09:57 Dose: 100 mg Miscellaneous Med[facility] ([facility]) [facility] Last Admin: 12/31/19 17:48 Dose: Not Given Morphine Sulfate (Morphine) 2 mg SLOW IVP Q4H PRN PRN Reason: .SEVERE PAIN Last Admin: 12/31/19 09:29 Dose: 2 mg Ondansetron HCl (Zofran) 4 mg IVP Q6H PRN PRN Reason: Nausea/Vomiting Promethazine HCl (Phenergan) 25 mg IM/IV Q6H PRN PRN Reason: Nausea/Vomiting Last Admin: 12/31/19 09:42 Dose: 25 mg Ranolazine (Ranexa) 1,000 mg PO BID [facility] Last Admin: 12/31/19 09:58 Dose: 1,000 mg Rosuvastatin Calcium (Crestor) 40 mg PO [facility] Last Admin: 12/30/19 20:38 Dose: 40 mg Senna/Docusate Sodium (Senokot S) 2 tab PO BID PRN PRN Reason: Constipation Last Admin: 12/29/19 20:31 Dose: 2 tab Sodium Chloride (Flush - Normal Saline) 10 ml IVF Q12HR [facility] Sodium Chloride (Flush - Normal Saline) 10 ml IVF PRN PRN PRN Reason: Saline Flush Tramadol HCl (Ultram) 50 mg PO Q6H PRN PRN Reason: Pain 4-6 Vital Signs & Weight: Vital Signs Temp Pulse Resp BP Pulse Ox 12/31/19 16:22 98.3 F 110 H 18 92/55 L 96 03/07/20 12:11 98.0 F 94 16 122/68 95 12/31/19 09:58 77 Weight 205 lb 1.6 oz - Physical Exam General: alert & oriented x3 HEENT: mucus membranes moist Neck: supple neck Cardiac: regular rate and rhythm Lungs: clear to auscultation Neuro: grossly intact Abdomen: active bowel sounds Extremities: no edema Skin: clear Musculoskeletal: no pain - Labs Result Diagrams: 12/31/19 09:12 12/31/19 09:12 Troponin/CKMB CK-MB (CK-2) 1.1 ng/mL (0-6.6) 12/29/19 14:06 Troponin I 0.091 ng/mL (< 0.028) H 12/29/19 14:06 - Telemetry Sinus rhythms and dysrhythmias: sinus rhythm - Assessment/Plan Assessment/Plan: 1. Hypertensive emergency 2. Indeterminate troponin. 3. CAD. 4. Nausea and vomiting 5. Type 1 DM. PLAN: - Continue medical therapy. - Gastroparesis?
[2019-12-31] MEDS: Rosuvastatin 20 MG TAB PO SCH (20:29)
[2019-12-31] MEDS ORDERED: HumaLOG 300 UNITS/3 ML VIAL SC PRN ×2 (21:27→21:50)
--- NOTE | 2019-12-31 21:41 | PDOC.EVN ---
Event Note - Event Note Event Note: RN called pt c/o Abd pain - LLQ - 10/10, constant, no agravating or relieving factors. Nauseas. Vomited 3 hr ago. Vitals reviewed. Abd - soft, voluntary guarding, BS +, no guarding/rigidity Will get CT abd/pelvis with contrast - unable to tolerate oral contrast. Also allergic to iodine Will start IVF AM labs added
[2019-12-31] MEDS: predniSONE 50 MG TAB PO SCH (22:19)
[2019-12-31] MEDS: Sodium Chloride 0.9% 1,000 ML IV SCH (22:30)
[2019-12-31] MEDS ORDERED: Dicyclomine 10 MG CAP PO PRN (22:45)
[2019-12-31] MEDS ORDERED: Promethazine 25 MG TAB PO PRN (22:46)
[2020-01-01] MEDS: predniSONE 50 MG TAB PO SCH (03:59)
[2020-01-01 04:41] LABS: #Lymphocytes 1.1 thou/uL (1.20-3.40); #Monocytes 0.4 thou/uL (0.11-0.59); #Neutrophils 8.1 thou/uL (1.40-6.50); %Basophils 0.1 % (0.0-1.0); %Eosinophils 0.4 % (0.0-10.0); %Lymphocytes 11.3 % (21.0-51.0); %Monocytes 4.6 % (0.0-10.0); %Neutrophils 83.6 % (42.0-75.0); Hemoglobin 14.3 g/dL (14.0-18.0); Mean Corpuscular HGB CONC 33.1 g/dL (32.0-36.0); Mean Corpuscular Hemoglobin 28.5 pg (27.0-31.0); Mean Corpuscular Volume 86.2 fL (78.0-98.0); Mean Platelet Volume 7.8 fL (7.4-10.4); Platelet Count 321 thou/uL (130-400); RBC Distribution Width 12.6 % (11.5-14.5); Red Blood Cell (RBC) Count 5.01 mill/uL (4.70-6.10); White Blood Cell (WBC) Count 9.7 thou/uL (4.8-10.8)
[2020-01-01 05:04] LABS: ALT (SGPT) 10 U/L (8-55); AST (SGOT) 12 U/L (5-34); Albumin 3.8 g/dL (3.5-5.0); Alkaline Phosphatase 70 U/L (40-110); Anion Gap 20 mmol/L (10-20); BUN (Urea Nitrogen) 31 mg/dL (8.9-20.6); Bilirubin, Total 0.8 mg/dL (0.2-1.2); Calc. Creatinine Clearance 56 mL/min (70-130); Calcium 8.7 mg/dL (7.8-10.44); Carbon Dioxide 20 mmol/L (22-29); Chloride 97 mmol/L (98-107); Estimated GFR-MDRD 32; Glucose 322 mg/dL (70-105); Lipase 9 U/L (8-78); Magnesium 1.6 mg/dL (1.6-2.6); Potassium 5.2 mmol/L (3.5-5.1); Protein, Total 6.8 g/dL (6.0-8.3); Sodium 132 mmol/L (136-145)
--- NOTE | 2020-01-01 09:25 | CT ---
CT ABDOMEN NONCONTRAST CT PELVIS NONCONTRAST: (Urolithiasis protocol) DATE: 01/01/2020 HISTORY: 44-year-old male with sudden onset left lower quadrant abdominal pain TECHNIQUE: IV injection of iodinated contrast media: None Oral contrast media: None FINDINGS: Other than for urolithiasis, the lack of IV and oral contrast limits the evaluation. Liver: No contour abnormalities. Clips at gallbladder fossa. Spleen: No splenomegaly. Pancreas: No contour abnormalities. Adrenals: No mass. Kidneys: No nephrolithiasis or overt hydronephrosis. 4 cm right renal upper pole cyst Ureters: No calculi. Bladder: No calculi. Abdominal aorta: No aneurysm. Small bowel: No dilation. Colon: No adjacent fat stranding. Appendix: Surgically absent. Free air: None Free fluid: None No bowel containing inguinal or spigelian hernia. IMPRESSION: 1. No acute findings. 2. No urolithiasis or obstructive uropathy. 3. Status post cholecystectomy and appendectomy.
[2020-01-01] MEDS: Clopidogrel Bisulfate 75 MG TAB PO SCH (09:48)
[2020-01-01] MEDS: Apixaban 5 MG TAB PO SCH ×2 (09:48→20:41)
[2020-01-01] MEDS ORDERED: diphenhydrAMINE 50 MG CAP PO SCH (10:00)
[2020-01-01] MEDS: Sodium Chloride 0.9% 1,000 ML IV SCH (10:47)
[2020-01-01] MEDS: Lisinopril/Hydrochlorothiazide 20/25 mg Tablet PO SCH (10:49)
[2020-01-01] MEDS: Icosapent Ethyl 1 GM CAPSULE PO SCH ×2 (10:50→17:37)
[2020-01-01] MEDS: Metoprolol Tartrate 50 MG TAB PO SCH ×2 (10:52→20:41)
[2020-01-01] MEDS: Morphine 2 MG/ML SYRINGE SLOW IVP PRN ×3 (11:08→22:01)
[2020-01-01] MEDS: HumuLIN 70/30 (300 UNITS/3 ML VIAL) SC SCH ×3 (11:13→22:02)
[2020-01-01] MEDS ORDERED: HumaLOG 300 UNITS/3 ML VIAL SC SCH (14:15)
--- NOTE | 2020-01-01 14:19 | PDOC.HOSPP ---
- Subjective Subjective: Patient again with many somatic complaints this morning he complains of abdominal pain, a CT scan of the abdomen was performed and negative. Complaining of arm pain, known DVT. Complaining of headache. Complaining of backache. Patient again states that he is nauseous and vomiting. Because of poor oral intake we have held long-acting insulin and his blood sugars have trended up. Patient again requesting morphine by name and states that tramadol will upset his stomach. - Objective Vital Signs & Weight: Vital Signs (12 hours) Temp Pulse Resp BP BP BP Pulse Ox 01/01/20 13:49 83 100/55 L 01/01/20 12:00 97.4 F L 82 16 123/67 97 01/01/20 10:49 83 123/67 01/01/20 08:00 100 01/01/20 07:50 97.4 F L 83 18 95/58 L 97 01/01/20 04:59 97.9 F 108 H 20 135/89 92 L Weight Weight 210 lb 14.4 oz Most Recent Monitor Data Heart Rate from ECG 80 NIBP 112/48 NIBP BP-Mean 69 Respiration from ECG 16 SpO2 99 I&O: 12/31/19 01/01/20 01/02/20 05:59 06:59 06:59 Intake Total Output Total Balance Result Diagrams: 01/01/20 04:17 01/01/20 04:17 Additional Labs: Accuchecks 01/01/20 01/01/20 12/31/19 11:17 03:10 20:44 POC Glucose 392 H 245 H 188 H 12/31/19 16:06 POC Glucose 170 H Radiology Reviewed by me: Yes Hospitalist ROS - Review of Systems All other systems reviewed; all pertinent +/- noted in HPI/Subj - Medication Medications: Active Medications Generic Name Dose Route Start Last Admin Trade Name Freq PRN Reason Stop Dose Admin Acetaminophen 650 mg 12/29/19 02:23 12/29/19 05:19 Tylenol PO 650 mg Q4H PRN Administration Headache/Fever/Mild Pain (1-3) Apixaban 5 mg 12/29/19 09:00 01/01/20 09:48 Eliquis PO 5 mg BID [facility] Administration Clopidogrel Bisulfate 75 mg 12/29/19 09:00 01/01/20 09:48 Plavix PO 75 mg DAILY [facility] Administration Lisinopril/HCTZ 1 tab 12/30/19 09:00 01/01/20 10:49 Prinizide 20-25 PO 1 tab DAILY [facility] Administration Sodium Chloride 1,000 mls @ 75 mls/hr 12/31/19 21:30 01/01/20 10:47 Normal Saline 0.9% IV 01/03/20 02:49 1,000 mls .[id number] [facility] Administration Insulin Human Isoph/Insulin Regular 40 units 12/29/19 07:30 01/01/20 12:42 Humulin 70/30 SC 40 unit DAILY-[facility] Administration Insulin Human Isoph/Insulin Regular 30 units 12/29/19 21:00 12/31/19 20:34 Humulin 70/30 SC Not Given HS [facility] Insulin Human Lispro 0 units 12/31/19 21:27 01/01/20 03:59 Humalog SC 4 unit .BEDTIME SLIDING SC PRN Administration Bedtime Correctional Scale Insulin Human Lispro 0 units 12/31/19 21:50 01/01/20 12:42 Humalog SC 10 units .MODERATE SLIDING SC PRN Administration Moderate Correctional Scale Metoprolol Tartrate 100 mg 12/30/19 09:33 01/01/20 10:52 Lopressor PO 100 mg BID [facility] Administration Miscellaneous Medication 2 gm 12/30/19 17:00 01/01/20 10:50 Vascepa PO Not Given BID-[facility] Morphine Sulfate 2 mg 12/29/19 15:11 01/01/20 11:08 Morphine SLOW IVP 2 mg Q4H PRN Administration .SEVERE PAIN Promethazine HCl 25 mg 12/31/19 09:27 12/31/19 09:42 Phenergan IM/IV 25 mg Q6H PRN Administration Nausea/Vomiting Ranolazine 1,000 mg 12/29/19 09:00 01/01/20 09:10 Ranexa PO Not Given BID [facility] Rosuvastatin Calcium 40 mg 12/29/19 21:00 12/31/19 20:29 Crestor PO 40 mg HS [facility] Administration Senna/Docusate Sodium 2 tab 12/29/19 02:23 12/29/19 20:31 Senokot S PO 2 tab BID PRN Administration Constipation Sodium Chloride 10 ml 12/31/19 21:00 03/08/20 09:50 Flush - Normal Saline IVF 10 ml Q12HR [facility] Administration - Exam General Appearance: NAD, awake alert Eye: PERRL ENT: normocephalic atraumatic, moist mucosa Neck: supple, symmetric, no lymphadenopathy Heart: no murmur, no gallops, no rubs Respiratory: CTAB, no wheezes, no rales, no ronchi, normal chest expansion, no tachypnea Gastrointestinal: soft, non-tender, non-distended, no guarding, no rigidity Extremities: no edema Skin: no lesions, no rashes Neurological: cranial nerve grossly intact, no focal deficits Musculoskeletal: generalized weakness Psychiatric: A&O x 3 Hosp A/P (1) DVT (deep venous thrombosis) Code(s): I82.409 - ACUTE EMBOLISM AND THOMBOS UNSP DEEP VN UNSP LOWER EXTREMITY Status: Acute (2) Chest pain Code(s): R07.9 - CHEST PAIN, UNSPECIFIED Status: Acute Qualifiers: Chest pain type: unspecified Qualified Code(s): R07.9 - Chest pain, unspecified (3) Unstable angina Status: Acute (4) CAD (coronary artery disease) Code(s): I25.10 - ATHSCL HEART DISEASE OF [place] CORONARY ARTERY W/O ANG PCTRS Status: Chronic Qualifiers: Coronary Disease-Associated Artery/Lesion type: [place] artery [place] vs. transplanted heart: [place] heart Associated angina: angina presence unspecified Qualified Code(s): I25.10 - Atherosclerotic heart disease of [place] coronary artery without angina pectoris (5) DM type 2 (diabetes mellitus, type 2) Status: Chronic Qualifiers: Diabetes mellitus termite control servicer insulin use: with termite control servicer use Diabetes mellitus complication status: with neurologic complications Diabetes mellitus complication detail: with polyneuropathy Qualified Code(s): E11.42 - Type 2 diabetes mellitus with diabetic polyneuropathy; Z79.4 - intermediate manager (current) use of insulin (6) Dyslipidemia Code(s): E78.5 - HYPERLIPIDEMIA, UNSPECIFIED Status: Chronic (7) Gastroparesis Code(s): K31.84 - GASTROPARESIS Status: Chronic (8) HTN (hypertension) Code(s): I10 - ESSENTIAL (PRIMARY) HYPERTENSION Status: Chronic Qualifiers: Hypertension type: essential hypertension Qualified Code(s): I10 - Essential (primary) hypertension (9) History of pulmonary embolism Code(s): Z86.711 - PERSONAL HISTORY OF PULMONARY EMBOLISM Status: Chronic (10) Paroxysmal A-fib Code(s): I48.0 - PAROXYSMAL ATRIAL FIBRILLATION Status: Chronic (11) Unstable angina Status: Resolved - Plan Plan: medical unit with telemetry cardiology consultation, recommendations appreciated MACEY from poor oral intake and N/v IV fluids continued Add short acting insulin as needed for uncontrolled blood sugars, was holding NPH 70/30 for poor oral intake CT abd/ pelvis - no acute pathology patient with upper extremity DVT, secondary to medical noncompliance with him not taking oral anticoagulation in the outpatient setting restart Eliquis improve medical compliance to avoid future complications cardiomyopathy regimen as able blood pressure control blood sugar control insulin for glucose control GI prophylaxis DVT prophylaxis
[2020-01-01] MEDS ORDERED: HumaLOG 300 UNITS/3 ML VIAL SC PRN (14:24)
[2020-01-01 14:42] LABS: Bacteria/HPF None Seen HPF (None Seen); Bilirubin Negative (Negative); Blood, Urine Negative (Negative); Calcium Oxalate Crystals Rare HPF (None Seen); Clarity Clear (Clear); Glucose, Urine (Dipstick) Greater than 1000 mg/dL (Negative); Leukocyte Negative Leu/uL (Negative); Nitrite Negative (Negative); Protein, Urine (Dipstick) Negative (Neg-Trace); RBC/HPF None Seen HPF (0-3); Squamous Epithelial 0-3 HPF (0-3); Urobilinogen Normal mg/dL (Less than 2); WBC/HPF 0-3 HPF (0-3)
[2020-01-01 14:44] LABS: Urine Culture Reflex No No
--- NOTE | 2020-01-01 16:48 | PDOC.CPN ---
- Subjective Date: 01/01/20 Time: 16:47 Interval history: Nausea and vomiting better. Today he complaints of a headache. No angina. - Review of Systems General: denies: fever/chills, weight/appetite/sleep changes, night sweats, fatigue Respiratory: denies: cough, congestion, shortness of breath, exercise intolerance Cardiovascular: denies: chest pain, palpitation, edema, paroxysmal nocturnal dyspnea, orthopnea Gastrointestinal: denies: nausea, vomiting, diarrhea, constipation, abd pain, GI bleeding Musculoskeletal: denies: pain, tenderness, stiffness, swelling, arthritis/ arthralgias Neurological: denies: numbness, syncope, seizure, weakness - Objective Allergies/Adverse Reactions: Allergies Allergy/AdvReac Type Severity Reaction Status Date / Time Iodine and Iodide Containing Allergy Verified 12/01/19 17:58 Produc piperacillin Allergy Verified 12/01/19 17:58 tazobactam [From Zosyn] Allergy Verified 12/01/19 17:58 ketorolac [From Toradol] AdvReac Verified 12/01/19 17:58 metoclopramide [From Reglan] AdvReac Verified 12/01/19 17:58 ondansetron [From Zofran] AdvReac Rash Verified 12/31/19 09:29 Visit Medications: Current Medications Acetaminophen (Tylenol) 650 mg PO Q4H PRN PRN Reason: Headache/Fever/Mild Pain (1-3) Last Admin: 12/29/19 05:19 Dose: 650 mg Albuterol Sulfate (Albuterol Sulfate) 1.25 mg EZPAP [id number] PRN PRN Reason: Wheezing Apixaban (Eliquis) 5 mg PO BID [facility] Last Admin: 01/01/20 09:48 Dose: 5 mg Clopidogrel Bisulfate (Plavix) 75 mg PO DAILY [facility] Last Admin: 01/01/20 09:48 Dose: 75 mg Dextrose/Water (Dextrose 50%) 25 gm SLOW IVP PRN PRN PRN Reason: Hypoglycemia Dicyclomine HCl (Bentyl) 10 mg PO QID PRN PRN Reason: GI spasm Glucagon (Glucagon) 1 mg IM PRN PRN PRN Reason: Hypoglycemia Lisinopril/HCTZ (Prinizide 20-25) 1 tab PO DAILY [facility] Last Admin: 01/01/20 10:49 Dose: 1 tab Hydralazine HCl (Apresoline) 20 mg SLOW IVP Q15MIN PRN PRN Reason: SBP Greater Than 180 Dextrose/Water (D5w) 1,000 mls @ 0 mls/hr IV .Q0M PRN PRN Reason: Hypoglycemia Sodium Chloride (Normal Saline 0.9%) 1,000 mls @ 75 mls/hr IV .[id number] [facility] Stop: 01/03/20 02:49 Last Admin: 01/01/20 10:47 Dose: 1,000 mls Insulin Human Isoph/Insulin Regular (Humulin 70/30) 40 units SC DAILY-[facility] Last Admin: 01/01/20 12:42 Dose: 40 unit Insulin Human Isoph/Insulin Regular (Humulin 70/30) 30 units SC [facility] Last Admin: 12/31/19 20:34 Dose: Not Given Insulin Human Lispro (Humalog) 0 units SC .BEDTIME SLIDING SC PRN PRN Reason: Bedtime Correctional Scale Last Admin: 01/01/20 03:59 Dose: 4 unit Insulin Human Lispro (Humalog) 0 units SC .AGGRESSIVE SLIDING PRN PRN Reason: Aggressive Correctional Scale Labetalol HCl (Normodyne) 20 mg SLOW IVP Q10MIN PRN PRN Reason: SBP Greater Than 180 Metoprolol Tartrate (Lopressor) 100 mg PO BID [facility] Last Admin: 01/01/20 10:52 Dose: 100 mg Miscellaneous Medication ([facility]pa) [facility] Last Admin: 01/01/20 10:50 Dose: Not Given Morphine Sulfate (Morphine) 2 mg SLOW IVP Q4H PRN PRN Reason: .SEVERE PAIN Last Admin: 01/01/20 11:08 Dose: 2 mg Ondansetron HCl (Zofran) 4 mg IVP Q6H PRN PRN Reason: Nausea/Vomiting Promethazine HCl (Phenergan) 25 mg IM/IV Q6H PRN PRN Reason: Nausea/Vomiting Last Admin: 12/31/19 09:42 Dose: 25 mg Ranolazine (Ranexa) 1,000 mg PO BID [facility] Last Admin: 01/01/20 09:10 Dose: Not Given Rosuvastatin Calcium (Crestor) 40 mg PO [facility] Last Admin: 12/31/19 20:29 Dose: 40 mg Senna/Docusate Sodium (Senokot S) 2 tab PO BID PRN PRN Reason: Constipation Last Admin: 12/29/19 20:31 Dose: 2 tab Sodium Chloride (Flush - Normal Saline) 10 ml IVF Q12HR [facility] Last Admin: 01/01/20 09:50 Dose: 10 ml Sodium Chloride (Flush - Normal Saline) 10 ml IVF PRN PRN PRN Reason: Saline Flush Tramadol HCl (Ultram) 50 mg PO Q6H PRN PRN Reason: Pain 4-6 Vital Signs & Weight: Vital Signs Temp Pulse Resp BP BP BP Pulse Ox 01/01/20 13:49 83 100/55 L 01/01/20 12:00 97.4 F L 82 16 123/67 97 01/01/20 10:49 83 123/67 01/01/20 08:00 100 01/01/20 07:50 97.4 F L 83 18 95/58 L 97 01/01/20 04:59 97.9 F 108 H 20 135/89 92 L Weight 210 lb 14.4 oz - Physical Exam General: alert & oriented x3 HEENT: mucus membranes moist Neck: supple neck Cardiac: regular rate and rhythm Lungs: normal breath sounds Neuro: grossly intact Abdomen: active bowel sounds Extremities: no edema Skin: clear Musculoskeletal: no pain - Labs Result Diagrams: 01/01/20 04:17 01/01/20 04:17 Troponin/CKMB CK-MB (CK-2) 1.1 ng/mL (0-6.6) 12/29/19 14:06 Troponin I 0.091 ng/mL (< 0.028) H 12/29/19 14:06 - Telemetry Sinus rhythms and dysrhythmias: sinus rhythm - Assessment/Plan Assessment/Plan: 1. Hypertensive emergency 2. Indeterminate troponin. 3. CAD. 4. Nausea and vomiting 5. Type 1 DM. PLAN: - Continue medical therapy. - His BP while having a headache is in the 100's over 60's. - Dr. Dobbins to follow tomorrow.
[2020-01-01] MEDS: Rosuvastatin 20 MG TAB PO SCH (20:41)
[2020-01-02] MEDS: Sodium Chloride 0.9% 1,000 ML IV SCH (01:32)
[2020-01-02] MEDS: Morphine 2 MG/ML SYRINGE SLOW IVP PRN (03:06)
[2020-01-02] MEDS ORDERED: Sodium Chloride 0.9% 500 ML IV SCH (05:15)
[2020-01-02 08:26] LABS: Anion Gap 13 mmol/L (10-20); BUN (Urea Nitrogen) 40 mg/dL (8.9-20.6); Calc. Creatinine Clearance 83 mL/min (70-130); Calcium 8.4 mg/dL (7.8-10.44); Carbon Dioxide 22 mmol/L (22-29); Chloride 105 mmol/L (98-107); Estimated GFR-MDRD 50; Glucose 171 mg/dL (70-105); Potassium 4.1 mmol/L (3.5-5.1); Sodium 136 mmol/L (136-145)
[2020-01-02] MEDS ORDERED: Lisinopril/Hydrochlorothiazide 20/25 mg Tablet PO SCH ×2 (09:00→09:04)
[2020-01-02] MEDS: Metoprolol Tartrate 50 MG TAB PO SCH (09:10)
[2020-01-02] MEDS: Clopidogrel Bisulfate 75 MG TAB PO SCH (09:10)
[2020-01-02] MEDS: Apixaban 5 MG TAB PO SCH (09:10)
[2020-01-02] MEDS: Icosapent Ethyl 1 GM CAPSULE PO SCH (09:11)
[2020-01-02] MEDS: HumuLIN 70/30 (300 UNITS/3 ML VIAL) SC SCH (09:12)
[2020-01-02] MEDS: Lisinopril/Hydrochlorothiazide 20/25 mg Tablet PO SCH (09:12)
--- NOTE | 2020-01-02 10:32 | CON ---
DATE OF CONSULTATION: 01/01/2020 REASON FOR CONSULTATION: Abdominal pain over the left lower quadrant. HISTORY OF PRESENT ILLNESS: Mr. Gareth Olea is a 44-year-old male with history of coronary artery disease, status post coronary artery bypass graft. He has also had previous stent placement and angioplasty in the past. He has also a strong family history of heart disease. The patient hospitalized initially because of chest pain over the right side of the chest going to the right shoulder area. He felt as if somebody really punched in his chest, pressure-like feeling. He came to the ER and was hospitalized. Apparently, his blood pressure was very high, and he was in ICU on nitroglycerin drip. Now he is on telemetry unit. The patient's chest pain is resolved. Now he started having abdominal pain over the left lower quadrant, and the pain was very severe as per the patient. He is gagging and trying to spit up. The patient had abdominal CAT scan done, allergy to iodine. A noncontrast CAT scan of the abdomen done today revealed really no pathology to explain abdominal pain. The patient tells me he has had similar episodes of abdominal pain in September of 2019 and was hospitalized in [place]. He was told to have bowel obstruction and admitted to hospital. He also had a cardiac cath the same time in September of 2019. The pain is cramping in nature and sharp. The pain is over the left lower quadrant. He has no hematochezia. No diarrhea. The patient denies any dysuria, hematuria, or frequent urination. Does feel nauseous and trying to gag and retch. He tells me he has had diarrhea and constipation cycle for a while. Sometimes he gets constipated and sometimes he gets diarrhea also. He also had some abdomen pain off and on in the past. No relevant history. ALLERGIES: IODINE, PIPERACILLIN, REGLAN, ZOFRAN, AND KETOROLAC, WHICH IS AN NSAID MEDICATION. SOCIAL HISTORY: The patient does not smoke. Does not drink alcohol. No history of any drug use. MEDICAL ILLNESSES: 1. Type 1 diabetes mellitus. 2. Coronary artery disease, status post coronary artery bypass graft and stent placement. 3. Hypertension. 4. Hyperlipidemia. 5. Paroxysmal atrial fibrillation. PAST SURGICAL HISTORY: 1. Coronary artery bypass graft. 2. Coronary artery stent placement. 3. Appendectomy. 4. Cholecystectomy. This is all done in [place]. FAMILY HISTORY: Both parents . Mother of myasthenia gravis. Father of heart attack. REVIEW OF SYSTEMS: A 10-point system reviewed. HEAD: No chronic headache. No dizziness. EYES: No diplopia. No impaired vision. EARS: No hearing loss. No bleeding. No discharge. NOSE: No nosebleed. THROAT: No sore throat or dysphagia. LUNGS: No chronic coughing. No hemoptysis or dyspnea. CARDIOVASCULAR SYSTEM: Chest pain is resolved. No palpitation. No orthopnea or PND. GI: Abdominal pain over the left lower quadrant. No fever. No chills. No diarrhea. No hematochezia. GENITOURINARY: No dysuria, hematuria, or frequency of urination. MUSCULOSKELETAL: Nonrelevant. NEUROPSYCHIATRY: No depression or anxiety. PHYSICAL EXAMINATION: GENERAL: He appears comfortable, in no distress, but tried to gag and tried to spit it up. VITAL SIGNS: Temperature 97.4 degrees Fahrenheit, pulse is 83, and blood pressure is 135/89. HEENT: Conjunctivae are clear. NECK: Supple. No adenitis or thyromegaly noted. CARDIOVASCULAR SYSTEM: First and second heart sounds heard. LUNGS: Clear to auscultation. ABDOMEN: Actually very benign exam. Abdomen is soft and nondistended. Abdomen is tender over the left lower quadrant. No rebound or guarding. The exam is actually overall very benign compared to symptoms he is having. EXTREMITIES: Reveal no edema. LABORATORY DATA: From today WBC, no leukocytosis, normal at 9700, hemoglobin 14.3, hematocrit 43.2, platelet count is 321,000, polymorphs 83, lymphocytes 11. Chemistry panel; potassium 5.2, chloride 97, BUN is 31, creatinine is 2.25, glucose 322, calcium 8.7, magnesium 1.6. LFTs are normal. Lipase 9. Albumin 3.8. Noncontrast abdominal CAT scan done showed no acute pathology. IMPRESSION: 1. A 44-year-old male, hospitalized with chest pain, had been seen by Cardiology. The patient apparently has had a cardiac cath x2 in the last probably 12 months. He has no bypassable lesion or any lesion . He appears to have diffuse coronary artery disease. His chest pain is resolved, but now complains of abdominal pain. Abdominal exam is very benign. No fever. No leukocytosis. Abdominal CAT scan showed no pathology. Unfortunately, was noncontrast. 2. Diabetes mellitus. 3. Chronic kidney disease. 4. Paroxysmal atrial fibrillation. 5. Hypertension. 6. Previous cholecystectomy. 7. Previous appendectomy. 8. Recent hospital admission in [place] in September of 2019 for bowel obstruction. abdomen at this time is very benign and no evidence of also remote possibility of ischemia physical exam. RECOMMENDATION: 1. Clear liquid diet. 2. More symptomatic treatment. 3. Follow up labs. If the symptoms persist, may consider sigmoidoscopy in the future. Job ID: [id number]
[2020-01-02 13:12] VITALS: BP 104/60; TEMP 98.6
--- NOTE | 2020-01-03 05:12 | DIS ---
DATE OF ADMISSION: 12/29/2019 DATE OF DISCHARGE: 01/02/2020 REASON FOR HOSPITALIZATION: Chest pain. SIGNIFICANT FINDINGS: The patient with chronic coronary artery disease, was recommended medical management alone. PROCEDURES PERFORMED AND TREATMENTS RENDERED: Mr. Olea is a pleasant 44-year-old gentleman, well known to [facility] in [place], [place] for his coronary artery disease and requires frequent hospitalizations. The patient again presenting with elevated troponins, diagnosed with NSTEMI, was placed on nitroglycerin drip and Cardiology was consulted. Please see full Cardiology consultation and progress notes for details. The patient is medically noncompliant. He continues to take his medications sporadically despite them being provided for him by the hospital at zero cost. This was evident again with him not taking his oral anticoagulation. The patient does not keep close control of his blood pressure or his blood sugars for his insulin-dependent diabetes mellitus. Unfortunately, secondary to this patient's chronic noncompliance, he has frequent re-hospitalizations. Efforts have been made in the outpatient setting to help get the patient with resources including doctor visits and medications at no cost, this has not improved his compliance and he frequently comes to the hospital. Part of the patient's problem is he has chronic pain including back pain, neck pain, abdominal pain, headache, and numerous somatic complaints daily. The patient has diabetic gastroparesis and occasionally gets nauseated and vomiting and cannot keep his medications down. The patient was seen and evaluated by Pulmonology, please see full consultation notes and progress notes for details. The patient was seen and evaluated by Gastroenterology, please see full consultation notes and progress notes for details. The patient with CT scan of the abdomen on 01/01/2020-please see full report for details-there was no acute pathology. The patient with a vascular ultrasound on 12/31/2019. This demonstrates a right upper extremity DVT, I discussed this with the radiologist over the phone. Again due to the patient's medical noncompliance with his oral anticoagulation Eliquis, he has developed DVT and I recommended he has improved compliance. The patient's blood pressure medications were adjusted by Cardiology throughout his hospitalization. The patient was recommended safe for discharge by all specialists on 01/02/2020 with close followup in the outpatient setting. CONDITION ON DISCHARGE: Stable. SPECIFIC INSTRUCTIONS FOR THE PATIENT/FAMILY: 1. The patient is recommended to take all medications as directed, or return to acute care hospital immediately. 2. The patient recommended to follow up with Cardiology in the next 1 to 2 weeks-or return to acute care hospital immediately. 3. The patient is recommended to follow up with Gastroenterology in the next 2 to 4 weeks. 4. The patient is recommended to follow up with primary care physician in the next 5 to 7 days-or return to acute care hospital immediately. 5. The patient is recommended to follow up with Pulmonology in the next 1 to 2 weeks-or return to acute care hospital immediately. 6. The patient recommended that if he is unable to comply with any of the previously mentioned steps and unable to take his medications strictly as directed, he is to return to acute care hospital immediately for re-evaluation. 7. The patient recommended to have improved compliance with his medical regimen to avoid future hospitalizations. DISCHARGE MEDICATIONS: Please see full discharge medication list for details. TIME SPENT: Greater than 39 minutes spent coordinating care and discharge process for this patient. Job ID: [id number]
--- NOTE | 2020-01-04 11:00 | PQF ---
Gareth Olea ERIK [id number] CLINICAL DOCUMENTATION CLARIFICATION FORM: POST DISCHARGE Addendum to original discharge summary date: ____ Late entry note date: __ DATE: 01/04/2020 ATTN:MARK PEARL Please exercise your independent, professional judgment in responding to the clarification form. Clinical indicators are provided on the bottom of this form for your review Please check appropriate box(s): kindly clarify the NSTEMI types; [ ] Type I NSTEMI [ XX ] Type II NSTEMI [ ] Other diagnosis [ ] Unable to determine CLINICAL INDICATORS - SIGNS / SYMPTOMS / LABS The patient again presenting with elevated troponin , diagnosed with NSTEMI- Documented in discharge summary on 01/01 by Mark Pearl Do Indeterminate troponin-Documented in cardiology progress note on 12/31 by Syed Hartman MD Troponin-0.091-Documented in cardiology progress note on 12/31 by Syed Hartman MD Non-ST- elevation myocardial infarction secondary to demand from elevated blood pressure -Documented in PN on 12/29 by Mansoor Jolly MD RISKS: CAD-Documented in cardiology progress note on 12/31 by Syed Hartman MD Hypertension emergency-Documented in cardiology progress note on 12/31 by Syed Hartman MD TREATMENTS: Placed on nitroglycerin drip and cardiology was consulted -Documented in discharge summary on 01/01 by Mark Pearl Do Aspirin 81 mg PO daily -Documented in medication snapshot [employer] Worker [employer] Reports Winform Viewer (This form is maintained as a part of the permanent medical record) 2014 [employer]. All Rights Reserved [email or web address] [phone] BALWINDER
== END 2020-01-02 13:23 | disposition home or self-care (01) | DRG 281 ==
LOC: ERS 19:56 → ERHOLD 12-29 02:27 → CCU 12-29 08:46 → 2NO 12-30 12:28
PROVIDERS: ADMIT Internal Medicine Sleep Medicine; ATTEND Internal Medicine
DX: I16.1 Hypertensive emergency (principal); I21.A1 Myocardial infarction type 2; N17.9 Acute kidney failure, unspecified; I25.110 Atherosclerotic heart disease of native coronary artery with unstable angina pectoris; I82.409 Acute embolism and thrombosis of unspecified deep veins of unspecified lower extremity; E11.43 Type 2 diabetes mellitus with diabetic autonomic (poly)neuropathy; K31.84 Gastroparesis; F90.9 Attention-deficit hyperactivity disorder, unspecified type; I48.0 Paroxysmal atrial fibrillation; E11.42 Type 2 diabetes mellitus with diabetic polyneuropathy; E78.5 Hyperlipidemia, unspecified; F41.9 Anxiety disorder, unspecified; D64.9 Anemia, unspecified; I10 Essential (primary) hypertension; Z91.041 Radiographic dye allergy status; Z90.49 Acquired absence of other specified parts of digestive tract; Z95.1 Presence of aortocoronary bypass graft; Z95.5 Presence of coronary angioplasty implant and graft; Z88.1 Allergy status to other antibiotic agents; Z88.8 Allergy status to other drugs, medicaments and biological substances; Z79.4 Long term (current) use of insulin; Z86.711 Personal history of pulmonary embolism; Z91.14 Patient's other noncompliance with medication regimen
CPT/HCPCS: 36415; 36416; 71045; 71275; 74176; 80048; 80053; 81001; 82550; 82553; 83690; 83735; 83880; 84443; 84484; 85025; 85027; 93005; 93010; 93306; 96361; 96365; 96366; 96375; 96376; J1170; J1200; J1815; J2270; J2550; J2930; J3480; J3490; J7512; Q9967; S0028

== ENCOUNTER 2020-03-13 22:47 | Inpatient (IN) | payer SELFPAY ==
[~2020-03-13 22:47] MED LIST changes: +Iopamidol 370 76% 100 ML VIAL ONE; -Iopamidol-370 76% 500 ML 1 ML ONE
[2020-03-13] MEDS ORDERED: diphenhydrAMINE 50 MG/ML VIAL ONE (23:38)
[2020-03-13] MEDS ORDERED: Famotidine/PF 20 mg/2ml Vial ONE (23:38)
[2020-03-13] MEDS ORDERED: methylPREDNISolone Sod Succ/PF 125 MG/2 ML VIAL ONE (23:38)
[2020-03-13 23:56] LABS: #Basophils 0.1 thou/uL (0.0-0.2); #Eosinphils 0.1 thou/uL (0.0-0.7); #Lymphocytes 1.5 thou/uL (1.20-3.40); #Monocytes 0.5 thou/uL (0.11-0.59); #Neutrophils 4.4 thou/uL (1.40-6.50); %Basophils 1.2 % (0.0-1.0); %Eosinophils 1.7 % (0.0-10.0); %Lymphocytes 22.6 % (21.0-51.0); %Monocytes 8.2 % (0.0-10.0); %Neutrophils 66.5 % (42.0-75.0); Hemoglobin 12.5 g/dL (14.0-18.0); Mean Corpuscular HGB CONC 33.1 g/dL (32.0-36.0); Mean Corpuscular Hemoglobin 28.5 pg (27.0-31.0); Mean Corpuscular Volume 86.2 fL (78.0-98.0); Mean Platelet Volume 7.7 fL (7.4-10.4); Platelet Count 263 thou/uL (130-400); RBC Distribution Width 13.5 % (11.5-14.5); White Blood Cell (WBC) Count 6.6 thou/uL (4.8-10.8)
[2020-03-13 23:59] LABS: ALT (SGPT) 8 U/L (8-55); AST (SGOT) 13 U/L (5-34); Albumin 3.9 g/dL (3.5-5.0); Alkaline Phosphatase 75 U/L (40-110); Anion Gap 14 mmol/L (10-20); BUN (Urea Nitrogen) 16 mg/dL (8.9-20.6); Bilirubin, Total 0.4 mg/dL (0.2-1.2); Calc. Creatinine Clearance 0 mL/min (70-130); Calcium 8.7 mg/dL (7.8-10.44); Carbon Dioxide 24 mmol/L (22-29); Chloride 105 mmol/L (98-107); Estimated GFR-MDRD 81; Globulin 2.7 g/dL (2.4-3.5); Glucose 260 mg/dL (70-105); Potassium 3.4 mmol/L (3.5-5.1); Protein, Total 6.6 g/dL (6.0-8.3); Sodium 140 mmol/L (136-145)
[2020-03-14 00:26] LABS: CKMB 2.4 ng/mL (0-6.6)
[2020-03-14] MEDS ORDERED: Nitroglycerin 0.4 MG TAB (25 Tab Bottle) PO PRN (01:27)
[2020-03-14] MEDS ORDERED: Dextrose 50% Abboject 50 ML SYRINGE SLOW IVP PRN (01:30)
[2020-03-14] MEDS ORDERED: Dextrose 5% in Water 1,000 ML IV PRN (01:30)
[2020-03-14] MEDS ORDERED: HumaLOG 300 UNITS/3 ML VIAL SC PRN (01:30)
[2020-03-14] MEDS ORDERED: Morphine 2 MG/ML SYRINGE SLOW IVP PRN (01:30)
[2020-03-14] MEDS ORDERED: Acetaminophen 325 MG TAB PO PRN (01:31)
--- NOTE | 2020-03-14 01:40 | PDOC.HHP ---
Hospitalist HPI - History of Present Illness Chest pain, high blood sugar History of Present Illness: PCP: Axel Hurst The patient is a 44/M with PMH significant for CAD (6 stents), PR x 5 (last ), CABG x 4 (03/12), Bilateral PE (03/13), afib, HTN, HLD, DMI (non compliant) that presents to the ER for the above complaint. The patient reports developing substernal chest pain at 1700 while sitting at home, radiating to bilateral chest, describes as pressure, dull, aching, 10/10, exacerbated by movements, relieved by nothing, with associated ZAMBRANO, light headedness, nausea and diaphoresis. Also reports elevated blood sugars for the past several days, averaging 600-700 blood glucose with associated polyuria, polydypsia and polyphagia. Denies any recent fever or chills. Reports compliance with insulin regimen. The patient called EMS for above reasons. ED Course: EKG sinus tachycardia, 115 bpm with t wave inversions in V1-V3 Trop .252, CKMB 2.4, BNP 31.5 CXR negative acute process CTA pending Beta-hydroxy 1.00 GAP 14, LA 1.1 UA trace ketones Given: ASA 324mg morphine 4mg Novolin 10u IVP Diphenhydramine, methylprednisolone, pepcid, 1L NS Allergies: Iodine, Zosyn Home Medications: unable to reconcile at bedside Hospitalist ROS - Review of Systems Constitutional: denies: fever, chills, sweats, weakness, malaise, other Eyes: denies: pain, vision change, conjunctivae inflammation, eyelid inflammation, redness, other ENT: denies: ear pain, ear discharge, nose pain, nose discharge, nose congestion , mouth pain, mouth swelling, throat pain, throat swelling, other Respiratory: reports: SOB with excertion. denies: cough, hemoptysis, pleuritic pain, sputum, wheezing Cardiovascular: reports: chest pain, light headedness. denies: palpitations, orthopnea, paroxysmal noc. dyspnea, edema Gastrointestinal: reports: nausea. denies: vomiting, abdominal pain, diarrhea, constipation, melena, hematochezia Genitourinary: reports: frequency. denies: dysuria, incontinence, hematuria, retention Musculoskeletal: denies: back pain Skin: denies: lesions, bruising Neurological: denies: weakness, numbness, incoordination, change in speech, confusion Hospitalist History - Past Medical History Cardiac: reports: CAD, HTN, Hyperlipidemia Pulmonary: reports: pulmonary embolism (bilateral) Gastrointestinal: reports: Other (bowel obstruction) Endocrine: reports: Diabetes (type I, noncompliant) - Past Surgical History Past Surgical History: reports: Appendectomy, Cholecystectomy, CABG ((02/2018)), Other (CAD x6) - Family History Family History: reports: cardiac disorder, diabetes mellitus - Social History Smoking Status: Never smoker Alcohol: reports: None Drugs: reports: none Living Situation: Alone 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[place], 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 Activity level: independent ambulation - Exam General Appearance: awake alert General - other findings: Mild distress secondary to pain ENT: normocephalic atraumatic Neck: supple, no JVD Heart: RRR, no murmur, no gallops, no rubs, normal peripheral pulses Respiratory: no wheezes, no rales, no ronchi, no tachypnea Respiratory - other findings: distant breath sounds in BLL Gastrointestinal: soft, normal bowel sounds, no guarding, no rigidity Extremities: no cyanosis, no edema Neurological: no focal deficits Psychiatric: normal affect, A&O x 3 Hospitalist Results - Labs Result Diagrams: 03/14/20 02:12 03/14/20 02:12 Lab results: WBC 6.6 thou/uL (4.8-10.8) 03/13/20 23:22 Hgb 12.5 g/dL (14.0-18.0) L 03/13/20 23:22 Hct 37.9 % (42.0-52.0) L 03/13/20 23:22 MCV 86.2 fL (78.0-98.0) 03/13/20 23:22 Plt Count 263 thou/uL (130-400) 03/13/20 23:22 Neutrophils % 66.5 % (42.0-75.0) 03/13/20 23:22 Sodium 140 mmol/L (136-145) 03/13/20 23:22 Potassium 3.4 mmol/L (3.5-5.1) L 03/13/20 23:22 Chloride 105 mmol/L (98-107) 03/13/20 23:22 Carbon Dioxide 24 mmol/L (22-29) 03/13/20 23:22 BUN 16 mg/dL (8.9-20.6) 03/13/20 23:22 Creatinine 1.01 mg/dL (0.7-1.3) 03/13/20 23:22 Glucose 260 mg/dL (70-105) H 03/13/20 23:22 Lactic Acid 1.1 mmol/L (0.5-2.2) 03/13/20 23:22 Calcium 8.7 mg/dL (7.8-10.44) 03/13/20 23:22 Total Bilirubin 0.4 mg/dL (0.2-1.2) 03/13/20 23:22 AST 13 U/L (5-34) 03/13/20 23:22 ALT 8 U/L (8-55) 03/13/20 23:22 Alkaline Phosphatase 75 U/L (40-110) 03/13/20 23:22 CK-MB (CK-2) 2.4 ng/mL (0-6.6) 03/13/20 23:22 Troponin I 0.556 ng/mL (< 0.028) H* 03/13/20 23:22 B-Natriuretic Peptide 31.5 pg/mL (0-100) 03/13/20 23:22 Serum Total Protein 6.6 g/dL (6.0-8.3) 03/13/20 23:22 Albumin 3.9 g/dL (3.5-5.0) 03/13/20 23:22 - EKG Interpretation EKG: sinus tachycardia with t wave inversions V1-V3 - Radiology Interpretation Chest x-ray Status: report reviewed by sc Hospitalist H&P A/P - Problem (1) NSTEMI (non-ST elevated myocardial infarction) Code(s): I21.4 - NON-ST ELEVATION (NSTEMI) MYOCARDIAL INFARCTION Status: Acute Assessment and Plan: Admit to telemetry floor, inpatient status Expected length of stay at least [address], t-wave inversions V1-V3, trop 0.556, BNP 31.[address] Mckeon consulted by ER physician, Recommend medical managment ASA, plavix, eliquis, morphine, patient refuses nitropaste Will trend trops Will order echocardiogram Consult cardiology Check TSH, mag and FLP NPO (2) Hyperglycemia Code(s): R73.9 - HYPERGLYCEMIA, UNSPECIFIED Status: Acute Assessment and Plan: BS 519, given 10u insulin in ER Currently BS 260 GAP closed, UA trace ketones, not acidotic Reports taking Basalgar 60u am and 50u q hs Takes humalog U-100 20u TID with meals Will start aggressive sliding scale Will hold home dose insulin for now, patient is NPO AC/HS accuchecks (3) DM type 2 (diabetes mellitus, type 2) Status: Chronic Qualifiers: Diabetes mellitus intermediate designer insulin use: with custodial use Diabetes mellitus complication status: with neurologic complications Diabetes mellitus complication detail: with polyneuropathy Qualified Code(s): E11.42 - Type 2 diabetes mellitus with diabetic polyneuropathy; Z79.4 - senior care (current) use of insulin Assessment and Plan: history of non compliance Will get HA1C will hold home insulin dosing for now AC/HS accuchecks aggressive sliding scale (4) Dyslipidemia Code(s): E78.5 - HYPERLIPIDEMIA, UNSPECIFIED Status: Chronic Assessment and Plan: Will restart crestor 10mg BID per home dose regimen Will obtain FLP (5) HTN (hypertension) Code(s): I10 - ESSENTIAL (PRIMARY) HYPERTENSION Status: Chronic Qualifiers: Hypertension type: essential hypertension Qualified Code(s): I10 - Essential (primary) hypertension Assessment and Plan: Will restart home metoprolol tartrate 100mg BID Will monitor blood pressure (6) History of pulmonary embolism Code(s): Z86.711 - PERSONAL HISTORY OF PULMONARY EMBOLISM Status: Chronic Assessment and Plan: Patient on eliquis 5mg BID will restart anticoagulation (7) Obesity (BMI 30.0-34.9) Code(s): E66.9 - OBESITY, UNSPECIFIED Status: Chronic - Plan Plan: PT consultation Protonix GI prophylaxis NO DVT prophylaxis Full Code Medical decision maker is Violet Card at [phone] Eugene
[2020-03-14 02:40] LABS: #Basophils 0.1 thou/uL (0.0-0.2); #Lymphocytes 0.7 thou/uL (1.20-3.40); #Monocytes 0.1 thou/uL (0.11-0.59); #Neutrophils 6.4 thou/uL (1.40-6.50); %Basophils 0.9 % (0.0-1.0); %Eosinophils 0.6 % (0.0-10.0); %Lymphocytes 9.7 % (21.0-51.0); %Monocytes 1.8 % (0.0-10.0); %Neutrophils 86.9 % (42.0-75.0); Hemoglobin 12.4 g/dL (14.0-18.0); Mean Corpuscular HGB CONC 33.1 g/dL (32.0-36.0); Mean Corpuscular Hemoglobin 28.7 pg (27.0-31.0); Mean Corpuscular Volume 86.7 fL (78.0-98.0); Mean Platelet Volume 7.9 fL (7.4-10.4); Platelet Count 246 thou/uL (130-400); RBC Distribution Width 13.4 % (11.5-14.5); Red Blood Cell (RBC) Count 4.32 mill/uL (4.70-6.10); White Blood Cell (WBC) Count 7.3 thou/uL (4.8-10.8)
[2020-03-14 02:59] LABS: Anion Gap 14 mmol/L (10-20); BUN (Urea Nitrogen) 16 mg/dL (8.9-20.6); Calc. Creatinine Clearance 121 mL/min (70-130); Calcium 8.6 mg/dL (7.8-10.44); Carbon Dioxide 24 mmol/L (22-29); Cardiac Risk 8.9 (Less than 4.5); Chloride 105 mmol/L (98-107); Cholesterol 293 mg/dl (< 200 Desired); Estimated GFR-MDRD 79; Glucose 364 mg/dL (70-105); HDL Cholesterol 33 mg/dL (>60 Neg Risk); LDL Cholesterol, Calculated 217 mg/dL; Sodium 139 mmol/L (136-145); Triglycerides 213 mg/dL (Less than 150)
[2020-03-14 03:01] LABS: Troponin I 0.717 ng/mL (< 0.028)
--- NOTE | 2020-03-14 03:04 | PDOC.EVN ---
Event Note - Event Note Event Note: This patient's records were reviewed. Patient was examined. At the time of my exam the patient was continuing to report some chest pain. Lab was present to draw another set of enzymes. The patient does generally appear uncomfortable. Heart and lung exam were otherwise normal. His repeat EKG shows resolution of the ST segment changes present on his initial EKG in the emergency department. This patient is presenting with chest pain. He has a significant cardiac history. He had some ST segment depression which was relatively mild on anterior leads on his initial EKG which are now resolved. He also had slight increase in his troponin to 0.5. Third set is pending. Unfortunately this patient has a history of noncompliance with his medications. He also has a chronic pain syndrome and was requesting pain medications before the ER physician could ask his first question. He is refusing nitroglycerin and only wants morphine. Typically a patient in the setting with persistent chest pain would warrant a more urgent evaluation by cardiology. I know this case was discussed with the fabric machine operator and the ER physician as I overheard the conversation myself. Given his chronic pain syndrome and refusal for nitroglycerin and the resolution of his EKG findings I believe it is reasonable to follow with the recommendations of cardiology initially to continue to try to manage this best we can medically.
[2020-03-14] MEDS: HumaLOG 300 UNITS/3 ML VIAL SC PRN ×3 (03:10→20:57)
[2020-03-14 03:14] LABS: Hemoglobin A1c 13.2 % (4.0-6.0)
--- NOTE | 2020-03-14 03:22 | PDOC.EVN ---
Event Note - Event Note Event Note: Patient was reassessed. He reports now that he is having 7 out of 10 chest pain. This is after taking 2 mg of morphine. After discussing the situation with him he is now willing to take the nitroglycerin. We will give him a sublingual and start an inch of Nitropaste. If he does not have significant improvement with the nitroglycerin will consider calling cardiology.
[2020-03-14] MEDS ORDERED: Nitroglycerin 0.4 MG TAB (25 Tab Bottle) SL SCH (03:30)
[2020-03-14] MEDS ORDERED: Nitroglycerin 2% Ointment 1 INCH/1 GM Packet TOP SCH (03:30)
--- NOTE | 2020-03-14 04:18 | PDOC.EVN ---
Event Note - Event Note Event Note: Patient did not have improvement with nitroglycerin either sublingual or with the paste. Discussed the case with Dr. Mckeon. Patient has had multiple visits here and reviewing his record is challenging. It appears he did have a heart cath in July here. It does not appear as though he had any interventions at that time. Patient is under the impression he had a heart cath in September with angioplasty but no stent. Per Dr. Mckeon recommendation we will keep him n.p.o. Will give morphine. She will notify Dr. Dobbins to see the patient first thing this morning. It appears as though he has had the most contact with this patient.
[2020-03-14] MEDS ORDERED: Sodium Chloride 0.9% 500 ML IVPB SCH (04:30)
[2020-03-14] MEDS ORDERED: HumaLOG 300 UNITS/3 ML VIAL SC SCH (06:15)
[2020-03-14] MEDS: Morphine 2 MG/ML SYRINGE SLOW IVP PRN ×4 (06:27→18:58)
--- NOTE | 2020-03-14 07:48 | CT ---
PRELIMINARY REPORT/[facility]/EMERGENCY AFTER HOURS PROCEDURE: EXAM: CTA Chest with Intravenous Contrast CLINICAL HISTORY: CHEST PAIN; tachycardia, hx of PE TECHNIQUE: Axial CTA images of the chest with intravenous contrast. MIP reconstructed images were cre ated and reviewed. 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 AORTA No thoracic aortic aneurysm or dissection. LUNGS The lungs are clear. No pulmonary mass. No focal airspace consolidation. PLEURAL SPACES No pleural effusion. No pneumothorax. HEART AND MEDIASTINUM Mild cardiomegaly. Right-sided central line tip in SVC. Subcentimeter hypodens ities in the left thyroid lobe, unchanged in appearance compared prior. LYMPH NODES No lymphadenopathy. BONES No focal osseous abnormality or acute fracture. Status post median sternotomy. CHEST WALL AND UPPER ABDOMEN Status post cholecystectomy. IMPRESSION: No pulmonary embolism. No thoracic aortic aneurysm or dissection. ELECTRONICALLY SIGNED BY: Caroline Fay MD March 14, 2020 12:43:04 AM CDT FINAL REPORT EMERGENT AFTER HOURS CT ANGIOGRAM THORAX WITH IV CONTRAST AND 3D RECONSTRUCTION: HISTORY: Chest pain, tachycardia. COMPARISON: 01/26/2020. IMPRESSION: 1. No filling defects within the pulmonary arteries to suggest a pulmonary embolus. 2. Thoracic aorta is normal in caliber without evidence of an aortic dissection. 3. Mild cardiomegaly. 4. Right subclavian central venous catheter in place with tip in right atrium. 5. Subcentimeter hypodense lesions left lobe of thyroid gland unchanged compared to prior study and a lso seen on study of 12/29/2019. 6. Findings are agreement with preliminary report by [facility]. Transcribed Date/Time: 03/14/2020 8:12 AM
[2020-03-14 08:27] LABS: Troponin I 0.656 ng/mL (< 0.028)
[2020-03-14] MEDS: Aspirin 81 mg Enteric Coated Tablet PO SCH (08:37)
[2020-03-14] MEDS: busPIRone HCl 5 MG TAB PO SCH ×2 (08:37→20:55)
[2020-03-14] MEDS: Metoprolol Tartrate 50 MG TAB PO SCH ×2 (08:37→20:56)
[2020-03-14] MEDS ORDERED: Clopidogrel Bisulfate 75 MG TAB PO SCH (09:00)
[2020-03-14] MEDS ORDERED: Apixaban 5 MG TAB PO SCH (09:00)
[2020-03-14] MEDS ORDERED: Metoprolol Tartrate 100 MG TAB PO SCH (09:00)
[2020-03-14] MEDS ORDERED: Rosuvastatin 20 MG TAB PO SCH (09:00)
[2020-03-14] MEDS ORDERED: Lisinopril/Hydrochlorothiazide 20/25 mg Tablet PO SCH (09:00)
[2020-03-14] MEDS: Nitroglycerin 0.4 MG TAB (25 Tab Bottle) SL PRN ×2 (09:08→09:16)
[2020-03-14] MEDS: Aspirin 325 mg Enteric Coated Tablet PO SCH (09:27)
[2020-03-14] MEDS: Clopidogrel Bisulfate 75 MG TAB PO SCH (09:27)
[2020-03-14] MEDS: HYDROcodone/Acetaminophen 5/325 mg Tablet PO PRN (09:27)
[2020-03-14] MEDS: Rosuvastatin 20 MG TAB PO SCH ×2 (09:27→20:55)
[2020-03-14] MEDS ORDERED: Potassium Chloride 40 MEQ in Sodium Chloride 0.9% 250 ML 250 ML IVPB SCH (10:30)
[2020-03-14 10:53] LABS: Hemoglobin 13.5 g/dL (14.0-18.0); Platelet Count 197 thou/uL (130-400)
--- NOTE | 2020-03-14 11:08 | CON ---
DATE OF CONSULTATION: HISTORY OF PRESENT ILLNESS: The patient is a 44-year-old gentleman with a long history of coronary artery disease, who presents with recurrent chest discomfort. The patient has a long history of severe coronary artery disease. He has a history of coronary artery bypass graft surgery and multiple stents placed. He was seen initially here in 07/2019. He was found to have diffuse coronary artery disease. The ARIAS was patent, his graft to the OM was atretic, and his graft to the right coronary artery was patent. The patient was rehospitalized a month later with recurrent chest discomfort. He had been felt to be noncompliant with his medical therapy. He was seen in December once again with recurrent chest discomfort. He was placed on medical therapy. The patient did not come for follow up. He states he was in his usual state of health, when he noticed that his blood sugars were markedly elevated. He felt weak and started developing substernal chest discomfort. The patient reports that he has had a persistent left-sided chest discomfort. The patient was noted to have an elevated troponin and admitted for further evaluation. PAST MEDICAL HISTORY: 1. Coronary artery disease. 2. Hypertension. 3. Dyslipidemia. 4. History of pulmonary embolus. 5. History of deep venous thrombosis. 6. Diabetes mellitus. 7. Anxiety disorder. PAST SURGICAL HISTORY: 1. Coronary artery bypass surgery. 2. Back surgery. 3. Appendectomy. 4. Cholecystectomy. ALLERGIES: IODINE, REGLAN, ZOSYN, ZOFRAN, TORADOL, AND PIPERACILLIN. SOCIAL HISTORY: Nonsmoker. MEDICATIONS: See nursing list. PHYSICAL EXAMINATION: GENERAL: This is a well-developed gentleman, in mild distress. VITAL SIGNS: Blood pressure 106/60 and heart rate was 107. NECK: No jugular venous distention. LUNGS: Clear to auscultation. HEART: Regular rate and rhythm. Normal S1 and S2. ABDOMEN: Distended. EXTREMITIES: No edema. VASCULAR: Radial pulses 2+. LABORATORY DATA: Sodium 139, potassium 4.0, chloride 105, bicarbonate 24, BUN 16, creatinine 1.0, and glucose 364. Troponin was 0.717 and MB was 2.4. Cholesterol is 293. White blood cell count was 7.3, hematocrit 12.4, hematocrit 37.5, and platelets 246. EKG revealed sinus tachycardia, nonspecific T-wave abnormality. IMPRESSION: 1. Chest pain. 2. Diffuse coronary artery disease. 3. History of coronary artery bypass surgery. 4. History of multiple percutaneous transluminal coronary angioplasty and stent placements. 5. Dyslipidemia. 6. Hypertension. 7. History of deep venous thrombosis. PLAN: This gentleman has been on multiple occasions and has well-known persistent chest discomfort. From a cardiac standpoint, he has diffuse disease. He has minimal elevation of his troponin with a normal MB. He has undergone multiple caths some very recently. I would recommend that he be placed on medical therapy. The patient has been noncompliant with followup and needs to have appropriate treatment of his dyslipidemia. We will increase the dose of his Crestor. We will treat the patient with Lovenox. We will follow this patient with you through his hospitalization. Job ID: [id number] MTDD
[2020-03-14] MEDS ORDERED: Insulin Glargine 30 UNITS in Pre-Filled Syringe SC SCH (13:45)
[2020-03-14] MEDS ORDERED: Enoxaparin Sodium 100 MG/ML SYRINGE SC SCH (13:45)
[2020-03-14 14:34] LABS: Hemoglobin 12.3 g/dL (14.0-18.0); Platelet Count 266 thou/uL (130-400)
[2020-03-14 15:00] LABS: CKMB 3.4 ng/mL (0-6.6)
[2020-03-14 15:07] LABS: Troponin I 0.596 ng/mL (< 0.028)
[2020-03-14 15:08] LABS: CKMB 3.4 ng/mL (0-6.6)
--- NOTE | 2020-03-14 15:29 | EKG ---
Test Reason : EMERGENCY EXAM Blood Pressure : / mmHG Vent. Rate : 114 BPM Atrial Rate : 114 BPM P-R Int : 134 ms QRS Dur : 086 ms QT Int : 350 ms P-R-T Axes : 074 033 082 degrees QTc Int : 482 ms Sinus tachycardia Inferior-posterior infarct , age undetermined Anterior ischemia Abnormal ECG Confirmed by JOCELINE DEAN, CARIN Barreto ([id number]), school photograph editor TYRON CARTAGENA ([id number]) on 03/14/2020 3:29:46 PM Referred By: Confirmed By:CARIN CAR MD
[2020-03-14] MEDS: HumaLOG 300 UNITS/3 ML VIAL SC SCH (16:08)
[2020-03-14] MEDS: Enoxaparin Sodium 100 MG/ML SYRINGE SC SCH (20:56)
[2020-03-14] MEDS: DULoxetine 60 MG CAP PO SCH (20:56)
[2020-03-14] MEDS ORDERED: Enoxaparin Sodium 80 MG/0.8 ML SYRINGE SC SCH (21:00)
[2020-03-14] MEDS: Promethazine HCl 12.5 MG in Sodium Chloride 0.9% 50 ML IVPB PRN (21:34)
--- NOTE | 2020-03-14 22:11 | EKG ---
Test Reason : STAT Blood Pressure : / mmHG Vent. Rate : 095 BPM Atrial Rate : 095 BPM P-R Int : 148 ms QRS Dur : 086 ms QT Int : 372 ms P-R-T Axes : 076 026 081 degrees QTc Int : 467 ms Normal sinus rhythm Possible Left atrial enlargement Possible Inferior infarct , age undetermined Abnormal ECG When compared with ECG of 29-DEC-2019 14:22, Borderline criteria for Inferior infarct are now Present Confirmed by Jhony MARKS ([id number]) on 03/14/2020 10:11:27 PM Referred By: KRYS OLIVO Confirmed By:Jhony MARKS
--- NOTE | 2020-03-14 22:11 | EKG ---
Test Reason : Blood Pressure : / mmHG Vent. Rate : 102 BPM Atrial Rate : 102 BPM P-R Int : 138 ms QRS Dur : 086 ms QT Int : 354 ms P-R-T Axes : 078 063 076 degrees QTc Int : 461 ms Sinus tachycardia Nonspecific ST abnormality Abnormal ECG When compared with ECG of 14-MAR-2020 02:12, (Unconfirmed) No significant change was found Confirmed by Jhony MARKS ([id number]) on 03/14/2020 10:11:41 PM Referred By: GEOVANI Confirmed By:Jhony MARKS
[2020-03-15] MEDS: Morphine 2 MG/ML SYRINGE SLOW IVP PRN ×6 (01:35→22:41)
[2020-03-15 04:41] LABS: Anion Gap 17 mmol/L (10-20); BUN (Urea Nitrogen) 19 mg/dL (8.9-20.6); Calc. Creatinine Clearance 108 mL/min (70-130); Calcium 8.4 mg/dL (7.8-10.44); Carbon Dioxide 20 mmol/L (22-29); Chloride 107 mmol/L (98-107); Estimated GFR-MDRD 69; Glucose 258 mg/dL (70-105); Magnesium 2.1 mg/dL (1.6-2.6); Potassium 5.5 mmol/L (3.5-5.1); Sodium 138 mmol/L (136-145)
[2020-03-15] MEDS: HumaLOG 300 UNITS/3 ML VIAL SC PRN (06:17)
[2020-03-15] MEDS: HumaLOG 300 UNITS/3 ML VIAL SC SCH ×3 (08:59→18:02)
[2020-03-15] MEDS: Enoxaparin Sodium 100 MG/ML SYRINGE SC SCH ×2 (09:01→20:38)
[2020-03-15] MEDS: Aspirin 81 mg Enteric Coated Tablet PO SCH (09:02)
[2020-03-15] MEDS: Rosuvastatin 20 MG TAB PO SCH ×2 (09:02→20:39)
[2020-03-15] MEDS: Aspirin 325 mg Enteric Coated Tablet PO SCH (09:03)
[2020-03-15] MEDS: busPIRone HCl 5 MG TAB PO SCH ×2 (09:03→20:39)
[2020-03-15] MEDS: Metoprolol Tartrate 50 MG TAB PO SCH ×2 (09:03→20:38)
[2020-03-15] MEDS: Clopidogrel Bisulfate 75 MG TAB PO SCH (09:03)
[2020-03-15] MEDS: Insulin Glargine 30 UNITS in Pre-Filled Syringe SC SCH (09:10)
[2020-03-15] MEDS ORDERED: Insulin Regular 300 UNITS/3 ML VIAL IVP STA (09:32)
[2020-03-15] MEDS ORDERED: Gabapentin 100 MG CAP PO SCH ×4 (10:00→21:00)
[2020-03-15] MEDS ORDERED: Sodium Chloride 0.9% 10 ML ONE ×2 (13:50→18:35)
[2020-03-15] MEDS: Promethazine HCl 12.5 MG in Sodium Chloride 0.9% 50 ML IVPB PRN ×2 (13:51→20:38)
[2020-03-15] MEDS ORDERED: Gabapentin 300 MG CAP PO SCH (15:00)
[2020-03-15] MEDS: HYDROcodone/Acetaminophen 5/325 mg Tablet PO PRN (16:33)
[2020-03-15] MEDS ORDERED: Baclofen 10 MG TAB PO SCH (19:00)
[2020-03-15] MEDS: Baclofen 10 MG TAB PO SCH (20:38)
[2020-03-15] MEDS: DULoxetine 60 MG CAP PO SCH (20:39)
--- NOTE | 2020-03-15 20:44 | PDOC.HOSPP ---
- Subjective Encounter Date: 03/15/20 Encounter Time: 09:00 Subjective: this morning, complains of intractable hiccups and persistent midsternal pain. Otherwise no complaints. - Objective Vital Signs & Weight: Vital Signs (12 hours) Temp Pulse Resp BP BP Pulse Ox 03/15/20 19:13 97.9 F 75 14 111/61 98 03/15/20 16:30 97.9 F 72 18 95/54 L 94 L 03/15/20 11:33 98.4 F 76 18 92/51 L 95 03/15/20 08:50 97.7 F 84 18 107/64 96 Weight Weight 202 lb I&O: 03/14/20 03/15/20 03/16/20 06:59 06:59 06:59 Intake Total 900 1200 Output Total 1800 Balance -900 1200 Result Diagrams: 03/14/20 14:26 03/15/20 04:15 Additional Labs: Accuchecks 03/15/20 03/15/20 03/15/20 16:50 11:17 05:42 POC Glucose 116 H 196 H 331 H 03/14/20 20:37 POC Glucose 263 H Hospitalist ROS - Review of Systems Constitutional: denies: fever, chills, sweats, weakness, malaise, other Respiratory: denies: cough, dry, shortness of breath, hemoptysis, SOB with excertion, pleuritic pain, sputum, wheezing, other Cardiovascular: reports: chest pain. denies: palpitations, orthopnea, paroxysmal noc. dyspnea, edema, light headedness, other Gastrointestinal: denies: nausea, vomiting, abdominal pain, diarrhea, constipation, melena, hematochezia, other (hiccups) - Medication Medications: Active Medications Generic Name Dose Route Start Last Admin Trade Name Freq PRN Reason Stop Dose Admin Hydrocodone Bitart/Acetaminophen 1 tab 03/14/20 01:31 03/15/20 16:33 Hickman 5/325 PO 1 tab Q4H PRN Administration Moderate Pain (4-6) Aspirin 81 mg 03/14/20 09:00 03/15/20 09:02 Ecotrin PO 81 mg DAILY [facility] Administration Baclofen 5 mg 03/15/20 21:00 03/15/20 20:38 Lioresal PO 5 mg TID [facility] Administration Buspirone HCl 5 mg 03/14/20 09:00 03/15/20 20:39 Buspar PO 5 mg BID [facility] Administration Clopidogrel Bisulfate 75 mg 03/14/20 09:00 03/15/20 09:03 Plavix PO 75 mg DAILY [facility] Administration Divalproex Sodium 500 mg 03/14/20 09:00 03/15/20 09:02 Depakote Er PO 500 mg DAILY [facility] Administration Duloxetine HCl 60 mg 03/14/20 21:00 03/15/20 20:39 Cymbalta PO 60 mg HS [facility] Administration Enoxaparin Sodium 90 mg 03/14/20 21:00 03/15/20 20:38 Lovenox SC 90 mg 0900,2099 [facility] Administration Insulin Glargine 30 units/ 0.3 mls @ 0 mls/hr 03/15/20 09:00 03/15/20 09:10 Miscellaneous Medication SC 0.3 mls QAM [facility] Administration Promethazine HCl 12.5 mg/ 50.5 mls @ 202 mls/hr 03/14/20 20:38 03/15/20 20:38 Sodium Chloride IVPB 50.5 mls Q6H PRN Administration Nausea/Vomiting Insulin Human Lispro 0 units 03/14/20 01:30 03/14/20 20:57 Humalog SC 3 unit .BEDTIME SLIDING SC PRN Administration Bedtime Correctional Scale Insulin Human Lispro 10 units 03/14/20 17:00 03/15/20 18:02 Humalog SC Not Given TID-WM [facility] Insulin Human Lispro 0 units 03/14/20 13:33 03/15/20 06:17 Humalog SC 8 unit .MODERATE SLIDING SC PRN Administration Moderate Correctional Scale Isosorbide Mononitrate 60 mg 03/14/20 09:00 03/15/20 09:02 Imdur PO 60 mg DAILY [facility] Administration Metoprolol Tartrate 50 mg 03/14/20 09:00 03/15/20 20:38 Lopressor PO 50 mg BID [facility] Administration Morphine Sulfate 4 mg 03/14/20 04:14 03/15/20 18:37 Morphine SLOW IVP 4 mg Q4H PRN Administration Pain Nitroglycerin 0.4 mg 03/14/20 05:38 03/14/20 09:16 Nitrostat SL 0.4 mg Q5MIN PRN Administration Chest Pain Pantoprazole Sodium 40 mg 03/14/20 09:00 03/15/20 20:38 Protonix PO 40 mg BID [facility] Administration Ranolazine 500 mg 03/14/20 09:00 03/15/20 20:38 Ranexa PO 500 mg BID [facility] Administration Rosuvastatin Calcium 20 mg 03/14/20 09:00 03/15/20 20:39 Crestor PO 20 mg BID [facility] Administration Sodium Chloride 10 ml 03/14/20 09:00 03/15/20 09:03 Flush - Normal Saline IVF 10 ml Q12HR [facility] Administration - Exam General Appearance: awake alert General - other findings: mild distress due to chest pain Eye: PERRL, anicteric sclera Neck: no JVD Heart: RRR, no murmur, no gallops, no rubs Respiratory: CTAB, no wheezes, no rales, no ronchi Gastrointestinal: soft, non-tender, non-distended, normal bowel sounds Psychiatric: normal affect, normal behavior, A&O x 3 Hosp A/P - Plan #NSTEMI -continue medical management per cardiology due to diffuse vessel disease; morphine PRN pain -changed promothazine IV to oral zofran to reduce propensity for arryhtmias in context of ACS #intractable hiccups -likely due to ACS -started gabapentin; endorsed some relief; stopped gabapentin, started baclofen low dose due to borderline hypotension #hyperkalemia -has been receiving scheduled insulin for T2DM; avoided kayexalate since has nausea, which may be worsened; -repeat K; can give insulin and bicarb PRN ELOS: 2 midnights
[2020-03-15] MEDS ORDERED: Ondansetron ORAL SOLN. 4 MG/5 ML UDCUP PO PRN (20:56)
[2020-03-15] MEDS ORDERED: Prochlorperazine Maleate 5 MG TAB PO PRN (21:22)
[2020-03-15 21:30] LABS: Potassium 4.2 mmol/L (3.5-5.1)
--- NOTE | 2020-03-16 00:24 | PDOC.EVN ---
Event Note - Event Note Event Note: Notified by RN patient with persistent hiccups despite baclofen and now experiencing nausea. Zofran ordered however patient has a documented allergy to Zofran. I have discontinued this order. One time dose for Compazine 5 mg PO ordered. No standing order for anti-emetics written.
[2020-03-16] MEDS: Morphine 2 MG/ML SYRINGE SLOW IVP PRN ×5 (03:15→20:24)
[2020-03-16 05:00] LABS: Anion Gap 12 mmol/L (10-20); BUN (Urea Nitrogen) 16 mg/dL (8.9-20.6); Calc. Creatinine Clearance 139 mL/min (70-130); Calcium 8.4 mg/dL (7.8-10.44); Carbon Dioxide 23 mmol/L (22-29); Chloride 105 mmol/L (98-107); Estimated GFR-MDRD Greater than 90; Glucose 129 mg/dL (70-105); Potassium 4.2 mmol/L (3.5-5.1); Sodium 136 mmol/L (136-145)
[2020-03-16] MEDS: HumaLOG 300 UNITS/3 ML VIAL SC SCH ×3 (08:54→17:41)
[2020-03-16] MEDS: Promethazine HCl 12.5 MG in Sodium Chloride 0.9% 50 ML IVPB PRN ×2 (08:59→18:17)
[2020-03-16] MEDS: Baclofen 10 MG TAB PO SCH (09:04)
[2020-03-16] MEDS: Aspirin 81 mg Enteric Coated Tablet PO SCH (09:04)
[2020-03-16] MEDS: Clopidogrel Bisulfate 75 MG TAB PO SCH (09:05)
[2020-03-16] MEDS: Enoxaparin Sodium 100 MG/ML SYRINGE SC SCH ×2 (09:05→20:19)
[2020-03-16] MEDS: busPIRone HCl 5 MG TAB PO SCH ×2 (09:05→20:19)
[2020-03-16] MEDS: Insulin Glargine 30 UNITS in Pre-Filled Syringe SC SCH (09:06)
[2020-03-16] MEDS: Metoprolol Tartrate 50 MG TAB PO SCH ×2 (09:06→20:20)
[2020-03-16] MEDS: Rosuvastatin 20 MG TAB PO SCH ×2 (09:06→20:20)
[2020-03-16] MEDS ORDERED: chlorproMAZINE HCl 25 MG TAB PO PRN (11:07)
--- NOTE | 2020-03-16 11:09 | PDOC.HOSPP ---
- Subjective Encounter Date: 03/16/20 Encounter Time: 08:00 Subjective: no overnight events. This morning, complains of continued hiccups despite trying gabapentin and baclofen. Also endorses mild substernal pressure - Objective Vital Signs & Weight: Vital Signs (12 hours) Temp Pulse Resp BP Pulse Ox 03/16/20 07:25 98.0 F 89 16 130/78 98 03/16/20 03:24 98.0 F 85 14 123/69 97 Weight Weight 202 lb I&O: 03/15/20 03/16/20 03/17/20 06:59 06:59 06:59 Intake Total 900 2020 Output Total 1800 900 Balance -900 1120 Result Diagrams: 03/14/20 14:26 03/16/20 04:17 Additional Labs: Accuchecks 03/16/20 03/16/20 03/16/20 08:57 08:10 06:07 POC Glucose 152 H 142 H 135 H 03/15/20 03/15/20 03/15/20 20:45 16:50 11:17 POC Glucose 147 H 116 H 196 H Hospitalist ROS - Review of Systems Constitutional: denies: fever, chills, sweats, weakness, malaise, other Respiratory: reports: other (hiccups). denies: cough, dry, shortness of breath , hemoptysis, SOB with excertion, pleuritic pain, sputum, wheezing Cardiovascular: reports: chest pain. denies: palpitations, orthopnea, paroxysmal noc. dyspnea, edema Gastrointestinal: denies: nausea, vomiting, abdominal pain - Medication Medications: Active Medications Generic Name Dose Route Start Last Admin Trade Name Patrickq PRN Reason Stop Dose Admin Aspirin 81 mg 03/14/20 09:00 03/16/20 09:04 Ecotrin PO 81 mg DAILY [facility] Administration Buspirone HCl 5 mg 03/14/20 09:00 03/16/20 09:05 Buspar PO 5 mg BID [facility] Administration Clopidogrel Bisulfate 75 mg 03/14/20 09:00 03/16/20 09:05 Plavix PO 75 mg DAILY [facility] Administration Divalproex Sodium 500 mg 03/14/20 09:00 03/16/20 09:05 Depakote Er PO 500 mg DAILY [facility] Administration Duloxetine HCl 60 mg 03/14/20 21:00 03/15/20 20:39 Cymbalta PO 60 mg HS [facility] Administration Enoxaparin Sodium 90 mg 03/14/20 21:00 03/16/20 09:05 Lovenox SC 90 mg 0900,2100 [facility] Administration Insulin Glargine 30 units/ 0.3 mls @ 0 mls/hr 03/15/20 09:00 03/16/20 09:06 Miscellaneous Medication SC 0.3 mls QAM [facility] Administration Promethazine HCl 12.5 mg/ 50.5 mls @ 202 mls/hr 03/15/20 23:06 03/16/20 08:59 Sodium Chloride IVPB 50.5 mls Q6H PRN Administration Nausea/Vomiting Insulin Human Lispro 0 units 03/14/20 01:30 03/14/20 20:57 Humalog SC 3 unit .BEDTIME SLIDING SC PRN Administration Bedtime Correctional Scale Insulin Human Lispro 10 units 03/14/20 17:00 03/16/20 08:54 Humalog SC Not Given TID-WM [facility] Insulin Human Lispro 0 units 03/14/20 13:33 03/15/20 06:17 Humalog SC 8 unit .MODERATE SLIDING SC PRN Administration Moderate Correctional Scale Isosorbide Mononitrate 60 mg 03/14/20 09:00 03/16/20 09:06 Imdur PO 60 mg DAILY [facility] Administration Metoprolol Tartrate 50 mg 03/14/20 09:00 03/16/20 09:06 Lopressor PO 50 mg BID [facility] Administration Morphine Sulfate 4 mg 03/14/20 04:14 03/16/20 07:28 Morphine SLOW IVP 4 mg Q4H PRN Administration Pain Nitroglycerin 0.4 mg 03/14/20 05:38 03/14/20 09:16 Nitrostat SL 0.4 mg Q5MIN PRN Administration Chest Pain Pantoprazole Sodium 40 mg 03/14/20 09:00 03/16/20 09:06 Protonix PO 40 mg BID [facility] Administration Ranolazine 500 mg 03/14/20 09:00 03/16/20 09:06 Ranexa PO 500 mg BID [facility] Administration Rosuvastatin Calcium 20 mg 03/14/20 09:00 03/16/20 09:06 Crestor PO 20 mg BID [facility] Administration Sodium Chloride 10 ml 03/14/20 09:00 03/16/20 09:07 Flush - Normal Saline IVF 10 ml Q12HR [facility] Administration - Exam General Appearance: NAD, awake alert Heart: RRR, no murmur, no gallops, no rubs Respiratory: CTAB, no wheezes, no rales, no ronchi Gastrointestinal: soft, non-tender, non-distended Extremities: no edema Psychiatric: normal affect, normal behavior, A&O x 3 Hosp A/P - Plan #NSTEMI -continue medical management per cardiology due to diffuse vessel disease; morphine PRN pain -changed promothazine IV to oral zofran to reduce propensity for arryhtmias in context of ACS #intractable hiccups -likely due to ACS -s/p gabapentin and baclofen; patient explained risk of medication that are proarrhythmic but still wants to try -stop baclofen, start chlorperzine #hyperkalemia (resolved) -has been receiving scheduled insulin for T2DM; avoided kayexalate since has nausea, which may be worsened; -repeat K; can give insulin and bicarb PRN ELOS: 2 midnights
[2020-03-16 15:09] LABS: Bacteria/HPF 4+ HPF (None Seen); Bilirubin Negative (Negative); Blood, Urine 3+ (Negative); Clarity Turbid (Clear); Glucose, Urine (Dipstick) 150 mg/dL (Negative); Leukocyte 500 Leu/uL (Negative); Nitrite 1+ (Negative); Protein, Urine (Dipstick) 50 mg/dL (Neg-Trace); RBC/HPF Greater than 50 HPF (0-3); Squamous Epithelial None Seen HPF (0-3); Urobilinogen Normal mg/dL (Less than 2); WBC/HPF Greater than 50 HPF (0-3)
[2020-03-16 15:11] LABS: Urine Culture Reflex Yes Yes
[2020-03-16] MEDS ORDERED: Gabapentin 100 MG CAP PO SCH (18:45)
[2020-03-16] MEDS: DULoxetine 60 MG CAP PO SCH (20:19)
[2020-03-17] MEDS: Gabapentin 100 MG CAP PO SCH ×2 (00:18→05:03)
[2020-03-17] MEDS: Morphine 2 MG/ML SYRINGE SLOW IVP PRN ×6 (00:18→20:53)
[2020-03-17] MEDS: HumaLOG 300 UNITS/3 ML VIAL SC SCH ×3 (09:00→16:33)
[2020-03-17] MEDS: busPIRone HCl 5 MG TAB PO SCH ×2 (09:01→20:52)
[2020-03-17] MEDS: Aspirin 81 mg Enteric Coated Tablet PO SCH (09:01)
[2020-03-17] MEDS: Enoxaparin Sodium 100 MG/ML SYRINGE SC SCH ×2 (09:01→20:52)
[2020-03-17] MEDS: Clopidogrel Bisulfate 75 MG TAB PO SCH (09:01)
[2020-03-17] MEDS: Rosuvastatin 20 MG TAB PO SCH ×2 (09:03→20:52)
[2020-03-17] MEDS: Insulin Glargine 30 UNITS in Pre-Filled Syringe SC SCH (09:06)
[2020-03-17] MEDS: Metoprolol Tartrate 50 MG TAB PO SCH ×2 (09:09→20:52)
--- NOTE | 2020-03-17 10:36 | PDOC.CPN ---
- Subjective Date: 03/17/20 Time: 10:35 Interval history: Patient with complaint of chronic CP and hiccups. Pain 8/10 and "never has improved." Says morphine "takes the edge off. SL nitro has never worked for me. " Denies SOB, dizziness, edema. - Review of Systems General: denies: fever/chills, weight/appetite/sleep changes, night sweats, fatigue Respiratory: denies: cough, congestion, shortness of breath, exercise intolerance Cardiovascular: reports: chest pain Gastrointestinal: denies: nausea, vomiting, diarrhea, constipation, abd pain, GI bleeding Musculoskeletal: denies: pain, tenderness, stiffness, swelling, arthritis/ arthralgias Neurological: denies: numbness, syncope, seizure, weakness - Objective Allergies/Adverse Reactions: Allergies Allergy/AdvReac Type Severity Reaction Status Date / Time Iodine and Iodide Containing Allergy Verified 01/15/20 07:32 Produc piperacillin Allergy Verified 01/15/20 07:32 tazobactam [From Zosyn] Allergy Verified 01/15/20 07:32 ketorolac [From Toradol] AdvReac Verified 01/15/20 07:32 metoclopramide [From Reglan] AdvReac Verified 01/15/20 07:32 ondansetron [From Zofran] AdvReac Rash Verified 01/15/20 07:32 Visit Medications: Current Medications Acetaminophen (Tylenol) 650 mg PO Q4H PRN PRN Reason: Headache/Fever/Mild Pain (1-3) Aspirin (Ecotrin) 81 mg PO DAILY [facility] Last Admin: 03/17/20 09:01 Dose: 81 mg Buspirone HCl (Buspar) 5 mg PO BID [facility] Last Admin: 03/17/20 09:01 Dose: 5 mg Clopidogrel Bisulfate (Plavix) 75 mg PO DAILY [facility] Last Admin: 03/17/20 09:01 Dose: 75 mg Dextrose/Water (Dextrose 50%) 25 gm SLOW IVP PRN PRN PRN Reason: Hypoglycemia Divalproex Sodium (Depakote Er) 500 mg PO DAILY [facility] Last Admin: 03/17/20 09:01 Dose: 500 mg Duloxetine HCl (Cymbalta) 60 mg PO HS [facility] Last Admin: 03/16/20 20:19 Dose: 60 mg Enoxaparin Sodium (Lovenox) 90 mg SC 0900,2100 [facility] Last Admin: 03/17/20 09:01 Dose: 90 mg Gabapentin (Neurontin) 200 mg PO Q6HR [facility] Last Admin: 03/17/20 05:03 Dose: 200 mg Glucagon (Glucagon) 1 mg IM PRN PRN PRN Reason: Hypoglycemia Dextrose/Water (D5w) 1,000 mls @ 0 mls/hr IV .Q0M PRN PRN Reason: Hypoglycemia Insulin Glargine 30 units/ (Miscellaneous Medication) 0.3 mls @ 0 mls/hr SC QAM [facility] Last Admin: 03/17/20 09:06 Dose: 0.3 mls Promethazine HCl 12.5 mg/ (Sodium Chloride) 50.5 mls @ 202 mls/hr IVPB Q6H PRN PRN Reason: Nausea/Vomiting Last Admin: 03/16/20 18:17 Dose: 50.5 mls Insulin Human Lispro (Humalog) 0 units SC .BEDTIME SLIDING SC PRN PRN Reason: Bedtime Correctional Scale Last Admin: 03/14/20 20:57 Dose: 3 unit Insulin Human Lispro (Humalog) 10 units SC [facility]ID-[facility] Last Admin: 03/17/20 09:00 Dose: Not Given Insulin Human Lispro (Humalog) 0 units SC .MODERATE SLIDING SC PRN PRN Reason: Moderate Correctional Scale Last Admin: 03/15/20 06:17 Dose: 8 unit Isosorbide Mononitrate (Imdur) 60 mg PO DAILY [facility] Last Admin: 03/17/20 09:09 Dose: 60 mg Metoprolol Tartrate (Lopressor) 50 mg PO BID [facility] Last Admin: 03/17/20 09:09 Dose: 50 mg Morphine Sulfate (Morphine) 4 mg SLOW IVP Q4H PRN PRN Reason: Pain Last Admin: 03/17/20 05:03 Dose: 4 mg Nitroglycerin (Nitrostat) 0.4 mg SL Q5MIN PRN PRN Reason: Chest Pain Last Admin: 03/14/20 09:16 Dose: 0.4 mg Pantoprazole Sodium (Protonix) 40 mg PO BID [facility] Last Admin: 03/17/20 09:02 Dose: 40 mg Ranolazine (Ranexa) 500 mg PO BID [facility] Last Admin: 03/17/20 09:03 Dose: 500 mg Rosuvastatin Calcium (Crestor) 20 mg PO BID [facility] Last Admin: 03/17/20 09:03 Dose: 20 mg Sodium Chloride (Flush - Normal Saline) 10 ml IVF Q12HR [facility] Last Admin: 03/17/20 09:11 Dose: 10 ml Zolpidem Tartrate (Ambien) 10 mg PO HSPRN PRN PRN Reason: Insomnia Vital Signs & Weight: Vital Signs Temp Pulse Resp BP BP Pulse Ox 03/17/20 09:09 80 121/74 03/17/20 07:31 98.5 F 80 16 111/68 97 03/17/20 03:55 98.2 F 80 18 111/60 98 Weight 202 lb - Physical Exam General: alert & oriented x3, other (uncomfortable) HEENT: EOMI Neck: supple neck Cardiac: regular rate and rhythm, no murmur Lungs: clear to auscultation, normal breath sounds Neuro: grossly intact Abdomen: soft, non-tender Extremities: no cyanosis Skin: clear Musculoskeletal: normal range of motion - Labs Result Diagrams: 03/14/20 14:26 03/16/20 04:17 Troponin/CKMB CK-MB (CK-2) 3.4 ng/mL (0-6.6) 03/14/20 14:26 Troponin I 0.596 ng/mL (< 0.028) H* 03/14/20 14:26 - Assessment/Plan Assessment/Plan: 1. CP/NSTEMI 2. Intractable hiccups 3. CAD s/p CABG - diffuse disease 4. hisotry of DVT/PE Discussed options with patient including changing imdur to patch. He wants to try. If pain persists may need to consider repeat angio. RG-Pt seen and examined Pt with recurrent pain Downtrends troponin No EKG changes present Pt with severe multivesel disease too small to intervene Recommend ICU transfer for IV nitro MSO4 in addition to ativan (pt appears anxious) Check serial troponins Offered to call X (pt withj young son). Pt states he will call her. Offered to call other family. None other family noted.
[2020-03-17] MEDS ORDERED: Calcium Carbonate 500 MG ChewTAB PO PRN (10:47)
[2020-03-17] MEDS ORDERED: Nitroglycerin 0.4mg/Hour PATCH TD SCH (11:00)
[2020-03-17] MEDS: Baclofen 10 MG TAB PO SCH ×2 (14:36→20:52)
[2020-03-17 15:27] LABS: CKMB 1.1 ng/mL (0-6.6)
[2020-03-17 15:33] LABS: Troponin I 0.471 ng/mL (< 0.028)
[2020-03-17] MEDS: Nitroglycerin 0.4 MG TAB (25 Tab Bottle) SL PRN (16:58)
[2020-03-17] MEDS ORDERED: Lorazepam 0.5 MG TAB PO SCH (17:15)
--- NOTE | 2020-03-17 17:23 | PDOC.HOSPP ---
- Subjective Encounter Date: 03/17/20 Encounter Time: 11:00 Subjective: CC: chest pain The patient was noted to have increasing chest pain, states it felt similar to his prior heart attack. No SOB. Pain radiating to left arm, reported shakiness and dizziness this afternoon. Blood sugar was 96 Patient states he is compliant with his cardiac meds because he feels sick without it. He also states he is compliant with his diabetic meds Troponin increased Patient is also reporting increasing hiccups. He states baclofen helped some , gabapentin not as much - Objective Vital Signs & Weight: Vital Signs (12 hours) Temp Pulse Resp BP Pulse Ox 03/17/20 15:06 98.7 F 77 18 107/65 97 03/17/20 11:45 97.6 F 80 16 109/63 96 03/17/20 09:09 80 121/74 03/17/20 07:31 98.5 F 80 16 111/68 97 Weight Weight 202 lb I&O: 03/16/20 03/17/20 03/18/20 06:59 06:59 06:59 Intake Total 20190 Output Total 900 700 Balance 1120 1510 Result Diagrams: 03/14/20 14:26 03/16/20 04:17 Additional Labs: Accuchecks 03/17/20 03/17/20 03/17/20 16:30 11:10 09:03 POC Glucose 96 237 H 126 H 03/17/20 03/16/20 05:49 20:07 POC Glucose 152 H 208 H Hospitalist ROS - Review of Systems Constitutional: denies: fever, chills - Medication Medications: Active Medications Generic Name Dose Route Start Last Admin Trade Name Malik PRN Reason Stop Dose Admin Aspirin 81 mg 03/14/20 09:00 03/17/20 09:01 Ecotrin PO 81 mg DAILY [facility] Administration Baclofen 10 mg 03/17/20 15:00 03/17/20 14:36 Lioresal PO 10 mg TID [facility] Administration Buspirone HCl 5 mg 03/14/20 09:00 03/17/20 09:01 Buspar PO 5 mg BID [facility] Administration Clopidogrel Bisulfate 75 mg 03/14/20 09:00 03/17/20 09:01 Plavix PO 75 mg DAILY [facility] Administration Divalproex Sodium 500 mg 03/14/20 09:00 03/17/20 09:01 Depakote Er PO 500 mg DAILY [facility] Administration Duloxetine HCl 60 mg 03/14/20 21:00 03/16/20 20:19 Cymbalta PO 60 mg HS [facility] Administration Enoxaparin Sodium 90 mg 03/14/20 21:00 03/17/20 09:01 Lovenox SC 90 mg 0900,2100 [facility] Administration Insulin Glargine 30 units/ 0.3 mls @ 0 mls/hr 03/15/20 09:00 03/17/20 09:06 Miscellaneous Medication SC 0.3 mls QAM [facility] Administration Promethazine HCl 12.5 mg/ 50.5 mls @ 202 mls/hr 03/15/20 23:06 03/16/20 18:17 Sodium Chloride IVPB 50.5 mls Q6H PRN Administration Nausea/Vomiting Insulin Human Lispro 0 units 03/14/20 01:30 03/14/20 20:57 Humalog SC 3 unit .BEDTIME SLIDING SC PRN Administration Bedtime Correctional Scale Insulin Human Lispro 10 units 03/14/20 17:00 03/17/20 16:33 Humalog SC Not Given TID-WM [facility] Insulin Human Lispro 0 units 03/14/20 13:33 03/15/20 06:17 Humalog SC 8 unit .MODERATE SLIDING SC PRN Administration Moderate Correctional Scale Lorazepam 0.5 mg 03/17/20 17:15 03/17/20 17:21 Ativan PO 03/17/20 19:15 0.5 mg NOW [facility] Administration Metoprolol Tartrate 50 mg 03/14/20 09:00 03/17/20 09:09 Lopressor PO 50 mg BID [facility] Administration Morphine Sulfate 4 mg 03/14/20 04:14 03/17/20 16:56 Morphine SLOW IVP 4 mg Q4H PRN Administration Pain Nitroglycerin 0.4 mg 03/14/20 05:38 03/17/20 16:58 Nitrostat SL 0.4 mg Q5MIN PRN Administration Chest Pain Nitroglycerin 1 patch 03/17/20 11:00 03/17/20 16:29 Nitro-Dur 0.4mg/Hr Patch TD 1 patch Q24HR [facility] Administration Pantoprazole Sodium 40 mg 03/14/20 09:00 03/17/20 09:02 Protonix PO 40 mg BID [facility] Administration Ranolazine 500 mg 03/14/20 09:00 03/17/20 09:03 Ranexa PO 500 mg BID [facility] Administration Rosuvastatin Calcium 20 mg 03/14/20 09:00 03/17/20 09:03 Crestor PO 20 mg BID [facility] Administration Sodium Chloride 10 ml 03/14/20 09:00 03/17/20 09:11 Flush - Normal Saline IVF 10 ml Q12HR [facility] Administration - Exam General Appearance: NAD, awake alert Eye: PERRL, anicteric sclera ENT: normocephalic atraumatic, no oropharyngeal lesions Neck: no JVD Heart: RRR, no murmur, no gallops, no rubs Respiratory: CTAB, no wheezes, no rales, no ronchi Gastrointestinal: soft, non-tender, non-distended, normal bowel sounds, no hepatomegaly Extremities: no cyanosis, no clubbing, no edema Hosp A/P - Plan This is 44 year old male with CABG presenting with chest pain #CHest pain possibly secondary to NSTEMI #CAD s.p CABG - continue therapeutic lovenox - on aspirin, ranexa 1000 mg bid, plavix, metoprolol 50 mg bid - started on nitro patch - troponin trending up. Transfer to CCU. Repeat EKG Hiccups - d/c gabapentin - start baclofen 10 mg tid prn Type II diabetes - continue insulin Anemia - recheck CBC today. last hemoglobin was 12 DVT prophylaxis: therapeutic lovenox Code status: full code
[2020-03-17] MEDS ORDERED: Nitroglycerin 50 MG/250 ML BOT 250 ML IVPB SCH (17:47)
[2020-03-17 18:08] LABS: Hemoglobin 12.6 g/dL (14.0-18.0); Mean Corpuscular HGB CONC 32.7 g/dL (32.0-36.0); Mean Corpuscular Volume 88.7 fL (78.0-98.0); Platelet Count 245 thou/uL (130-400); RBC Distribution Width 13.3 % (11.5-14.5); Red Blood Cell (RBC) Count 4.34 mill/uL (4.70-6.10); White Blood Cell (WBC) Count 7.6 thou/uL (4.8-10.8)
[2020-03-17 18:27] LABS: Anion Gap 12 mmol/L (10-20); BUN (Urea Nitrogen) 15 mg/dL (8.9-20.6); Calc. Creatinine Clearance 127 mL/min (70-130); Calcium 8.8 mg/dL (7.8-10.44); Carbon Dioxide 30 mmol/L (22-29); Chloride 102 mmol/L (98-107); Estimated GFR-MDRD 84; Glucose 142 mg/dL (70-105); Sodium 140 mmol/L (136-145)
[2020-03-17 18:44] LABS: Critical Call Chem Troponin I RESULT DECREASING
[2020-03-17] MEDS: Promethazine HCl 12.5 MG in Sodium Chloride 0.9% 50 ML IVPB PRN (20:51)
[2020-03-17] MEDS: DULoxetine 60 MG CAP PO SCH (20:52)
[2020-03-17] MEDS: HumaLOG 300 UNITS/3 ML VIAL SC PRN (21:01)
[2020-03-17 21:42] LABS: Critical Call Chem Troponin I RESULT DECREASING
[2020-03-17 22:00] LABS: CKMB 1.2 ng/mL (0-6.6)
[2020-03-17 23:28] LABS: Critical Call Chem Troponin I RESULT DECREASING
[2020-03-18] MEDS: Morphine 2 MG/ML SYRINGE SLOW IVP PRN ×3 (04:08→20:04)
--- NOTE | 2020-03-18 07:11 | PDOC.CPN ---
- Subjective Date: 03/18/20 Time: 07:10 Interval history: Pt did well overnight Went into room today. Pt sleeping. Awoke from sleep complaining of 10/10 CP. Pt on 2mics of nitro. Asked to restart last pm secondary to pain - Objective Allergies/Adverse Reactions: Allergies Allergy/AdvReac Type Severity Reaction Status Date / Time Iodine and Iodide Containing Allergy Verified 01/15/20 07:32 Produc piperacillin Allergy Verified 01/15/20 07:32 tazobactam [From Zosyn] Allergy Verified 01/15/20 07:32 ketorolac [From Toradol] AdvReac Verified 01/15/20 07:32 metoclopramide [From Reglan] AdvReac Verified 01/15/20 07:32 ondansetron [From Zofran] AdvReac Rash Verified 01/15/20 07:32 Visit Medications: Current Medications Acetaminophen (Tylenol) 650 mg PO Q4H PRN PRN Reason: Headache/Fever/Mild Pain (1-3) Aspirin (Ecotrin) 81 mg PO DAILY [facility] Last Admin: 03/17/20 09:01 Dose: 81 mg Baclofen (Lioresal) 10 mg PO TID [facility] Last Admin: 03/17/20 20:52 Dose: 10 mg Buspirone HCl (Buspar) 5 mg PO BID [facility] Last Admin: 03/17/20 20:52 Dose: 5 mg Calcium Carbonate (Tums) 1,000 mg PO Q4H PRN PRN Reason: Heartburn or Indigestion Clopidogrel Bisulfate (Plavix) 75 mg PO DAILY [facility] Last Admin: 03/17/20 09:01 Dose: 75 mg Dextrose/Water (Dextrose 50%) 25 gm SLOW IVP PRN PRN PRN Reason: Hypoglycemia Divalproex Sodium (Depakote Er) 500 mg PO DAILY [facility] Last Admin: 03/17/20 09:01 Dose: 500 mg Duloxetine HCl (Cymbalta) 60 mg PO HS [facility] Last Admin: 03/17/20 20:52 Dose: 60 mg Enoxaparin Sodium (Lovenox) 90 mg SC 0900,2100 [facility] Last Admin: 03/17/20 20:52 Dose: 90 mg Glucagon (Glucagon) 1 mg IM PRN PRN PRN Reason: Hypoglycemia Dextrose/Water (D5w) 1,000 mls @ 0 mls/hr IV .Q0M PRN PRN Reason: Hypoglycemia Insulin Glargine 30 units/ (Miscellaneous Medication) 0.3 mls @ 0 mls/hr SC QAM [facility] Last Admin: 03/17/20 09:06 Dose: 0.3 mls Promethazine HCl 12.5 mg/ (Sodium Chloride) 50.5 mls @ 202 mls/hr IVPB Q6H PRN PRN Reason: Nausea/Vomiting Last Admin: 03/17/20 20:51 Dose: 50.5 mls Nitroglycerin/Dextrose (Nitroglycerin 50 Mg/250 Ml Bot) 250 mls @ 0 mls/hr IVPB INF [facility]; Protocol Insulin Human Lispro (Humalog) 0 units SC .BEDTIME SLIDING SC PRN PRN Reason: Bedtime Correctional Scale Last Admin: 03/17/20 21:01 Dose: 3 unit Insulin Human Lispro (Humalog) 10 units SC TID-WM [facility] Last Admin: 03/17/20 16:33 Dose: Not Given Insulin Human Lispro (Humalog) 0 units SC .MODERATE SLIDING SC PRN PRN Reason: Moderate Correctional Scale Last Admin: 03/15/20 06:17 Dose: 8 unit Metoprolol Tartrate (Lopressor) 50 mg PO BID [facility] Last Admin: 03/17/20 20:52 Dose: 50 mg Morphine Sulfate (Morphine) 4 mg SLOW IVP Q4H PRN PRN Reason: Pain Last Admin: 03/18/20 04:08 Dose: 4 mg Nitroglycerin (Nitrostat) 0.4 mg SL Q5MIN PRN PRN Reason: Chest Pain Last Admin: 03/17/20 16:58 Dose: 0.4 mg Pantoprazole Sodium (Protonix) 40 mg PO BID [facility] Last Admin: 03/17/20 20:52 Dose: 40 mg Ranolazine (Ranexa) 500 mg PO BID [facility] Last Admin: 03/17/20 20:52 Dose: 500 mg Rosuvastatin Calcium (Crestor) 20 mg PO BID [facility] Last Admin: 03/17/20 20:52 Dose: 20 mg Sodium Chloride (Flush - Normal Saline) 10 ml IVF Q12HR [facility] Last Admin: 03/17/20 20:52 Dose: 10 ml Zolpidem Tartrate (Ambien) 10 mg PO HSPRN PRN PRN Reason: Insomnia Vital Signs & Weight: Vital Signs Temp 03/18/20 04:00 98.7 F Weight 240 lb 11.916 oz - Physical Exam General: alert & oriented x3 Neck: no masses, no bruit Cardiac: no murmur, regular rate, regular rhythm Lungs: normal exam - Labs Result Diagrams: 03/17/20 17:47 03/17/20 17:47 Troponin/CKMB CK-MB (CK-2) 1.2 ng/mL (0-6.6) 03/17/20 21:01 Troponin I 0.406 ng/mL (< 0.028) H* 03/17/20 22:49 - Assessment/Plan Assessment/Plan: CP Severe multivessel disease not ameable to PCI Conversion disorder Non-compliance Pt with severe CP noted yesterday States severe today with downtrending troponin and neg EKG Down trending troponin and No changes on EKG Continue medical therapy Pt with conversion disoreder and severe small vessel disease not amenable to PCI or repeat CABG Consider treating pain although pts pain our of proportion to clinical picture
[2020-03-18] MEDS: HumaLOG 300 UNITS/3 ML VIAL SC PRN (07:49)
[2020-03-18] MEDS: HumaLOG 300 UNITS/3 ML VIAL SC SCH ×3 (09:39→16:32)
[2020-03-18] MEDS: Baclofen 10 MG TAB PO SCH ×4 (10:16→20:11)
[2020-03-18] MEDS: busPIRone HCl 5 MG TAB PO SCH ×2 (10:16→20:20)
[2020-03-18] MEDS: Enoxaparin Sodium 100 MG/ML SYRINGE SC SCH ×2 (10:16→20:11)
[2020-03-18] MEDS: Aspirin 81 mg Enteric Coated Tablet PO SCH (10:16)
[2020-03-18] MEDS: Clopidogrel Bisulfate 75 MG TAB PO SCH (10:16)
[2020-03-18] MEDS: Rosuvastatin 20 MG TAB PO SCH ×2 (10:17→20:11)
[2020-03-18] MEDS: Insulin Glargine 30 UNITS in Pre-Filled Syringe SC SCH (10:17)
[2020-03-18] MEDS: Metoprolol Tartrate 50 MG TAB PO SCH ×2 (10:17→20:11)
[2020-03-18] MEDS ORDERED: traMADol HCl 50 MG TAB PO SCH (11:30)
--- NOTE | 2020-03-18 12:10 | PDOC.HOSPP ---
- Subjective Encounter Date: 03/18/20 Encounter Time: 11:45 Subjective: Patient transferred to CCU overnight. He reports persistent chest pain. Reports relief with morphine but states it doesn't last that long. He has been transitioned to nitro drip and feels that that is helping. - Objective Vital Signs & Weight: Vital Signs (12 hours) Temp 03/18/20 11:00 98.4 F 03/18/20 07:00 98.5 F 03/18/20 04:00 98.7 F Weight Weight 240 lb 11.916 oz Most Recent Monitor Data Heart Rate from ECG 77 NIBP 115/71 NIBP BP-Mean 85 Respiration from ECG 20 SpO2 98 I&O: 03/17/20 03/18/20 03/19/20 06:59 06:59 06:59 Intake Total 2210 2035.6 Output Total 700 1525 500 Balance 1510 510.6 -500 Result Diagrams: 03/17/20 17:47 03/17/20 17:47 Additional Labs: Accuchecks 03/18/20 03/18/20 03/17/20 11:44 07:53 21:05 POC Glucose 221 H 277 H 252 H 03/17/20 16:30 POC Glucose 96 Hospitalist ROS - Review of Systems Constitutional: denies: fever, chills - Medication Medications: Active Medications Generic Name Dose Route Start Last Admin Trade Name Freq PRN Reason Stop Dose Admin Aspirin 81 mg 03/14/20 09:00 03/18/20 10:16 Ecotrin PO 81 mg DAILY LUIS Administration Baclofen 10 mg 03/17/20 15:00 03/18/20 10:16 Lioresal PO 10 mg TID LUIS Administration Buspirone HCl 5 mg 03/14/20 09:00 03/18/20 10:16 Buspar PO 5 mg BID LUIS Administration Clopidogrel Bisulfate 75 mg 03/14/20 09:00 03/18/20 10:16 Plavix PO 75 mg DAILY LUIS Administration Divalproex Sodium 500 mg 03/14/20 09:00 03/18/20 11:36 Depakote Er PO 500 mg DAILY LUIS Administration Duloxetine HCl 60 mg 03/14/20 21:00 03/17/20 20:52 Cymbalta PO 60 mg HS LUIS Administration Enoxaparin Sodium 90 mg 03/14/20 21:00 03/18/20 10:16 Lovenox SC 90 mg 0900,2100 LUIS Administration Insulin Glargine 30 units/ 0.3 mls @ 0 mls/hr 03/15/20 09:00 03/18/20 10:17 Miscellaneous Medication SC 0.3 mls QAM LUIS Administration Promethazine HCl 12.5 mg/ 50.5 mls @ 202 mls/hr 03/15/20 23:06 03/17/20 20:51 Sodium Chloride IVPB 50.5 mls Q6H PRN Administration Nausea/Vomiting Insulin Human Lispro 0 units 03/14/20 01:30 03/18/20 07:49 Humalog SC 3 unit .BEDTIME SLIDING SC PRN Administration Bedtime Correctional Scale Insulin Human Lispro 10 units 03/14/20 17:00 03/18/20 11:41 Humalog SC 10 unit TID-WM LUIS Administration Insulin Human Lispro 0 units 03/14/20 13:33 03/15/20 06:17 Humalog SC 8 unit .MODERATE SLIDING SC PRN Administration Moderate Correctional Scale Metoprolol Tartrate 50 mg 03/14/20 09:00 03/18/20 10:17 Lopressor PO 50 mg BID LUIS Administration Morphine Sulfate 4 mg 03/14/20 04:14 03/18/20 04:08 Morphine SLOW IVP 4 mg Q4H PRN Administration Pain Nitroglycerin 0.4 mg 03/14/20 05:38 03/17/20 16:58 Nitrostat SL 0.4 mg Q5MIN PRN Administration Chest Pain Pantoprazole Sodium 40 mg 03/14/20 09:00 03/18/20 10:17 Protonix PO 40 mg BID LUIS Administration Ranolazine 500 mg 03/14/20 09:00 03/18/20 10:17 Ranexa PO 500 mg BID LUIS Administration Rosuvastatin Calcium 20 mg 03/14/20 09:00 03/18/20 10:17 Crestor PO 20 mg BID LUIS Administration Sodium Chloride 10 ml 03/14/20 09:00 03/18/20 10:17 Flush - Normal Saline IVF 10 ml Q12HR LUIS Administration Tramadol HCl 25 mg 03/18/20 11:30 03/18/20 11:36 Ultram PO 03/18/20 13:30 25 mg NOW LUIS Administration - Exam General Appearance: NAD, awake alert Eye: PERRL, anicteric sclera ENT: normocephalic atraumatic, no oropharyngeal lesions Neck: no JVD Heart: RRR, no murmur, no gallops, no rubs Respiratory: CTAB, no wheezes, no rales, no ronchi Gastrointestinal: soft, non-tender, non-distended, normal bowel sounds Extremities: no cyanosis, no clubbing, no edema Skin: normal turgor, no lesions, no rashes Hosp A/P - Plan This is 44 year old male with CABG presenting with chest pain #CHest pain possibly secondary to NSTEMI #CAD s.p CABG - continue therapeutic lovenox - on aspirin, ranexa 1000 mg bid, plavix, metoprolol 50 mg bid - on nitroglycerin drip - troponin downtrending - trial one dose of tramadol 25 mg, if works try q6h prn Staph UTI - will start on levaquin today Hiccups - continue baclofen 10 mg tid prn Type II diabetes - continue insulin - blood sugars 200's, increase sliding scale slightly Anemia -stable, recheck labs tomorrow DVT prophylaxis: therapeutic lovenox Code status: full code
[2020-03-18] MEDS ORDERED: Lorazepam 1 MG TAB PO SCH (16:30)
[2020-03-18 16:53] LABS: Critical Call Chem Troponin I RESULT DECREASING
[2020-03-18 17:11] LABS: CKMB 0.9 ng/mL (0-6.6)
--- NOTE | 2020-03-18 19:22 | CON ---
DATE OF CONSULTATION: HISTORY OF PRESENT ILLNESS: Gareth Olea is a 44-year-old male with history of coronary artery disease. He presented with chest pain. He says his chest pain gets better with morphine, but does not go away completely. He says he has had chest discomfort for three straight days. He is on nitroglycerin drip and in spite of the above, still is having chest discomfort. He has known coronary artery disease. Dr. Dobbins has documented past cardiac catheterization findings. Apparently, multiple physicians have documented that he is medically noncompliant and even in the hospital provides medications at no cost. He is medically noncompliant. The nurses tell me the last time he was in the hospital was verbally abusive toward family and he did not get the pain medicine he wanted. PAST MEDICAL HISTORY: Remarkable for: 1. Coronary artery disease. 2. Hypertension. 3. Lipid disorder. 4. History of pulmonary embolism and DVT. 5. Diabetes. 6. History of coronary artery bypass grafting. 7. History of back surgery. 8. History of cholecystectomy. 9. History of appendectomy. ALLERGIES: HE REPORTS IODINE, REGLAN, ZOSYN, ZOFRAN, AND TORADOL ALLERGIES. SOCIAL HISTORY: He is a nonsmoker and nondrinker. FAMILY HISTORY: Negative for lung disease in early age. REVIEW OF SYSTEMS: Otherwise negative. His only complaint is pain. PHYSICAL EXAMINATION: VITAL SIGNS: He is afebrile. Blood pressure 120/79, heart rate 78, and respiratory rate 18. HEAD AND NECK: Unremarkable. LUNGS: Clear. HEART: Regular rhythm. HEART: S1 and S2 are normal. There is grade 1 to 2/6 systolic murmur. ABDOMEN: Soft and nontender. EXTREMITIES: Without clubbing, cyanosis, or edema. LABORATORY DATA: White count 7.6 yesterday, hemoglobin 12.6, platelets 245. Glucose is in the 200 range. Bicarb was 30 on admission. Troponins have been in the 0.4 range. IMPRESSION: Chest pain, some which may be cardiac and some which may be noncardiac. He says he is not on opiates when he is at home normally. With his history of noncompliance with followup, it becomes difficult to care for this or determine actually what is a real symptom and what is symptom perhaps involved with secondary gain. It is felt that this is of cardiac discomfort. Continue with nitroglycerin and then a [employer] pump may be an option. With a slow infusion, the morphine is at baseline. He appears to be medically stable. His complaints of both pain are out of proportion to his current vital signs, but in spite of that he does have known diffuse coronary artery disease. This is a difficult situation. A 50-minute consult, 50% of the time was spent on the unit coordinating care. Job ID: [id number]
[2020-03-18] MEDS: Promethazine HCl 12.5 MG in Sodium Chloride 0.9% 50 ML IVPB PRN (20:05)
[2020-03-18] MEDS: DULoxetine 60 MG CAP PO SCH (20:11)
[2020-03-18 21:16] LABS: Critical Call Chem Troponin I RESULT DECREASING
[2020-03-18 21:34] LABS: CKMB 1.2 ng/mL (0-6.6)
[2020-03-19] MEDS: Morphine 2 MG/ML SYRINGE SLOW IVP PRN ×5 (00:03→23:31)
[2020-03-19] MEDS: Promethazine HCl 12.5 MG in Sodium Chloride 0.9% 50 ML IVPB PRN (02:12)
[2020-03-19] MEDS: HumaLOG 300 UNITS/3 ML VIAL SC SCH ×3 (07:35→16:32)
--- NOTE | 2020-03-19 08:10 | PRG ---
DATE OF SERVICE: 03/19/2020 SUBJECTIVE: The patient is in the ICU for the purpose of receiving a nitroglycerin drip. He continues to complain of mild chest pain. OBJECTIVE: VITAL SIGNS: Temperature 98.4, pulse 82, blood pressure 84/44, O2 saturation 96%. He is currently on 10 mcg/minute of nitroglycerin. His intake has been 1636 mL and output 3800 mL. HEENT: Unremarkable. NECK: No adenopathy or JVD. LUNGS: Clear. CARDIAC: S1 and S2. Regular. ABDOMEN: Soft, obese, nontender. EXTREMITIES: No edema. LABORATORY DATA: Troponin is 0.295. ASSESSMENT: 1. Chest pain with very low bump in troponin. 2. Question of conversion disorder. PLAN: Continuing current care with nitroglycerin drip. No further pulmonary recommendations at this time. Job ID: [id number]
[2020-03-19] MEDS: Insulin Glargine 30 UNITS in Pre-Filled Syringe SC SCH (08:33)
[2020-03-19] MEDS: Baclofen 10 MG TAB PO SCH ×3 (08:34→19:37)
[2020-03-19] MEDS: Clopidogrel Bisulfate 75 MG TAB PO SCH (08:34)
[2020-03-19] MEDS: Rosuvastatin 20 MG TAB PO SCH ×2 (08:34→19:37)
[2020-03-19] MEDS: busPIRone HCl 5 MG TAB PO SCH ×2 (08:34→19:37)
[2020-03-19] MEDS: Aspirin 81 mg Enteric Coated Tablet PO SCH (08:34)
[2020-03-19] MEDS: Metoprolol Tartrate 50 MG TAB PO SCH ×2 (08:34→19:37)
[2020-03-19] MEDS: Enoxaparin Sodium 100 MG/ML SYRINGE SC SCH ×2 (08:35→19:36)
[2020-03-19] MEDS: HumaLOG 300 UNITS/3 ML VIAL SC PRN (10:51)
--- NOTE | 2020-03-19 13:00 | PDOC.HOSPP ---
- Subjective Encounter Date: 03/19/20 Encounter Time: 10:30 Subjective: The patient reports that he is still having intermittent chest pain radiating to his jaw occasionally. He states he is starting imdur today Denies dysuria. He is on his nitro drip - Objective Vital Signs & Weight: Vital Signs (12 hours) Temp Pulse Ox 03/19/20 11:39 98.4 F 03/19/20 07:08 100 03/19/20 07:00 98.4 F 03/19/20 04:00 98.4 F Weight Weight 240 lb 11.916 oz Most Recent Monitor Data Heart Rate from ECG 78 NIBP 104/65 NIBP BP-Mean 78 Respiration from ECG 14 SpO2 100 I&O: 03/18/20 03/19/20 03/20/20 06:59 06:59 06:59 Intake Total 2035.6 1636.2 602 Output Total 1525 3800 150 Balance 510.6 -2163.8 452 Result Diagrams: 03/17/20 17:47 03/17/20 17:47 Additional Labs: Accuchecks 03/19/20 03/19/20 03/18/20 10:54 06:13 20:42 POC Glucose 241 H 200 H 138 H 03/18/20 16:02 POC Glucose 109 Hospitalist ROS - Review of Systems Constitutional: denies: fever, chills - Medication Medications: Active Medications Generic Name Dose Route Start Last Admin Trade Name Freq PRN Reason Stop Dose Admin Aspirin 81 mg 03/14/20 09:00 03/19/20 08:34 Ecotrin PO 81 mg DAILY LUIS Administration Baclofen 10 mg 03/17/20 15:00 03/19/20 08:34 Lioresal PO 10 mg TID LUIS Administration Buspirone HCl 5 mg 03/14/20 09:00 03/19/20 08:34 Buspar PO 5 mg BID LUIS Administration Clopidogrel Bisulfate 75 mg 03/14/20 09:00 03/19/20 08:34 Plavix PO 75 mg DAILY LUIS Administration Divalproex Sodium 500 mg 03/14/20 09:00 03/19/20 08:34 Depakote Er PO 500 mg DAILY LUIS Administration Duloxetine HCl 60 mg 03/14/20 21:00 03/18/20 20:11 Cymbalta PO 60 mg HS LUIS Administration Enoxaparin Sodium 90 mg 03/14/20 21:00 03/19/20 08:35 Lovenox SC 90 mg 0900,2100 LUIS Administration Insulin Glargine 30 units/ 0.3 mls @ 0 mls/hr 03/15/20 09:00 03/19/20 08:33 Miscellaneous Medication SC 0.3 mls QAM LUIS Administration Promethazine HCl 12.5 mg/ 50.5 mls @ 202 mls/hr 03/15/20 23:06 03/19/20 02:12 Sodium Chloride IVPB 50.5 mls Q6H PRN Administration Nausea/Vomiting Levofloxacin 750 mg/ Device 150 mls @ 100 mls/hr 03/18/20 12:00 03/19/20 11: 38 IVPB 150 mls Q24HR LUIS Administration Insulin Human Lispro 0 units 03/14/20 01:30 03/18/20 07:49 Humalog SC 3 unit .BEDTIME SLIDING SC PRN Administration Bedtime Correctional Scale Insulin Human Lispro 10 units 03/14/20 17:00 03/19/20 10:52 Humalog SC 10 unit TID-WM LUIS Administration Insulin Human Lispro 0 units 03/18/20 12:12 03/19/20 10:51 Humalog SC 6 unit .MODERATE SLIDING SC PRN Administration Moderate Correctional Scale Metoprolol Tartrate 50 mg 03/14/20 09:00 03/19/20 08:34 Lopressor PO 50 mg BID LUIS Administration Morphine Sulfate 4 mg 03/14/20 04:14 03/19/20 12:29 Morphine SLOW IVP 4 mg Q4H PRN Administration Pain Nitroglycerin 0.4 mg 03/14/20 05:38 03/17/20 16:58 Nitrostat SL 0.4 mg Q5MIN PRN Administration Chest Pain Pantoprazole Sodium 40 mg 03/14/20 09:00 03/19/20 08:34 Protonix PO 40 mg BID LUIS Administration Rosuvastatin Calcium 20 mg 03/14/20 09:00 03/19/20 08:34 Crestor PO 20 mg BID LUIS Administration Sodium Chloride 10 ml 03/14/20 09:00 03/19/20 08:36 Flush - Normal Saline IVF 10 ml Q12HR LUIS Administration - Exam General Appearance: NAD, awake alert Eye: PERRL, anicteric sclera ENT: normocephalic atraumatic, no oropharyngeal lesions Neck: supple, no JVD Heart: RRR, no murmur Respiratory: CTAB, no wheezes, no rales Gastrointestinal: soft, non-tender, non-distended, normal bowel sounds, no palpable masses Hosp A/P - Plan This is 44 year old male with CABG presenting with chest pain #CHest pain possibly secondary to NSTEMI #CAD s.p CABG - continue therapeutic lovenox - on aspirin, ranexa 1000 mg bid, plavix, metoprolol 50 mg bid - on nitroglycerin drip - troponin downtrending Anxiety - xanax prn Staph UTI - continue levaquin Hiccups - continue baclofen 10 mg tid prn Type II diabetes - continue insulin sliding scale. On Lantus 30 units qam, will add lantus 10 units hs for persistently high blood sugars Anemia -stable DVT prophylaxis: therapeutic lovenox Code status: full code
[2020-03-19] MEDS: Lorazepam 2 MG/ML VIAL SLOW IVP PRN ×2 (14:37→19:46)
[2020-03-19] MEDS: DULoxetine 60 MG CAP PO SCH (19:36)
[2020-03-19] MEDS: Insulin Glargine 10 UNITS in Pre-Filled Syringe 1 EACH SC SCH (19:38)
[2020-03-20] MEDS: Lorazepam 2 MG/ML VIAL SLOW IVP PRN ×3 (02:51→22:57)
[2020-03-20 05:41] LABS: Hemoglobin 12.5 g/dL (14.0-18.0); Mean Corpuscular HGB CONC 32.4 g/dL (32.0-36.0); Mean Corpuscular Hemoglobin 28.6 pg (27.0-31.0); Mean Corpuscular Volume 88.2 fL (78.0-98.0); Mean Platelet Volume 7.8 fL (7.4-10.4); Platelet Count 221 thou/uL (130-400); RBC Distribution Width 13.2 % (11.5-14.5); Red Blood Cell (RBC) Count 4.37 mill/uL (4.70-6.10); White Blood Cell (WBC) Count 6.1 thou/uL (4.8-10.8)
[2020-03-20 06:17] LABS: Anion Gap 9 mmol/L (10-20); BUN (Urea Nitrogen) 15 mg/dL (8.9-20.6); Calc. Creatinine Clearance 152 mL/min (70-130); Calcium 8.9 mg/dL (7.8-10.44); Carbon Dioxide 34 mmol/L (22-29); Chloride 99 mmol/L (98-107); Estimated GFR-MDRD 84; Glucose 194 mg/dL (70-105); Sodium 138 mmol/L (136-145)
[2020-03-20] MEDS: HumaLOG 300 UNITS/3 ML VIAL SC SCH ×3 (07:13→16:45)
[2020-03-20] MEDS: Rosuvastatin 20 MG TAB PO SCH ×2 (08:37→20:08)
[2020-03-20] MEDS: Clopidogrel Bisulfate 75 MG TAB PO SCH (08:38)
[2020-03-20] MEDS: busPIRone HCl 5 MG TAB PO SCH ×2 (08:38→20:08)
[2020-03-20] MEDS: Aspirin 81 mg Enteric Coated Tablet PO SCH (08:38)
[2020-03-20] MEDS: Insulin Glargine 30 UNITS in Pre-Filled Syringe SC SCH (08:38)
[2020-03-20] MEDS: Metoprolol Tartrate 50 MG TAB PO SCH ×2 (08:38→20:08)
[2020-03-20] MEDS: Baclofen 10 MG TAB PO SCH ×3 (08:38→20:08)
[2020-03-20] MEDS: Enoxaparin Sodium 100 MG/ML SYRINGE SC SCH (08:49)
[2020-03-20] MEDS: Morphine 2 MG/ML SYRINGE SLOW IVP PRN (09:20)
[2020-03-20] MEDS: HumaLOG 300 UNITS/3 ML VIAL SC PRN (11:07)
--- NOTE | 2020-03-20 11:48 | PDOC.HOSPP ---
- Subjective Encounter Date: 03/20/20 Encounter Time: 11:47 Subjective: THe patient reports right arm numbness and weakness that started 45 minutes ago. He states he had a headache earlier. He denies much chest pain. Does report some bladder pain when pressure is applied - Objective Vital Signs & Weight: Vital Signs (12 hours) Temp Pulse Ox 03/20/20 07:16 100 03/20/20 04:00 98.5 F 03/20/20 00:00 98.4 F Weight Weight 240 lb 11.916 oz Most Recent Monitor Data Heart Rate from ECG 86 NIBP 112/65 NIBP BP-Mean 80 Respiration from ECG 15 SpO2 100 I&O: 03/19/20 03/20/20 03/21/20 06:59 06:59 06:59 Intake Total 1636.2 3140.6 500 Output Total 3800 1300 150 Balance -2163.8 1840.6 350 Result Diagrams: 03/20/20 05:35 03/20/20 05:35 Additional Labs: Accuchecks 03/20/20 03/20/20 03/19/20 11:08 06:14 19:40 POC Glucose 262 H 221 H 258 H 03/19/20 03/19/20 16:00 03:02 POC Glucose 140 H 206 H Hospitalist ROS - Medication Medications: Active Medications Generic Name Dose Route Start Last Admin Trade Name Patrickq PRN Reason Stop Dose Admin Aspirin 81 mg 03/14/20 09:00 03/20/20 08:38 Ecotrin PO 81 mg DAILY LUIS Administration Baclofen 10 mg 03/17/20 15:00 03/20/20 08:38 Lioresal PO 10 mg TID LUIS Administration Buspirone HCl 5 mg 03/14/20 09:00 03/20/20 08:38 Buspar PO 5 mg BID LUIS Administration Clopidogrel Bisulfate 75 mg 03/14/20 09:00 03/20/20 08:38 Plavix PO 75 mg DAILY LUIS Administration Divalproex Sodium 500 mg 03/14/20 09:00 03/20/20 08:38 Depakote Er PO 500 mg DAILY LUIS Administration Duloxetine HCl 60 mg 03/14/20 21:00 03/19/20 19:36 Cymbalta PO 60 mg HS LUIS Administration Enoxaparin Sodium 90 mg 03/14/20 21:00 03/20/20 08:49 Lovenox SC 90 mg 0900,2100 LUIS Administration Insulin Glargine 30 units/ 0.3 mls @ 0 mls/hr 03/15/20 09:00 03/20/20 08:38 Miscellaneous Medication SC 0.3 mls QAM LUIS Administration Promethazine HCl 12.5 mg/ 50.5 mls @ 202 mls/hr 03/15/20 23:06 03/19/20 02:12 Sodium Chloride IVPB 50.5 mls Q6H PRN Administration Nausea/Vomiting Levofloxacin 750 mg/ Device 150 mls @ 100 mls/hr 03/18/20 12:00 03/19/20 11: 38 IVPB 150 mls Q24HR LUIS Administration Insulin Glargine 10 units/ 0.1 mls @ 0 mls/hr 03/19/20 21:00 03/19/20 19:38 Miscellaneous Medication SC 0.1 mls HS LUIS Administration Insulin Human Lispro 0 units 03/14/20 01:30 03/18/20 07:49 Humalog SC 3 unit .BEDTIME SLIDING SC PRN Administration Bedtime Correctional Scale Insulin Human Lispro 10 units 03/14/20 17:00 03/20/20 07:13 Humalog SC 10 unit TID-WM LUIS Administration Insulin Human Lispro 0 units 03/18/20 12:12 03/20/20 11:07 Humalog SC 8 unit .MODERATE SLIDING SC PRN Administration Moderate Correctional Scale Isosorbide Mononitrate 60 mg 03/20/20 09:00 03/20/20 08:36 Imdur PO 60 mg DAILY LUIS Administration Lorazepam 1 mg 03/19/20 14:14 03/20/20 10:40 Ativan SLOW IVP 1 mg Q6H PRN Administration Anxiety Metoprolol Tartrate 50 mg 03/14/20 09:00 03/20/20 08:38 Lopressor PO 50 mg BID LUIS Administration Nitroglycerin 0.4 mg 03/14/20 05:38 03/17/20 16:58 Nitrostat SL 0.4 mg Q5MIN PRN Administration Chest Pain Pantoprazole Sodium 40 mg 03/14/20 09:00 03/20/20 08:38 Protonix PO 40 mg BID LUIS Administration Ranolazine 1,000 mg 03/19/20 21:00 03/20/20 08:41 Ranexa PO 1,000 mg BID LUIS Administration Rosuvastatin Calcium 20 mg 03/14/20 09:00 03/20/20 08:37 Crestor PO 20 mg BID LUIS Administration Sodium Chloride 10 ml 03/14/20 09:00 03/20/20 08:41 Flush - Normal Saline IVF 10 ml Q12HR LUIS Administration - Exam General Appearance: NAD, awake alert Eye: PERRL, anicteric sclera ENT: normocephalic atraumatic, no oropharyngeal lesions Neck: supple, no JVD Neck - other findings: neck tenderness on exam Heart: RRR, no murmur, no gallops, no rubs Respiratory: CTAB, no wheezes, no rales, no ronchi Gastrointestinal: soft, non-tender, non-distended, normal bowel sounds Extremities: no cyanosis, no clubbing, no edema Skin: normal turgor, no lesions, no rashes Neurological - other findings: can lift arms up above head, subj decreased sensation right arm. 3/5 RUE Musculoskeletal: normal tone, normal strength, no muscle wasting Psychiatric: normal affect, normal behavior, A&O x 3, oriented to person Hosp A/P - Plan This is 44 year old male with CABG presenting with chest pain #CHest pain possibly secondary to NSTEMI #CAD s.p CABG - continue therapeutic lovenox - on aspirin, ranexa 1000 mg bid, plavix, metoprolol 50 mg bid -off nitro drip - troponin downtrending RUE numbness - likely cervical radiculopathy - will check CT head, CTA head/neck and CT cervical spine - patient is on anticoagulation already and is getting aspirin Anxiety - xanax prn Staph UTI - continue levaquin Hiccups - continue baclofen 10 mg tid prn Type II diabetes - continue insulin sliding scale. On Lantus 30 units qam, will add lantus 10 units hs for persistently high blood sugars Anemia -stable DVT prophylaxis: therapeutic lovenox Code status: full code
--- NOTE | 2020-03-20 12:52 | CT ---
Exam: CT cervical spine without contrast HISTORY: Trauma. Pain. COMPARISON: None FINDINGS: No craniocervical dissociation. Appropriate alignment of the lateral masses of C1 and C2. Intact odon toid process Appropriate alignment of the facets. Soft tissue neck structures: No mass, lymphadenopathy or hematoma. No prevertebral soft tissue swelli ng. Upper mediastinum and lung apices: Unremarkable Central spinal canal: Limited evaluation of the contents of the central spinal canal and neural foramina due to technique. C3-C4: Mild central canal stenosis secondary to a broad-based disc bulge with a superimposed central disc herniation. Mild right neural foraminal narrowing C4-C5: Central disc herniation results in mild central canal stenosis. Moderate right foraminal narro wing due to uncovertebral facet hypertrophy C5-C6: Mild central canal stenosis secondary to broad-based discussed by complex Vertebral bodies: Cervical spine vertebral body height is maintained. No fracture. Incidentals: Hypodensities in the left upper lobe, incompletely evaluated. Boiler Erector hypodense l esion measures 1 cm. IMPRESSION: 1. Degenerative changes cervical spine as described above. Better interrogation with cervical spine M RI can be performed on a nonemergent basis. There does not appear to be high-grade central canal stenosis or high-grade foraminal narrowing 2. No fracture. 3. Indeterminate lesions in the left thyroid lobe, requiring nonemergent thyroid ultrasound
[2020-03-20] MEDS: Gabapentin 100 MG CAP PO SCH ×2 (14:25→20:08)
--- NOTE | 2020-03-20 14:32 | CT ---
CT OF THE BRAIN WITHOUT CONTRAST: 03/20/20 INDICATION: History of prior stroke with right arm tingling and numbness for one hour. COMPARISON: Prior CT of the brain dated 12/07/19. FINDINGS: No acute infarct, hemorrhage, or hydrocephalus is present. No midline shift is evident. Skull is inta ct. Paranasal sinuses and mastoid air cells are clear. Skull appears within normal limits. IMPRESSION: No acute intracranial abnormality. POS: [facility]
--- NOTE | 2020-03-20 14:37 | ULT ---
Thyroid sonogram HISTORY: Abnormal CT scan. Thyroid nodules. FINDINGS: Right thyroid lobe is 4.5 cm length and has normal appearance. Isthmus is 1.1 cm thickness. Left thyroid lobe measures up to 3.8 cm. Within the central portion is a lobular, somewhat poorly defined heterogeneous partially cystic and i soechoic mass with subtle posterior acoustic enhancement. It measures up to 1.3 cm length by 1.0 cm depth. No internal calcifications. TI RADS 4. Moderately suspicious. Please consider follow-up in one year. At the inferior pole a smoothly marginated homogeneous isoechoic solid mass is 1.3 cm length by 0.9 c m depth. No internal calcifications. TI RADS 3. Mildly suspicious. Given the small size, dedicated follow-up not necessary. IMPRESSION : Small left thyroid lobe nodules as detailed above. Please consider follow-up exam in one year to [facility] for stability.
[2020-03-20] MEDS: Morphine 4 MG/ML VIAL SLOW IVP PRN ×2 (16:32→20:13)
--- NOTE | 2020-03-20 17:17 | PRG ---
DATE OF SERVICE: 03/20/2020 Gareth Olea is clinically more or less the same. He has different complaints of pain today. He has had a head CT and cervical spine CT, either of which explained his pain in his arm. He has also had a thyroid ultrasound for an abnormality seen on his cervical spine CT. He has small left thyroid nodules. Remainder of his physical exam is unchanged. He is awaiting a telemetry bed. We will sign off. Job ID: [id number]
[2020-03-20] MEDS: Nitroglycerin 0.4 MG TAB (25 Tab Bottle) SL PRN ×3 (18:09→19:14)
[2020-03-20] MEDS: DULoxetine 60 MG CAP PO SCH (20:08)
[2020-03-20] MEDS: Insulin Glargine 10 UNITS in Pre-Filled Syringe 1 EACH SC SCH (20:08)
[2020-03-20] MEDS: Promethazine HCl 12.5 MG in Sodium Chloride 0.9% 50 ML IVPB PRN (21:03)
[2020-03-20] MEDS ORDERED: Sodium Chloride 0.9% 10 ML ONE (22:49)
[2020-03-20] MEDS: Zolpidem Tartrate 5 MG TAB PO PRN (22:56)
[2020-03-21] MEDS: Morphine 4 MG/ML VIAL SLOW IVP PRN ×3 (01:02→20:50)
[2020-03-21] MEDS: HumaLOG 300 UNITS/3 ML VIAL SC PRN (06:10)
[2020-03-21] MEDS: Gabapentin 100 MG CAP PO SCH ×3 (08:46→20:49)
[2020-03-21] MEDS: busPIRone HCl 5 MG TAB PO SCH ×2 (08:46→20:50)
[2020-03-21] MEDS: Lorazepam 2 MG/ML VIAL SLOW IVP PRN ×3 (08:46→21:33)
[2020-03-21 08:47] LABS: Anion Gap 12 mmol/L (10-20); BUN (Urea Nitrogen) 21 mg/dL (8.9-20.6); Calc. Creatinine Clearance 120 mL/min (70-130); Calcium 8.9 mg/dL (7.8-10.44); Carbon Dioxide 29 mmol/L (22-29); Chloride 103 mmol/L (98-107); Estimated GFR-MDRD 73; Glucose 212 mg/dL (70-105); Potassium 4.2 mmol/L (3.5-5.1); Sodium 140 mmol/L (136-145)
[2020-03-21] MEDS: Aspirin 81 mg Enteric Coated Tablet PO SCH (08:47)
[2020-03-21] MEDS: Baclofen 10 MG TAB PO SCH ×3 (08:47→20:50)
[2020-03-21] MEDS: Clopidogrel Bisulfate 75 MG TAB PO SCH (08:47)
[2020-03-21] MEDS: Metoprolol Tartrate 50 MG TAB PO SCH ×2 (08:47→20:49)
[2020-03-21] MEDS: Rosuvastatin 20 MG TAB PO SCH ×2 (08:47→20:50)
[2020-03-21] MEDS: Enoxaparin Sodium 100 MG/ML SYRINGE SC SCH (08:48)
[2020-03-21] MEDS: Insulin Glargine 30 UNITS in Pre-Filled Syringe SC SCH (08:49)
[2020-03-21] MEDS: HumaLOG 300 UNITS/3 ML VIAL SC SCH ×3 (08:49→15:49)
[2020-03-21] MEDS ORDERED: Cyclobenzaprine 10 MG TAB PO PRN (11:05)
[2020-03-21] MEDS: Sodium Chloride 0.9% 1,000 ML IV SCH (14:10)
[2020-03-21] MEDS: Promethazine HCl 12.5 MG in Sodium Chloride 0.9% 50 ML IVPB PRN ×2 (14:12→15:48)
--- NOTE | 2020-03-21 14:55 | PDOC.HOSPP ---
- Subjective Encounter Date: 03/21/20 Encounter Time: 10:00 Subjective: The patient was going down for his MRI spine. He fell dizzy and lightheaded and then had a fall on his right side. Reports mild pain on the right side. Patient thinks he passed out, but is not sure. He does not recall whether he hit his head He continues to complain of chest pain. He also reports neck pain and some headache. Complains of tingling and numbness on his right arm. BP was 90 systolic - Objective Vital Signs & Weight: Vital Signs (12 hours) Temp Pulse Pulse Pulse Resp BP BP 03/21/20 11:25 97.3 F L 83 16 03/21/20 09:47 82 78 122/69 126/69 03/21/20 07:57 97.9 F 90 16 03/21/20 07:55 03/21/20 06:24 86 18 03/21/20 03:11 97.8 F 89 20 BP BP Pulse Ox 03/21/20 11:25 101/56 L 97 03/21/20 09:47 03/21/20 07:57 114/67 97 03/21/20 07:55 97 03/21/20 06:24 115/70 03/21/20 03:11 96/54 L 98 Weight Weight 213 lb 8 oz Most Recent Monitor Data Heart Rate from ECG 81 NIBP 116/69 NIBP BP-Mean 84 Respiration from ECG 12 SpO2 94 I&O: 03/20/20 03/21/20 03/22/20 06:59 06:59 06:59 Intake Total 3140.6 1583 540 Output Total 1300 2000 Balance 1840.6 -417 540 Result Diagrams: 03/20/20 05:35 03/21/20 07:41 Additional Labs: Accuchecks 03/21/20 03/21/20 03/21/20 14:01 11:01 05:51 POC Glucose 109 164 H 210 H 03/20/20 03/20/20 20:11 16:31 POC Glucose 123 H 151 H Hospitalist ROS - Review of Systems Constitutional: denies: fever, chills - Medication Medications: Active Medications Generic Name Dose Route Start Last Admin Trade Name Freq PRN Reason Stop Dose Admin Aspirin 81 mg 03/14/20 09:00 03/21/20 08:47 Ecotrin PO 81 mg DAILY LUIS Administration Baclofen 10 mg 03/17/20 15:00 03/21/20 08:47 Lioresal PO 10 mg TID LUIS Administration Buspirone HCl 5 mg 03/14/20 09:00 03/21/20 08:46 Buspar PO 5 mg BID LUIS Administration Clopidogrel Bisulfate 75 mg 03/14/20 09:00 03/21/20 08:47 Plavix PO 75 mg DAILY LUIS Administration Divalproex Sodium 500 mg 03/14/20 09:00 03/21/20 08:46 Depakote Er PO 500 mg DAILY LUIS Administration Duloxetine HCl 60 mg 03/14/20 21:00 03/20/20 20:08 Cymbalta PO 60 mg HS LUIS Administration Enoxaparin Sodium 40 mg 03/21/20 09:00 03/21/20 08:48 Lovenox SC 40 mg 0900 LUIS Administration Gabapentin 200 mg 03/20/20 15:00 03/21/20 08:46 Neurontin PO 200 mg TID LUIS Administration Insulin Glargine 30 units/ 0.3 mls @ 0 mls/hr 03/15/20 09:00 03/21/20 08:49 Miscellaneous Medication SC 0.3 mls QAM LUIS Administration Promethazine HCl 12.5 mg/ 50.5 mls @ 202 mls/hr 03/15/20 23:06 03/21/20 14:12 Sodium Chloride IVPB 50.5 mls Q6H PRN Administration Nausea/Vomiting Levofloxacin 750 mg/ Device 150 mls @ 100 mls/hr 03/18/20 12:00 03/21/20 14: 12 IVPB 150 mls Q24HR LUIS Administration Insulin Glargine 10 units/ 0.1 mls @ 0 mls/hr 03/19/20 21:00 03/20/20 20:08 Miscellaneous Medication SC 0.1 mls HS LUIS Administration Insulin Human Lispro 0 units 03/14/20 01:30 03/18/20 07:49 Humalog SC 3 unit .BEDTIME SLIDING SC PRN Administration Bedtime Correctional Scale Insulin Human Lispro 10 units 03/14/20 17:00 03/21/20 11:55 Humalog SC 10 unit TID-WM LUIS Administration Insulin Human Lispro 0 units 03/18/20 12:12 03/21/20 06:10 Humalog SC 6 unit .MODERATE SLIDING SC PRN Administration Moderate Correctional Scale Isosorbide Mononitrate 60 mg 03/20/20 09:00 03/21/20 08:47 Imdur PO 60 mg DAILY LUIS Administration Lorazepam 1 mg 03/19/20 14:14 03/21/20 14:23 Ativan SLOW IVP 1 mg Q6H PRN Administration Anxiety Metoprolol Tartrate 50 mg 03/14/20 09:00 03/21/20 08:47 Lopressor PO 50 mg BID LUIS Administration Morphine Sulfate 4 mg 03/20/20 09:59 03/21/20 06:10 Morphine SLOW IVP 4 mg Q4H PRN Administration Pain Nitroglycerin 0.4 mg 03/14/20 05:38 03/20/20 19:14 Nitrostat SL 0.4 mg Q5MIN PRN Administration Chest Pain Pantoprazole Sodium 40 mg 03/14/20 09:00 03/21/20 08:46 Protonix PO 40 mg BID LUIS Administration Ranolazine 1,000 mg 03/19/20 21:00 03/21/20 10:31 Ranexa PO 1,000 mg BID LUIS Administration Rosuvastatin Calcium 20 mg 03/14/20 09:00 03/21/20 08:47 Crestor PO 20 mg BID LUIS Administration Sodium Chloride 10 ml 03/14/20 09:00 03/21/20 08:47 Flush - Normal Saline IVF 10 ml Q12HR LUIS Administration Sodium Chloride 10 ml 03/20/20 22:50 03/21/20 06:18 Flush - Normal Saline IVF 10 ml PRN PRN Administration Saline Flush Zolpidem Tartrate 10 mg 03/14/20 02:02 03/20/20 22:56 Ambien PO 10 mg HSPRN PRN Administration Insomnia - Exam General Appearance: NAD, awake alert Eye: PERRL, anicteric sclera ENT: normocephalic atraumatic, no oropharyngeal lesions Neck: no JVD Heart: RRR, no murmur, no gallops, no rubs Respiratory: CTAB, no wheezes, no rales, no ronchi Gastrointestinal: soft, non-tender, non-distended, normal bowel sounds Extremities: no cyanosis, no clubbing, no edema Extremities - other findings: mild hip pain lifting up right leg Skin: normal turgor, no lesions, no rashes Neurological: cranial nerve grossly intact, normal sensation to touch, no focal deficits, no new deficit Musculoskeletal - other findings: RUE 5/5 strength. No pain when lifting up any extremity Hosp A/P - Plan This is 44 year old male with CABG presenting with chest pain #CHest pain possibly secondary to NSTEMI #CAD s.p CABG - continue therapeutic lovenox - on aspirin, ranexa 1000 mg bid, plavix, metoprolol 50 mg bid -off nitro drip -repeat troponin Presyncope - check EKG, troponin, repeat CBC, troponin, CT head - hydrate with IV fluids RUE numbness due to cervical radiculopathy -CT cervical spine shows mild central disc herniation on the right. MRI cervical spine ordered - flexeril prn ordered - continue gabapentin Anxiety - xanax prn Staph UTI - continue levaquin Hiccups - continue baclofen 10 mg tid prn Type II diabetes - continue insulin sliding scale. On Lantus 30 units qam, will add lantus 10 units hs for persistently high blood sugars Anemia -stable DVT prophylaxis: therapeutic lovenox Code status: full code
--- NOTE | 2020-03-21 15:48 | CT ---
CT BRAIN WITHOUT CONTRAST: 03/21/20 HISTORY: Fall about one hour ago. Patient is on blood thinners. COMPARISON: 03/20/20. FINDINGS: No evidence of acute infarct, hemorrhage, midline shift or abnormal extra-axial fluid collections are seen. The ventricular size is normal and the basilar cisterns patent. The bony calvarium is intact. The visualized paranasal sinuses and mastoid air cells are well aerated. IMPRESSION: Stable exam. No CT evidence of acute intracranial process. POS: [facility]
--- NOTE | 2020-03-21 15:59 | RAD ---
RIGHT HIP 2 VIEWS: HISTORY: Fall. Right hip pain. FINDINGS/IMPRESSION: No acute fracture or dislocation is identified. POS: [facility]
--- NOTE | 2020-03-21 17:07 | RAD ---
CHEST ONE VIEW: 03/21/20 at 3:45 p.m. HISTORY: Fall. Patient on blood thinners. COMPARISON: 03/13/20. Changes of median sternotomy again seen. The right sided central venous catheter remains in place wit h tip in projection of the right atrium. The heart size is normal. No focal areas of consolidation, p neumothoraces, norah pulmonary edema or pleural effusions are seen. IMPRESSION: No acute process. POS: [facility]
--- NOTE | 2020-03-21 17:50 | MRI ---
MRI OF THE CERVICAL SPINE WITHOUT CONTRAST: 03/21/20 COMPARISON: None. HISTORY: Numbness on the entire right side of body and chronic neck pain. Fall three hours ago. TECHNIQUE: Multiplanar and multisequence MRI images are obtained in the cervical spine without contrast. FINDINGS: Mild generalized disc desiccation is seen throughout the cervical spine. The vertebral bodies and int ervertebral discs demonstrate normal height and alignment without fracture or subluxation. The visualized cord demonstrates normal signal throughout. The craniocervical junction is unremarkabl e. The prevertebral and paraspinal soft tissues are unremarkable. C2-3: Unremarkable. C3-4: Unremarkable. C4-5: A small disc osteophyte complex is seen. Mild bilateral posterior facet arthrosis. Mild central canal stenosis. Moderate bilateral neural foraminal stenosis, right greater than left. C5-6: A small disc osteophyte complex is seen. Mild bilateral posterior facet arthrosis. Moderate ce ntral canal stenosis. Moderate bilateral neural foraminal stenosis. C6-7: Unremarkable. T7-T1: Unremarkable. IMPRESSION: Degenerative changes in the mid cervical spine as above. POS: [facility]
[2020-03-21] MEDS: Insulin Glargine 10 UNITS in Pre-Filled Syringe 1 EACH SC SCH (20:48)
[2020-03-21] MEDS: Zolpidem Tartrate 5 MG TAB PO PRN (20:50)
[2020-03-21] MEDS: DULoxetine 60 MG CAP PO SCH (20:50)
[2020-03-22] MEDS: Morphine 4 MG/ML VIAL SLOW IVP PRN ×3 (03:27→15:57)
[2020-03-22] MEDS: Lorazepam 2 MG/ML VIAL SLOW IVP PRN ×2 (05:10→13:22)
[2020-03-22] MEDS: Sodium Chloride 0.9% 1,000 ML IV SCH (06:16)
[2020-03-22] MEDS: Promethazine HCl 12.5 MG in Sodium Chloride 0.9% 50 ML IVPB PRN (08:16)
[2020-03-22] MEDS: Aspirin 81 mg Enteric Coated Tablet PO SCH (08:18)
[2020-03-22] MEDS: Enoxaparin Sodium 100 MG/ML SYRINGE SC SCH (08:19)
[2020-03-22] MEDS: Rosuvastatin 20 MG TAB PO SCH (08:19)
[2020-03-22] MEDS: Gabapentin 100 MG CAP PO SCH (08:19)
[2020-03-22] MEDS: Metoprolol Tartrate 50 MG TAB PO SCH (08:20)
[2020-03-22] MEDS: busPIRone HCl 5 MG TAB PO SCH (08:20)
[2020-03-22] MEDS: Insulin Glargine 30 UNITS in Pre-Filled Syringe SC SCH (08:20)
[2020-03-22] MEDS: Clopidogrel Bisulfate 75 MG TAB PO SCH (08:20)
[2020-03-22] MEDS: Baclofen 10 MG TAB PO SCH ×2 (08:20→16:10)
[2020-03-22] MEDS: HumaLOG 300 UNITS/3 ML VIAL SC SCH ×3 (08:21→18:17)
[2020-03-22] MEDS ORDERED: Meclizine HCl 12.5 MG TAB PO PRN (09:57)
[2020-03-22] MEDS ORDERED: Gabapentin 100 MG CAP PO PRN (09:59)
[2020-03-22] MEDS ORDERED: Sodium Chloride 0.9% 500 ML IV SCH ×2 (12:45)
[2020-03-22 12:57] VITALS: BMI 29.7
[2020-03-22 15:57] VITALS: TEMP 98.4
[2020-03-22 16:48] VITALS: BP 106/58
[2020-03-22] MEDS ORDERED: Metoprolol Tartrate 25 MG TAB PO SCH (21:00)
--- NOTE | 2020-03-23 03:04 | DIS ---
DATE OF ADMISSION: 03/14/2020 DATE OF DISCHARGE: 03/22/2020 DISCHARGE DIAGNOSES: 1.Xin-RT-[id number] myocardial infarction 2. Presyncope secondary to orthostatic hypotension 3. Degenerative disk disease 4, Staphylococcus urinary tract infection 5. Intractable hiccups. CONSULTATIONS: Cardiology, Dr. Florentino Dobbins; Critical Care, Dr. Eduardo Lipscomb. PROCEDURES: None. BRIEF HISTORY OF PRESENT ILLNESS: This is a 44-year-old male who presented to the emergency room with chest pain while sitting at home. His chest pain was radiating to both sides of his chest, exacerbated by movements, relieved by nothing. He also reported blood sugars of set at 600 to 700 for the past few days. He also had polyuria, polydipsia, and polyphagia. When the patient presented to the ER, his CK-MB was 2.4, troponin 0.252, EKG showed T-wave inversions in V1 to V3. His beta-hydroxybutyrate was 1.00. He had a CTA of his chest, which showed no PE. He was admitted to the hospital for further workup. HOSPITAL COURSE: Chest pain secondary to NSTEMI: The patient was started on therapeutic Lovenox while in the hospital. His troponins had trended up to 0.7. He at one point was transitioned to the CCU and was placed on a nitroglycerin drip. He was kept on the nitroglycerin drip for a few days and was eventually weaned off. He was started on ranolazine 1000 mg twice daily, which is the patient's home medication; however, the patient is noncompliant with medication. Eventually, his chest pain resolved at the time of discharge. He will be discharged with aspirin, Ranexa, Plavix, and metoprolol. He should follow up with Dr. Dobbins in 2 to 3 weeks. Orthostatic hypotension: The patient had a presyncopal event on 03/21 when he got up and fell. His orthostatics were positive. Blood pressure of 109 sitting to 89 standing. He was given 1 L bolus. Repeat orthostatics were negative. His metoprolol was reduced to 25 mg twice daily on discharge. Staphylococcus UTI: The patient reported burning sensations with urination. His urine culture showed 100,000 staph. He was started on Levaquin 750 mg p.o. daily. He will be discharged with this for additional 2 days to complete a 7-day course of antibiotics. Uncontrolled diabetes, possible DKA: The patient presented with blood sugar over 500 and elevated beta hydroxybutyrate. His bicarb, however, was normal. He was resumed on his Lantus. His blood sugars remained from 100 to 200 while in the hospital. He was switched to Lantus 30 units subcu q.a.m. in the morning and 14 units subcu at bedtime at night. His sliding scale was changed to Humalog 12 units subcu t.i.d. with sliding scale as follows: 1. 150 to 200, administer 2 units 2. 201 to 250, administer 6 units 3. 251 to 300, administer 8 units 4. 301 to 350, administer 10 units 5. > 350: administered 12 units and call physician. He was advised to follow up with his PCP for additional glucose titration. Right upper extremity numbness: The patient reported some mild right upper extremity numbness and neck pain. CT cervical spine showed mild central disk herniation. MRI of the cervical spine showed mild degenerative changes. He was discharged with Flexeril p.r.n. for muscle spasms. Left-sided thyroid nodules: This was noted incidentally on CT cervical spine. Thyroid ultrasound showed small left thyroid nodules. This should be followed up in a year. Dizziness: The patient reported dizziness while walking. This improved with IV fluid administration. He also reported some vertigo. He was discharged with meclizine p.r.n., which he can take on discharge. Hiccups: The patient reported uncontrollable hiccups and responded to baclofen 10 mg three times daily. He was prescribed this on discharge. DISCHARGE PHYSICAL EXAMINATION: VITAL SIGNS: Temperature 98.4, heart rate 83, respiratory rate 16, O2 saturation 100% on room air, blood pressure 106/58. GENERAL: The patient is alert, awake, oriented x3. CVS: Regular rate and rhythm with no murmurs, rubs, or gallops. LUNGS: Clear to auscultation bilaterally. ABDOMEN: Positive bowel sounds, soft, nontender, nondistended. EXTREMITIES: No edema. Psychiatric: The patient is noted to have anxiety. LABORATORY DATA: CBC on 03/20: Shows hemoglobin 12.5, hematocrit 38.6. BMP on 03/21: Unremarkable. Hemoglobin A1c: 13.2. Lipid panel: LDL 217, HDL 33. TSH: 1.1. Urine culture: Shows 100,000 staph aureus. IMAGING DATA: CTA chest on 03/13: Shows no PE. Mild cardiomegaly. CT brain on 03/20: No acute intracranial abnormality. CT cervical spine on 03/20: Degenerative changes of the cervical spine. Central disk herniation at C4-C5 with mild central canal stenosis. Cervical spine MRI on 03/21: Shows degenerative changes in the cervical spine. Thyroid ultrasound on 03/20: Shows small left thyroid nodules. Chest x-ray on 03/21: Shows no acute process. Hip x-ray on 03/21: Shows no acute fracture. CT brain on 03/21: Shows no acute fracture. Echo on 03/15: Shows EF of 55% to 60%. Mild MR. DISCHARGE CONDITION: Stable. ACTIVITY: Tolerated. DIET: Diabetic diet and heart healthy diet. DISCHARGE INSTRUCTIONS: The patient should follow up with his PCP in a week and Dr. Dobbins in 2 to 3 weeks. Consider following up with the ENT physician if vertigo persists. DISCHARGE MEDICATIONS: NEW PRESCRIPTIONS: 1. Baclofen 10 mg p.o. t.i.d. p.r.n. 2. Flexeril 5 mg p.o. t.i.d. p.r.n. 3. Lantus 30 units subcu q.a.m. 4. Lantus 14 units subcu at bedtime. 5. Humalog 12 units subcu t.i.d. 6. Imdur 60 mg p.o. daily. 7. Levaquin 750 mg p.o. daily. 8. Meclizine 12.5 mg p.o. t.i.d. p.r.n. 9. Lopressor 25 mg p.o. b.i.d. 10. Ranexa 1000 mg p.o. b.i.d. DISCONTINUED MEDICATIONS: 1. Metoprolol 50 mg p.o. b.i.d. All other home medications were resumed. Job ID: [id number] [facility]
--- NOTE | 2020-03-23 23:29 | EKG ---
Test Reason : Blood Pressure : / mmHG Vent. Rate : 079 BPM Atrial Rate : 079 BPM P-R Int : 146 ms QRS Dur : 092 ms QT Int : 378 ms P-R-T Axes : 066 032 051 degrees QTc Int : 433 ms Normal sinus rhythm Normal ECG When compared with ECG of 14-MAR-2020 03:43, Nonspecific T wave abnormality now evident in Inferior leads Confirmed by Jhony MARKS ([id number]) on 03/23/2020 11:29:06 PM Referred By: CHAPITO Confirmed By:Jhony MARKS
== END 2020-03-22 19:46 | DRG 280 ==
LOC: ERS 22:47 → 2NO 03-14 01:45 → CCU 03-17 17:48 → 2NO 03-20 22:34
PROVIDERS: ADMIT Internal Medicine; ATTEND Internal Medicine
DX: I21.4 Non-ST elevation (NSTEMI) myocardial infarction (principal); E11.10 Type 2 diabetes mellitus with ketoacidosis without coma; B95.8 Unspecified staphylococcus as the cause of diseases classified elsewhere; R06.6 Hiccough; E86.0 Dehydration; E11.65 Type 2 diabetes mellitus with hyperglycemia; I25.10 Atherosclerotic heart disease of native coronary artery without angina pectoris; I95.1 Orthostatic hypotension; R42 Dizziness and giddiness; E87.5 Hyperkalemia; D64.9 Anemia, unspecified; F44.4 Conversion disorder with motor symptom or deficit; F41.9 Anxiety disorder, unspecified; Z79.4 Long term (current) use of insulin; I25.2 Old myocardial infarction; Z95.1 Presence of aortocoronary bypass graft; Z86.711 Personal history of pulmonary embolism; Z79.01 Long term (current) use of anticoagulants; Z91.14 Patient's other noncompliance with medication regimen; Z86.718 Personal history of other venous thrombosis and embolism; Z90.49 Acquired absence of other specified parts of digestive tract; Z88.6 Allergy status to analgesic agent; Z88.1 Allergy status to other antibiotic agents; Z88.8 Allergy status to other drugs, medicaments and biological substances; Z95.5 Presence of coronary angioplasty implant and graft
CPT/HCPCS: 36415; 36416; 70450; 71045; 71275; 72125; 72141; 76536; 80048; 80061; 81001; 82553; 83036; 83605; 83735; 83880; 84443; 84484; 85025; 85027; 87077; 87086; 87186; 93005; 93010; 93306; 94760; 96361; 96374; 96375; J1200; J1650; J1815; J1956; J2060; J2270; J2550; J2930; J3480; J7030; J7050; Q0161; Q9967; S0028

== ENCOUNTER 2020-03-25 14:07 | Observation (INO) | payer OTHER ==
[2020-03-25] MEDS ORDERED: Promethazine HCl 25 MG/ML VIAL ONE (14:28)
[2020-03-25 14:59] LABS: #Basophils 0.1 thou/uL (0.0-0.2); #Eosinphils 0.1 thou/uL (0.0-0.7); #Monocytes 0.5 thou/uL (0.11-0.59); #Neutrophils 6.1 thou/uL (1.40-6.50); %Basophils 1.1 % (0.0-1.0); %Eosinophils 1.1 % (0.0-10.0); %Lymphocytes 12.7 % (21.0-51.0); %Neutrophils 79.2 % (42.0-75.0); Hemoglobin 14.4 g/dL (14.0-18.0); Mean Corpuscular HGB CONC 32.7 g/dL (32.0-36.0); Mean Corpuscular Volume 88.7 fL (78.0-98.0); Platelet Count 311 thou/uL (130-400); RBC Distribution Width 13.1 % (11.5-14.5); Red Blood Cell (RBC) Count 4.97 mill/uL (4.70-6.10); White Blood Cell (WBC) Count 7.6 thou/uL (4.8-10.8)
[2020-03-25 15:16] LABS: ALT (SGPT) 34 U/L (8-55); AST (SGOT) 31 U/L (5-34); Albumin 4.5 g/dL (3.5-5.0); Alkaline Phosphatase 86 U/L (40-110); Anion Gap 20 mmol/L (10-20); BUN (Urea Nitrogen) 17 mg/dL (8.9-20.6); Bilirubin, Total 0.5 mg/dL (0.2-1.2); Calc. Creatinine Clearance 0 mL/min (70-130); Carbon Dioxide 19 mmol/L (22-29); Chloride 100 mmol/L (98-107); Estimated GFR-MDRD 59; Globulin 3.4 g/dL (2.4-3.5); Glucose 423 mg/dL (70-105); Lipase 28 U/L (8-78); Potassium 4.3 mmol/L (3.5-5.1); Protein, Total 7.9 g/dL (6.0-8.3); Sodium 135 mmol/L (136-145)
--- NOTE | 2020-03-25 15:45 | RAD ---
PORTABLE CHEST ONE VIEW: Date: 03-25-2020 Time: 2:51 p.m. History: Chest pain Comparison: 03-21-2020 FINDINGS: Changes of median sternotomy are again seen. The right subclavian central line has been removed in interim. The heart size is normal. The lungs are well expanded without focal areas of consolidation , pneumothoraces or pleural effusions. IMPRESSION: No radiographic evidence of acute cardiopulmonary process. POS: OFF
[2020-03-25 16:15] LABS: Bilirubin Negative (Negative); Blood, Urine Negative (Negative); Clarity Clear (Clear); Glucose, Urine (Dipstick) Greater than 1000 mg/dL (Negative); Leukocyte Negative Leu/uL (Negative); Nitrite Negative (Negative); Protein, Urine (Dipstick) 10 mg/dL (Neg-Trace); Urobilinogen Normal mg/dL (Less than 2)
[2020-03-25] MEDS ORDERED: Morphine 4 MG/ML VIAL ONE ×2 (16:43→17:55)
[2020-03-25] MEDS ORDERED: Nitroglycerin 0.4 MG TAB (25 Tab Bottle) PO PRN (18:46)
[2020-03-25] MEDS ORDERED: HumaLOG 300 UNITS/3 ML VIAL SC PRN ×2 (18:49)
[2020-03-25] MEDS ORDERED: Dextrose 5% in Water 1,000 ML IV PRN (18:49)
[2020-03-25] MEDS ORDERED: Dextrose 50% Abboject 50 ML SYRINGE SLOW IVP PRN (18:49)
[2020-03-25] MEDS ORDERED: Acetaminophen 325 MG TAB PO PRN (18:53)
[2020-03-25] MEDS ORDERED: Calcium Carbonate 500 MG ChewTAB PO PRN (18:53)
[2020-03-25] MEDS ORDERED: Sodium Chloride 0.9% 1,000 ML IV SCH (19:00)
[2020-03-25 19:48] LABS: Troponin I 0.025 ng/mL (< 0.028)
[2020-03-25] MEDS ORDERED: Magnesium 2 GM/50 ML 2 GM in Premix Bag 1 BAG IVPB SCH ×2 (20:00→21:00)
--- NOTE | 2020-03-25 20:16 | PDOC.EVN ---
Event Note - Event Note Event Note: Patient med list from recent Discharge differs from what he is taking at home. Reviewed home meds with patient for 2nd time in ER.
--- NOTE | 2020-03-25 20:27 | HP ---
PRIMARY CARE PHYSICIAN: [facility]. CHIEF COMPLAINT: Chest pain and urinary symptoms. HISTORY OF PRESENT ILLNESS: The patient is a 44-year-old male with a past medical history significant for coronary artery disease; CABG x4 in 2018; ME x6, last (), hypertension; hyperlipidemia, diabetes 1; bilateral pulmonary embolisms (taking eliquis); and bowel obstruction who presents for the above complaints. The patient was recently discharged from our hospital last week for an NSTEMI and UTI. He was discharged with changes to his cardiac medications by Dr. Dobbins and Levaquin po x 5 days for his urinary tract infection. The patient presents for a chief complaint of worsening, chronic chest pain, reported as substernal pressure, constant, stating, "I always have it, however, it is a little worse today", radiating to the left and right arms, exacerbated by nothing and relieved by nothing." The patient reports some associated shortness of breath. He denies heart palpitations, lightheadedness or lower extremity swelling. He also presents for the urinary tract symptoms. He reports dysuria, frequency, and urgency that have been constant since he was discharged from the hospital last week. He also developed some associated lower pelvic discomfort and diarrhea. He reports having greater than 10 stools per day over the last couple days. He reports developing a fever last night; T-max 101 Fahrenheit. He reports some associated nausea. He denies any hematemesis or vomiting. He denies any blood in the stools. He has been on recent antibiotics after hospitalization. He denies any recent travel. He denies any ingestion of uncooked foods. For these reasons, the patient decided to go to the ER. In the ER, vital signs, the patient was found to be tachycardic at 124, blood pressures were stable, afebrile at 99.1, he was 99% on room air. EKG showed sinus tach at 117, no ST elevations. Chest x-ray was negative. Troponin was 0.026. BNP of 55.2. Patient's UA showed ketones and glucose. Serum glucose was 405. Beta hydroxybutyrate was 1.45. VBGs showed a pH of 7.438 and a gap of 20. The patient's WBCs were 7.6 and a creatinine of 1.32. The patient was given 8 of morphine IV push and promethazine 6.25 IV push. ALLERGIES: THE PATIENT REPORTS; 1. BENTYL. 2. IODINE. 3. KETOROLAC. 4. REGLAN. 5. ONDANSETRON (ZOFRAN). 6. PIPERACILLIN. 7. TAZOBACTAM. CURRENT MEDICATIONS: 1. Aspirin 81 mg p.o. daily. 2. Eliquis 5 mg p.o. b.i.d. 3. Gabapentin 600 mg p.o. t.i.d. with meals, fourth dose 1200 mg p.o. 4. Humalog 20 units subcu t.i.d. with meals. 5. Basaglar 50 units subcu a.m., 40 units subcu at bedtime. 6. Isosorbide dinitrate 10 mg p.o. b.i.d. 7. Metoprolol tartrate 25 mg p.o. b.i.d. 8. Crestor 10 mg p.o. TID. 9. Ambien 10 mg p.o. daily. 10. Amiodarone 200 mg p.o. daily. 11. Ranexa 500 mg p.o. b.i.d. 12. Plavix 75 mg p.o. daily. 13. Depakote 500 mg p.o. daily. 14. Sublingual nitroglycerin 0.4 mg p.r.n. q.5 minutes for chest pain. PAST MEDICAL HISTORY: 1. CAD with 6 stents. 2. ME x6, last was in December of 2019. 3. Hypertension. 4. Hyperlipidemia. 5. Bilateral PEs in 2019. 6. Diabetes type 1, insulin-dependent. 7. Peripheral neuropathy. 8. Bowel obstruction. 9. ADHD. PAST SURGERY HISTORY: CABG x4 in 2018, CAD x6. He has had appendectomy and cholecysectomy. SOCIAL HISTORY: He lives alone in [place]. He denies any history of tobacco use or illicit drug use. He reports he drinks alcohol socially. 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 FAMILY HISTORY: Significant for cardiovascular disease. REVIEW OF SYSTEMS: All other review of systems are negative unless noted in the HPI. PHYSICAL EXAMINATION: VITAL SIGNS: Temperature 99.1, blood pressure 149/86, heart rate 124, respirations 20, 99% on room air. 8/10 pain scale. EKG was sinus tach at 117, no ST elevations. Chest x-ray was negative. Troponins were 0.026. BNP was 55.2. The patient's UA showed ketones and glucose. Serum glucose was 405. Beta hydroxybutyrate was 1.45, gap was 20. VBG was 7.438. Sodium 135, potassium 4.3, chloride 100, CO2 of 19, BUN 17, creatinine 1.32, GFR 59. WBC 7.6, hemoglobin 14.4, hematocrit 44.1, platelets 311. IMPRESSION AND PLAN: 1. Chest pain. We will admit the patient to the telemetry for observation status. Expected length of stay is less than 2 midnights. The patient has a significant heart history of coronary artery disease, coronary artery bypass graft with a quadruple bypass in 2018. He has 6 stents. The patient states upon exam that he has chronic substernal chest pain that has just worsened over the last several days. He has a heart score of 6. EKG Sinus Tachycardia 117, Trop 0.026, BNP 55.2, he is on eliquis. We will continue the patient's baby aspirin, Plavix, and Eliquis. We will check a fasting lipid, TSH, and Mag level. We will trend the troponins. We will consult Cardiology. 2. Hyperglycemia. Patient is a type 1 diabetic, on insulin. He states that he takes 50 units of Basaglar in the morning, 40 units of Basaglar at night and then he takes Humalog 20 units t.i.d. with meals daily. Currently, his blood sugar was in the 400s when he presented. He had ketones and glucose in the urine, but his pH was within normal limits and his gap was close to 20. We will restart patient's basal dose of insulin and add aggressive sliding scale. We will give IV fluid hydration and we will recheck labs in the a.m. 3. Diarrhea. With patient's recent admission to the hospital and discharged on Levaquin, he is at risk for C. difficile. We will place him on C. difficile precautions. We will order stool studies and we will start Flagyl IV piggyback. 4. MACEY, baseline appears less than 1.0. Will start IVF hydration and recheck BMP in am. 5. Coronary artery disease. We will restart patient's anticoagulation, home medications, and patient's antihypertensive medications. We will restart patient's statin. 6. Hypertension. We will restart patient's home medications and monitor blood pressures. 7. Hyperlipidemia. We will restart patient's home statin dose. 8. Bilateral pulmonary embolism. Diagnosed in 2019. We will continue anticoagulation with his home dose of Eliquis 5 mg twice a day. 9. No deep venous thrombosis prophylaxis. We will start Protonix, GI prophylaxis. 10. Patient is a full code and POA is Violet Card, . Discussed the case with Dr. Boogie. Job ID: [id number] [id number]
[2020-03-25] MEDS ORDERED: Insulin Glargine 40 UNITS in Pre-Filled Syringe 1 EACH SC SCH (21:00)
[2020-03-25] MEDS ORDERED: Insulin Glargine 20 UNITS in Pre-Filled Syringe 1 EACH SC SCH (21:45)
[2020-03-25] MEDS: Apixaban 5 MG TAB PO SCH (21:49)
[2020-03-25] MEDS: Metoprolol Tartrate 25 MG TAB PO SCH (21:49)
[2020-03-25] MEDS: Sodium Chloride 0.9% 1,000 ML IV SCH (21:52)
[2020-03-25] MEDS: Nitroglycerin 2% Ointment 1 INCH/1 GM Packet TOP SCH (21:54)
[2020-03-25] MEDS: Morphine 2 MG/ML SYRINGE SLOW IVP PRN (21:55)
[2020-03-25] MEDS: Promethazine HCl 12.5 MG in Sodium Chloride 0.9% 50 ML IVPB PRN (21:55)
[2020-03-25] MEDS: Rosuvastatin 10 MG TAB PO SCH (21:57)
[2020-03-25] MEDS: metroNIDAZOLE 500 MG in Premix Bag 1 BAG IVPB SCH ×2 (23:30)
[2020-03-25 23:48] LABS: Troponin I 0.025 ng/mL (< 0.028)
[2020-03-26] MEDS: Morphine 2 MG/ML SYRINGE SLOW IVP PRN ×2 (04:40→10:05)
[2020-03-26 05:12] LABS: #Basophils 0.1 thou/uL (0.0-0.2); #Eosinphils 0.1 thou/uL (0.0-0.7); #Monocytes 0.7 thou/uL (0.11-0.59); #Neutrophils 4.3 thou/uL (1.40-6.50); %Eosinophils 1.6 % (0.0-10.0); %Lymphocytes 27.6 % (21.0-51.0); %Monocytes 9.2 % (0.0-10.0); %Neutrophils 60.7 % (42.0-75.0); Hemoglobin 12.5 g/dL (14.0-18.0); Mean Corpuscular HGB CONC 33.4 g/dL (32.0-36.0); Mean Corpuscular Hemoglobin 29.6 pg (27.0-31.0); Mean Corpuscular Volume 88.6 fL (78.0-98.0); Mean Platelet Volume 7.8 fL (7.4-10.4); Platelet Count 268 thou/uL (130-400); Red Blood Cell (RBC) Count 4.23 mill/uL (4.70-6.10); White Blood Cell (WBC) Count 7.1 thou/uL (4.8-10.8)
[2020-03-26 05:34] LABS: Anion Gap 13 mmol/L (10-20); BUN (Urea Nitrogen) 13 mg/dL (8.9-20.6); Calc. Creatinine Clearance 126 mL/min (70-130); Calcium 8.6 mg/dL (7.8-10.44); Carbon Dioxide 25 mmol/L (22-29); Cardiac Risk 5.8 (Less than 4.5); Chloride 105 mmol/L (98-107); Cholesterol 185 mg/dl (< 200 Desired); Estimated GFR-MDRD 82; Glucose 215 mg/dL (70-105); HDL Cholesterol 32 mg/dL (>60 Neg Risk); LDL Cholesterol, Calculated 119 mg/dL; Potassium 3.7 mmol/L (3.5-5.1); Sodium 139 mmol/L (136-145); Triglycerides 170 mg/dL (Less than 150)
[2020-03-26] MEDS: Sodium Chloride 0.9% 1,000 ML IV SCH ×3 (06:13→21:13)
[2020-03-26] MEDS: Nitroglycerin 2% Ointment 1 INCH/1 GM Packet TOP SCH ×3 (06:17→21:12)
[2020-03-26] MEDS: metroNIDAZOLE 500 MG in Premix Bag 1 BAG IVPB SCH ×3 (06:29→21:16)
[2020-03-26] MEDS ORDERED: Aspirin 81 mg Enteric Coated Tablet PO SCH (09:00)
[2020-03-26] MEDS ORDERED: Insulin Glargine 50 UNITS in Pre-Filled Syringe 1 EACH SC SCH (09:00)
[2020-03-26] MEDS: Insulin Glargine 25 UNITS in Pre-Filled Syringe 1 EACH SC SCH (10:04)
[2020-03-26] MEDS: Apixaban 5 MG TAB PO SCH ×2 (10:06→19:25)
[2020-03-26] MEDS: Amiodarone 200 MG TAB PO SCH (10:06)
[2020-03-26] MEDS: Aspirin 81 mg Enteric Coated Tablet PO SCH (10:06)
[2020-03-26] MEDS: Clopidogrel Bisulfate 75 MG TAB PO SCH (10:06)
[2020-03-26] MEDS: Rosuvastatin 10 MG TAB PO SCH ×3 (10:06→19:24)
[2020-03-26] MEDS: Metoprolol Tartrate 25 MG TAB PO SCH ×2 (10:06→19:25)
[2020-03-26 10:11] LABS: SARS-CoV-2 MS2 Positive; SARS-CoV-2 N Gene Negative; SARS-CoV-2 S Gene Negative; SARS-CoV-2 orf1ab Negative
[2020-03-26] MEDS: HYDROcodone/Acetaminophen 5/325 mg Tablet PO PRN ×2 (12:12→19:25)
[2020-03-26] MEDS: Promethazine HCl 12.5 MG in Sodium Chloride 0.9% 50 ML IVPB PRN ×2 (12:13→20:53)
--- NOTE | 2020-03-26 13:44 | PDOC.HOSPP ---
- Objective Vital Signs & Weight: Vital Signs (12 hours) Temp Pulse Pulse Pulse Pulse Resp BP 03/26/20 12:58 98.6 F 03/26/20 12:05 85 15 03/26/20 11:48 94 108 H 85 03/26/20 08:06 98.9 F 93 12 03/26/20 04:45 98.2 F 92 18 134/69 03/26/20 01:45 98.4 F 84 18 119/63 BP BP BP BP BP Pulse Ox Pulse Ox 03/26/20 12:58 03/26/20 12:05 150/63 H 98 03/26/20 11:48 100/72 104/75 150/63 H 143/67 H 98 03/26/20 08:06 114/66 98 03/26/20 04:45 100 03/26/20 01:45 100 Weight Weight 203 lb 6.4 oz I&O: 03/25/20 03/26/20 03/27/20 06:59 06:59 06:59 Intake Total 850 700 Output Total 700 Balance 150 700 Result Diagrams: 03/26/20 04:57 03/26/20 04:57 Additional Labs: Accuchecks 03/26/20 03/25/20 01:53 20:44 POC Glucose 210 H 285 H Hospitalist ROS - Medication Medications: Active Medications Generic Name Dose Route Start Last Admin Trade Name Freq PRN Reason Stop Dose Admin Hydrocodone Bitart/Acetaminophen 1 tab 03/25/20 18:53 03/26/20 12:12 [place] 5/325 PO 1 tab Q4H PRN Administration Moderate Pain (4-6) Amiodarone HCl 200 mg 03/26/20 09:00 03/26/20 10:06 Cordarone PO 200 mg DAILY LUIS Administration Apixaban 5 mg 03/25/20 21:00 03/26/20 10:06 Eliquis PO 5 mg BID LUIS Administration Aspirin 81 mg 03/26/20 09:00 03/26/20 10:06 Ecotrin PO 81 mg DAILY LUIS Administration Clopidogrel Bisulfate 75 mg 03/26/20 09:00 03/26/20 10:06 Plavix PO 75 mg DAILY LUIS Administration Divalproex Sodium 500 mg 03/26/20 09:00 03/26/20 10:04 Depakote Er PO 500 mg DAILY LUIS Administration Sodium Chloride 1,000 mls @ 100 mls/hr 03/25/20 19:00 03/26/20 06:13 Normal Saline 0.9% IV Not Given .Q10H LUIS Promethazine HCl 12.5 mg/ 50.5 mls @ 102 mls/hr 03/25/20 18:58 03/26/20 12:13 Sodium Chloride IVPB 50.5 mls Q6H PRN Administration Nausea Metronidazole 500 mg/ Device 100 mls @ 100 mls/hr 03/25/20 22:00 03/26/20 06: 29 IVPB 100 mls Q8HR LUIS Administration Insulin Glargine 25 units/ 0.25 mls @ 0.25 mls/hr 03/26/20 09:00 03/26/20 10: 04 Miscellaneous Medication SC 0.25 mls QAM LUIS Administration 25 UNITS/HR Insulin Human Lispro 0 units 03/25/20 18:49 03/26/20 12:11 Humalog SC 6 unit .AGGRESSIVE SLIDING PRN Administration Aggressive Correction[employer] Scale Isosorbide Mononitrate 60 mg 03/26/20 09:00 03/26/20 10:07 Imdur PO 60 mg DAILY LUIS Administration Metoprolol Tartrate 25 mg 03/25/20 21:00 03/26/20 10:06 Lopressor PO 25 mg BID LUIS Administration Morphine Sulfate 2 mg 03/25/20 18:57 03/26/20 10:05 Morphine SLOW IVP 2 mg Q4H PRN Administration Severe Pain (7-10) Nitroglycerin 0.5 inch 03/25/20 22:00 03/26/20 06:17 Nitro-Bid 2% Ointment TOP Not Given Q8HR LUIS Pantoprazole Sodium 40 mg 03/25/20 21:00 03/26/20 10:07 Protonix PO 40 mg BID LUIS Administration Ranolazine 1,000 mg 03/25/20 21:00 03/26/20 10:06 Ranexa PO 1,000 mg BID LUIS Administration Rosuvastatin Calcium 10 mg 03/25/20 21:00 03/26/20 10:06 Crestor PO 10 mg TID LUIS Administration Sodium Chloride 10 ml 03/25/20 21:00 03/26/20 10:05 Flush - Normal Saline IVF 10 ml Q12HR LUIS Administration Hosp A/P - Plan Assessment: The patient is having multiple complaints including the followin-vertigo. 7-heybl-hqebb numbness and weakness. 0-lzct-axljm flank pain with lower abdominal pain and dysuria 4-anterior abdominal pain with nausea and diarrhea. 5-chest pain. 6-uncontrolled diabetes mellitus type 2. The patient's sugar levels have improved since yesterday. Troponins did not significantly trend upwards. Cardiology recommended medical management. His abdominal pain, diarrhea, and nausea could be related to enteritis or colitis. Will check CT abdomen pelvis with contrast. Check CT head to assess his numbness and weakness complaints.
--- NOTE | 2020-03-26 15:06 | CT ---
BRAIN CT WITHOUT IV CONTRAST: COMPARISON: 03/21/2020 and 03/20/2020. FINDINGS: No focal mass or midline shift. No intra- or extraaxial hemorrhage. Sinuses and mastoids are clear. IMPRESSION: No significant acute intracranial process. No mass or bleed. No change from prior exams, 03/21/2020, 03/20/2020. POS: RRE
--- NOTE | 2020-03-26 15:13 | CT ---
CT Abdomen Pelvis WO Con 03/26/2020 1:59 PM HISTORY: Abdominal pain. COMPARISON: 01/01/[address] abdomen and pelvis on 01/17/2020 Technique: Multiple contiguous axial CT images are obtained through the abdomen and pelvis without IV contrast. Coronal reformats are provided. FINDINGS: This examination is limited for the evaluation of solid organs and vascular structures due to the lac k of intravenous contrast. Lower Chest: Coronary artery calcifications are again seen. Lung bases are clear. Abdomen: Liver: Grossly normal non-enhanced CT appearance. Gallbladder: Surgically absent. Pancreas: Grossly normal nonenhanced CT appearance. Spleen: Grossly normal nonenhanced CT appearance. Adrenals: Grossly normal nonenhanced CT appearance. Kidneys: Right renal cyst is again seen. No renal calculi are seen bilaterally, and there is no hydro nephrosis. Ureters: No ureteral calculus is seen.. Pelvis: Urinary bladder: within normal limits. Reproductive Organs: No pelvic masses. Lymph Nodes: No enlarged lymph nodes. Bowel: Loops of small bowel are normal in caliber. No bowel wall thickening is seen involving the sma ll or large bowel. Appendix: Not visualized. Metallic densities and suture material are seen near the cecal apex suggest ing prior appendectomy. Patient reports history of prior appendectomy.. Peritoneum: No free fluid, free air, or fluid collection. Retroperitoneum: within normal limits. Vessels: Abdominal aorta is normal in caliber.. Abdominal Wall: within normal limits. Bones: No suspicious lytic or sclerotic osseous lesions are identified. Median sternotomy wires are p artially seen. There is suggestion of a remote fracture involving the distal most sternum. This may be postoperative in origin. This is a stable finding and was also seen on study in 2019. IMPRESSION: 1. No renal or ureteral calculi are seen bilaterally. 2. CT abdomen and pelvis is stable when compared to prior studies.
[2020-03-26] MEDS: traMADol HCl 50 MG TAB PO PRN ×2 (15:53→23:35)
[2020-03-26] MEDS ORDERED: Insulin Glargine 20 UNITS in Pre-Filled Syringe 1 EACH SC SCH (21:00)
[2020-03-27] MEDS ORDERED: Zolpidem Tartrate 5 MG TAB PO SCH ×2 (01:00→21:00)
[2020-03-27] MEDS: metroNIDAZOLE 500 MG in Premix Bag 1 BAG IVPB SCH (05:22)
[2020-03-27] MEDS: Nitroglycerin 2% Ointment 1 INCH/1 GM Packet TOP SCH (05:23)
[2020-03-27 05:35] VITALS: TEMP 97.8
[2020-03-27] MEDS: Promethazine HCl 12.5 MG in Sodium Chloride 0.9% 50 ML IVPB PRN (06:23)
[2020-03-27] MEDS: Amiodarone 200 MG TAB PO SCH (08:51)
[2020-03-27] MEDS: Apixaban 5 MG TAB PO SCH (08:51)
[2020-03-27] MEDS: Aspirin 81 mg Enteric Coated Tablet PO SCH (08:52)
[2020-03-27] MEDS: Metoprolol Tartrate 25 MG TAB PO SCH (08:52)
[2020-03-27] MEDS: Clopidogrel Bisulfate 75 MG TAB PO SCH (08:52)
[2020-03-27] MEDS: Insulin Glargine 25 UNITS in Pre-Filled Syringe 1 EACH SC SCH (08:52)
[2020-03-27] MEDS: Rosuvastatin 10 MG TAB PO SCH (08:52)
[2020-03-27 09:38] VITALS: BP 138/94
--- NOTE | 2020-03-27 22:30 | DIS ---
DATE OF ADMISSION: 03/25/2020 DATE OF DISCHARGE: 03/27/2020 DISCHARGE DIAGNOSES: 1. Chest pain. 2. History of coronary artery disease. 3. Abdominal pain. 4. Diarrhea. 5. Hyperglycemia. 6. Acute kidney injury. 7. Hypertension. 8. Hyperlipidemia. HISTORY OF PRESENT ILLNESS: The patient is a 44-year-old male, who has been admitted to this hospital numerous times for various complaints frequently related to chest pain. The patient presented on this occasion reporting some atypical chest pain and abdominal pain with diarrhea. He was mildly tachycardic at 117 and labs revealed increase in his creatinine over baseline consistent with acute kidney injury with a creatinine of 1.32. The patient also was noted to have significant hyperglycemia. The patient had a history of documented noncompliance with his medications as well. He had a beta hydroxybutyrate of 1.45 with an anion gap of 20. HOSPITAL COURSE: The patient was admitted to the hospital. He had telemetry serial enzymes, which were unremarkable. Blood and urine cultures were unremarkable. Vital signs remained stable. The patient subsequently was felt to be stable for discharge to home. However, he threatened a lawsuit if he did not get further evaluation. Therefore, CT scan of the abdomen and pelvis was obtained which was also unremarkable. The patient then complained of headache with some numbness in his upper extremities. He reported a history of headache for which he is being treated at the [facility] and for which he is taking the Tegretol, however, was not working on this particular occasion. The patient had orthostatic vital signs obtained which were normal and the patient was determined to be stable for discharge to home. Of note, Cardiology was contacted regarding the patient's admission as he had been here very recently and they had been involved in his care. They felt the patient should continue on medical management for coronary disease. PHYSICAL EXAMINATION: VITAL SIGNS: On the day of discharge, he is afebrile, pulse is 79 to 111, respirations 16, O2 saturation 94% on room air, and BP is 138/94. GENERAL APPEARANCE: Age-appropriate male, in no distress. Awake and alert. HEART: Regular rate and rhythm without murmurs. LUNGS: Clear. ABDOMEN: Soft, nontender, and nondistended. EXTREMITIES: No edema. Blood sugar was 116. DISPOSITION: The patient is discharged to home. DIET: He is to have a heart healthy diet. ACTIVITY: Activity level is as tolerated. FOLLOWUP: He will follow up at the [facility] in [place]. MEDICATIONS: Include: 1. Nitroglycerin sublingual 0.4 mg q.5 minutes p.r.n. 2. BuSpar 5 mg b.i.d. 3. Eliquis 5 mg b.i.d. 4. Aspirin 81 mg daily. 5. Plavix 75 mg daily. 6. Depakote 500 mg daily. 7. Pantoprazole 40 mg b.i.d. 8. Duloxetine 60 mg at bedtime. 9. Isosorbide 60 mg p.o. daily. 10. Crestor 10 mg p.o. t.i.d. 11. Meclizine 12.5 mg t.i.d. p.r.n. vertigo. 12. Metoprolol 25 mg b.i.d. 13. Ranexa 1000 mg b.i.d. 14. Humalog 12 units subcu t.i.d. with additional sliding scale. 15. Baclofen 10 mg t.i.d. p.r.n. hiccups. 16. Ambien 10 mg at bedtime. 17. Lantus 50 units subcu q.a.m. and 40 units subcu at bedtime. The patient again is to follow up with the [facility] in [place]. He can return to the hospital at anytime should he have the need to do so. Job ID: [id number]
--- NOTE | 2020-03-31 14:09 | EKG ---
Test Reason : Blood Pressure : / mmHG Vent. Rate : 117 BPM Atrial Rate : 117 BPM P-R Int : 140 ms QRS Dur : 082 ms QT Int : 340 ms P-R-T Axes : 073 049 049 degrees QTc Int : 474 ms Sinus tachycardia Possible Left atrial enlargement Borderline ECG Confirmed by PAULA SEBASTIAN DO ([id number]), editor sound RONALD GUY ([id number]) on 03/31/2020 2:08:41 PM Referred By: Confirmed By:PAULA SEBASTIAN DO
== END 2020-03-27 12:45 | disposition home or self-care (01) ==
LOC: ERS 14:07 → 2SW 17:49
PROVIDERS: ADMIT Internal Medicine; ATTEND Internal Medicine
DX: R07.89 Other chest pain (principal); I25.10 Atherosclerotic heart disease of native coronary artery without angina pectoris; R10.9 Unspecified abdominal pain; R19.7 Diarrhea, unspecified; N17.9 Acute kidney failure, unspecified; E78.5 Hyperlipidemia, unspecified; E10.65 Type 1 diabetes mellitus with hyperglycemia; E10.42 Type 1 diabetes mellitus with diabetic polyneuropathy; I25.2 Old myocardial infarction; I26.99 Other pulmonary embolism without acute cor pulmonale; F90.9 Attention-deficit hyperactivity disorder, unspecified type; Z79.01 Long term (current) use of anticoagulants; Z79.4 Long term (current) use of insulin; Z79.82 Long term (current) use of aspirin; Z79.899 Other long term (current) drug therapy; Z88.1 Allergy status to other antibiotic agents; Z88.6 Allergy status to analgesic agent; Z88.8 Allergy status to other drugs, medicaments and biological substances; Z95.1 Presence of aortocoronary bypass graft; Z95.5 Presence of coronary angioplasty implant and graft
CPT/HCPCS: 36415; 36416; 70450; 71045; 74176; 80048; 80053; 80061; 81003; 82010; 82330; 82803; 83605; 83690; 83735; 83880; 84443; 84484; 85025; 87040; 87086; 87635; 93005; 94760; 96361; 96365; 96366; 96367; 96368; 96374; 96375; 96376; G0378; J1815; J2270; J2550; J3475; U0003